=== PATIENT | male | born 1960 | race Caucasian/White ===

== ENCOUNTER → 2017-09-23 | Outpatient (CLI) | payer OTHER ==
[~2017-09-23] MED LIST: AMIT100T2 PO; BUPR-79 PO; CLC100 PO; CYCL10TA6 PO; GLC/500 PO; INSU1INJ SC; METO50TA16 PO; MGNO400 PO; NTRGSL/4 UT; RXC5 PO; SIMV40TA4 PO; ULT50X PO
--- NOTE | 2017-09-23 16:10 | DIAGNOSTIC IMAGING REPORT ---
CHEST 2 VIEWS ROUTINE CLINICAL HISTORY: COUGH COMPARISON STUDY: December 02, 2015 FINDINGS: The heart is mildly enlarged. There is no failure. There are old bilateral rib fractures. There is focal consolidation. There is a linear atelectasis/scarring at the left lung base. There are no significant pleural effusions.[ IMPRESSION: Mild cardiomegaly. No acute findings. Electronically signed by: Felix Hines M.D. 09/23/2017 4:08 PM Dictated Date/Time: 09/23/2017 4:07 PM
== END | disposition home or self-care (01) ==
LOC: C.RAD1850 15:52
PROVIDERS: ATTEND Family Medicine
DX: R05 Cough (principal)

== ENCOUNTER 2017-10-11 22:03 | Emergency (ER) | payer OTHER ==
[~2017-10-11] VITALS: Ht 170.2 cm; Wt 111.7 kg
[2017-10-11 22:06] VITALS: TEMP 36.8; Ht 170.2 cm; Wt 111.7 kg
[2017-10-11] MEDS ORDERED: SODIUM CHLORIDE 0.9% 500ML 500 ML IV STA (22:19)
[2017-10-11] MEDS ORDERED: CLINDAMYCIN 600 MG/54 ML D5W IV STA (22:19)
--- NOTE | 2017-10-11 22:22 | EMERGENCY ROOM VISIT NOTE ---
History Report prepared by Ilya: Annetta Randall Under the Supervision of: Dr. Jay Chacon M.D. First contact with patient: 22:08 Chief Complaint: INFECTION Stated Complaint: STAPH INFECTION History of Present Illness The patient is a 57 year old male who presents to the Emergency Room with complaints of a left lower leg infection beginning 3 weeks ago. The patient reports that he has been on antibiotics for about 3 weeks and was recently changed to Bactrim. Per family, the patient did have redness and swelling of his leg but reports that now it has become red and inflamed where it was not before. Per family, there are also two new ulcers on his leg. Per family, the patient has had a cough but denies fevers, chills, nausea, vomiting.. His family states that they have been going to his doctor weekly. The patient states that he is diabetic, but denies a history of blood clots. Source of History: patient, family Onset: 3 weeks ago Position: leg (right) Quality: other (infection) Timing: constant Associated Symptoms: + cough Review of Systems See HPI for pertinent positives and negatives. A total of ten systems were reviewed and were otherwise negative. Past Medical & Surgical Medical Problems: (1) Acute cholecystitis (2) Altered mental status (3) Arthritis (4) Ascending cholangitis (5) Back pain (6) Diabetes mellitus (7) Fall (8) Fall (9) Fibromyalgia (10) HTN (hypertension) (11) Hyperglycemia due to type 2 diabetes mellitus (12) Hyperlipidemia Nec/Nos (13) Intractable back pain (14) Laceration (15) Left rib fracture (16) Left rib fracture (17) Lumbar disc disease (18) Lumbar stenosis with neurogenic claudication (19) Orthostasis (20) Orthostatic hypotension (21) Right rib fracture Surgical Problems: (1) History of back surgery (2) Hx of cholecystectomy Family History Diabetes mellitus FH: cancer Heart disease Hypertension Lung disease Social History Smoking Status: Former Smoker Alcohol Use: none Marital Status: Housing Status: lives with family Occupation Status: unemployed, disabled Current/Historical Medications Scheduled Amitriptyline Hcl (Elavil), 100 MG PO HS Bupropion (Wellbutrin Sr), 150 MG PO BID Clindamycin Hcl (Clindamycin Hcl), 600 MG PO TID Gabapentin (Neurontin), 100 MG PO TID Glipizide (Glucotrol), 5 MG PO DAILY Insulin Isophan/Regular (Humulin 70/30), 15 UNITS SC BID Metformin Hcl (Glucophage), 500 MG PO BID Metoprolol Tartrate (Lopressor) (Lopressor), 50 MG PO BID Saccharomyces Boulardii (Florastor), 1 CAP PO BID Sulfa/Trimethoprim (Bactrim Ds 800MG/160MG), 1 TAB PO BID Scheduled PRN Ibuprofen Tab (Motrin), 800 MG PO Q8H PRN for Pain Nitroglycerin (Nitrostat), 0.4 MG UT UD PRN for Chest Pain Tramadol HCl (Tramadol HCl), 50 MG PO Q8H PRN for MODERATE TO SEVERE PAIN Allergies Coded Allergies: Clavulanic Acid (Verified Allergy, Unknown, HIVES: ALLERGY TO "BETALACTAMASE INHIBITORS", 12/01/15) Penicillins (Verified Allergy, Unknown, HIVES, 12/02/15) TOLERATED ERTAPENEM X MULTIPLE DOSES NOVEMBER 2015 Tazobactam (Verified Allergy, Unknown, ALLERGY TO "BETALACTAMASE INHIBITORS", 12/01/15) Acetaminophen (Unverified Adverse Reaction, Intermediate, AFFECTS HIS LIVER, 12/01/15) Lisinopril (Verified Adverse Reaction, Intermediate, COUGH/EDEMA, 12/01/15) Physical Exam Vital Signs Date Time Temp Pulse Resp B/P (MAP) Pulse Ox O2 Delivery O2 Flow Rate FiO2 10/12/17 00:01 82 18 162/89 98 Room Air 10/11/17 22:06 36.8 68 18 127/71 99 Room Air Physical Exam GENERAL: Awake, alert, well-appearing, in no distress HENT: Normocephalic, atraumatic. Dry, cracked mucous membranes, oropharynx unremarkable. EYES: Normal conjunctiva. Sclera non-icteric. NECK: Supple. No nuchal rigidity. FROM. No JVD. RESPIRATORY: Clear to auscultation. CARDIAC: Regular rate, normal rhythm. Extremities warm and well perfused. Pulses equal. ABDOMEN: Soft, non-distended. No tenderness to palpation. No rebound or guarding. No masses. RECTAL: Deferred. MUSCULOSKELETAL: Chest examination reveals no tenderness. The back is symmetrical on inspection without obvious abnormality. There is no CVA tenderness to palpation. No joint edema. LOWER EXTREMITIES: Calves are equal size bilaterally and non-tender. 3+ left lower extremity pitting edema with mild erythema and warmth. 3 scattered ulcerations on the left lower extremity without induration or underlying fluctuance. No crepitus. Distal PMS intact. NEURO: Normal sensorium. No sensory or motor deficits noted. SKIN: No jaundice noted. Medical Decision & Procedures ER Provider Diagnostic Interpretation: Radiology results as stated below per my review and radiologist interpretation: L TIBIA/FIBULA 2 VIEWS ROUTINE CLINICAL HISTORY: pain swelling COMPARISON: 09/21/2015 DISCUSSION: There is soft tissue edema. No acute fractures are visualized. No bony destructive lesions are evident. A small soft tissue ulceration within the lateral aspect of the mid calf cannot be excluded. IMPRESSION: 1. No fractures identified 2. No destructive lesions identified 3. Soft tissue edema Electronically signed by: Felix Hines M.D. 10/11/2017 10:53 PM Dictated Date/Time: 10/11/2017 10:52 PM Radiology results as stated below per my review and [employer]. US VENOUS LEFT LOWER EXTREMITY: No DVT demonstrated. Laboratory Results 10/11/17 22:30 Red Blood Count 4.75, Mean Corpuscular Volume 85.7, Mean Corpuscular Hemoglobin 28.6, Mean Corpuscular Hemoglobin Concent 33.4, Mean Platelet Volume 9.2, Neutrophils (%) (Auto) 50.8, Lymphocytes (%) (Auto) 37.2, Monocytes (%) (Auto) 6.5, Eosinophils (%) (Auto) 5.1, Basophils (%) (Auto) 0.2, Neutrophils # (Auto) 2.88, Lymphocytes # (Auto) 2.11, Monocytes # (Auto) 0.37, Eosinophils # (Auto) 0.29, Basophils # (Auto) 0.01 10/11/17 22:30 Test 10/11/17 22:30 White Blood Count 5.67 K/uL (4.8-10.8) Red Blood Count 4.75 M/uL (4.7-6.1) Hemoglobin 13.6 g/dL (14.0-18.0) Hematocrit 40.7 % (42-52) Mean Corpuscular Volume 85.7 fL (80-100) Mean Corpuscular Hemoglobin 28.6 pg (25-34) Mean Corpuscular Hemoglobin Concent 33.4 g/dl (32-36) Platelet Count 179 K/uL (130-400) Mean Platelet Volume 9.2 fL (7.4-10.4) Neutrophils (%) (Auto) 50.8 % Lymphocytes (%) (Auto) 37.2 % Monocytes (%) (Auto) 6.5 % Eosinophils (%) (Auto) 5.1 % Basophils (%) (Auto) 0.2 % Neutrophils # (Auto) 2.88 K/uL (1.4-6.5) Lymphocytes # (Auto) 2.11 K/uL (1.2-3.4) Monocytes # (Auto) 0.37 K/uL (0.11-0.59) Eosinophils # (Auto) 0.29 K/uL (0-0.5) Basophils # (Auto) 0.01 K/uL (0-0.2) RDW Standard Deviation 44.7 fL (36.4-46.3) RDW Coefficient of Variation 14.3 % (11.5-14.5) Immature Granulocyte % (Auto) 0.2 % Immature Granulocyte # (Auto) 0.01 K/uL (0.00-0.02) Anion Gap 8.0 mmol/L (3-11) Est Creatinine Clear Calc Drug Dose 96.8 ml/min Estimated GFR () 97.4 Estimated GFR (Non- 84.1 BUN/Creatinine Ratio 16.1 (10-20) Calcium Level 8.7 mg/dl (8.5-10.1) Total Bilirubin 0.5 mg/dl (0.2-1) Direct Bilirubin 0.2 mg/dl (0-0.2) Aspartate Amino Transf (AST/SGOT) 54 U/L (15-37) Alanine Aminotransferase (ALT/SGPT) 59 U/L (12-78) Alkaline Phosphatase 96 U/L (45-117) Total Protein 7.9 gm/dl (6.4-8.2) Albumin 3.2 gm/dl (3.4-5.0) Lipase 147 U/L (73-393) Laboratory results reviewed by me Medications Administered Medications (Trade) Dose Ordered Sig/Schuyler Route Start Time Stop Time Status Last Admin Dose Admin Sodium Chloride 500 ml @ 999 mls/hr Q31M STAT IV 10/11/17 22:19 10/11/17 22:49 DC 10/11/17 22:39 999 MLS/HR Clindamycin Phosphate (Cleocin 600mg/ 54ml D5W) 600 mg NOW STAT IV 10/11/17 22:19 10/11/17 22:24 DC 10/11/17 22:19 600 MG Ketorolac Tromethamine (Toradol Inj) 15 mg NOW STAT IV 10/12/17 01:11 10/12/17 01:13 DC 10/12/17 01:22 15 MG ED Course 2214: The patient was evaluated in room C11B. A complete history and physical exam was performed. Medical Decision I reviewed the patient's past medical history, medications, and the nursing notes as described above. The patient's presentation and history were concerning for cellulitis, abscess, osteomyelitis, DVT, and venous ulcerations. The patient is a 57-year-old gentleman with a past medical history of diabetes, hypertension, hyperlipidemia who presents emergency department with the report of worsening left lower extremity cellulitis that has been treated outpatient most recently with Bactrim per hpi. On arrival the patient is relatively well- appearing in no acute distress, afebrile stable vital signs. Of note, the patient denies any systemic symptoms such as fever chills, nausea vomiting. Exam the patient has 3+ left lower extremity edema with mild erythema and warmth with several scattered ulcerations without any underlying fluctuance. Patient treated with IV clindamycin empirically on arrival. Labs unremarkable including WBC within normal limits. X-ray negative for any osseous involvement. Duplex negative for DVT. Bedside soft tissue ultrasound of the 3 ulcers demonstrates no discrete fluid collection. The larger ulcer on the lateral aspect of the patient's calf does have cobblestoning/phlegmon consistent with the patient cellulitis with no discrete fluid collection concerning for abscess. Given reassuring workup in the setting of the patient being afebrile with no signs of systemic infection, continued outpatient management is reasonable with change in antibiotic coverage. Plan for oral clindamycin, compression, elevation and prompt wound clinic follow-up for ulcer debridement and continued follow-up. Patient was given strict return instructions should his symptoms become worse over the weekend. Case management assisting for wound clinic referral. Findings and plan for follow-up reviewed with patient. Patient agreeable and d/c'd per discharge instructions. Medication Reconcilliation Current Medication List: was personally reviewed by ny Blood Pressure Screening Patient's blood pressure: Normal blood pressure Impression Primary Impression: Cellulitis Additional Impression: Diabetic ulcer of lower leg Scribe Attestation The scribe's documentation has been prepared under my direction and personally reviewed by me in its entirety. I confirm that the note above accurately reflects all work, treatment, procedures, and medical decision making performed by me. Departure Information Dispostion Home / Self-Care Prescriptions Ibuprofen Tab (MOTRIN) 800 Mg Tab 800 MG PO Q8H Y for Pain for 7 Days, #21 TAB Prov: Jay Chacon M.D. 10/12/17 Saccharomyces Boulardii (Florastor) 250 Mg Cap 1 CAP PO BID for 14 Days, #28 CAP Prov: Jay Chacon M.D. 10/12/17 Clindamycin Hcl (CLINDAMYCIN HCL) 150 Mg Cap 600 MG PO TID for 14 Days, #168 CAP Prov: Jay Chacon M.D. 10/12/17 Referrals Mina MillerD.OHaresh (PCP) Patient Instructions Diabetic Foot Ulcer Dc, ED Infec Skin Cellulitis, My [facility] Additional Instructions Please follow up with your primary care physician and wound clinic on Saturday for re-evaluation and ulcer debridement and regular follow up. You have a continued skin infection. Otherwise, your exam, lab results, xray, and ultrasound did not show signs of an emergent condition at this time. Acetaminophen or ibuprofen for pain and fevers as needed. Clindamycin as directed. Florastor, probiotic, to help prevent antibiotic associated diarrhea. Drink plenty of fluids to ensure hydration. Return to the emergency department for worsening symptoms as described in the accompanying instructions. Problem Qualifiers
[2017-10-11 22:53] LABS: BASO % 0.2 %; BASO ABS # 0.01 K/uL (0-0.2); EOS % 5.1 %; EOS ABS # 0.29 K/uL (0-0.5); HEMATOCRIT 40.7 % (42-52); HEMOGLOBIN 13.6 g/dL (14.0-18.0); IG# 0.01 K/uL (0.00-0.02); LYMPH % 37.2 %; LYMPH ABS # 2.11 K/uL (1.2-3.4); MEAN CELL VOLUME 85.7 fL (80-100); MEAN CORPUSCULAR HEMOGLOBIN 28.6 pg (25-34); MEAN CORPUSCULAR HGB CONC 33.4 g/dl (32-36); MEAN PLATELET VOLUME 9.2 fL (7.4-10.4); MONO % 6.5 %; MONO ABS # 0.37 K/uL (0.11-0.59); NEUT % 50.8 %; NEUT ABS # 2.88 K/uL (1.4-6.5); PLATELET COUNT 179 K/uL (130-400); RED CELL DISTRIBUTION WIDTH CV 14.3 % (11.5-14.5); RED CELL DISTRIBUTION WIDTH SD 44.7 fL (36.4-46.3); WHITE BLOOD COUNT 5.67 K/uL (4.8-10.8)
--- NOTE | 2017-10-11 22:54 | DIAGNOSTIC IMAGING REPORT ---
L TIBIA/FIBULA 2 VIEWS ROUTINE CLINICAL HISTORY: pain swelling COMPARISON: 09/21/2015 DISCUSSION: There is soft tissue edema. No acute fractures are visualized. No bony destructive lesions are evident. A small soft tissue ulceration within the lateral aspect of the mid calf cannot be excluded. IMPRESSION: 1. No fractures identified 2. No destructive lesions identified 3. Soft tissue edema Electronically signed by: Felix Hines M.D. 10/11/2017 10:53 PM Dictated Date/Time: 10/11/2017 10:52 PM
[2017-10-11 23:08] LABS: ALBUMIN 3.2 gm/dl (3.4-5.0); CALCIUM 8.7 mg/dl (8.5-10.1); CREATININE 0.98 mg/dl (0.60-1.40); POTASSIUM 3.9 mmol/L (3.5-5.1)
[2017-10-11] MEDS ORDERED: SULF800T23 PO (23:09)
[2017-10-11] MEDS ORDERED: GABA-112 PO (23:09)
[2017-10-11] MEDS ORDERED: GLIP5TAB3 PO (23:09)
[2017-10-11 23:11] LABS: TOTAL PROTEIN 7.9 gm/dl (6.4-8.2)
[2017-10-12] MEDS ORDERED: IBUP-1451 PO (01:11)
[2017-10-12] MEDS ORDERED: KETOROLAC TROMETHAMINE 30 MG/ML VIAL IV STA (01:11)
[2017-10-12] MEDS ORDERED: SACC250C3 PO (01:11)
[2017-10-12] MEDS ORDERED: CLIN150C15 PO (01:11)
[2017-10-12 01:37] VITALS: BP 142/77; PULSE 88; O2SAT 98
--- NOTE | 2017-10-12 05:36 | DIAGNOSTIC IMAGING REPORT ---
L VENOUS DOPP LOWER EXT UNILAT CLINICAL HISTORY: 57 years-old Male presenting with pain swelling. TECHNIQUE: Real-time grayscale and color and spectral Doppler ultrasound imaging of the veins of the left lower extremity was performed. Compression and augmentation were also utilized. COMPARISON: 09/23/2015. FINDINGS: Left: Common femoral vein: Patent. Greater saphenous vein: Patent. Deep femoral vein: Patent. Femoral vein: Patent. Popliteal vein: Patent. Calf veins: Limited visualization. Other: None. IMPRESSION: No evidence of deep venous thrombosis. Electronically signed by: Russ Leiva M.D. 10/12/2017 5:34 AM Dictated Date/Time: 10/12/2017 5:34 AM
== END 2017-10-12 01:39 | disposition home or self-care (01) ==
LOC: C.EDB 22:03 → C.EDC 10-12 01:39
DX: L03.116 Cellulitis of left lower limb (principal); E11.622 Type 2 diabetes mellitus with other skin ulcer; M19.90 Unspecified osteoarthritis, unspecified site; M79.7 Fibromyalgia; I10 Essential (primary) hypertension; E78.5 Hyperlipidemia, unspecified; M48.062 Spinal stenosis, lumbar region with neurogenic claudication; I95.1 Orthostatic hypotension; Z83.3 Family history of diabetes mellitus; Z80.9 Family history of malignant neoplasm, unspecified; Z82.49 Family history of ischemic heart disease and other diseases of the circulatory system; Z83.6 Family history of other diseases of the respiratory system; Z87.891 Personal history of nicotine dependence; Z79.2 Long term (current) use of antibiotics; Z79.899 Other long term (current) drug therapy; Z88.0 Allergy status to penicillin; Z88.1 Allergy status to other antibiotic agents; Z88.6 Allergy status to analgesic agent; Z88.8 Allergy status to other drugs, medicaments and biological substances

== ENCOUNTER 2019-08-27 05:11 | Observation (INO) ==
--- NOTE | 2019-08-13 08:36 | PAT Medication Instructions ---
Medication Instructions Date of Service August 13, 2019 Home Medications Humulin 70/30 U-100 Insulin 15 units SUBCUT BID 03/18/18 [History Confirmed 08/12/19] amitriptyline 100 mg PO HS 03/18/18 [History Confirmed 08/12/19] bupropion HCl [Wellbutrin SR] 150 mg PO HS 03/18/18 [History Confirmed 08/12/19] glipizide 5 mg PO QAM 03/18/18 [History Confirmed 08/12/19] metoprolol tartrate [Lopressor] 50 mg PO QAM 03/18/18 [History Confirmed 08/12/19] gabapentin 100 mg capsule 300 mg PO TID cap 08/10/19 [History Confirmed 08/12/19] metformin 500 mg tablet 1,000 mg PO BID tab 08/10/19 [History Confirmed 08/12/19] naproxen 1 tab PO BID 08/12/19 [History Confirmed 08/12/19] tramadol 50 mg PO TID PRN 08/12/19 [History Confirmed 08/12/19] ASK your surgeon for instructions naproxen 1 tab PO BID 08/12/19 [History Confirmed 08/12/19] DO NOT take the morning of surgery glipizide 5 mg PO QAM metformin 500 mg tablet 1,000 mg PO BID Take morning of surgery With a small sip of water, OTHERWISE NOTHING TO EAT OR DRINK AFTER MIDNIGHT: metoprolol tartrate [Lopressor] 50 mg PO QAM gabapentin 100 mg capsule 300 mg PO TID tramadol 50 mg PO TID PRN (okay to take up to 4 hours prior to surgery if needed) Take evening before surgery Humulin 70/30 U-100 Insulin 15 units SUBCUT BID amitriptyline 100 mg PO HS bupropion HCl [Wellbutrin SR] 150 mg PO HS gabapentin 100 mg capsule 300 mg PO TID tramadol 50 mg PO TID PRN (if needed) metformin 500 mg tablet 1,000 mg PO BID tab 08/10/19 [History Confirmed 08/12/19] Insulin Dependent Diabetic Patients * Test your blood sugar the morning of surgery * If Blood Sugar is GREATER THAN 150, take HALF of your regular dose of: Humulin 70/30 U-100 Insulin take 7 units * If Blood Sugar is LESS THAN 150, DO NOT TAKE ANY: Humulin 70/30 U-100 Insulin Other Notes If you have any questions please call us at [phone] or [phone] or [phone] or [phone]
--- NOTE | 2019-08-14 08:32 | Anesthesiology Consultation ---
Date of Service August 14, 2019 Assessment & Plan (1) Encounter for pre-operative examination: CHECK BSG AM DOS Chart Review Chart Review: Acceptable Risk for Surgery and Patient seen in Pre Admission Testing Teaching & Discussion Instructed NPO after midnight before surgery, except medications with 15 cc of water. Medication instructions provided according to the PAT guidelines. History Surgery Operation Date: 08/27/19 07:00 Proposed Procedures p Open Right Inguinal Hernia Repair with Mesh - Floyd Younger, Height/Weight Height: 5 ft 10 in Weight: 108.3 kg Allergies Allergy/AdvReac Type Severity Reaction Status Date / Time clavulanic acid Allergy Unknown HIVES: Verified 08/12/19 09:02 ALLERGY TO "BETALACTAMASE INHIBITORS" Penicillins Allergy Unknown HIVES Verified 08/12/19 09:02 tazobactam Allergy Unknown ALLERGY TO Verified 08/12/19 09:02 "BETALACTAMASE INHIBITORS" acetaminophen AdvReac Intermediate AFFECTS Verified 08/12/19 09:02 HIS LIVER lisinopril AdvReac Intermediate COUGH/EDEMA Verified 08/12/19 09:02 Medications Home Medications Medication Instructions Recorded Confirmed Last Taken Humulin 70/30 U-100 Insulin 15 units SUBCUT BID 03/18/18 08/12/19 08/27/18 12:00 amitriptyline 100 mg PO HS 03/18/18 08/12/19 08/26/18 22:00 bupropion HCl [Wellbutrin SR] 150 mg PO HS 03/18/18 08/12/19 08/26/18 22:00 glipizide 5 mg PO QAM 03/18/18 08/12/19 08/27/18 11:00 metoprolol tartrate [Lopressor] 50 mg PO QAM 03/18/18 08/12/19 08/27/18 22:00 gabapentin 100 mg capsule 300 mg PO TID cap 08/10/19 08/12/19 Unknown metformin 500 mg tablet 1,000 mg PO BID tab 08/10/19 08/12/19 Unknown naproxen 1 tab PO BID 08/12/19 08/12/19 Unknown tramadol 50 mg PO TID PRN 08/12/19 08/12/19 Unknown Past Medical History Medical History Atypical chest pain Per 2016 cardio consult, "He has a long history of atypical chest discomfort and cardiovascular evaluations, he had a abnormal stress test in February 2007 and ultimately had a cardiac catheterization performed on 04/08/2007. This c atheterization showed no coronary artery disease." Chronic back pain Degenerative disc disease Depression Diabetes mellitus, type 2 iddm Diabetic neuropathy Fatty liver GURROLA Hypertension Osteoarthritis Rheumatic nodule B/L hands Rheumatoid arthritis Follows with rheum, does not know name of Dr Exercise / Class Metabolic Activity III < 4 Walking/Shop/Light housework (+SOB with ambulation, uses cane. +CP randomly, not assc with activity, also occurs at rest.) Past Family History Family History Mother Diabetes Father Heart disease Other Family history non-contributory No family history of adverse response to anesthesia Past Surgical History Surgical History History of bronchoscopy ~2007 (per medical record, pt denies) History of cardiac cath [facility] 2006 -- no stents. History of cholecystectomy 12/01/15 - MAC#4, ETT#8.0, Grade 1 View with easy placement. 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 History of tonsillectomy History of total hip arthroplasty left hip Past Anesthesia History No Hx of Anesthesia Complications and No Family Hx of Anesthesia Complications History of PONV No Hx of PONV and Hx of Motion Sickness Social History Smoking Status: Never smoker Do You Dip or Chew Tobacco: No Hx Alcohol Use: No Hx Substance Use: No substance use type: does not use Review of Systems Pt denies any recent shortness of breath above baseline, cough, fever or URI. +palpitations +chest pain yesterday Physical Exam Vital Signs BP: 117/73 P: 94bpm SPO2: 95% RA T: 97.6 F R: 20 Constitutional + obese ENMT Mouth: + edentulous; no chipped teeth and no loose teeth Thyromental Distance: > or= 3.5 Finger Breadths (.5) Mallampati Class: II Large uvula. Neck + thick neck, + limited neck extension (mildly) and + facial hair (short goatee) Respiratory normal respiratory effort Auscultation: lungs clear to auscultation bilaterally and + crackles (very soft L lung base) Cardiovascular Rate/Rhythm: regular rhythm and + tachycardic (borderline) Vessels: no carotid bruit Extremities: no edema Testing Laboratory Results 08/14/19 08:37 08/14/19 08:37 Hemoglobin A1c 6.6 % (4.5-5.6) H 08/14/19 08:37 Electrocardiogram Date: 08/14/19 Sinus rhythm at 90 bpm with first-degree AV block. Compared with EKG of 08/19/2018, no significant change was found. Chest X-Ray Date: 08/14/19 FINDINGS: No pneumothorax. Stable blunting the left lateral costophrenic sulcus and left basilar linear densities suggestive of scarring. Old, healed left-sided rib fractures are again noted. No new focal lung consolidations. Old, right rib fractures are also noted. The heart remains mildly enlarged. No evidence for pulmonary edema. IMPRESSION: No significant change compared to the prior study. No acute process. Chronic left basilar changes are again noted. Echocardiogram Date: 09/23/15 EF: Estimated 60-65%. 1. Normal left ventricular size and systolic function. No definite regional wall motion abnormalities. Mild to moderate concentric left ventricular hypertrophy. 2. The left atrium is mildly dilated. 3. No significant valvular abnormalities visualized. 4. Technically difficult study. Stress Test Date: 09/23/15 Type: DSE Resting EF: 60-65% No ischemic changes noted on DSE at 65% MPHR. The target heart rate was not obtained. Cannot rule out ischemic changes at faster heart rates. Nondiagnostic dobutamine EKG as target heart rate is not obtained. No chest pain reported. No arrhythmia was noted with stress. Appropriate blood pressure response. Technically difficult study, enhanced with IV Definity. Baseline echo shows normal LV size and systolic function. No definite regional wall motion abnormalities. Mild to moderate concentric LVH. The left atrium is mildly dilated. No significant valvular abnormalities visualized. Technically difficult study. Cardiac Catheterization Date: 04/08/07 FINDINGS: The left main was normal. The LAD was normal and gave rise to a large D1 as well as a small D2. There was no disease in the LAD system. The left circumflex gave rise to a small ramus and a large branching M1. There was no disease in the left circumflex system. The right coronary artery gave rise to a large acute marginal that supplied some of the PDA territory. There was also a small PDA and two posterolateral branches. There was no disease in the right coronary artery system. IMPRESSION: Atypical chest pain in a patient with diabetes. His stress test was negative but inadequate. Imaging portion was likely a false positive. The patient should continue with primary prevention. This is managed by Dr. Mina Miller.
[2019-08-14 09:30] LABS: Basophils # (auto) 0.02 K/uL (0-0.2); Basophils % (auto) 0.4 %; Eosinophils # (auto) 0.32 K/uL (0-0.5); Eosinophils % (auto) 5.6 %; Hematocrit (blood only) 42.5 % (42-52); Hemoglobin 13.7 g/dL (14.0-18.0); Lymphocytes # (auto) 2.16 K/uL (1.2-3.4); Mean Corpuscular Hemoglobin 30.3 pg (25-34); Mean Corpuscular Hgb Conc 32.2 g/dL (32-36); Mean Platelet Volume 9.9 fL (7.4-10.4); Monocytes # (auto) 0.46 K/uL (0.11-0.59); Monocytes % (auto) 8.1 %; Neutrophils # (auto) 2.73 K/uL (1.4-6.5); Neutrophils % (auto) 47.9 %; Platelet Count 166 K/uL (130-400); RDW Coefficient of Variation 14.1 % (11.5-14.5); RDW Standard Deviation 48.5 fL (36.4-46.3); Red Blood Count 4.52 M/uL (4.7-6.1); White Blood Count 5.69 K/uL (4.8-10.8)
[2019-08-14 09:38] LABS: Estimated Average Glucose 143 mg/dl; Hemoglobin A1C 6.6 % (4.5-5.6)
[2019-08-14 09:39] LABS: BUN Creatinine Ratio 18.8 (10-20); Calcium 8.7 mg/dl (8.5-10.1); Creatinine Clr Calc Pharmacy 82.4 ml/min; Est GFR (African American) 78.3; Est GFR (Non-African American) 67.6; Potassium 4.5 mmol/L (3.5-5.1)
--- NOTE | 2019-08-14 16:44 | Electrocardiogram Report ---
Test Reason : Blood Pressure : / mmHG Vent. Rate : 090 BPM Atrial Rate : 090 BPM P-R Int : 252 ms QRS Dur : 108 ms QT Int : 392 ms P-R-T Axes : 071 020 058 degrees QTc Int : 479 ms Sinus rhythm with 1st degree A-V block Otherwise normal ECG When compared with ECG of 19-AUG-2018 09:44, No significant change was found Confirmed by Arnel Ludwig ([id number]) on 08/14/2019 4:44:17 PM Referred By: Floyd Younger Confirmed By:Arnel Ludwig
[2019-08-27] MEDS ORDERED: LR 15ML/HR IV SCH (06:00)
[2019-08-27] MEDS ORDERED: CLINDAMYCIN 900 MG / 50ML D5W IV SCH (06:00)
--- NOTE | 2019-08-27 06:23 | History & Physical Bridge Note ---
Date of Service August 27, 2019 History & Physical Bridge Note I have examined the patient, reviewed the History & Physical and in the interval since the performance of the History & Physical I have noted the following changes of clinical significance: no changes noted
[2019-08-27] MEDS ORDERED: MIDAZOLAM HCL 1 MG/ML 2ML VIAL ONE (06:42)
[2019-08-27] MEDS ORDERED: fentaNYL citrate 100 MCG/2 ML VIAL ONE ×2 (06:43→07:54)
[2019-08-27] MEDS ORDERED: ACETAMINOPHEN 1000 MG/100 ML IV IV ONE (06:51)
[2019-08-27] MEDS ORDERED: DEXAMETHASONE SOD INJ 4 MG/ML VIAL ONE (07:01)
[2019-08-27] MEDS ORDERED: ONDANSETRON INJ 2 MG/ML 2 ML VIAL ONE (07:01)
[2019-08-27] MEDS ORDERED: KETOROLAC 30 MG/ML VIAL ONE (07:01)
[2019-08-27] MEDS ORDERED: PROPOFOL IV EMULSION 10 MG/ML 20 ML VIAL IV ONE (07:01)
[2019-08-27] MEDS ORDERED: LIDOCAINE HCL 2% 2 ML VIAL/AMP(20MG/ML) INFIL ONE (07:01)
[2019-08-27] MEDS ORDERED: BUPIVACAINE/EPINEPHRINE 0.5% MPF 1:200,000 10 ML VIAL ONE (07:04)
[2019-08-27] MEDS ORDERED: HYDROmorphone INJ 2 MG/ML SYR/VIAL IV PRN (07:59)
[2019-08-27] MEDS ORDERED: PROMETHAZINE HCL 6.25 MG in SODIUM CHLORIDE 0.9% 50 ML IV PRN (07:59)
[2019-08-27] MEDS ORDERED: ATROPINE SULFATE 0.1 MG/ML 10ML SYR IV PRN (07:59)
[2019-08-27] MEDS ORDERED: ONDANSETRON INJ 2 MG/ML 2 ML VIAL IV PRN ×2 (07:59→08:58)
[2019-08-27] MEDS ORDERED: ePHEDrine sulfate 50 MG/ML AMP IV PRN (07:59)
[2019-08-27] MEDS ORDERED: fentaNYL citrate 100 MCG/2 ML VIAL IV PRN (07:59)
[2019-08-27] MEDS ORDERED: MoRPHine SULFATE 4 MG/ML 1 ML CARP\\VIAL IV PRN (08:58)
[2019-08-27] MEDS ORDERED: MoRPHine SULFATE 2 MG/ML CARP IV PRN (08:58)
--- NOTE | 2019-08-27 08:59 | Operative Report ---
PG Post Operative Report Pre & Post Diagnosis Operation Date: 08/27/19 08:00 Pre-Op Diagnosis: Right Inguinal Hernia Post-Op Diagnosis: Right Inguinal Hernia I identified the patient and participated in the time-out.: Yes Procedure Operation Date: 08/27/19 08:00 Actual Procedures p Open Right Inguinal Hernia Repair with Prolite Mesh(Right) - Floyd Younger DO Surgeon Floyd Younger DO Truck Sales Representative bhargavi Zheng Estimated Blood Loss 10 Findings Consistent with Post-Op Diagnosis Specimens none Description of Procedure After informed consent was obtained the patient was taken the operating room and placed in supine position. After successful placement of the laryngeal mask airway the groin was shaved and sterilely prepped and draped in usual fashion. An inguinal incision was made with a 15 blade scalpel and carried down through the soft tissue using electrocautery. The external oblique aponeurosis was skeletonized. A fresh blade was used to make an incision and then Metzenbaum scissors were used to extend this distally through the external ring as well as for several centimeters proximally. Once in the inguinal canal I used blunt finger dissection to free up the cord and cord structures. I was able to gently tease the cord off of the pubic bone and placed a Clinton drain around it. There was a small direct hernia. Interestingly we found an old gallbladder clip in the inguinal canal which I removed. Next, We inspected the cord and cord structures using blunt dissection with small amounts of electrocautery. Eventually we were able to identify a small hernia sac. We dissected this back to its neck and then dunked it back into the abdominal cavity. It was able to stay self reduced. We then thoroughly irrigated the wound. I used a polypropylene navarro-holed mesh as an onlay. It was secured distally to Jose's ligament, laterally along the shelving portion of Poupart's ligament and med ially along the midline musculature. 0 Ethibond was used for the suturing. The "arms" of the mesh were wrapped around behind the cord and cord structures and again secured to underlying muscle. The mesh laid nice and flat and tension- free and did not impinge on the cord structures themselves. We thoroughly irrigated the wound. There was adequate hemostasis. I injected Marcaine around the edges of the mesh for postoperative analgesia. We then closed the external oblique aponeurosis with 2-0 Vicryl in a running fashion. Soft tissue was irrigated and closed in multiple layers using 3-0 Vicryl for the deep layers and 4-0 Monocryl for the skin. Some additional Marcaine was injected around the skin incision. We then used a skin glue as a dressing. The patient was awaken extubated and transferred to recovery in stable condition. My physician's assistant general manager was present throughout the entire procedure. She helped prep the patient. Helped with retraction throughout the case to aid my dissection, assisted with wound closure as well as dressing placement. I attest to the content of the Intraoperative Record and any orders documented therein. Any exceptions are noted below. I attest to the content of the Intraoperative Record and any orders documented therein. Any exceptions are noted below.
[2019-08-27] MEDS ORDERED: SODIUM CHLORIDE 0.9% 1000ML 1,000 ML IV SCH (09:00)
--- NOTE | 2019-08-27 09:35 | Anesthesiology Progress Note ---
Date of Service August 27, 2019 Anesthesia Post Procedure Vital Signs Vital Signs: Temp Pulse Pulse Resp BP BP Pulse Ox 08/27/19 09:25 100 H 18 151/87 H 96 08/27/19 09:15 99 H 18 135/95 96 08/27/19 09:05 93 H 15 105/73 96 08/27/19 08:59 36.5 C 90 12 90/65 L 95 08/27/19 05:56 36.5 C 100 H 18 167/95 H 97 Pain Intensity Back: Pain Intensity: 8 Transfer of Care Handoff Completed per policy Notes Mental Status: alert / awake / arousable Patient Amnestic to Procedure: Yes Nausea / Vomiting: adequately controlled Pain: adequately controlled Airway Patency, RR, SpO2: stable & adequate BP & HR: stable & adequate Hydration State: stable & adequate Anesthetic Complications: no major complications apparent
[2019-08-27] MEDS: TRAMADOL HCL 50 MG TABLET PO PRN ×3 (10:04→23:30)
[2019-08-27] MEDS ORDERED: DEXTROSE 50% 50 ML SYRINGE IV PRN (12:29)
[2019-08-27] MEDS ORDERED: GLUCOSE 40% GEL 15 GM TUBE PO PRN (12:29)
[2019-08-27] MEDS ORDERED: CARBOHYDRATES FOR HYPOGLYCEMIA PO PRN (12:29)
[2019-08-27] MEDS ORDERED: GLUCAGON FOR INJ 1 MG VIAL SQ PRN (12:29)
[2019-08-27] MEDS ORDERED: GLUCOSE 10 TABS/TUBE PO PRN (12:29)
[2019-08-27] MEDS: INSULIN ASPART 100 UNITS/ML 3 ML PEN SC SCH ×4 (13:26→21:30)
[2019-08-27] MEDS ORDERED: PHARMACY GLYCEMIC MGMT CONSULT PRN (13:48)
[2019-08-27] MEDS ORDERED: INSULIN HUMAN NPH SC STA (13:49)
--- NOTE | 2019-08-27 14:03 | Pharmacy Report ---
Pharmacy Glycemic Short Note 2 - Date of Service August 27, 2019 - Glycemic Short BSG Results (Last 24 hours): 08/27/19 08/27/19 08/27/19 05:35 09:04 12:37 POC Glucose 105 H 119 H 339 H* 08/27/19 08/27/19 08/27/19 12:38 13:07 13:09 POC Glucose 287 H 307 H* 296 H OUTPATIENT ANTIDIABETIC REGIMEN: * 70/30 15u BIDM, Glipizide, Metformin ASSESSMENT: * Pt is a 59yo M type II diabetic. He is POD 0. PMHx consistent with diabetic neuropathy, GURROLA, HTN, OA, among others. His outpt glycemic control is adequate as evidenced by his A1C of 6.6%. He received DXM 8mg IV in the OR. He is ordered a diet. * Unfortunately, at time of glycemic consult his BSG is 339mg/dL. PLAN FOR INPATIENT GLYCEMIC CONTROL: * Hold outpatient oral diabetes medications * Basal insulin - will use NPH for ease of transition at time of d/c * NPH 25u X1 then a dose tonight if necessary. * Bolus insulin * NovoLog per scale ACHS or Q6hrs while NPO * Goal Range: Low 110 mg/dL - High 140 mg/dL * Correction Factor: 15 mg/dL/unit * Nutritional / Prandial insulin per carb ratio of 1 unit per 5 grams CHO consumed * will add 00,04 checks to help control his hyperglycemia
[2019-08-27] MEDS: GABAPENTIN 300 MG CAP PO SCH ×2 (15:23→20:38)
[2019-08-27] MEDS: OXYCODONE HCL IR 5 MG TAB (IMMEDIATE RELEASE) PO PRN (20:38)
[2019-08-27] MEDS ORDERED: AMITRIPTYLINE HCL 100 MG TAB PO SCH (21:00)
[2019-08-28] MEDS: INSULIN ASPART 100 UNITS/ML 3 ML PEN SC SCH ×4 (00:28→13:33)
--- NOTE | 2019-08-28 07:40 | Surgery Progress Note ---
Date of Service August 28, 2019 Assessment & Plan (1) Right inguinal hernia: effect of marcaine should be resolving has some underlying neuropathy will recheck later today as above. still c/o of RLE weakness. upon further questioning, pt having frequent falls at home. has underlying neuropathy. will get PT consult. ? home needs. ? rehab. marcaine should be resolving soon. no other surgical reason for RLE weakness. Subjective still some RLE numbness, weakness, no other c/o Physical Exam Gastrointestinal (Abdomen): Inspection/Auscultation: + abdominal surgical incision (clean, dry) Percussion/Palpation: abdomen soft Musculoskeletal: Extremities: + abnormal strength (4/5 RLE) Results & Data Vital Signs (Past 12 Hours) Vital Signs Temp Pulse Resp BP Pulse Ox 08/28/19 07:27 36.7 C 94 H 18 131/66 91 08/28/19 03:26 37.4 C 101 H 16 128/76 93 08/27/19 23:16 37.3 C 97 H 16 116/67 93 PG Care Time/CCT Total # of Minutes Spent Total Time Spent with Patient: Total time spent is greater than 50% in coordination of care (as documented) at patient's floor/unit and/or counseling patient: Coding Level of Care Code None Diagnoses Right inguinal hernia K40.90
[2019-08-28] MEDS: OXYCODONE HCL IR 5 MG TAB (IMMEDIATE RELEASE) PO PRN (07:51)
[2019-08-28] MEDS: GABAPENTIN 300 MG CAP PO SCH ×2 (08:53→13:31)
[2019-08-28] MEDS ORDERED: BuPROPion SR 150 MG TABCR PO SCH (09:00)
[2019-08-28] MEDS ORDERED: METOPROLOL TARTRATE 50 MG TAB PO SCH (09:00)
--- NOTE | 2019-08-28 10:02 | Pharmacy Report ---
Pharmacy Glycemic Short Note 2 - Date of Service August 28, 2019 - Glycemic Short BSG Results (Last 24 hours): 08/27/19 08/27/19 08/27/19 12:37 12:38 13:07 POC Glucose 339 H* 287 H 307 H* 08/27/19 08/27/19 08/27/19 13:09 17:04 20:54 POC Glucose 296 H 104 H 168 H 08/28/19 08/28/19 08/28/19 00:24 03:59 08:05 POC Glucose 111 H 295 H 84 OUTPATIENT ANTIDIABETIC REGIMEN: * Confirmed with patient no insulin at home currently * metformin 1000 mg bid, glipizide 5 mg daily --> glimepiride 2 mg daily on external fill hx (need to clarify with patient) ASSESSMENT: 08/28: * Patient received total of 44 units of insulin yesterday, of which 25 were NPH to help cover steroids * Fasting BSG 84 mg/dL - will hold basal this morning and also loosen CR as likely steroids wearing off * BSGs overnight elevated ~295 mg/dL - spoke with nurse and patient may have had some crackers * Lunchtime BSG w/in range - continue same CF/CR PLAN FOR INPATIENT GLYCEMIC CONTROL: * Hold outpatient oral diabetes medications * Basal insulin - 10 units if BSG >200 at HS * Bolus insulin - loosen * NovoLog per scale ACHS or Q6hrs while NPO * Goal Range: Low 110 mg/dL - High 140 mg/dL * Correction Factor: 20 mg/dL/unit * Nutritional / Prandial insulin per carb ratio of 1 unit per 6 grams CHO consumed * will add 00,04 checks to help control his hyperglycemia
--- NOTE | 2019-08-28 15:15 | Discharge Summary ---
Date of Service August 28, 2019 Principal Diagnosis 1. Right inguinal hernia 2. Type II DM with neuropathy 3. Lumbar stenosis Discharge Exam Gastrointestinal (Abdomen) Inspection/Auscultation: + abdominal surgical incision (clean, dry) Percussion/Palpation: abdomen soft Musculoskeletal Extremities: + abnormal strength (RLE 3/5) Discharge Data Allergies Allergy/AdvReac Type Severity Reaction Status Date / Time clavulanic acid Allergy Unknown HIVES: Verified 08/27/19 05:37 ALLERGY TO "BETALACTAMASE INHIBITORS" Penicillins Allergy Unknown HIVES Verified 08/27/19 05:37 tazobactam Allergy Unknown ALLERGY TO Verified 08/27/19 05:37 "BETALACTAMASE INHIBITORS" acetaminophen AdvReac Intermediate AFFECTS Verified 08/27/19 05:37 HIS LIVER lisinopril AdvReac Intermediate COUGH/EDEMA Verified 08/27/19 05:37 Procedures Performed Operation Date: 08/27/19 08:00 Actual Procedures p Open Right Inguinal Hernia Repair with Prolite Mesh(Right) - Floyd Younger, [facility] Course (1) Right inguinal hernia: 59 y/o male was taken to the operating room for elective right inguinal hernia repair. Postoperatively he complained of numbness and weakness in his RLE, was not felt to be safe for discharge and was admitted for overnight observation. Marcaine was used as local anesthetic, possibly affecting femoral nerve. The next morning his symptoms had improved but he still had ambulatory dysfunction, which has been an ongoing problem at home where he has had frequent falls. He was evaluated by PT, additional rehab was recommended during his surgical recovery. He was accepted and stable for transfer to [facility] later in the day. Total Time Total Time Spent Total Time Spent (In Minutes): 15 Discharge Plan Discharge Items Patient Disposition: Transfer Inpatient Rehab Fac Reason For Visit: Right Inguinal Hernia Discharge Diagnosis: right inguinal hernia repair Activity: Per Instructions section Lifting: No more than 10 pounds Bathing Comment: may shower tomorrow-08/28/19; no soaking in tubs Exercise/Sports: Wait until after follow-up appointment Non-emergency contact: Surgeon Call non-emergency contact if: you have any medication questions, your symptoms worsen, your pain is not controlled, your pain is worsening, your pain is unusual for you, you have a fever, your temperature is above 101.5, your wound has increased redness, your wound has increased drainage and your wound pain has increased Follow-up/Referrals: Floyd Younger DO [Surgeon] - (Please call to schedule follow up in clinic within 2 weeks) Mina Miller DO [Primary Care Provider] - Diet: Regular Addtl Attending Provider Instructions: You have been provided a prescription for extra Tramadol. You may take 1-2 tablets orally every 6 hours, if needed for moderate to severe pain pain. As your pain improves over the next couple of days you may resume your Tramadol as has been previously prescribed to you. You also have been prescribed some Oxycodone, which is a narcotic to be taken only if needed for severe pain. Pending Studies at Discharge: No Stand-Alone Forms: Anesthesia/Sedation, Adult, [facility] Skilled Items Patient informed of condition?: Yes Discharge Level of Care: Acute rehab Communicable Disease: No Discharge Prognosis: Improving Lines: None Urinary Catheter: No Medications and DC Order Prescriptions: New tramadol 50 mg tablet 50 - 100 mg PO Q6H PRN (Reason: pain, for initial therapy, max 6 tabs per days) Qty: 12 RF: 0 oxycodone 5 mg tablet 5 mg PO .q4-6h PRN (Reason: pain, for initial therapy, max 6 tabs per day) Qty: 15 RF: 0 Continued naproxen 1 tab PO BID RF: 0 bupropion HCl [Wellbutrin SR] 150 mg Tablet Sustained-Release 12 Hr 150 mg PO QAM RF: 0 metoprolol tartrate [Lopressor] 50 mg Tablet 50 mg PO QAM RF: 0 amitriptyline 100 mg Tablet 100 mg PO HS RF: 0 glipizide 5 mg Tablet 5 mg PO QAM RF: 0 gabapentin 100 mg capsule 300 mg PO TID RF: 0 metformin 500 mg tablet 1,000 mg PO BID RF: 0 Discontinued tramadol 50 mg Tablet 50 mg PO TID PRN (Reason: Pain) RF: 0 Discharge Orders: Discharge Order (Routine); Ordered 08/28/19 Ordered By: Quinn Nance/Other Patient Handouts: Surgery Prevent DVT After Admission Data Admit Date/Time: 08/27/19 11:22 Attending Provider: Floyd Younger Admit Provider: Floyd Younger Primary Care Provider: Mina Miller Other Providers: Horacio Jimenez ; [facility] Other Interventions: Discharge Summary Assessment (RN) Last Done: 08/27/19 12:00 Coding Level of Care Code D/C Day Management <30 mins Diagnoses Right inguinal hernia K40.90
[2019-08-28] MEDS ORDERED: LANTUS PER UNIT CHARGE SQ SCH (21:00)
== END 2019-08-28 16:30 ==
LOC: ASU 05:11 → 3W 05:11

== ENCOUNTER 2020-08-08 10:00 | Observation (INO) ==
--- NOTE | 2020-07-07 12:18 | PAT Medication Instructions ---
Medication Instructions Date of Service July 07, 2020 Home Medications Medication Instructions Recorded tramadol 50 - 100 mg PO Q6H PRN #12 tab 08/27/19 amitriptyline 100 mg PO HS bupropion HCl [Wellbutrin SR] 150 mg PO QAM metformin 500 mg tablet 1,000 mg PO BID tramadol 50 - 100 mg PO Q6H PRN naproxen 500 mg tablet 500 mg PO BID gabapentin 900 mg PO BID glimepiride 2 mg PO QAM metoprolol succinate [Toprol XL] 25 mg PO QAM ASK your surgeon for instructions naproxen 500 mg tablet 500 mg PO BID DO NOT take the morning of surgery metformin 500 mg tablet 1,000 mg PO BID glimepiride 2 mg PO QAM Take morning of surgery With a small sip of water, OTHERWISE NOTHING TO EAT OR DRINK AFTER MIDNIGHT: bupropion HCl [Wellbutrin SR] 150 mg PO QAM tramadol 50 - 100 mg PO Q6H PRN (okay to take up to 4 hours prior to surgery if needed) gabapentin 900 mg PO BID metoprolol succinate [Toprol XL] 25 mg PO QAM Take evening before surgery amitriptyline 100 mg PO HS metformin 500 mg tablet 1,000 mg PO BID tramadol 50 - 100 mg PO Q6H PRN (if needed) gabapentin 900 mg PO BID Other Notes If you have any questions please call us at [phone] or [phone] or [phone] or [phone]
--- NOTE | 2020-07-12 10:23 | Anesthesiology Consultation ---
Date of Service July 12, 2020 Assessment & Plan (1) Encounter for pre-operative examination: - Per assessment on 07/12: Travel screen negative. No known COVID-19 positive contacts or current COVID-19 related symptoms. Surgeon arranging preop COVID te sting. Awaiting results. - Check BSG AM DOS - S/P right open inguinal hernia repair with mesh: 08/27/19: LMA#5, atraumatic, easy with good seal at [facility] Chart Review Chart Review: Acceptable Risk for Surgery (pending preop UA) and Patient seen in Pre Admission Testing Teaching & Discussion Pre-Anesthesia Teaching/Discussion Notes: Instructed NPO after midnight before surgery,except medications with 15 cc of water. Medication instructions provided according to the PAT guidelines. History Surgery Operation Date: 08/09/20 10:35 Proposed Procedures p Right Total Hip Arthroplasty - Reno Witt DO Height/Weight Height: 5 ft 10 in Weight: 100.2 kg Allergies Allergy/AdvReac Type Severity Reaction Status Date / Time lisinopril Allergy Intermediate cough, Verified 07/12/20 10:23 edema clavulanic acid Allergy Unknown hives Verified 07/12/20 10:23 Penicillins Allergy Unknown hives Verified 07/12/20 10:23 tazobactam Allergy Unknown hives Verified 07/12/20 10:23 acetaminophen AdvReac Intermediate liver Verified 07/12/20 10:23 injury Medications Home Medications Medication Instructions Recorded Confirmed Last Taken amitriptyline 100 mg PO HS 03/18/18 07/07/20 08/26/19 22:00 bupropion HCl [Wellbutrin SR] 150 mg PO QAM 03/18/18 07/07/20 08/26/19 08:00 metformin 500 mg tablet 1,000 mg PO BID tab 08/10/19 07/07/20 08/26/19 08:00 tramadol 50 - 100 mg PO Q6H PRN #12 tab 08/27/19 07/07/20 Unknown naproxen 500 mg tablet 500 mg PO BID 09/09/19 07/07/20 Unknown gabapentin 900 mg PO BID 01/21/20 07/07/20 Unknown glimepiride 2 mg PO QAM 01/21/20 07/07/20 Unknown metoprolol succinate [Toprol XL] 25 mg PO QAM 01/21/20 07/07/20 Unknown Past Medical History Medical History Chronic back pain Degenerative disc disease Depression Diabetes mellitus, type 2 NIDDM Diabetic neuropathy Fatty liver GURROLA Hypertension Osteoarthritis Rheumatic nodule hands Rheumatoid arthritis Follows with rheumatology, affects hands (nodules), good cervical extension Exercise / Class Metabolic Activity III < 4 Walking/Shop/Light housework (one flight of stairs (no chest pain, + sob)) Past Family History Family History Mother Diabetes Father Heart disease Other Family history non-contributory No family history of adverse response to anesthesia Past Surgical History Surgical History History of bronchoscopy ~2007 (per medical record, pt denies) History of cardiac cath 2006 ([facility])- no stents History of cholecystectomy 12/01/15 - MAC#4, ETT#8.0, Grade 1 View with easy placement History of esophagogastroduodenoscopy (EGD) History of lumbar fusion x2 History of right inguinal hernia repair right open inguinal hernia repair with mesh: 08/27/19: LMA#5, atraumatic, easy with good seal at [facility] 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 Per 2016 cardio consult, "He has a long history of atypical chest discomfort and cardiovascular evaluations, he had a abnormal stress test in February 2007 and ultimately had a cardiac catheterization performed on 04/08/2007. This catheterization showed no coronary artery disease." Patient reports at PAT visit 07/12/19 that he has not had any recurrent chest pain in a long time. + SOB with one flight of stairs (no chest pain). Patient denies chest pain, cough, wheezing, palpitations. Physical Exam Vital Signs VITALS BP 131/81 P 96 TEMP 98.0 SP02 98%RA RESP 16 PHYSICAL Full neck and c-spine range of motion. Full TMJ range of motion. TMD 3 finger breaths Mallampati Score 2 Dentition: edentulous Lungs: clear throughout to auscultation Cardiac: regular rate and rhythm, no murmurs noted Spine: normal Carotid arteries: negative bruit Extremities: no edema Testing Laboratory Results 07/12/20 10:54 07/12/20 10:54 PT 11.5 Seconds (9.0-12.0) 07/12/20 10:54 INR 1.1 (0.9-1.1) 07/12/20 10:54 APTT 27.6 Seconds (21.0-31.0) 07/12/20 10:54 Hemoglobin A1c 6.0 % (4.5-5.6) H 07/12/20 10:54 Blood Type B Positive 07/12/20 10:54 Antibody Screen NEGATIVE 07/12/20 10:54 Electrocardiogram Date: 07/12/50 SR with first degree AVB at 98bpm. Otherwise normal ECG. Chest X-Ray Date: 07/12/20 FINDINGS: PA and lateral chest radiographs are compared to study dated 08/19/2018 and correlated with chest CT dated 12/02/2015. The heart is enlarged noting atherosclerotic calcification of the thoracic aorta. The pulmonary vasculature is noncongested chronic interstitial thickening is similar to previous. Parenchymal scarring and pleural thickening is again seen at the left lung base. There is no airspace consolidation typical for pneumonia or pleural effusion. There is no pneumothorax. The skeletal structures are osteopenic. There are numerous healed bilateral rib fractures. Surgical clips are seen in the upper abdomen. IMPRESSION: Cardiomegaly and chronic changes as above with no active disease in the chest. Echocardiogram Date: 09/23/15 EF: Estimated 60-65%. 1. Normal left ventricular size and systolic function. No definite regional wall motion abnormalities. Mild to moderate concentric left ventricular hypertrophy. 2. The left atrium is mildly dilated. 3. No significant valvular abnormalities visualized. 4. Technically difficult study. Stress Test Date: 09/23/15 Type: DSE Resting EF: 60-65% No ischemic changes noted on DSE at 65% MPHR. The target heart rate was not obtained. Cannot rule out ischemic changes at faster heart rates. Nondiagnostic dobutamine EKG as target heart rate is not obtained. No chest pain reported. No arrhythmia was noted with stress. Appropriate blood pressure response. Technically difficult study, enhanced with IV Definity. Baseline echo shows normal LV size and systolic function. No definite regional wall motion abnormalities. Mild to moderate concentric LVH. The left atrium is mildly dilated. No significant valvular abnormalities visualized. Technically difficult study. Cardiac Catheterization Date: 04/08/07 FINDINGS: The left main was normal. The LAD was normal and gave rise to a l arge D1 as well as a small D2. There was no disease in the LAD system. The left circumflex gave rise to a small ramus and a large branching M1. There was no disease in the left circumflex system. The right coronary artery gave rise to a large acute marginal that supplied some of the PDA territory. There was also a small PDA and two posterolateral branches. There was no disease in the right coronary artery system. IMPRESSION: Atypical chest pain in a patient with diabetes. His stress test was negative but inadequate. Imaging portion was likely a false positive. The patient should continue with primary prevention. This is managed by Dr. Mina Miller.
--- NOTE | 2020-07-12 11:41 | XRay Report ---
TWO VIEW CHEST CLINICAL HISTORY: Preoperative examination. FINDINGS: PA and lateral chest radiographs are compared to study dated 08/19/2018 and correlated with chest CT dated 12/02/2015. The heart is enlarged noting atherosclerotic calcification of the thoracic aorta. The pulmonary vasculature is noncongested chronic interstitial thickening is similar to previo us. Parenchymal scarring and pleural thickening is again seen at the left lung base. There is no airs pace consolidation typical for pneumonia or pleural effusion. There is no pneumothorax. The skeletal structures are osteopenic. There are numerous healed bilateral rib fractures. Surgical clips are seen in the upper abdomen. IMPRESSION: Cardiomegaly and chronic changes as above with no active disease in the chest. ACT 112: Negative or not required by law. Electronically signed by: De Orozco M.D. 07/12/2020 11:40 AM
[2020-07-12 12:29] LABS: Basophils # (auto) 0.01 K/uL (0-0.2); Basophils % (auto) 0.2 %; Eosinophils # (auto) 0.19 K/uL (0-0.5); Eosinophils % (auto) 3.6 %; Hematocrit (blood only) 38.3 % (42-52); Hemoglobin 12.6 g/dL (14.0-18.0); Lymphocytes # (auto) 1.92 K/uL (1.2-3.4); Lymphocytes % (auto) 36.6 %; Mean Corpuscular Hemoglobin 29.8 pg (25-34); Mean Corpuscular Hgb Conc 32.9 g/dL (32-36); Mean Corpuscular Volume 90.5 fL (80-100); Mean Platelet Volume 10.6 fL (7.4-10.4); Monocytes # (auto) 0.43 K/uL (0.11-0.59); Monocytes % (auto) 8.2 %; Neutrophils # (auto) 2.69 K/uL (1.4-6.5); Neutrophils % (auto) 51.4 %; Platelet Count 180 K/uL (130-400); RDW Coefficient of Variation 14.3 % (11.5-14.5); RDW Standard Deviation 47.7 fL (36.4-46.3); Red Blood Count 4.23 M/uL (4.7-6.1); White Blood Count 5.24 K/uL (4.8-10.8)
[2020-07-12 12:43] LABS: Albumin Level 3.4 gm/dl (3.4-5.0); BUN Creatinine Ratio 20.2 (10-20); Calcium 8.7 mg/dl (8.5-10.1); Creatinine Clr Calc Pharmacy 82.6 ml/min; Est GFR (African American) 82.9; Est GFR (Non-African American) 71.6; Potassium 4.1 mmol/L (3.5-5.1)
[2020-07-12 12:45] LABS: INR 1.1 (0.9-1.1); Partial Thromboplastin Time 27.6 Seconds (21.0-31.0); Prothrombin Time 11.5 Seconds (9.0-12.0)
--- NOTE | 2020-07-12 12:55 | Electrocardiogram Report ---
Test Reason : Blood Pressure : / mmHG Vent. Rate : 098 BPM Atrial Rate : 098 BPM P-R Int : 222 ms QRS Dur : 108 ms QT Int : 366 ms P-R-T Axes : 071 -12 048 degrees QTc Int : 467 ms Sinus rhythm with 1st degree A-V block Otherwise normal ECG When compared with ECG of 14-AUG-2019 08:35, No significant change was found Confirmed by Arnel Ludwig ([id number]) on 07/12/2020 12:54:48 PM Referred By: Reno Witt Confirmed By:Arnel Ludwig
[2020-07-12 13:11] LABS: Estimated Average Glucose 126 mg/dl
--- NOTE | 2020-08-07 16:34 | History & Physical Report ---
Date of Service August 08, 2020 Assessment & Plan (1) Degenerative joint disease of right hip: I have indicated the patient for right total hip replacement. The risks, benefits and complications of surgery were explained to the patient which include but not limited to infection, acute blood loss, DVT/PE, injury to nerves, vessels, bone, soft tissue, arthrofibrosis, chronic pain, failure of the prosthesis, hip dislocation, leg length discrepancy, need for additional surgery, cardiac and pulmonary events and . The patient wished to proceed with surgery and informed consent was obtained at this time. We will plan for 81mg ASA BID post-operatively for DVT prophylaxis. Upon discharge the patient will be discharged home with home health services. Appropriate clearances by PCP were obtained. History of Present Illness Chief Complaint: Right hip pain/DJD/AVN Primary Care Provider: Mina Miller DO The patient is a 60 year old male who presents with complaints of severe right hip pain and DJD/AVN. The patient has failed outpatient conservative treatments to this point which included NSAIDs and home exercise/walking program. The patient's pain and limited function have progressed to the point where they severely hinder their activities of daily living and they no longer tolerate exercise programs. They are requesting to proceed with total hip replacement surgery. Allergies Allergy/AdvReac Type Severity Reaction Status Date / Time lisinopril Allergy Intermediate cough, Verified 08/08/20 10:38 edema clavulanic acid Allergy Unknown hives Verified 08/08/20 10:38 Penicillins Allergy Unknown hives Verified 08/08/20 10:38 tazobactam Allergy Unknown hives Verified 08/08/20 10:38 acetaminophen AdvReac Intermediate liver Verified 08/08/20 10:38 injury Home Medications Medication Instructions Recorded Confirmed Type amitriptyline 100 mg PO HS 03/18/18 08/08/20 History bupropion HCl [Wellbutrin SR] 150 mg PO QAM 03/18/18 08/08/20 History metformin 500 mg tablet 1,000 mg PO BID tab 08/10/19 08/08/20 History tramadol 50 - 100 mg PO Q6H PRN #12 tab 08/27/19 08/08/20 Rx naproxen 500 mg tablet 500 mg PO BID 09/09/19 08/08/20 History gabapentin 900 mg PO BID 01/21/20 08/08/20 History glimepiride 2 mg PO QAM 01/21/20 08/08/20 History metoprolol succinate [Toprol XL] 25 mg PO QAM 01/21/20 08/08/20 History Past Med/Surg History Medical History Chronic back pain Degenerative disc disease Depression Diabetes mellitus, type 2 NIDDM Diabetic neuropathy Fatty liver GURROLA Hypertension Osteoarthritis Rheumatic nodule hands Rheumatoid arthritis Follows with rheumatology, affects hands (nodules), good cervical extension Surgical History History of bronchoscopy ~2007 (per medical record, pt denies) History of cardiac cath 2006 ([facility])- no stents History of cholecystectomy 12/01/15 - MAC#4, ETT#8.0, Grade 1 View with easy placement History of esophagogastroduodenoscopy (EGD) History of lumbar fusion x2 History of right inguinal hernia repair right open inguinal hernia repair with mesh: 08/27/19: LMA#5, atraumatic, easy with good seal at [facility] 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 -- able to repair arm History of tonsillectomy History of total hip arthroplasty left hip Family History Mother Diabetes Father Heart disease Other Family history non-contributory No family history of adverse response to anesthesia Social History Smoking Status: Never smoker Second Hand Exposure: No; Do You Dip or Chew Tobacco: No; Hx Alcohol Use: No Hx Substance Use: No Preferred Language: Sami Communication Ability: Effective Washing Machine Striper Required: No Beliefs That Will Affect Care: None marital status: Current Living Situation: Family current occupational status: disabled Feels Safe at Home: Yes Safety Concerns: Feels Safe At This Time Assistive Devices: Glasses and Walker Review of Systems Review of Systems: All systems reviewed & are unremarkable except as noted in HPI & below Constitutional: as per Subjective / HPI Physical Exam Physical Exam: RLE NVSI +EHL/FHL/TA/GS SILT grossly, +2 DP pulse, compartments soft NT, limited painful ROM of the hip, antalgic gait Constitutional: WD/WN, vitals as above Eyes: PERRL, conjunctivae normal, anicteric sclerae ENMT: external ear and nose normal, oropharynx normal Neck: trachea midline, no thyromegaly Respiratory: normal respiratory effort, lungs clear to auscultation Cardiovascular: RRR, no murmur, no edema Gastrointestinal (Abdomen): normal bowel sounds, soft, nontender, no hepatosplenomegaly Musculoskeletal: no cyanosis or clubbing, extremities motor strength 5/5 Skin: no rashes, warm and dry Neurologic: patellar DTR's 2+ bilat, sensation intact Psychiatric: A+Ox3, euthymic affect Lymphatic: no cervical or axillary lymphadenopathy Results & Data Results & Data ([facility]) Diagnostic Findings Multiple views of the hip demonstrates severe DJD with underlying AVN of the femoral head. +osteophytes, +sclerosis, +subchondral cysts, cortical irregularity. Pre Admission Testing Addendum Laboratory Results 07/12/20 10:54 07/12/20 10:54 PT 11.5 Seconds (9.0-12.0) 07/12/20 10:54 INR 1.1 (0.9-1.1) 07/12/20 10:54 APTT 27.6 Seconds (21.0-31.0) 07/12/20 10:54 Hemoglobin A1c 6.0 % (4.5-5.6) H 07/12/20 10:54 Blood Type B Positive 07/12/20 10:54 Antibody Screen NEGATIVE 07/12/20 10:54
[~2020-08-08 10:00] MED LIST changes: +ACETAMINOPHEN 500 MG TAB PO SCH; -AMIT100T2 PO; +BUPIVACAINE 0.5 % 5 MG/1 ML PF 10ML VIAL ONE; -BUPR-79 PO; -CLC100 PO; -CYCL10TA6 PO; +CeleBREX 200 MG CAP PO SCH; +FAMOTIDINE 20 MG TAB PO SCH; +GABAPENTIN 600 MG DOSE PO SCH; -GLC/500 PO; -INSU1INJ SC; +LR 15ML/HR IV SCH; -METO50TA16 PO; +METOCLOPRAMIDE HCL 10 MG TABLET PO SCH; -MGNO400 PO; -NTRGSL/4 UT; +ROPIVACAINE 0.5% HCL/PF 150 MG, BUPIVACAINE 0.75% MPF 20 ML, EPINEPHrine 30MG/30ML (OR ... INFIL SCH; -RXC5 PO; -SIMV40TA4 PO; +TRANEXAMIC ACID 1,000 MG **IV Intra-op IV SCH; +TRANEXAMIC ACID 1,000 MG **IV Pre-op IV SCH; -ULT50X PO; +oxyCODONE HCL 10 MG TABCR (OxyCONTIN) PO SCH
[2020-08-08] MEDS ORDERED: HYDROmorphone INJ 1 MG/ML SYRINGE IV PRN (11:54)
[2020-08-08] MEDS ORDERED: fentaNYL citrate 100 MCG/2 ML VIAL IV PRN (11:54)
[2020-08-08] MEDS ORDERED: ATROPINE SULFATE 0.1 MG/ML 10ML SYR IV PRN (11:54)
[2020-08-08] MEDS ORDERED: ONDANSETRON INJ 2 MG/ML 2 ML VIAL IV PRN ×2 (11:54→16:29)
[2020-08-08] MEDS ORDERED: ePHEDrine sulfate 50 MG/ML AMP IV PRN (11:54)
[2020-08-08] MEDS ORDERED: DEXTROSE 50% 50 ML SYRINGE IV ONE (11:55)
[2020-08-08] MEDS ORDERED: MIDAZOLAM HCL 1 MG/ML 2ML VIAL ONE (12:04)
[2020-08-08] MEDS ORDERED: fentaNYL citrate 100 MCG/2 ML VIAL ONE (12:04)
[2020-08-08] MEDS ORDERED: DEXTROSE 50% 50 ML SYRINGE IV STA (12:12)
[2020-08-08] MEDS ORDERED: Nursing to Pharmacy Communication SCH (12:45)
--- NOTE | 2020-08-08 12:49 | History & Physical Bridge Note ---
Date of Service August 08, 2020 History & Physical Bridge Note I have examined the patient, reviewed the History & Physical and in the interval since the performance of the History & Physical I have noted the following changes of clinical significance: no changes noted
[2020-08-08] MEDS ORDERED: PROPOFOL IV EMULSION 10 MG/ML 20 ML VIAL IV ONE ×2 (13:02→15:18)
[2020-08-08] MEDS ORDERED: ORTHO JOINT ANESTHETIC ONE (13:05)
[2020-08-08] MEDS ORDERED: BACITRACIN INJ 50,000 UNIT VIAL ONE (13:05)
--- NOTE | 2020-08-08 13:38 | Electrocardiogram Report ---
Test Reason : Blood Pressure : / mmHG Vent. Rate : 086 BPM Atrial Rate : 086 BPM P-R Int : 240 ms QRS Dur : 106 ms QT Int : 388 ms P-R-T Axes : 052 -23 036 degrees QTc Int : 464 ms Sinus rhythm with 1st degree A-V block Nonspecific ST abnormality Abnormal ECG When compared with ECG of 12-JUL-2020 10:58, No significant change was found Confirmed by Arnel Ludwig ([id number]) on 08/08/2020 1:38:17 PM Referred By: Reno Witt Confirmed By:Arnel Ludwig
--- NOTE | 2020-08-08 15:04 | Post Operative Brief Note ---
Immediate Post Op Note v1 Date of Surgery August 08, 2020 Pre & Post Diagnosis Operation Date: 08/08/20 11:55 Pre-Op Diagnosis: Degenerative joint disease of right hip Post-Op Diagnosis: Degenerative joint disease of right hip I identified the patient and participated in the time-out.: Yes Procedure Operation Date: 08/08/20 11:55 Actual Procedures p Right Total Hip Arthroplasty(Right) - Reno Witt DO Surgeon Reno Witt DO Mechanical Systems Design Engineer Ramiro Funez Estimated Blood Loss 250 Findings Consistent with Post-Op Diagnosis Fluids 2L LR Specimens femoral head Anesthesia Type Spinal MAC Complications none Disposition Disposition: Recovery Room Overlapping Procedure I was present for: the critical portions of procedure. I was immediately available: during the entire case. Back up surgeon: was not required during procedure.
--- NOTE | 2020-08-08 15:07 | Operative Report ---
Post Operative Report Pre & Post Diagnosis Operation Date: 08/08/20 11:55 Pre-Op Diagnosis: Degenerative joint disease of right hip Post-Op Diagnosis: Degenerative joint disease of right hip I identified the patient and participated in the time-out.: Yes Procedure Operation Date: 08/08/20 11:55 Actual Procedures p Right Total Hip Arthroplasty(Right) - Reno Witt DO Surgeon Reno Witt DO Title I Paraprofessional Ramiro Funez Estimated Blood Loss 250 Findings Consistent with Post-Op Diagnosis Fluids 2 L LR Specimens femoral head Anesthesia Type Spinal MAC Complications none Disposition Disposition: Recovery Room Indications The patient is a 60-year-old male who presents with severe progressive right hip DJD/AVN who has failed outpatient conservative treatments. I indicated the patient for a total hip replacement and the risks and benefits were explained in detail which included but not limited to infection, bleeding, blood clot, damage to surrounding bone, nerves, vessels, soft tissue, hip dislocation, failure of the prosthesis, leg length discrepancy, need for additional surgery and . The patient agreed to proceed with replacement of the hip and informed consent was obtained. Appropriate clearances were obtained. Description of Procedure COMPONENTS USED: [employer] hip system: G7 acetabulum size 52, femur size 11 high offset, femoral head 36-3.5, liner 52x36, acetabular screw 25 mm x 1. Following induction of adequate spinal anesthesia, the patient was transferred to the OR table and placed in lateral decubitus position with left hip down. The right hip was prepped and draped in the typical sterile fashion. A timeout was performed, patient identified and site min confirmed. Appropriate antibiotics were given. A standard posterolateral/Chanel-Langenbeck incision was made. Subcutaneous tissue was sharply dissected. Electrocautery was utilized for hemostasis. The fascia was incised throughout the length of the wound and retracted with the Charnley retractor. The bursa was taken down and the short external rotators were identified. The piriformis was tagged with #1 Vicryl. The short external rotators and capsule were divided from the posterior aspect of the femur using electrocautery. The posterior capsule was tagged with #1 Vicryl. Both external rotators and posterior capsule were swept posterior and protected, along with protecting the sciatic nerve. The hip was dislocated by flexion and internally rotation in a controlled manner and exposure of the femoral neck was gained with an old-style Hohmann and a blunt cobra retractor. A femoral cutting guide was utilized for making the appropriate level femoral neck cut with reciprocating saw. The femoral head was removed, measured and reserved on the back table. Next, attention was turned to the acetabulum. A posterior and anterior offset retractor was placed to gain adequate exposure. Acetabular labrum as well as posterior capsule elements were removed using electrocautery and forceps. Fovea centralis was cleared of all soft tissue. Sequential reaming was performed starting at 44 mm and carried up to a 51 mm and decision was made to proceed with impaction of a 52 mm G7 Osteo-Ti cup. This was impacted and held using a single 25 mm acetabular screw. The trial acetabular liner was placed at this time. Next, attention was turned to the proximal femur where a Bovie and pickup was used to further clear short external rotators from their insertion on the femur. Box osteotome and canal finder was used to gain access to the femoral canal and the lateral reamer on power was used to further open the proximal lateral canal. Sequentially rasping was carried up to a 11 which gave good fit and fill of the proximal femur. A trial reduction was carried out with a high offset femoral neck component a 36- 3.5 mm femoral head. The trial reduction was stable in all degrees of rotation with no heot-go-tbgw impingement. The hip was dislocated, trial components were removed and access to the acetabulum was re-established. The trial liner was removed and the cup was irrigated to ensure all debris was removed. The final acetabular liner was inserted and properly seated in the cup. Access to the femur was once more gained and the size 11 femoral stem with high offset was impacted into position. The hip was once more assessed with the 36-3.5 mm femoral head. Stability was accessed and found to be excellent with equal leg lengths. The hip was dislocated for the last time and the final 36-3.5 ceramic femoral head was impacted in place and the hip was reduced. Range of motion was checked once again and found to be stable. A Betadine soak was performed. After 3 minutes, the hip was once more irrigated with copious sterile saline solution with bacitracin. The meron-incisional soft tissue was injected utilizing [facility] ortho mix which includes a combination of Ropivicaine 0.5% 150mg, Bupivicaine 0.5%/Epinephrine 1:200,000 30ml, Toradol 30mg, Dexamethasone 4mg, Ketamine 10mg, Clonidine 100mcg and NSS 30ml Orthomix solution. The piriformis, external rotators and capsule were repaired to the greater trochanter through bone tunnels using #5 FiberWire. The fascia was closed using #1 Vicryl, subcutaneous tissue was closed using 2-0 Vicryl, and skin was closed with 3-0 V-lock suture and Dermabond Prineo. Sterile dressings were applied which included janae, 4x4s and tegaderm adhesive dressing. The patient tolerated the procedure well and was transported to PACU in stable condition. Due to the complex nature of the procedure, the entire surgery was performed with the operational assistance of Ramiro Lackey PA-C. The assistant to the president, under direct supervision, was involved in the actual performance of all aspects of the surgical procedure including patient positioning, hemostasis, tissue retraction, instrument management and wound closure. I attest to the content of the Intraoperative Record and any orders documented therein. Any exceptions are noted below.
[2020-08-08] MEDS ORDERED: PHENYLEPHRINE 100MCG/ML 5ML SYR ONE (15:18)
[2020-08-08] MEDS ORDERED: PHENYLEPHRINE HCL 10 MG/ML VIAL ONE (15:18)
[2020-08-08] MEDS ORDERED: LIDOCAINE HCL 2% 2 ML VIAL/AMP(20MG/ML) INFIL ONE (15:18)
[2020-08-08] MEDS ORDERED: ePHEDrine sulfate 50 MG/ML SYR ONE (15:18)
--- NOTE | 2020-08-08 16:07 | XRay Report ---
XR hip 1V RT w pelvis HISTORY: 60 years-old Male IN PACU - A/P PELVIS and LATERAL HIP right hip total joint arthroplasty COMPARISON: Pelvis and right hip radiographs 05/04/2020 TECHNIQUE: AP view of the pelvis with crosstable lateral view of the right hip FINDINGS: Bilateral hip total joint arthroplasties. No acute fracture, dislocation or opaque foreign body. Expe cted postsurgical soft tissue swelling and deep tissue air lateral to the right hip. IMPRESSION: Right hip total joint arthroplasty with expected postoperative changes. ACT 112: Negative or not required by law. The above report was generated using voice recognition software. It may contain grammatical, syntax o r spelling errors. Electronically signed by: Samir Becerra M.D. 08/08/2020 4:05 PM
--- NOTE | 2020-08-08 16:10 | Anesthesiology Progress Note ---
Date of Service August 08, 2020 Anesthesia Post Procedure Vital Signs Vital Signs: Temp Pulse Pulse Resp BP BP Pulse Ox 08/08/20 16:00 77 13 119/76 96 08/08/20 15:50 80 16 107/74 100 08/08/20 15:40 80 14 117/60 100 08/08/20 15:33 36.3 C L 81 16 130/79 100 08/08/20 10:43 36.7 C 97 H 18 125/80 98 Transfer of Care Handoff Completed per policy Notes Mental Status: alert / awake / arousable and participated in evaluation Patient Amnestic to Procedure: Yes Nausea / Vomiting: adequately controlled Pain: adequately controlled Airway Patency, RR, SpO2: stable & adequate BP & HR: stable & adequate Hydration State: stable & adequate Neuraxial Anesthesia: was administered and sensory block is resolving Anesthetic Complications: no major complications apparent and Pt Satisfied with anesthetic care
[2020-08-08] MEDS ORDERED: NALOXONE HCL 0.4 MG/1 ML VIAL/CARP IV PRN (16:29)
[2020-08-08] MEDS ORDERED: HYDROmorphone INJ 0.5 MG/0.5 ML SYR IV PRN (16:29)
[2020-08-08] MEDS ORDERED: bisacodyL 10 MG SUPP PR PRN (16:29)
[2020-08-08] MEDS ORDERED: METOCLOPRAMIDE HCL INJ 5 MG/ML 2 ML VIAL IV PRN (16:29)
[2020-08-08] MEDS ORDERED: MAGNESIUM HYDROXIDE SUSP 30 ML UDC PO PRN (16:29)
[2020-08-08] MEDS ORDERED: PHARMACY GLYCEMIC MGMT CONSULT PRN (16:40)
--- NOTE | 2020-08-08 16:40 | Orthopedic Progress Note ---
Date of Service August 08, 2020 Assessment & Plan (1) Degenerative joint disease of right hip: Status post right total hip arthroplasty -Ancef x24 -DVT prophylaxis: SCDs, teds, 81 mg ASA twice daily -Weight-bear as tolerates right lower extremity -Posterior hip precautions -PT/OT -Postoperative x-ray demonstrates a well aligned well fixed prosthesis without fracture or dislocation. -A.m. labs -DC planning Admission and Anticipated Discharge Date Admission Date: August 08, 2020 Subjective Post Operative Progress Note Patient in PACU, comfortable, denies complaints, pain well controlled, no acute issues. Still feeling effects of spinal anesthesia Review of Systems Review of Systems: All systems reviewed & are unremarkable except as noted in HPI & below Constitutional: as per Subjective / HPI Physical Exam Physical Exam: Right lower extremity physical exam limited secondary to spinal anesthesia, +2 dorsalis pedis pulse, compartment soft nontender, dressings clean dry and intact. Constitutional: WD/WN, vitals as above Results & Data ([place]) Vital Signs (Past 12 Hours) Vital Signs Temp Pulse Pulse Resp BP BP Pulse Ox 08/08/20 16:10 36.3 C L 79 11 L 111/67 93 08/08/20 16:00 77 13 119/76 96 08/08/20 15:50 80 16 107/74 100 08/08/20 15:40 80 14 117/60 100 08/08/20 15:33 36.3 C L 81 16 130/79 100 08/08/20 10:43 36.7 C 97 H 18 125/80 98
[2020-08-08] MEDS ORDERED: DEXTROSE 50% 50 ML SYRINGE IV PRN (17:00)
[2020-08-08] MEDS ORDERED: GLUCAGON FOR INJ 1 MG VIAL IM PRN (17:00)
[2020-08-08] MEDS ORDERED: GLUCOSE 10 TABS/TUBE PO PRN (17:00)
[2020-08-08] MEDS ORDERED: GLUCOSE 40% GEL 15 GM TUBE PO PRN (17:00)
[2020-08-08] MEDS ORDERED: CARBOHYDRATES FOR HYPOGLYCEMIA PO PRN (17:00)
[2020-08-08] MEDS: SODIUM CHLORIDE 0.9% 1000ML 1,000 ML IV SCH (17:30)
[2020-08-08] MEDS: DOCUSATE SODIUM 100 MG CAP PO SCH (20:27)
[2020-08-08] MEDS: GABAPENTIN 300 MG CAP PO SCH (20:27)
[2020-08-08] MEDS ORDERED: SENNA 8.6 MG TAB PO SCH (21:00)
[2020-08-08] MEDS ORDERED: AMITRIPTYLINE HCL 100 MG TAB PO SCH (21:00)
[2020-08-08] MEDS: ceFAZolin 2000MG 2,000 MG/15 ML SYR IV SCH (21:03)
--- NOTE | 2020-08-08 21:11 | Hospitalist Consultation ---
Date of Consultation August 08, 2020 Assessment & Plan (1) Status post right hip replacement: Pain control, DVT prophylaxis bowel regimen per primary orthopedic team. (2) Degenerative joint disease of right hip: As above (3) Hypertension: Continue his usual metoprolol XL 25 mg p.o. every morning (4) Type 2 diabetes mellitus with diabetic neuropathy: Pharmacy consulted for glycemic management. Holding Metformin/glimepiride while on insulin sliding scale appears appropriate. HbA1c 6.0 in July. No need to repeat this. Can resume his usual meds on discharge. (5) Lumbar stenosis with neurogenic claudication: Continue gabapentin 900 mg p.o. twice daily Amitriptyline 100 mg p.o. at bedtime (6) Depression: Continue Wellbutrin 150 mg p.o. every morning Thanks for the consult. We will review a.m. labs. As long as nothing unexpected will sign off at this time. Please feel free to contact the hospitalist team if needed for ongoing care. History of Present Illness Reason for Consultation: Medical management Attending Physician: Reno Witt DO History of Present Illness Carlos Santoyo is a 60 year old male POD #0 right total hip arthroplasty performed by Dr. Witt. Patient reports pain well under control. Is sitting in chair when seen. Neurovascular intact distally. Home medications reviewed with patient. Allergies Allergy/AdvReac Type Severity Reaction Status Date / Time lisinopril Allergy Intermediate cough, Verified 08/08/20 10:38 edema clavulanic acid Allergy Unknown hives Verified 08/08/20 10:38 Penicillins Allergy Unknown hives Verified 08/08/20 10:38 tazobactam Allergy Unknown hives Verified 08/08/20 10:38 acetaminophen AdvReac Intermediate liver Verified 08/08/20 10:38 injury Home Medications Medication Instructions Recorded Confirmed Type amitriptyline 100 mg PO HS 03/18/18 08/08/20 History bupropion HCl [Wellbutrin SR] 150 mg PO QAM 03/18/18 08/08/20 History metformin 500 mg tablet 1,000 mg PO BID tab 08/10/19 08/08/20 History tramadol 50 - 100 mg PO Q6H PRN #12 tab 08/27/19 08/08/20 Rx naproxen 500 mg tablet 500 mg PO BID 09/09/19 08/08/20 History gabapentin 900 mg PO BID 01/21/20 08/08/20 History glimepiride 2 mg PO QAM 01/21/20 08/08/20 History metoprolol succinate [Toprol XL] 25 mg PO QAM 01/21/20 08/08/20 History aspirin 81 mg PO BID #56 tab 08/08/20 Rx oxycodone 5 mg PO Q6H PRN #30 tab MDD 4 08/08/20 Rx sennosides [Senokot] 17.2 mg PO HS PRN #28 tab 08/08/20 Rx Patient History Medical History Chronic back pain Degenerative disc disease Depression Diabetes mellitus, type 2 NIDDM Diabetic neuropathy Fatty liver GURROLA Hypertension Osteoarthritis Rheumatic nodule hands Rheumatoid arthritis Follows with rheumatology, affects hands (nodules), good cervical extension Surgical History History of bronchoscopy ~2007 (per medical record, pt denies) History of cardiac cath 2006 ([facility])- no stents History of cholecystectomy 12/01/15 - MAC#4, ETT#8.0, Grade 1 View with easy placement History of esophagogastroduodenoscopy (EGD) History of lumbar fusion x2 History of right inguinal hernia repair right open inguinal hernia repair with mesh: 08/27/19: LMA#5, atraumatic, easy with good seal at [facility] 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 -- able to repair arm History of tonsillectomy History of total hip arthroplasty left hip Family History Mother Diabetes Father Heart disease Other Family history non-contributory No family history of adverse response to anesthesia Social History Smoking Status: Never smoker Second Hand Exposure: No; Do You Dip or Chew Tobacco: No; Hx Alcohol Use: No Hx Substance Use: No Preferred Language: Nepali Communication Ability: Effective Loan Inspector Required: No Beliefs That Will Affect Care: None marital status: Current Living Situation: Family current occupational status: disabled Feels Safe at Home: Yes Safety Concerns: Feels Safe At This Time Assistive Devices: Walker Review of Systems Review of Systems: All systems reviewed & are unremarkable except as noted in HPI & below Physical Exam Constitutional: well developed and well nourished; no acute distress Eyes: + anicteric sclerae; normal pupil size ENMT: external ear and nose normal, oropharynx normal Respiratory: normal respiratory effort, lungs clear to auscultation Cardiovascular: RRR, no murmur, no edema Gastrointestinal (Abdomen): normal bowel sounds, soft, nontender, no hepatosplenomegaly Musculoskeletal: no cyanosis or clubbing, extremities motor strength 5/5 Skin: no rashes, warm and dry Neurologic: moves all extremities and awake; not confused Psychiatric: A+Ox3, euthymic affect Results & Data Results & Data ([facility]) Vital Signs (Past 12 Hours) Vital Signs Temp Pulse Pulse Resp BP BP Pulse Ox 08/08/20 20:37 36.3 C L 97 H 17 147/80 H 97 08/08/20 18:41 36.8 C 87 17 97/58 L 100 08/08/20 17:16 36.7 C 84 17 93/58 L 92 08/08/20 16:50 36.8 C 86 16 110/73 95 08/08/20 16:20 36.6 C 79 16 106/72 97 08/08/20 16:10 36.3 C L 79 11 L 111/67 93 08/08/20 16:00 77 13 119/76 96 08/08/20 15:50 80 16 107/74 100 08/08/20 15:40 80 14 117/60 100 08/08/20 15:33 36.3 C L 81 16 130/79 100 08/08/20 10:43 36.7 C 97 H 18 125/80 98 Diagnostic Findings XR hip 1V RT w pelvis HISTORY: 60 years-old Male IN PACU - A/P PELVIS and LATERAL HIP right hip total joint arthroplasty COMPARISON: Pelvis and right hip radiographs 05/04/2020 TECHNIQUE: AP view of the pelvis with crosstable lateral view of the right hip FINDINGS: Bilateral hip total joint arthroplasties. No acute fracture, dislocation or opaque foreign body. Expected postsurgical soft tissue swelling and deep tissue air lateral to the right hip. IMPRESSION: Right hip total joint arthroplasty with expected postoperative changes. PG Care Time/CCT Total # of Minutes Spent Total Time Spent with Patient: Total time spent is greater than 50% in coordination of care (as documented) at patient's floor/unit and/or counseling patient: Coding Level of Care Code 58146 Inpt Consult Level 3 Diagnoses Status post right hip replacement Z96.641 Degenerative joint disease of right hip M16.11 Hypertension I10 Type 2 diabetes mellitus with diabetic neuropathy E11.40 Lumbar stenosis with neurogenic claudication M48.062 Depression F32.9
[2020-08-08] MEDS: INSULIN ASPART 100 UNITS/ML 3 ML PEN SC SCH (22:22)
[2020-08-08] MEDS: oxyCODONE HCL IR 5 MG TAB (IMMEDIATE RELEASE) PO PRN (23:59)
[2020-08-09] MEDS: SODIUM CHLORIDE 0.9% 1000ML 1,000 ML IV SCH (03:36)
[2020-08-09] MEDS: ceFAZolin 2000MG 2,000 MG/15 ML SYR IV SCH (05:35)
[2020-08-09 05:57] LABS: Basophils # (auto) 0.02 K/uL (0-0.2); Basophils % (auto) 0.3 %; Eosinophils # (auto) 0.06 K/uL (0-0.5); Eosinophils % (auto) 0.9 %; Hematocrit (blood only) 30.6 % (42-52); Hemoglobin 10.4 g/dL (14.0-18.0); Lymphocytes # (auto) 0.85 K/uL (1.2-3.4); Lymphocytes % (auto) 12.9 %; Mean Corpuscular Hemoglobin 30.1 pg (25-34); Mean Corpuscular Volume 88.4 fL (80-100); Mean Platelet Volume 9.9 fL (7.4-10.4); Monocytes # (auto) 0.34 K/uL (0.11-0.59); Monocytes % (auto) 5.1 %; Neutrophils # (auto) 5.34 K/uL (1.4-6.5); Neutrophils % (auto) 80.8 %; Platelet Count 157 K/uL (130-400); RDW Coefficient of Variation 13.8 % (11.5-14.5); RDW Standard Deviation 45.1 fL (36.4-46.3); Red Blood Count 3.46 M/uL (4.7-6.1); White Blood Count 6.61 K/uL (4.8-10.8)
[2020-08-09 06:16] LABS: BUN Creatinine Ratio 14.2 (10-20); Calcium 8.1 mg/dl (8.5-10.1); Creatinine Clr Calc Pharmacy 82.9 ml/min; Est GFR (African American) 89.8; Est GFR (Non-African American) 77.5; Potassium 4.4 mmol/L (3.5-5.1)
[2020-08-09] MEDS: oxyCODONE HCL IR 5 MG TAB (IMMEDIATE RELEASE) PO PRN ×2 (08:40→13:22)
[2020-08-09] MEDS: DOCUSATE SODIUM 100 MG CAP PO SCH (08:42)
[2020-08-09] MEDS: GABAPENTIN 300 MG CAP PO SCH (08:42)
[2020-08-09] MEDS: INSULIN ASPART 100 UNITS/ML 3 ML PEN SC SCH ×2 (08:56→13:01)
[2020-08-09] MEDS ORDERED: buPROPion SR 150 MG TABCR PO SCH (09:00)
[2020-08-09] MEDS ORDERED: ASPIRIN 81 MG ECTAB PO SCH (09:00)
[2020-08-09] MEDS ORDERED: MULTIVITAMIN TAB PO SCH (09:00)
[2020-08-09] MEDS ORDERED: METOPROLOL SUCC 25MG EXT REL TAB PO SCH (09:00)
--- NOTE | 2020-08-09 11:43 | Hospitalist Progress Note ---
Date of Service August 09, 2020 Assessment & Plan (1) Status post right hip replacement: Pain control, DVT prophylaxis bowel regimen per primary orthopedic team. doing great, ready for discharge today (2) Degenerative joint disease of right hip: As above (3) Hypertension: Continue his usual metoprolol XL 25 mg p.o. every morning BP is stable today (4) Type 2 diabetes mellitus with diabetic neuropathy: Pharmacy consulted for glycemic management. Holding Metformin/glimepiride while on insulin sliding scale appears appropriate. HbA1c 6.0 in July. No n eed to repeat this. Can resume his usual meds on discharge. sugars stable (5) Lumbar stenosis with neurogenic claudication: Continue gabapentin 900 mg p.o. twice daily Amitriptyline 100 mg p.o. at bedtime (6) Depression: Continue Wellbutrin 150 mg p.o. every morning Admission and Anticipated Discharge Date Admission Date: August 08, 2020 Subjective patient feeling great, pain well controlled eating well, breathing well on room air making urine, had a BM labs stable, vitals stable going home later today Review of Systems Review of Systems: All systems reviewed & are unremarkable except as noted in Subjective Physical Exam Constitutional: WD/WN, vitals as above + obese Neck: trachea midline, no thyromegaly Respiratory: normal respiratory effort, lungs clear to auscultation Cardiovascular: RRR, no murmur, no edema Gastrointestinal (Abdomen): normal bowel sounds, soft, nontender, no hepatosplenomegaly Musculoskeletal: no cyanosis or clubbing, extremities motor strength 5/5 Skin: no rashes, warm and dry Neurologic: patellar DTR's 2+ bilat, sensation intact and PERRL, EOMI, accommodation nl, no face palsy, no dysarthria Psychiatric: A+Ox3, euthymic affect Lymphatic: no cervical or axillary lymphadenopathy Results & Data Results & Data ([facility]) Vital Signs (Past 12 Hours) Vital Signs Temp Pulse Pulse Resp BP Pulse Ox 08/09/20 08:39 108 H 111/61 08/09/20 07:57 36.8 C 109 H 18 117/72 100 08/09/20 04:30 36.7 C 104 H 20 112/60 99 Laboratory Results Laboratory Results - last 24 hr 08/08/20 08/08/20 08/08/20 11:53 12:15 13:16 WBC RBC Hgb Hct MCV MCH MCHC RDW Std Deviation RDW Coeff of Tamara Plt Count MPV Immature Gran % (Auto) Neut % (Auto) Lymph % (Auto) [place] % (Auto) Eos % (Auto) Baso % (Auto) Neut # (Auto) Lymph # (Auto) [place] # (Auto) Eos # (Auto) Baso # (Auto) Immature Gran # (Auto) Sodium Potassium Chloride Carbon Dioxide Anion Gap BUN Creatinine Est Cr Clr Drug Dosing Est GFR ( Amer) Est GFR (Non-Af Amer) BUN/Creatinine Ratio Glucose POC Glucose 57 L* 127 H 121 H Calcium 08/08/20 08/08/20 08/08/20 14:05 14:37 15:34 WBC RBC Hgb Hct MCV MCH MCHC RDW Std Deviation RDW Coeff of Tamara Plt Count MPV Immature Gran % (Auto) Neut % (Auto) Lymph % (Auto) [place] % (Auto) Eos % (Auto) Baso % (Auto) Neut # (Auto) Lymph # (Auto) [place] # (Auto) Eos # (Auto) Baso # (Auto) Immature Gran # (Auto) Sodium Potassium Chloride Carbon Dioxide Anion Gap BUN Creatinine Est Cr Clr Drug Dosing Est GFR ( Amer) Est GFR (Non-Af Amer) BUN/Creatinine Ratio Glucose POC Glucose 114 H 95 99 Calcium 08/08/20 08/08/20 08/09/20 16:26 20:31 05:37 WBC 6.61 RBC 3.46 L Hgb 10.4 L Hct 30.6 L MCV 88.4 MCH 30.1 MCHC 34.0 RDW Std Deviation 45.1 RDW Coeff of Tamara 13.8 Plt Count 157 MPV 9.9 Immature Gran % (Auto) 0.0 Neut % (Auto) 80.8 Lymph % (Auto) 12.9 [place] % (Auto) 5.1 Eos % (Auto) 0.9 Baso % (Auto) 0.3 Neut # (Auto) 5.34 Lymph # (Auto) 0.85 L [place] # (Auto) 0.34 Eos # (Auto) 0.06 Baso # (Auto) 0.02 Immature Gran # (Auto) 0.00 Sodium Potassium Chloride Carbon Dioxide Anion Gap BUN Creatinine Est Cr Clr Drug Dosing Est GFR ( Amer) Est GFR (Non-Af Amer) BUN/Creatinine Ratio Glucose POC Glucose 104 H 165 H Calcium 08/09/20 08/09/20 05:37 08:17 WBC RBC Hgb Hct MCV MCH MCHC RDW Std Deviation RDW Coeff of Tamara Plt Count MPV Immature Gran % (Auto) Neut % (Auto) Lymph % (Auto) [place] % (Auto) Eos % (Auto) Baso % (Auto) Neut # (Auto) Lymph # (Auto) [place] # (Auto) Eos # (Auto) Baso # (Auto) Immature Gran # (Auto) Sodium 141 Potassium 4.4 Chloride 108 H Carbon Dioxide 28 Anion Gap 5.0 BUN 15 Creatinine 1.03 Est Cr Clr Drug Dosing 82.9 Est GFR ( Amer) 89.8 Est GFR (Non-Af Amer) 77.5 BUN/Creatinine Ratio 14.2 Glucose 106 H POC Glucose 102 H Calcium 8.1 L Medications Administered Current Inpatient Medications Amitriptyline HCl (Amitriptyline Hcl 100 Mg Tab) 100 mg PO HS LATIA Stop: 09/07/20 20:59 Last Admin: 08/08/20 20:27 Dose: 100 mg Documented by: Aspirin (Aspirin 81 Mg Ectab) 81 mg PO BID LATIA Stop: 09/08/20 08:59 Last Admin: 08/09/20 08:41 Dose: 81 mg Documented by: Bisacodyl (Bisacodyl 10 Mg Supp) 10 mg NV DAILY PRN PRN Reason: Constipation Stop: 09/07/20 16:28 Bupropion HCl (Bupropion Sr 150 Mg Tabcr) 150 mg PO QAM LATIA Stop: 09/08/20 08:59 Last Admin: 08/09/20 08:43 Dose: 150 mg Documented by: Dextrose (Dextrose 50% 50 Ml Syringe) 25 - 50 ml IV UD PRN; Protocol PRN Reason: Hypoglycemia Protocol Stop: 09/07/20 16:59 Docusate Sodium (Docusate Sodium 100 Mg Cap) 100 mg PO BID LATIA Stop: 09/07/20 20:59 Last Admin: 08/09/20 08:42 Dose: 100 mg Documented by: Gabapentin (Gabapentin 300 Mg Cap) 900 mg PO BID LATIA Stop: 09/07/20 20:59 Last Admin: 08/09/20 08:42 Dose: 900 mg Documented by: Glucagon (Glucagon For Inj 1 Mg Vial) 1 mg IM UD PRN; Protocol PRN Reason: Hypoglycemia Protocol Stop: 09/07/20 16:59 Glucose (Glucose 40% Gel 15 Gm Tube) 15 - 30 gm PO UD PRN; Protocol PRN Reason: Hypoglycemia Protocol Stop: 09/07/20 16:59 Glucose (Glucose 10 Tabs/Tube) 4 - 8 tabs PO UD PRN; Protocol PRN Reason: Hypoglycemia Protocol Stop: 09/07/20 16:59 Hydromorphone HCl (Hydromorphone Inj 0.5 Mg/0.5 Ml Syr) 0.5 mg IV Q4H PRN PRN Reason: Pain or Pre PT Stop: 08/22/20 16:28 Insulin Aspart (Insulin Aspart 100 Units/Ml 3 Ml Pen) 0 units SC ACHS [facility] Stop: 09/07/20 20:59 Last Admin: 08/09/20 08:56 Dose: Not Given Documented by: Magnesium Hydroxide (Magnesium Hydroxide Susp 30 Ml Udc) 30 ml PO Q6H PRN PRN Reason: Constipation Stop: 09/07/20 16:28 Metoclopramide HCl (Metoclopramide Hcl Inj 5 Mg/Ml 2 Ml Vial) 10 mg IV Q6H PRN PRN Reason: Nausea And Vomiting Stop: 09/07/20 16:28 Metoprolol Succinate (Metoprolol Succ 25mg Ext Rel Tab) [facility] [place] Stop: 09/08/20 08:59 Last Admin: 08/09/20 08:43 Dose: 25 mg Documented by: Miscellaneous (Carbohydrates For Hypoglycemia ) 15 - 30 gm PO UD PRN PRN Reason: Hypoglycemia Treatment Stop: 09/07/20 16:59 Miscellaneous Information (Pharmacy Glycemic Mgmt Consult) 1 ea N/A UD PRN PRN Reason: Consult Stop: 09/07/20 16:39 Multivitamins (Multivitamin Tab) 1 [facility] [place] [place] Stop: 09/08/20 08:59 Last Admin: 08/09/20 08:42 Dose: 1 tab Documented by: Naloxone HCl (Naloxone Hcl 0.4 Mg/1 Ml Vial/Carp) 0.1 mg IV Q5M PRN PRN Reason: Oversedation/Resp Depression Stop: 09/07/20 16:28 Ondansetron HCl (Ondansetron Inj 2 Mg/Ml 2 Ml Vial) 4 mg IV Q6H PRN PRN Reason: Nausea And Vomiting Stop: 09/07/20 16:28 Oxycodone HCl (Oxycodone Hcl Ir 5 Mg Tab (Immediate Release)) 5 - 10 mg PO Q4H PRN PRN Reason: Pain or Pre PT Stop: 08/22/20 16:28 Last Admin: 08/09/20 08:40 Dose: 10 mg Documented by: Sennosides (Senna 8.6 Mg Tab) 17.2 mg PO HS LATIA Stop: 09/07/20 20:59 Last Admin: 08/08/20 20:27 Dose: Not Given Documented by: PG Care Time/CCT Total # of Minutes Spent Total Time Spent with Patient: Total time spent is greater than 50% in coordination of care (as documented) at patient's floor/unit and/or counseling patient: Coding Level of Care Code 23298 Subseq Hosp Care Lvl 2 Diagnoses Status post right hip replacement Z96.641 Degenerative joint disease of right hip M16.11 Hypertension I10 Type 2 diabetes mellitus with diabetic neuropathy E11.40 Lumbar stenosis with neurogenic claudication M48.062 Depression F32.9
--- NOTE | 2020-08-09 12:12 | Orthopedic Progress Note ---
Date of Service August 09, 2020 Assessment & Plan (1) Degenerative joint disease of right hip: Status post right total hip arthroplasty POD#1 -Ancef x24 -DVT prophylaxis: SCDs, teds, 81 mg ASA twice daily -Weight-bear as tolerates right lower extremity -Posterior hip precautions -PT/OT -Postoperative x-ray demonstrates a well aligned well fixed prosthesis without fracture or dislocation. -A.m. labs - as above, hgb 10.4 -DC planning - home with Admission and Anticipated Discharge Date Admission Date: August 08, 2020 Subjective Post Operative Progress Note Patient seen sitting up in bed, comfortable, denies complaints, pain well controlled, no acute issues. Patient eager to go home. Denies F/C/N/V/SOB/CP. Review of Systems Review of Systems: All systems reviewed & are unremarkable except as noted in HPI & below Constitutional: as per Subjective / HPI Physical Exam Physical Exam: RLE NVSI +EHL/FHL/TA/GS SILT grossly, +2 DP pulse, compartments soft NT, dressing cdi. Constitutional: WD/WN, vitals as above Results & Data ([place]) Vital Signs (Past 12 Hours) Vital Signs Temp Pulse Pulse Resp BP Pulse Ox 08/09/20 12:04 37.3 C 67 18 119/68 98 08/09/20 08:39 108 H 111/61 08/09/20 07:57 36.8 C 109 H 18 117/72 100 08/09/20 04:30 36.7 C 104 H 20 112/60 99 Laboratory Results 08/09/20 08/09/20 08/09/20 Range/Units 08:17 05:37 05:37 WBC 6.61 (4.8-10.8) K/uL RBC 3.46 L (4.7-6.1) M/uL Hgb 10.4 L (14.0-18.0) g/dL Hct 30.6 L (42-52) % MCV 88.4 (80-100) fL MCH 30.1 (25-34) pg MCHC 34.0 (32-36) g/dL RDW Std Deviation 45.1 (36.4-46.3) fL RDW Coeff of Tamara 13.8 (11.5-14.5) % Plt Count 157 (130-400) K/uL MPV 9.9 (7.4-10.4) fL Immature Gran % (Auto) 0.0 % Neut % (Auto) 80.8 % Lymph % (Auto) 12.9 % [place] % (Auto) 5.1 % Eos % (Auto) 0.9 % Baso % (Auto) 0.3 % Neut # (Auto) 5.34 (1.4-6.5) K/uL Lymph # (Auto) 0.85 L (1.2-3.4) K/uL [place] # (Auto) 0.34 (0.11-0.59) K/uL Eos # (Auto) 0.06 (0-0.5) K/uL Baso # (Auto) 0.02 (0-0.2) K/uL Immature Gran # (Auto) 0.00 (0.00-0.02) K/uL Sodium 141 (136-145) mmol/L Potassium 4.4 (3.5-5.1) mmol/L Chloride 108 H (98-107) mmol/L Carbon Dioxide 28 (21-32) mmol/L Anion Gap 5.0 (3-11) BUN 15 (7-18) mg/dl Creatinine 1.03 (0.6-1.4) mg/dl Est Cr Clr Drug Dosing 82.9 ml/min Est GFR ( Amer) 89.8 Est GFR (Non-Af Amer) 77.5 BUN/Creatinine Ratio 14.2 (10-20) Glucose 106 H (70-99) mg/dl POC Glucose 102 H (70-99) mg/dl Calcium 8.1 L (8.5-10.1) mg/dl 08/08/20 08/08/20 08/08/20 Range/Units 20:31 16:26 15:34 WBC (4.8-10.8) K/uL RBC (4.7-6.1) M/uL Hgb (14.0-18.0) g/dL Hct (42-52) % MCV (80-100) fL MCH (25-34) pg MCHC (32-36) g/dL RDW Std Deviation (36.4-46.3) fL RDW Coeff of Tamara (11.5-14.5) % Plt Count (130-400) K/uL MPV (7.4-10.4) fL Immature Gran % (Auto) % Neut % (Auto) % Lymph % (Auto) % [place] % (Auto) % Eos % (Auto) % Baso % (Auto) % Neut # (Auto) (1.4-6.5) K/uL Lymph # (Auto) (1.2-3.4) K/uL [place] # (Auto) (0.11-0.59) K/uL Eos # (Auto) (0-0.5) K/uL Baso # (Auto) (0-0.2) K/uL Immature Gran # (Auto) (0.00-0.02) K/uL Sodium (136-145) mmol/L Potassium (3.5-5.1) mmol/L Chloride (98-107) mmol/L Carbon Dioxide (21-32) mmol/L Anion Gap (3-11) BUN (7-18) mg/dl Creatinine (0.6-1.4) mg/dl Est Cr Clr Drug Dosing ml/min Est GFR ( Amer) Est GFR (Non-Af Amer) BUN/Creatinine Ratio (10-20) Glucose (70-99) mg/dl POC Glucose 165 H 104 H 99 (70-99) mg/dl Calcium (8.5-10.1) mg/dl 08/08/20 08/08/20 08/08/20 Range/Units 14:37 14:05 13:16 WBC (4.8-10.8) K/uL RBC (4.7-6.1) M/uL Hgb (14.0-18.0) g/dL Hct (42-52) % MCV (80-100) fL MCH (25-34) pg MCHC (32-36) g/dL RDW Std Deviation (36.4-46.3) fL RDW Coeff of Tamara (11.5-14.5) % Plt Count (130-400) K/uL MPV (7.4-10.4) fL Immature Gran % (Auto) % Neut % (Auto) % Lymph % (Auto) % [place] % (Auto) % Eos % (Auto) % Baso % (Auto) % Neut # (Auto) (1.4-6.5) K/uL Lymph # (Auto) (1.2-3.4) K/uL [place] # (Auto) (0.11-0.59) K/uL Eos # (Auto) (0-0.5) K/uL Baso # (Auto) (0-0.2) K/uL Immature Gran # (Auto) (0.00-0.02) K/uL Sodium (136-145) mmol/L Potassium (3.5-5.1) mmol/L Chloride (98-107) mmol/L Carbon Dioxide (21-32) mmol/L Anion Gap (3-11) BUN (7-18) mg/dl Creatinine (0.6-1.4) mg/dl Est Cr Clr Drug Dosing ml/min Est GFR ( Amer) Est GFR (Non-Af Amer) BUN/Creatinine Ratio (10-20) Glucose (70-99) mg/dl POC Glucose 95 114 H 121 H (70-99) mg/dl Calcium (8.5-10.1) mg/dl 08/08/20 Range/Units 12:15 WBC (4.8-10.8) K/uL RBC (4.7-6.1) M/uL Hgb (14.0-18.0) g/dL Hct (42-52) % MCV (80-100) fL MCH (25-34) pg MCHC (32-36) g/dL RDW Std Deviation (36.4-46.3) fL RDW Coeff of Tamara (11.5-14.5) % Plt Count (130-400) K/uL MPV (7.4-10.4) fL Immature Gran % (Auto) % Neut % (Auto) % Lymph % (Auto) % [place] % (Auto) % Eos % (Auto) % Baso % (Auto) % Neut # (Auto) (1.4-6.5) K/uL Lymph # (Auto) (1.2-3.4) K/uL [place] # (Auto) (0.11-0.59) K/uL Eos # (Auto) (0-0.5) K/uL Baso # (Auto) (0-0.2) K/uL Immature Gran # (Auto) (0.00-0.02) K/uL Sodium (136-145) mmol/L Potassium (3.5-5.1) mmol/L Chloride (98-107) mmol/L Carbon Dioxide (21-32) mmol/L Anion Gap (3-11) BUN (7-18) mg/dl Creatinine (0.6-1.4) mg/dl Est Cr Clr Drug Dosing ml/min Est GFR ( Amer) Est GFR (Non-Af Amer) BUN/Creatinine Ratio (10-20) Glucose (70-99) mg/dl POC Glucose 127 H (70-99) mg/dl Calcium (8.5-10.1) mg/dl
--- NOTE | 2020-08-09 19:59 | Discharge Summary ---
Date of Service August 09, 2020 Admission HPI Per Admitting Provider The patient is a 60 year old male who presents with complaints of severe right hip pain and DJD/AVN. The patient has failed outpatient conservative treatments to this point which included NSAIDs and home exercise/walking program. The patient's pain and limited function have progressed to the point where they severely hinder their activities of daily living and they no longer tolerate exercise programs. They are requesting to proceed with total hip replacement surgery. Principal Diagnosis Right total hip arthroplasty -Right hip AVN/DJD Discharge Exam RLE NVSI +EHL/FHL/TA/GS SILT grossly, +2 DP pulse, compartments soft NT, dressing cdi. Constitutional WD/WN, vitals as above Discharge Data Allergies Allergy/AdvReac Type Severity Reaction Status Date / Time lisinopril Allergy Intermediate cough, Verified 08/08/20 10:38 edema clavulanic acid Allergy Unknown hives Verified 08/08/20 10:38 Penicillins Allergy Unknown hives Verified 08/08/20 10:38 tazobactam Allergy Unknown hives Verified 08/08/20 10:38 acetaminophen AdvReac Intermediate liver Verified 08/08/20 10:38 injury Consultations 08/03/20 12:02 Consult Hospitalist Routine 08/09/20 08:00 Consult Case Management - Discharge Planning Routine Procedures Performed Operation Date: 08/08/20 11:55 Actual Procedures p Right Total Hip Arthroplasty(Right) - Reno Witt DO Hospital Course (1) Degenerative joint disease of right hip: The patient is a 60 -year-old male who presents with long standing history of severe right hip AVN/DJD and failed outpatient conservative treatments. The patient's symptoms have progressed to the point where it has been difficult to perform even normal activities of daily living. I indicated the patient for a Right total hip arthroplasty, the risks, benefits and complications of the procedure include but not limited to infection, bleeding, damage to bone, nerves, vessels, surrounding soft tissue, may develop blood clots, loss of function, leg length discrepancy, dislocation, failure of the components, loosening of the components, the need for additional surgery and . The patient wished to proceed with surgery at this time and informed consent was obtained. Hospital Course: On 08/08/20 the patient was taken to the operating room, adequate anesthesia administered and underwent a right total hip arthroplasty. The patient to lerated the procedure well and was taken to the PACU in stable condition. Post- operatively the patient was started on a DVT ppx medication and given appropriate IV antibiotics. Consults were placed to physical therapy, occupational therapy and case management. On POD#1, the patient did well overnight and their pain was well controlled. Labs were drawn and the Hgb was 10.4. The patient progressed well with PT. Dressings were changed at this time and the incision was clean, dry and intact. On POD#2, The patients hospital stay was relatively uneventful and they were deemed stable by the orthopedic team and consultants to be discharged home with HH on 08/09/20. Discharge Instructions: Upon discharge the patient may weight bear as tolerates through their operative extremity. They were instructed to keep the incision clean and dry at all times. The patient may shower but should not submerge the incision, avoid bathing, pools and hot tubs. The patient was given a script for pain medication and should take as instructed. The patient was given a script for DVT ppx 81mg ASA BID and should take as directed. The patient was instructed to not drive or travel for long distances until cleared to do so. If the patient develops any symptoms of fevers, chills, nausea, vomiting, increased redness, swelling, pain or drainage from the surgical site, they should notify the office and/or proceed to the nearest emergency room. The patient should follow up in 10-14 days after surgery for their routine post-operative follow-up appointment and should call the office, to confirm the date and time. Status post right total hip arthroplasty POD#1 -Ancef x24 -DVT prophylaxis: SCDs, teds, 81 mg ASA twice daily -Weight-bear as tolerates right lower extremity -Posterior hip precautions -PT/OT -Postoperative x-ray demonstrates a well aligned well fixed prosthesis without fracture or dislocation. -A.m. labs - as above, hgb 10.4 -DC planning - home with Total Time Total Time Spent Total Time Spent (In Minutes): 30 Discharge Plan Discharge Items Patient Disposition: Home - Home Health Services Reason For Visit: Osteoarthritis, Right Hip Discharge Diagnosis: Right total hip replacement Condition on Discharge: Good Activity: Per Instructions section Lifting: Wait until after follow-up appointment Bathing: Keep incision dry Bathing Comment: No bathing, pools or hot tubs. Sexual Activity: Wait until after follow-up appointment Exercise/Sports: Wait until after follow-up appointment Driving/Machine Use: No driving. Weightbearing: Full weightbearing Non-emergency contact: Primary Care Provider and Surgeon Call non-emergency contact if: you have any medication questions, your symptoms worsen, your pain is not controlled, your pain is worsening, your pain is unusual for you, your pain is concerning for you, you have a fever, your temperature is above 101, your wound has increased redness, your wound has i ncreased drainage and your wound pain has increased Follow-up/Referrals: Mina Miller DO [Primary Care Provider] - Diet: Regular Addtl Attending Provider Instructions: ACTIVITY RECOMMENDATIONS: SELF CARE INSTRUCTIONS AFTER TOTAL HIP REPLACEMENT Until the incision and soft tissues around your hip have healed, there is a possibility that the hip prosthesis could dislocate. A. Observe the following precautions to prevent dislocation: 1. Don't bend your hip greater than 90 degrees. 2. Avoid crossing your legs or ankles while standing or lying. 3. Sit with your feet placed 6 inches apart. 4. When sitting, keep your knees below your hips. Sit on a firm surface, avoid deep, soft chairs and couches. Use an elevated toilet seat in the bathroom. 5. Don't bend over at the waist. Use a long handled shoehorn and a sock aid to help you put on your shoes and socks. A senior sql server database developer can help you poultry picker objects that are too high or too low to reach. 6. Keep car riding to a minimum for at least one month after surgery. B. Your balance may be shaky for a while. Use crutches or a walker until directed by your doctor. C. Use hand rails when walking on stairs. D. Wear low heeled shoes with non-slip soles. E. Be sure that your floors are free of things that could trip you - throw rugs, electrical cords, small objects. Avoid wet and waxed floors, especially with crutches and canes. F. Try to walk several times a day with rest periods between. G. Continue with all the exercises taught to you in the hospital. Again, make walking a part of your daily routine. SPECIAL CARE INSTRUCTIONS: VERY IMPORTANT TO READ AND REVIEW A. You may still be at risk for phlebitis and blood clots. 1. Wear surgical stockings (ANGELICA hose) for 2 weeks after surgery to improve circulation and reduce swelling. 2. Take Aspirin 81mg twice daily for 4 weeks or as directed by your doctor. This is your blood thinner. 3. High risk patients may be prescribed a stronger blood thinner if necessary. 4. If you are on Coumadin normally, your family doctor/space operations officer should monitor your blood work. Expect a phone call the day of or the day after bloodwork is drawn to adjust your dosage. B. You must take antibiotics before having dental work, bladder, bowel and other surgery. Your doctor will provide you with a permanent card to carry describing precautions. C. Call [facility] if you have a fever, redness or swelling around the incision, cloudy drainage from incision, or sudden increase in pain in your hip, not relieved by your regular pain medication. D. Please call the office at if you have any concerns or questions about your operation or recovery. * YOU MAY SHOWER, NO TUB BATHS UNTIL CLEARED BY YOUR DOCTOR. * WEAR ANGELICA HOSE 20 HOURS PER DAY FOR 2 WEEKS. * YOU SHOULD USE A WALKER OR CRUTCHES FOR 2-4 WEEKS. THIS WILL HELP PREVENT STRAIN ON YOUR HIP MUSCLE AND ALLOW IT TO HEAL PROPERLY. YOU MAY WEAN TO A CANE TOLERATED. * MOST PATIENTS WILL HAVE HOME NURSING FOR THERAPY. IF YOU DECIDE TO DO OUTPATIENT PHYSICAL THERAPY, PLEASE SCHEDULE THIS 3 TIMES PER WEEK. *DERMABOND Prineo- This is a mesh tape dressing that is covered with glue. It should remain in place until the incision is properly healed, usually 10-14 days. This dressing is designed to naturally slough off. You may trim the excess mesh tape as it peels off. Incision may be briefly wet in a shower. Dry immediately by blotting with a clean, dry towel. Do not bath or swim until instructed by your doctor. Do not scratch, rub, or pick at the dressing. Do not apply any topical ointments or lotions until dressing is completely removed and/or instructed by your doctor. There may be a small piece of suture material at one end of your incision. Do not pull or trim this. If it is bothersome or catching on clothing, you may cover it with a band-aid. FOLLOW UP VISIT: If appointment is not already scheduled: Please call [facility] to make a follow-up appointment for 2 weeks after your surgery at . Pending Studies at Discharge: No Stand-Alone Forms: My [facility], Opioid Pain Management, Smoking Cessation Medications and DC Order Prescriptions: New aspirin 81 mg Tablet,Delayed Release (Dr/Ec) 81 mg PO BID Qty: 56 RF: 0 oxycodone 5 mg Tablet 5 mg PO Q6H MDD 4 PRN (Reason: pain) Qty: 30 RF: 0 sennosides [Senokot] 8.6 mg Tablet 17.2 mg PO HS PRN (Reason: constipation) Qty: 28 RF: 0 Continued bupropion HCl [Wellbutrin SR] 150 mg Tablet Sustained-Release 12 Hr 150 mg PO QAM RF: 0 amitriptyline 100 mg Tablet 100 mg PO HS RF: 0 metformin 500 mg tablet 1,000 mg PO BID RF: 0 glimepiride 2 mg tablet 2 mg PO QAM RF: 0 gabapentin 300 mg capsule 900 mg PO BID RF: 0 metoprolol succinate [Toprol XL] 25 mg tablet extended release 24 hr 25 mg PO QAM RF: 0 Discontinued naproxen 500 mg tablet 500 mg PO BID RF: 0 tramadol 50 mg tablet 50 - 100 mg PO Q6H PRN (Reason: pain, for initial therapy, max 6 tabs per days) Qty: 12 RF: 0 Discharge Orders: Discharge Order (Routine); Ordered 08/09/20 Ordered By: Reno Nance/Other Patient Handouts: DVT Post Op Prevention, Managing Type 2 Diabetes, Managing Diabetes: The A1C Test Admission Data Admit Date/Time: 08/08/20 15:46 Attending Provider: Reno Witt Admit Provider: Reno Witt Primary Care Provider: Mina Miller Other Providers: Adam De Luna ; [facility] ; [facility] Other Interventions: Discharge Summary Assessment (RN) Last Done: 08/09/20 13:15
== END 2020-08-09 17:17 | disposition home health service (06) ==
LOC: 3E 10:00 → ASU 10:00 → SUATTDRO 15:46

== ENCOUNTER 2020-12-15 10:17 | Inpatient (IN) ==
--- NOTE | 2020-11-29 10:17 | PAT Medication Instructions ---
Medication Instructions Date of Service November 29, 2020 Home Medications amitriptyline 100 mg PO HS bupropion HCl [Wellbutrin SR] 150 mg PO QAM metformin 500 mg tablet 500 mg PO BID gabapentin 900 mg PO BID glimepiride 2 mg PO QAM metoprolol succinate [Toprol XL] 25 mg PO QAM naproxen 500 mg PO BID tramadol 50 mg PO TID ASK your surgeon for instructions naproxen 500 mg PO BID DO NOT take the morning of surgery metformin 500 mg tablet 500 mg PO BID glimepiride 2 mg PO QAM Take morning of surgery With a small sip of water, OTHERWISE NOTHING TO EAT OR DRINK AFTER MIDNIGHT: bupropion HCl [Wellbutrin SR] 150 mg PO QAM gabapentin 900 mg PO BID metoprolol succinate [Toprol XL] 25 mg PO QAM tramadol 50 mg PO TID (if needed, may be taken up to four hours before surgery) Take evening before surgery amitriptyline 100 mg PO HS metformin 500 mg tablet 500 mg PO BID gabapentin 900 mg PO BID tramadol 50 mg PO TID Other Notes If you have any questions please call us at [phone] or [phone] or [phone] or [phone]
--- NOTE | 2020-12-01 14:39 | Anesthesiology Consultation ---
Date of Service December 01, 2020 Assessment & Plan (1) Encounter for pre-operative examination: COVID Status: As of 12/01 assessment, patient denies travel to endemic area, known exposure/sick contacts, or symptoms of COVID19. Patient advised to adhere to social distancing guidelines, wear a mask in public and avoid large crowds or unnecessary travel in the 2 weeks leading up to surgery. Preoperative COVID19 testing to be completed prior to surgery per surgeon's arrangements (12/13). Patient encouraged to be extra cautious/conscientious with COVID precautions between COVID testing and surgery. Patient is not vaccinated. S/P R open inguinal hernia repair 08/27/19: LMA #5 with 40cc air in cuff easy, atraumatic, with good seal. S/P R ERA 08/08/20: MAC/SAB x 1 attempt. Chart Review Chart Review: Acceptable Risk for Surgery and Patient seen in Pre Admission Testing Teaching & Discussion Instructed NPO after midnight before surgery, except medications with 15 cc of water. Medication instructions provided according to the PAT guidelines. History Surgery Operation Date: 12/15/20 10:05 Proposed Procedures p L2-L3 Decompression and Fusion, L3-L4 Hardware Removal, Spinal Cord Monitoring - Mikel Corbin, Height/Weight Height: 5 ft 7 in Weight: 100.5 kg Allergies Allergy/AdvReac Type Severity Reaction Status Date / Time lisinopril Allergy Intermediate cough, Verified 11/22/20 13:22 edema clavulanic acid Allergy Unknown hives Verified 11/22/20 13:22 Penicillins Allergy Unknown hives Verified 11/22/20 13:22 tazobactam Allergy Unknown hives Verified 11/22/20 13:22 acetaminophen AdvReac Intermediate liver Verified 11/22/20 13:22 injury Medications Home Medications Medication Instructions Recorded Confirmed Last Taken amitriptyline 100 mg PO HS 03/18/18 11/22/20 08/07/20 21:00 bupropion HCl [Wellbutrin SR] 150 mg PO QAM 03/18/18 11/22/20 08/07/20 09:00 metformin 500 mg tablet 500 mg PO BID tab 08/10/19 11/22/20 08/07/20 21:00 gabapentin 900 mg PO BID 01/21/20 11/22/20 08/08/20 08:30 glimepiride 2 mg PO QAM 01/21/20 11/22/20 08/08/20 08:30 metoprolol succinate [Toprol XL] 25 mg PO QAM 01/21/20 11/22/20 08/08/20 08:00 naproxen 500 mg PO BID 11/22/20 11/22/20 Unknown tramadol 50 mg PO TID 11/22/20 11/22/20 Unknown Past Medical History Medical History Ascending cholangitis Chronic back pain Degenerative disc disease Depression Diabetes mellitus, type 2 NIDDM Diabetic neuropathy Fatty liver GURROLA Hypertension Left rib fracture 2013 Osteoarthritis Rheumatic nodule hands Rheumatoid arthritis Follows with rheumatology, affects hands (nodules), good cervical extension Exercise / Class Metabolic Activity II 4-5 Yardwork/Stairs/Walk up hill (Denies CP or SOB with 1 FOS) Past Family History Family History Mother Diabetes Father Heart disease Other Family history non-contributory No family history of adverse response to anesthesia Past Surgical History Surgical History History of bronchoscopy ~2007 (per medical record, pt denies) History of cardiac cath 2006 ([facility])- no stents History of cholecystectomy 12/01/15 - MAC#4, ETT#8.0, Grade 1 View with easy placement History of colonoscopy History of esophagogastroduodenoscopy (EGD) History of lumbar fusion x2 History of right inguinal hernia repair right open inguinal hernia repair with mesh: 08/27/19: LMA#5, atraumatic, easy with good seal at [facility] 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 Physical Exam Vital Signs BP: 113/73 P: 88bpm SPO2: 96% RA T: 98.5 F R: 16 ENMT Mouth: + edentulous Thyromental Distance: > or= 3.5 Finger Breadths Mallampati Class: II Large uvula Neck + limited neck extension (mildly) Respiratory normal respiratory effort, lungs clear to auscultation Cardiovascular RRR, no murmur, no edema Vessels: no carotid bruit Musculoskeletal Rheumatic deformity of B/L hands. Rheumatic nodule on R elbow. Lab Results Anesthesia Preop Results Results Anesthesia Widget: WBC 5.21 K/uL (4.8-10.8) 12/01/20 Hgb 12.3 g/dL (14.0-18.0) L 12/01/20 Hct 37.8 % (42-52) L 12/01/20 Plt 192 K/uL (130-400) 12/01/20 Na 141 mmol/L (136-145) 12/01/20 K 4.4 mmol/L (3.5-5.1) 12/01/20 Cl 109 mmol/L (98-107) H 12/01/20 CO2 27 mmol/L (21-32) 12/01/20 BUN 21 mg/dl (7-18) H 12/01/20 Creat 1.06 mg/dl (0.6-1.4) 12/01/20 Glucose Level 97 mg/dl (70-99) 12/01/20 PT 10.7 Seconds (9.0-12.0) 12/01/20 PTT 26.3 Seconds (21.0-31.0) 12/01/20 INR 1.1 (0.9-1.1) 12/01/20 Urine Color Yellow 12/01/20 Urine Appearance Clear (Clear) 12/01/20 Urine pH 6.5 (4.5-7.5) 12/01/20 Urine Specific Parrish 1.023 (1.000-1.030) 12/01/20 Urine Protein Negative (Negative) 12/01/20 Urine Glucose (UA) Negative (Negative) 12/01/20 Urine Ketones Negative (Negative) 12/01/20 Urine Blood Negative (Negative) 12/01/20 Urine Nitrite Negative (Negative) 12/01/20 Urine Bilirubin Negative (Negative) 12/01/20 Urine Urobilinogen Negative (Negative) 12/01/20 Urine Leukocyte Esterase Negative (Negative) 12/01/20 Blood Type B Positive 12/01/20 Antibody Screen NEGATIVE 12/01/20 Testing Electrocardiogram Date: 08/08/20 Sinus rhythm at 86 bpm with first-degree AV block. Nonspecific ST abnormality. Compared EKG of 07/12/2020, no significant change was found. Chest X-Ray Date: 07/12/20 FINDINGS: PA and lateral chest radiographs are compared to study dated 08/19/2018 and correlated with chest CT dated 12/02/2015. The heart is enlarged noting atherosclerotic calcification of the thoracic aorta. The pulmonary vasculature is noncongested chronic interstitial thickening is similar to previous. Parenchymal scarring and pleural thickening is again seen at the left lung base. There is no airspace consolidation typical for pneumonia or pleural effusion. There is no pneumothorax. The skeletal structures are osteopenic. There are numerous healed bilateral rib fractures. Surgical clips are seen in the upper abdomen. IMPRESSION: Cardiomegaly and chronic changes as above with no active disease in the chest. Echocardiogram Date: 09/26/15 1. Normal left ventricular size and systolic function. Estimated 60-65%. No definite regional wall motion abnormalities. Mild to moderate concentric left ventricular hypertrophy. 2. The left atrium is mildly dilated. 3. No significant valvular abnormalities visualized. 4. Technically difficult study. Stress Test Date: 09/20/20 1. No ischemic changes noted on Dobutamine stress echo at 65% MPHR, but target heart rate was not attained. Cannot rule out ischemic changes at faster heart rates. 2. Nondiagnostic dobutamine ECG as target heart rate was not attained. 3. No chest pain reported. 4. No arrhythmia were noted with stress. 5. Appropriate blood pressure response. 6. Technically difficult study, enhanced with IV Definity.
[~2020-12-15 10:17] MED LIST changes: -BUPIVACAINE 0.5 % 5 MG/1 ML PF 10ML VIAL ONE; -FAMOTIDINE 20 MG TAB PO SCH; -METOCLOPRAMIDE HCL 10 MG TABLET PO SCH; -ROPIVACAINE 0.5% HCL/PF 150 MG, BUPIVACAINE 0.75% MPF 20 ML, EPINEPHrine 30MG/30ML (OR ... INFIL SCH; -TRANEXAMIC ACID 1,000 MG **IV Intra-op IV SCH; -TRANEXAMIC ACID 1,000 MG **IV Pre-op IV SCH; +ceFAZolin 2000MG 2,000 MG/15 ML SYR IV SCH; -oxyCODONE HCL 10 MG TABCR (OxyCONTIN) PO SCH
[2020-12-15] MEDS ORDERED: LARYING-O-JET KIT (LTA) ONE (11:30)
[2020-12-15] MEDS ORDERED: LIDOCAINE 2% 2 ML VIAL/AMP(20MG/ML) INFIL ONE (11:30)
[2020-12-15] MEDS ORDERED: ROCURONIUM BROMIDE 10 MG/ML 5 ML VIAL IV ONE (11:30)
[2020-12-15] MEDS ORDERED: ONDANSETRON INJ 2 MG/ML 2 ML VIAL ONE ×2 (11:30→11:31)
[2020-12-15] MEDS ORDERED: DEXAMETHASONE SOD INJ 4 MG/ML VIAL ONE (11:30)
[2020-12-15] MEDS ORDERED: PROPOFOL IV EMULSION 10 MG/ML 20 ML VIAL IV ONE (11:30)
[2020-12-15] MEDS ORDERED: GLYCOPYRROLATE 0.2 MG/ML VIAL ONE ×2 (11:30→11:31)
[2020-12-15] MEDS ORDERED: NEOSTIGMINE METHYLSULFATE 1 MG/ML 10ML VIAL ONE (11:30)
[2020-12-15] MEDS ORDERED: HYDROmorphone INJ 2 MG/ML SYR/VIAL ONE (11:30)
[2020-12-15] MEDS ORDERED: MIDAZOLAM HCL 1 MG/ML 2ML VIAL ONE (11:30)
--- NOTE | 2020-12-15 12:41 | History & Physical Bridge Note ---
Date of Service December 15, 2020 History & Physical Bridge Note I have examined the patient, reviewed the History & Physical and in the interval since the performance of the History & Physical I have noted the following changes of clinical significance: no changes noted
[2020-12-15] MEDS ORDERED: BUPIVACAINE/EPINEPHRINE 0.5% MPF 1:200,000 30 ML VIAL ONE (12:42)
--- NOTE | 2020-12-15 12:42 | History & Physical Report ---
Date of Service December 15, 2020 Assessment & Plan (1) Lumbar stenosis with neurogenic claudication: Admission and Anticipated Discharge Date Admission Date: L2-L3 decompression fusion, L3-L4 hardware removal History of Present Illness Chief Complaint: Back and bilateral leg pain Primary Care Provider: Mina Miller DO This is a 60-year-old male well-known to me the presents with worsening back and bilateral leg pain. Failing course of nonoperative care is here for surgical invention. Allergies Allergy/AdvReac Type Severity Reaction Status Date / Time lisinopril Allergy Intermediate cough, Verified 12/15/20 11:08 edema clavulanic acid Allergy Unknown hives Verified 12/15/20 11:08 Penicillins Allergy Unknown hives Verified 12/15/20 11:08 tazobactam Allergy Unknown hives Verified 12/15/20 11:08 acetaminophen AdvReac Intermediate liver Verified 12/15/20 11:08 injury Home Medications Medication Instructions Recorded Confirmed Type amitriptyline 100 mg PO HS 03/18/18 12/15/20 History bupropion HCl [Wellbutrin SR] 150 mg PO QAM 03/18/18 12/15/20 History metformin 500 mg tablet 500 mg PO BID tab 08/10/19 12/15/20 History gabapentin 900 mg PO BID 01/21/20 12/15/20 History glimepiride 2 mg PO QAM 01/21/20 12/15/20 History metoprolol succinate [Toprol XL] 25 mg PO QAM 01/21/20 12/15/20 History naproxen 500 mg PO BID 11/22/20 12/15/20 History tramadol 50 mg PO TID 11/22/20 12/15/20 History Past Med/Surg History Medical History Ascending cholangitis Chronic back pain Degenerative disc disease Depression Diabetes mellitus, type 2 NIDDM Diabetic neuropathy Fatty liver GURROLA Hypertension Left rib fracture 2013 Osteoarthritis Rheumatic nodule hands Rheumatoid arthritis Follows with rheumatology, affects hands (nodules), good cervical extension Surgical History History of bronchoscopy ~2007 (per medical record, pt denies) History of cardiac cath 2006 ([facility])- no stents History of cholecystectomy 12/01/15 - MAC#4, ETT#8.0, Grade 1 View with easy placement History of colonoscopy History of esophagogastroduodenoscopy (EGD) History of lumbar fusion x2 History of right inguinal hernia repair right open inguinal hernia repair with mesh: 08/27/19: LMA#5, atraumatic, easy with good seal at [facility] 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 -- able to repair arm History of tonsillectomy History of total hip arthroplasty left hip-2018 History of total hip arthroplasty [facility] 08/2020 Family History Mother Diabetes Father Heart disease Other Family history non-contributory No family history of adverse response to anesthesia Social History Smoking Status: Never smoker Second Hand Exposure: No; Do You Dip or Chew Tobacco: No; Hx Alcohol Use: No Hx Substance Use: No Preferred Language: Macanese Communication Ability: Effective Undraped Artist Model Required: No Beliefs That Will Affect Care: None marital status: Current Living Situation: Spouse and Family current occupational status: disabled Other Information That Helps Us Care for You: No Feels Safe at Home: Yes Safety Concerns: Feels Safe At This Time Assistive Devices: Cane and Glasses Physical Exam Physical Exam: Patient is alert and oriented Heart regular in rhythm Lungs clear to auscultation Results & Data ([place]) Vital Signs (Past 12 Hours) Vital Signs Temp Pulse Resp BP Pulse Ox 12/15/20 11:12 36.5 C 93 H 22 145/83 H 98
[2020-12-15] MEDS ORDERED: ATROPINE SULFATE 0.1 MG/ML 10ML SYR IV PRN (12:47)
[2020-12-15] MEDS ORDERED: ONDANSETRON INJ 2 MG/ML 2 ML VIAL IV PRN ×2 (12:47→17:11)
[2020-12-15] MEDS ORDERED: HYDROmorphone INJ 2 MG/ML SYR/VIAL IV PRN (12:47)
[2020-12-15] MEDS ORDERED: ePHEDrine sulfate 50 MG/ML AMP IV PRN (12:47)
[2020-12-15] MEDS ORDERED: PHENYLEPHRINE 100MCG/ML 5ML SYR ONE (13:47)
[2020-12-15] MEDS ORDERED: ALBUMIN HUMAN 5% 12.5 GM/250 ML VIAL IV ONE (14:31)
[2020-12-15] MEDS ORDERED: FLOSEAL HEMOSTATIC MATRIX 10ML TOP ONE (14:59)
[2020-12-15] MEDS ORDERED: ePHEDrine sulfate 50 MG/ML AMP ONE (15:02)
--- NOTE | 2020-12-15 15:14 | Fluoroscopy Report ---
FL lumbar spine 2-3V CLINICAL HISTORY: L3-4 REMOVE HARDWARE/L2-3 DECOMPRESSION/FUSION/INTERBODY COMPARISON STUDY: Lumbar spine 10/03/2020 FLUOROSCOPY TIME: 14 seconds. FINDINGS: 2 fluoroscopic spot images of the lumbar spine demonstrate posterior decompression and fusi on within the upper lumbar spine likely at the L2-L3 level with pedicle screws and rods. There is als o disc space at this level. The hardware appears intact. IMPRESSION: Posterior decompression and fusion within the upper lumbar spine likely at the L2-L3 leve l. The hardware appears intact. ACT 112: Negative or not required by law. Electronically signed by: Brennon Carter M.D. 12/15/2020 3:12 PM
--- NOTE | 2020-12-15 15:27 | Operative Report ---
Post Operative Report Pre & Post Diagnosis Operation Date: 12/15/20 12:05 Pre-Op Diagnosis: Spinal Stenosis, Lumbar Region without Neurogenic Post-Op Diagnosis: Spinal Stenosis, Lumbar Region without Neurogenic I identified the patient and participated in the time-out.: Yes Procedure Operation Date: 12/15/20 12:05 Actual Procedures #1 removal of posterior instrumentation L3-L4. #2 exploration of fusion L3-L4. #3 lumbar decompression with bilateral medial facetectomies and foraminotomies L to L3. #4 posterior spinal fusion L2-L3. #5 placement posterior instrumentation L2-L3. #6 interbody fusion L2-L3. #7 placement peek cage 12 x 26 mm at L2-L3. #7 placement locally harvested morselized autograft in the posterior gutters. #8 placement infuse collagen sponge, master graft in the posterior lateral gutters and I factor in the interbody space. Surgeon Mikel Corbin, DO Home Service Director None Estimated Blood Loss 450 Findings See Below The patient is 5 foot 7 inches tall weighing over 100 kg with a BMI in excess of 34. Patient's body habitus did contribute to significant technical difficulty requiring her deepest retractors longus instruments in order to perform his procedure. This at least 50% increase to the operative time. Specimens None Indications This is a 60-year-old male well-known to me the presents with above mentioned diagnosis after failing course of nonoperative care is here for surgical invention. Description of Procedure Patient was met with identified informed consent obtained. Patient was then taken to the operative suite underwent ablation placed in a prone position injectable top Evaristo frame. All bony prominences well-padded eyes inspected to ensure no external pressure placed upon the. This point the lumbar spine was prepped and draped in a sterile fashion. Sharp dissection with the assistance of Bovie cautery performed down to and exposing the lamina and transverse processes of L2 and the instrumentation L3-L4 bilaterally. Then proceeded to remove the hardware at L3-L4 bilaterally explored the fusion mass noting it to be mature and intact. And then performed a complete laminectomy of L2 including bilateral medial facetectomies and foraminotomies addressing severe spinal stenosis. Pedicle screws were then placed in L2 and L3 bilaterally with assistance of fluoroscopy and the proper sized julianna placed. By way of a transforaminal approach on the left complete discectomy of L2-3 was performed endplates curetted to subcortical bleeding bone and a 12 x 26 mm peek cage filled with I factor tapped in position. The rods were then locked in final position bilaterally. The transverse processes of L2 and L3 burred to subcortically bone. Infuse collagen sponge master graft local autograft was placed in the posterior gutters. 15 round ARNIE drain inserted. The incision was then closed with 1 Vicryl fascia 2-0 Vicryl subcutaneously and 4 Monocryl for final skin closure. Steri-Strip sterile dressings placed. Patient will continue to PACU stable condition. Please note spinal cord monitoring was utilized at the procedure no changes noted. I attest to the content of the Intraoperative Record and any orders documented therein. Any exceptions are noted below.
[2020-12-15] MEDS: fentaNYL citrate 100 MCG/2 ML VIAL IV PRN ×4 (15:48→16:03)
--- NOTE | 2020-12-15 16:36 | Anesthesiology Progress Note ---
Date of Service December 15, 2020 Anesthesia Post Procedure Vital Signs Vital Signs: Temp Pulse Pulse Resp BP Pulse Ox 12/15/20 16:26 36.4 C L 84 18 118/61 99 12/15/20 16:15 84 18 101/66 99 12/15/20 16:05 82 18 114/66 100 12/15/20 15:55 80 18 130/73 100 12/15/20 15:45 80 82 20 124/71 100 12/15/20 15:35 36.0 C L 82 20 115/65 98 12/15/20 11:12 36.5 C 93 H 22 145/83 H 98 Pain Intensity Lower Back: Pain Intensity: 7 Transfer of Care Handoff Completed per policy Notes Mental Status: alert / awake / arousable and participated in evaluation Patient Amnestic to Procedure: Yes Nausea / Vomiting: adequately controlled Pain: adequately controlled Airway Patency, RR, SpO2: stable & adequate BP & HR: stable & adequate Hydration State: stable & adequate Anesthetic Complications: no major complications apparent
[2020-12-15] MEDS ORDERED: DO NOT ADMINISTER PNEUMOCOCCAL VACCINE PRN (17:11)
[2020-12-15] MEDS ORDERED: hydrOXYzine HCl 25 MG TAB PO PRN (17:11)
[2020-12-15] MEDS ORDERED: MAGNESIUM HYDROXIDE SUSP 30 ML UDC PO PRN (17:11)
[2020-12-15] MEDS ORDERED: ONDANSETRON 4 MG OD TAB PO PRN (17:11)
[2020-12-15] MEDS ORDERED: diphenhydrAMINE Capsule 25 MG CAP PO PRN (17:11)
[2020-12-15] MEDS ORDERED: HYDROmorphone INJ 0.5 MG/0.5 ML SYR IV PRN (17:11)
[2020-12-15] MEDS ORDERED: LORazepam 0.5 MG/1 ML VIAL IV PRN (17:11)
[2020-12-15] MEDS ORDERED: HYDROmorphone INJ 1 MG/ML SYRINGE IV PRN (17:11)
[2020-12-15] MEDS ORDERED: SOD PHOSPHATE/SOD BIPHOSPHATE ENEMA 132 ML BTL PR PRN (17:11)
[2020-12-15] MEDS ORDERED: ALUMINUM/MAGNESIUM SUSP 30 ML UDC PO PRN (17:11)
[2020-12-15] MEDS ORDERED: LORazepam 0.5 MG TAB PO PRN (17:11)
[2020-12-15] MEDS ORDERED: FAMOTIDINE 20 MG TAB PO PRN (17:11)
[2020-12-15] MEDS ORDERED: METOCLOPRAMIDE HCL INJ 5 MG/ML 2 ML VIAL IV PRN (17:11)
[2020-12-15] MEDS ORDERED: NALOXONE HCL 0.4 MG/1 ML VIAL/CARP IV PRN (17:11)
[2020-12-15] MEDS ORDERED: DO NOT ADMINISTER FLU VACCINE PRN (17:11)
[2020-12-15] MEDS ORDERED: traMADol HCL 50 MG TABLET PO PRN (17:11)
[2020-12-15] MEDS ORDERED: PROMETHAZINE HCL 12.5 MG in SODIUM CHLORIDE 0.9% 50 ML IV PRN (17:11)
[2020-12-15] MEDS ORDERED: PNEUMOCOCCAL POLYSACCHARIDES 25 MCG/0.5 ML VIAL/SYR IM ONE (17:25)
[2020-12-15] MEDS: SODIUM CHLORIDE 0.9% 1000ML 1,000 ML IV SCH ×2 (17:45→23:38)
[2020-12-15] MEDS ORDERED: PHARMACY GLYCEMIC MGMT CONSULT PRN (18:09)
[2020-12-15] MEDS ORDERED: LANTUS PER UNIT CHARGE SQ ONE (18:30)
[2020-12-15] MEDS: KETOROLAC TROMETHAMINE 15 MG/ML VIAL IV SCH ×2 (18:37→23:38)
--- NOTE | 2020-12-15 19:04 | Hospitalist Consultation ---
Date of Consultation December 15, 2020 Assessment & Plan (1) Lumbar stenosis with neurogenic claudication: Pain and VTE management per orthopedics Continue gabapentin 900 mg p.o. twice daily Amitriptyline 100 mg p.o. at bedtime (2) Type 2 diabetes mellitus with diabetic neuropathy: Pharmacy consulted for glycemic management. Holding Metformin/glimepiride while on insulin sliding scale appears appropriate. HbA1c 6.0 in July. No need to repeat this. Can resume his usual meds on discharge. (3) Hypertension: Continue his usual metoprolol XL 25 mg p.o. every morning (4) Depression: Continue Wellbutrin 150 mg p.o. every morning Thank you for the consult we will continue to see as inpatient. History of Present Illness Reason for Consultation: Medical management Attending Physician: Mikel Corbin, History of Present Illness Carlos Santoyo is a 60 year old male here for elective back surgery performed 12/[address] Corbin. Patient reports back pain severity 01/14 when seen, encouraged to ask for pain medication. Home medications reviewed with patient although he notes his daughter manages most of his home medications. Allergies Allergy/AdvReac Type Severity Reaction Status Date / Time lisinopril Allergy Intermediate cough, Verified 12/15/20 11:08 edema clavulanic acid Allergy Unknown hives Verified 12/15/20 11:08 Penicillins Allergy Unknown hives Verified 12/15/20 11:08 tazobactam Allergy Unknown hives Verified 12/15/20 11:08 acetaminophen AdvReac Intermediate liver Verified 12/15/20 11:08 injury Home Medications Medication Instructions Recorded Confirmed Type amitriptyline 100 mg PO HS 03/18/18 12/15/20 History bupropion HCl [Wellbutrin SR] 150 mg PO QAM 03/18/18 12/15/20 History metformin 500 mg tablet 500 mg PO BID tab 08/10/19 12/15/20 History gabapentin 900 mg PO BID 01/21/20 12/15/20 History glimepiride 2 mg PO QAM 01/21/20 12/15/20 History metoprolol succinate [Toprol XL] 25 mg PO QAM 01/21/20 12/15/20 History naproxen 500 mg PO BID 11/22/20 12/15/20 History tramadol 50 mg PO TID 11/22/20 12/15/20 History oxycodone 5 mg PO Q6H PRN #30 tab 12/17/20 Rx tramadol 50 mg PO Q6H PRN #30 tab 12/17/20 Rx Patient History Medical History Ascending cholangitis Chronic back pain Degenerative disc disease Depression Diabetes mellitus, type 2 NIDDM Diabetic neuropathy Fatty liver GURROLA Hypertension Left rib fracture 2013 Osteoarthritis Rheumatic nodule hands Rheumatoid arthritis Follows with rheumatology, affects hands (nodules), good cervical extension Surgical History History of bronchoscopy ~2007 (per medical record, pt denies) History of cardiac cath 2006 ([facility])- no stents History of cholecystectomy 12/01/15 - MAC#4, ETT#8.0, Grade 1 View with easy placement History of colonoscopy History of esophagogastroduodenoscopy (EGD) History of lumbar fusion x2 History of right inguinal hernia repair right open inguinal hernia repair with mesh: 08/27/19: LMA#5, atraumatic, easy with good seal at [facility] 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 -- able to repair arm History of tonsillectomy History of total hip arthroplasty left hip-2018 History of total hip arthroplasty [facility] 08/2020 Family History Mother Diabetes Father Heart disease Other Family history non-contributory No family history of adverse response to anesthesia Social History Smoking Status: Never smoker Second Hand Exposure: No; Do You Dip or Chew Tobacco: No; Hx Alcohol Use: No Hx Substance Use: No Preferred Language: Tongan Communication Ability: Effective It Security Engineer Required: No Beliefs That Will Affect Care: None marital status: Current Living Situation: Spouse and Family current occupational status: disabled Other Information That Helps Us Care for You: No Feels Safe at Home: Yes Safety Concerns: Feels Safe At This Time Assistive Devices: Walker Review of Systems Review of Systems: All systems reviewed & are unremarkable except as noted in HPI & below Physical Exam Constitutional: WD/WN, vitals as above Eyes: + anicteric sclerae; normal pupil size ENMT: external ear and nose normal, oropharynx normal Respiratory: normal respiratory effort, lungs clear to auscultation Cardiovascular: RRR, no murmur, no edema Gastrointestinal (Abdomen): normal bowel sounds, soft, nontender, no hepatosplenomegaly Musculoskeletal: Multiple cyst protrusions on joints on hands, patient reports chronic Skin: no rashes, warm and dry Neurologic: moves all extremities and awake; not confused Psychiatric: A+Ox3, euthymic affect Results & Data Results & Data ([facility]) Vital Signs (Past 12 Hours) Vital Signs Temp Pulse Pulse Pulse Resp BP Pulse Ox 12/15/20 17:45 36.4 C L 94 H 18 101/63 99 12/15/20 17:15 37.1 C 89 18 99/63 L 91 12/15/20 16:45 37.1 C 90 16 110/63 93 12/15/20 16:25 36.4 C L 84 18 118/61 99 12/15/20 16:15 84 18 101/66 99 12/15/20 16:05 82 18 114/66 100 12/15/20 15:55 80 18 130/73 100 12/15/20 15:45 80 82 20 124/71 100 12/15/20 15:35 36.0 C L 82 20 115/65 98 12/15/20 11:12 36.5 C 93 H 22 145/83 H 98 PG Care Time/CCT Total # of Minutes Spent Total Time Spent with Patient: Total time spent is greater than 50% in coordination of care (as documented) at patient's floor/unit and/or counseling patient: Coding Level of Care Code 39760 Inpt Consult Level 3 Diagnoses Lumbar stenosis with neurogenic claudication M48.062 Type 2 diabetes mellitus with diabetic neuropathy E11.40 Hypertension I10 Depression F32.9
[2020-12-15] MEDS: INSULIN ASPART 100 UNITS/ML 3 ML PEN SC SCH ×2 (19:57→21:39)
[2020-12-15] MEDS: GABAPENTIN 300 MG CAP PO SCH (21:38)
[2020-12-15] MEDS: AMITRIPTYLINE HCL 100 MG TAB PO SCH (21:38)
[2020-12-15] MEDS: CLINDAMYCIN 600 MG in DEXTROSE 5% 50 ML IV SCH (21:39)
[2020-12-15] MEDS: DOCUSATE SODIUM/SENNA 50/8.6MG TAB PO SCH (21:44)
[2020-12-16] MEDS ORDERED: INSULIN ASPART 100 UNITS/ML 3 ML PEN SC ONE (02:00)
[2020-12-16] MEDS: KETOROLAC TROMETHAMINE 15 MG/ML VIAL IV SCH ×2 (05:28→12:12)
[2020-12-16] MEDS: CLINDAMYCIN 600 MG in DEXTROSE 5% 50 ML IV SCH (05:28)
[2020-12-16] MEDS: POLYETHYLENE (MIRALAX) 17 GM PACK PO SCH ×3 (05:28→18:26)
[2020-12-16 06:08] LABS: Basophils # (auto) 0.01 K/uL (0-0.2); Basophils % (auto) 0.2 %; Eosinophils # (auto) 0.02 K/uL (0-0.5); Eosinophils % (auto) 0.4 %; Hematocrit (blood only) 31.5 % (42-52); Immature Granulocytes # (auto) 0.01 K/uL (0.00-0.02); Immature Granulocytes % (auto) 0.2 %; Lymphocytes # (auto) 1.24 K/uL (1.2-3.4); Lymphocytes % (auto) 23.2 %; Mean Corpuscular Hemoglobin 28.1 pg (25-34); Mean Corpuscular Hgb Conc 31.7 g/dL (32-36); Mean Corpuscular Volume 88.5 fL (80-100); Mean Platelet Volume 10.1 fL (7.4-10.4); Monocytes # (auto) 0.43 K/uL (0.11-0.59); Neutrophils # (auto) 3.64 K/uL (1.4-6.5); Platelet Count 159 K/uL (130-400); RDW Coefficient of Variation 14.9 % (11.5-14.5); RDW Standard Deviation 48.9 fL (36.4-46.3); Red Blood Count 3.56 M/uL (4.7-6.1); White Blood Count 5.35 K/uL (4.8-10.8)
[2020-12-16 06:40] LABS: BUN Creatinine Ratio 15.4 (10-20); Calcium 7.9 mg/dl (8.5-10.1); Creatinine Clr Calc Pharmacy 88.4 ml/min; Est GFR (African American) 95.4 ml/min; Est GFR (Non-African American) 82.3 ml/min; Potassium 4.4 mmol/L (3.5-5.1)
--- NOTE | 2020-12-16 08:35 | Pharmacy Report ---
Pharmacy Glycemic Short Note 2 - Date of Service December 16, 2020 - Glycemic Short BSG Results (Last 24 hours): 12/15/20 12/15/20 12/15/20 11:03 15:38 17:43 Glucose POC Glucose 82 96 136 H 12/15/20 12/16/20 12/16/20 20:48 02:08 05:39 Glucose 77 POC Glucose 192 H 171 H 12/16/20 08:16 Glucose POC Glucose 83 OUTPATIENT ANTIDIABETIC REGIMEN: * Metformin 500 mg PO BIDM * Glimepiride 2 mg PO qAM * HbA1c: 6% (07/12/20) ASSESSMENT: * COLIN is a 60 year old male POD #1 s/p L2-L3 decompression and fusion * Received dexamethasone 4 mg IV x 1 intra-operatively * Patient with very well-controlled T2DM on oral agents only * Received 20 units of Lantus last evening to help cover steroids * Fasting BSG of 83 mg/dL this morning * Will hold basal at this time and utilize Novolog and outpatient metformin * IV dexamethasone to be initiated starting tomorrow - will reassess need for NPH in AM PLAN FOR INPATIENT GLYCEMIC CONTROL: * Metformin 500 mg PO BIDM * Hold glimepiride * Basal insulin * hold for now, reassess in AM * Bolus insulin * NovoLog per scale ACHS or Q6hrs while NPO * Goal Range: Low 110 mg/dL - High 140 mg/dL * Correction Factor: 25 mg/dL/unit * Nutritional / Prandial insulin per carb ratio of 1 unit per 8 grams CHO consumed PLAN FOR DISCHARGE: * HbA1c of 6% suggests excellent outpatient glycemic control * Provided patient is not experiencing hypoglycemia as an outpatient, continue current home regimen
[2020-12-16] MEDS ORDERED: GLIMEPIRIDE 2 MG TAB PO SCH (09:00)
[2020-12-16] MEDS: GABAPENTIN 300 MG CAP PO SCH ×2 (09:06→20:22)
[2020-12-16] MEDS: METOPROLOL SUCC 25MG EXT REL TAB PO SCH (09:06)
[2020-12-16] MEDS: buPROPion SR 150 MG TABCR PO SCH (09:07)
[2020-12-16] MEDS: metFORMIN HCL 500 MG TAB PO SCH ×2 (09:08→18:20)
[2020-12-16] MEDS: INSULIN ASPART 100 UNITS/ML 3 ML PEN SC SCH ×4 (09:09→21:43)
--- NOTE | 2020-12-16 13:13 | Orthopedic Progress Note ---
Date of Service December 16, 2020 Assessment & Plan (1) Lumbar stenosis with neurogenic claudication: Admission and Anticipated Discharge Date Admission Date: December 15, 2020 This time we will continue physical therapy monitor his ARNIE output anticipate discharge to rehab in the next few days. Subjective Back pain is controlled leg symptoms improved Physical Exam Physical Exam: On exam patient is in the chair at the bedside. Is good strength testing. Appears comfortable. Results & Data ([facility]) Vital Signs (Past 12 Hours) Vital Signs Temp Pulse Resp BP Pulse Ox 12/16/20 07:45 36.6 C 86 18 128/73 94 12/16/20 02:22 36.3 C L 84 15 118/68 96
[2020-12-16] MEDS: DOCUSATE SODIUM/SENNA 50/8.6MG TAB PO SCH (20:22)
[2020-12-16] MEDS: AMITRIPTYLINE HCL 100 MG TAB PO SCH (20:22)
[2020-12-17] MEDS: POLYETHYLENE (MIRALAX) 17 GM PACK PO SCH ×5 (01:08→23:59)
[2020-12-17] MEDS: oxyCODONE HCL IR 5 MG TAB (IMMEDIATE RELEASE) PO PRN ×2 (01:55→07:27)
[2020-12-17] MEDS: metFORMIN HCL 500 MG TAB PO SCH ×2 (09:03→18:07)
[2020-12-17] MEDS: GABAPENTIN 300 MG CAP PO SCH ×2 (09:03→20:35)
[2020-12-17] MEDS: METOPROLOL SUCC 25MG EXT REL TAB PO SCH (09:03)
[2020-12-17] MEDS: dexAMETHasone 8 MG in SYRINGE 0 ML IV SCH (09:03)
[2020-12-17] MEDS: buPROPion SR 150 MG TABCR PO SCH (09:03)
[2020-12-17] MEDS: NovoLIN-N (NPH) PER UNIT CHARGE SQ SCH (09:06)
[2020-12-17] MEDS: INSULIN ASPART 100 UNITS/ML 3 ML PEN SC SCH ×4 (09:07→22:09)
--- NOTE | 2020-12-17 10:05 | Pharmacy Report ---
Pharmacy Glycemic Short Note 2 - Date of Service December 17, 2020 - Glycemic Short BSG Results (Last 24 hours): 12/16/20 12/16/20 12/16/20 12:05 17:24 20:31 POC Glucose 117 H 73 108 H 12/17/20 08:14 POC Glucose 174 H OUTPATIENT ANTIDIABETIC REGIMEN: * Metformin 500 mg PO BIDM * Glimepiride 2 mg PO qAM * HbA1c: 6% (07/12/20) ASSESSMENT: 12/17 * Pt has received 15 units of insulin over the past 24hrs * 0 units of basal * 15 units of bolus with NovoLog * Metformin 500mg PO BIDM * BSGs 465-74-762-73-108 mg/dl * BSGs well controlled with current regimen; however patient starting DXM 8mg IV daily which will cause severe steroid induced hyperglycemia * NPH insulin is used to counteract the hyperglycemic effect of once daily steroids. NPH should be dosed at the same time that prednisone is given * The dose of NPH given is dependent on the steroid dose given * For doses of prednisone 40mg/day or above NPH dose should be 0.4 units/kg * Will start NPH per protocol and titrate based on BSG trends. NPH should be held if DXM held or DC 12/16 * COLIN is a 60 year old male POD #1 s/p L2-L3 decompression and fusion * Received dexamethasone 4 mg IV x 1 intra-operatively * Patient with very well-controlled T2DM on oral agents only * Received 20 units of Lantus last evening to help cover steroids * Fasting BSG of 83 mg/dL this morning * Will hold basal at this time and utilize Novolog and outpatient metformin * IV dexamethasone to be initiated starting tomorrow - will reassess need for NPH in AM PLAN FOR INPATIENT GLYCEMIC CONTROL: * Metformin 500 mg PO BIDM * Hold glimepiride * Basal insulin * hold for now, reassess in AM * Steroid induced hyperglycemia * NPH 40 units (0.4 units/kg) SQ daily with DXM * Bolus insulin * NovoLog per scale ACHS or Q6hrs while NPO * Goal Range: Low 110 mg/dL - High 140 mg/dL * Correction Factor: 20 mg/dL/unit * Nutritional / Prandial insulin per carb ratio of 1 unit per 7 grams CHO consumed PLAN FOR DISCHARGE: * HbA1c of 6% suggests excellent outpatient glycemic control * Provided patient is not experiencing hypoglycemia as an outpatient, continue current home regimen
--- NOTE | 2020-12-17 10:56 | Orthopedic Progress Note ---
Date of Service December 17, 2020 Assessment & Plan (1) Lumbar stenosis with neurogenic claudication: Admission and Anticipated Discharge Date Admission Date: December 15, 2020 At this time we will continue physical therapy monitor his ARNIE output. Hopefully discharge to rehab tomorrow. Subjective Back pain is controlled leg pain improved Physical Exam Physical Exam: Patient is ambulating with a walker. Is good strength testing. Appears comfortable. Results & Data ([facility]) Vital Signs (Past 12 Hours) Vital Signs Temp Pulse Resp BP BP Pulse Ox 12/17/20 07:59 36.5 C 116 H 18 114/62 96 12/16/20 23:42 37.3 C 99 H 20 119/67 97
[2020-12-17] MEDS ORDERED: bisacodyL 10 MG SUPP PR PRN (15:28)
[2020-12-17] MEDS: AMITRIPTYLINE HCL 100 MG TAB PO SCH (20:34)
[2020-12-17] MEDS: DOCUSATE SODIUM/SENNA 50/8.6MG TAB PO SCH (20:35)
[2020-12-18] MEDS: POLYETHYLENE (MIRALAX) 17 GM PACK PO SCH ×4 (05:53→21:53)
[2020-12-18] MEDS: oxyCODONE HCL IR 5 MG TAB (IMMEDIATE RELEASE) PO PRN (07:35)
[2020-12-18] MEDS: metFORMIN HCL 500 MG TAB PO SCH ×2 (07:36→17:41)
[2020-12-18] MEDS: buPROPion SR 150 MG TABCR PO SCH (08:31)
[2020-12-18] MEDS: METOPROLOL SUCC 25MG EXT REL TAB PO SCH (08:31)
[2020-12-18] MEDS: GABAPENTIN 300 MG CAP PO SCH ×2 (08:31→21:14)
--- NOTE | 2020-12-18 08:31 | Orthopedic Progress Note ---
Date of Service December 18, 2020 Assessment & Plan (1) Lumbar stenosis with neurogenic claudication: Patient is stable postop day #3. We will continue with mobilization efforts. We will continue GI DVT prophylaxis as well as pain control. Her hopes that he is ready for rehabilitation early next week. Admission and Anticipated Discharge Date Admission Date: December 15, 2020 Subjective Patient is seen bedside in room 386. He is postop day #3 status post removal of hardware and lumbar decompression fusion at L2-3. He still has a moderate amount of pain. His radicular complaints have improved however. He has been up to mobilize with physical therapy. [facility]. He denies any other numbness, tingling, paresthesias. Physical Exam Physical Exam: On exam he is alert and oriented. His calves are supple nontender his abdomen supple nontender. His dressing is clean dry and intact. Strength and sensation are both intact. Results & Data ([facility]) Vital Signs (Past 12 Hours) Vital Signs Temp Pulse Pulse Resp BP BP Pulse Ox 12/18/20 07:30 36.7 C 79 18 130/73 96 12/17/20 22:50 37.2 C 98 H 16 127/72 100
[2020-12-18] MEDS: dexAMETHasone 8 MG in SYRINGE 0 ML IV SCH (08:32)
[2020-12-18] MEDS: NovoLIN-N (NPH) PER UNIT CHARGE SQ SCH (08:34)
[2020-12-18] MEDS: INSULIN ASPART 100 UNITS/ML 3 ML PEN SC SCH ×4 (09:18→21:14)
--- NOTE | 2020-12-18 09:51 | Hospitalist Progress Note ---
Date of Service December 16, 2020 Assessment & Plan (1) Lumbar stenosis with neurogenic claudication: Pain and VTE management per orthopedics Continue gabapentin 900 mg p.o. twice daily Amitriptyline 100 mg p.o. at bedtime (2) Type 2 diabetes mellitus with diabetic neuropathy: Pharmacy consulted for glycemic management. Holding Metformin/glimepiride while on insulin sliding scale appears appropriate. HbA1c 6.0 in July. No need to repeat this. Can resume his usual meds on discharge. (3) Hypertension: Continue his usual metoprolol XL 25 mg p.o. every morning (4) Depression: Continue Wellbutrin 150 mg p.o. every morning Thank you for the consult, patient appears medically stable at the current time. Please call if you wish us to review him again. No change to his medications on discharge. Admission and Anticipated Discharge Date Admission Date: December 15, 2020 Subjective Patient doing well post operatively. No acute concerns or questions. On usual home meds except for pharmacy glycemic management. He reports no hypoglycemic episodes at home on current diabetic regimen. Review of Systems Review of Systems: All systems reviewed & are unremarkable except as noted in HPI & below Physical Exam Constitutional: WD/WN, vitals as above Eyes: + anicteric sclerae; normal pupil size ENMT: external ear and nose normal, oropharynx normal Respiratory: normal respiratory effort, lungs clear to auscultation Cardiovascular: RRR, no murmur, no edema Gastrointestinal (Abdomen): normal bowel sounds, soft, nontender, no hepatosplenomegaly Musculoskeletal: Chronic joint cyst, bone protrusions on hands and elbow. Skin: no rashes, warm and dry Neurologic: moves all extremities and awake; not confused Psychiatric: A+Ox3, euthymic affect Results & Data Results & Data ([facility]) Vital Signs (Past 12 Hours) Vital Signs Temp Pulse Pulse Resp BP BP Pulse Ox 12/18/20 07:30 36.9 C 89 18 122/68 96 12/17/20 22:50 37.2 C 98 H 16 127/72 100 PG Care Time/CCT Total # of Minutes Spent Total Time Spent with Patient: Total time spent is greater than 50% in coordination of care (as documented) at patient's floor/unit and/or counseling patient: Coding Level of Care Code 87617 Subseq Hosp Care Lvl 1 Diagnoses Lumbar stenosis with neurogenic claudication M48.062 Type 2 diabetes mellitus with diabetic neuropathy E11.40 Hypertension I10 Depression F32.9
[2020-12-18] MEDS: AMITRIPTYLINE HCL 100 MG TAB PO SCH (21:14)
[2020-12-18] MEDS: DOCUSATE SODIUM/SENNA 50/8.6MG TAB PO SCH (21:14)
[2020-12-19] MEDS: POLYETHYLENE (MIRALAX) 17 GM PACK PO SCH (05:35)
[2020-12-19] MEDS: metFORMIN HCL 500 MG TAB PO SCH (08:34)
[2020-12-19] MEDS: GABAPENTIN 300 MG CAP PO SCH (08:34)
[2020-12-19] MEDS: dexAMETHasone 8 MG in SYRINGE 0 ML IV SCH (08:34)
[2020-12-19] MEDS: METOPROLOL SUCC 25MG EXT REL TAB PO SCH (08:34)
[2020-12-19] MEDS: buPROPion SR 150 MG TABCR PO SCH (08:34)
[2020-12-19] MEDS: oxyCODONE HCL IR 5 MG TAB (IMMEDIATE RELEASE) PO PRN ×2 (08:42→14:10)
[2020-12-19] MEDS: INSULIN ASPART 100 UNITS/ML 3 ML PEN SC SCH ×2 (09:23→11:37)
[2020-12-19] MEDS: NovoLIN-N (NPH) PER UNIT CHARGE SQ SCH (09:23)
[2020-12-19] MEDS ORDERED: INSULIN ASPART 100 UNITS/ML 3 ML PEN SC SCH (11:30)
--- NOTE | 2020-12-19 11:32 | Pharmacy Report ---
Pharmacy Glycemic Short Note 2 - Date of Service December 19, 2020 - Glycemic Short BSG Results (Last 24 hours): 12/18/20 12/18/20 12/18/20 12:19 17:20 20:52 POC Glucose 147 H 234 H 171 H 12/19/20 08:39 POC Glucose 104 H OUTPATIENT ANTIDIABETIC REGIMEN: * Metformin 500 mg PO BIDM * Glimepiride 2 mg PO qAM * HbA1c: 6% (07/12/20) ASSESSMENT: 12/19/20 * Pt has received 69 units of insulin over the past 24hrs * 40 units of basal * 29 units of bolus with NovoLog * Metformin 500mg PO BIDM * BSGs 298-893-222-171 mg/dl * NPH insulin is used to counteract the hyperglycemic effect of once daily steroids. NPH should be dosed at the same time that prednisone is given * The dose of NPH given is dependent on the steroid dose given * For doses of prednisone 40mg/day or above NPH dose should be 0.4 units/kg * Have not increased NPH since patient did have lower BSGs on 12/17/20. * Patient's post prandial BSGs have been elevated after lunch. Will leave breakfast carbohydrate ratio lower and tighten subsequent CRs. 12/17 * Pt has received 15 units of insulin over the past 24hrs * 0 units of basal * 15 units of bolus with NovoLog * Metformin 500mg PO BIDM * BSGs 077-39-894-73-108 mg/dl * BSGs well controlled with current regimen; however patient starting DXM 8mg IV daily which will cause severe steroid induced hyperglycemia * NPH insulin is used to counteract the hyperglycemic effect of once daily steroids. NPH should be dosed at the same time that prednisone is given * The dose of NPH given is dependent on the steroid dose given * For doses of prednisone 40mg/day or above NPH dose should be 0.4 units/kg * Will start NPH per protocol and titrate based on BSG trends. NPH should be held if DXM held or DC 12/16 * COLIN is a 60 year old male POD #1 s/p L2-L3 decompression and fusion * Received dexamethasone 4 mg IV x 1 intra-operatively * Patient with very well-controlled T2DM on oral agents only * Received 20 units of Lantus last evening to help cover steroids * Fasting BSG of 83 mg/dL this morning * Will hold basal at this time and utilize Novolog and outpatient metformin * IV dexamethasone to be initiated starting tomorrow - will reassess need for NPH in AM PLAN FOR INPATIENT GLYCEMIC CONTROL: * Metformin 500 mg PO BIDM * Hold glimepiride * Basal insulin * hold for now, reassess in AM * Steroid induced hyperglycemia * NPH 40 units (0.4 units/kg) SQ daily with DXM * Bolus insulin * NovoLog per scale ACHS or Q6hrs while NPO * Goal Range: Low 110 mg/dL - High 140 mg/dL * Correction Factor: 25 mg/dL/unit * Nutritional / Prandial insulin per carb ratio of 1 unit per 7 grams CHO consumed (change to 6 grams of CHO consumed with lunch onwards) PLAN FOR DISCHARGE: * HbA1c of 6% suggests excellent outpatient glycemic control * Provided patient is not experiencing hypoglycemia as an outpatient, continue current home regimen
--- NOTE | 2020-12-19 12:28 | Discharge Summary ---
Date of Service December 19, 2020 Admission HPI Per Admitting Provider This is a 60-year-old male well-known to me the presents with worsening back and bilateral leg pain. Failing course of nonoperative care is here for surgical invention. Principal Diagnosis Lumbar spinal stenosis with neurogenic claudication Discharge Data Allergies Allergy/AdvReac Type Severity Reaction Status Date / Time lisinopril Allergy Intermediate cough, Verified 12/15/20 11:08 edema clavulanic acid Allergy Unknown hives Verified 12/15/20 11:08 Penicillins Allergy Unknown hives Verified 12/15/20 11:08 tazobactam Allergy Unknown hives Verified 12/15/20 11:08 acetaminophen AdvReac Intermediate liver Verified 12/15/20 11:08 injury Consultations 12/15/20 17:11 Consult Hospitalist Routine Procedures Performed Operation Date: 12/15/20 12:05 Actual Procedures p L2-L3 Decompression and Fusion, Spinal Cord Monitoring(Not Applicable) - Mikel Corbin DO s L3-L4 Hardware Removal(Not Applicable) - Mikel Corbin DO Ordered Studies 12/15/20 12:05 FL lumbar spine 2-3V Routine Hospital Course (1) Lumbar stenosis with neurogenic claudication: Patient underwent lumbar decompression fusion tolerated so was taken to orthopedic for postop bleed. Postop day 1 is up and ambulating Marcos postop day #2 on postop day #3 and 4 he progressed appropriately. ARNIE drain decreasing appropriate. Excellent strength testing. Simply discharged to rehab. Discharge orders instructions from the chart for further review. Total Time Total Time Spent Total Time Spent (In Minutes): 20 minutes Discharge Plan Discharge Items Patient Disposition: Transfer Inpatient Rehab Fac Reason For Visit: Spinal Stenosis, Lumbar Region without Neurogenic Discharge Diagnosis: Spinal stenosis with neurogenic claudication Activity: As commented below Non-emergency contact: Primary Care Provider Call non-emergency contact if: you have any medication questions Follow-up/Referrals: Mina Miller DO [Primary Care Provider] - Diet: Regular Addtl Attending Provider Instructions: ACTIVITY RECOMMENDATIONS: SELF CARE INSTRUCTIONS AFTER THORACIC/LUMBAR FUSIONS 1. You may walk to your tolerance. It is good exercise for your legs and back. Expect some back and intermittent leg aches and pains. 2. You may perform "counter-top" level activities (make a sandwich, carmen with a project, etc.). 3. No bending or lifting of more than 10 pounds or back twisting of any nature (roll like a log when turning in bed). 4. You may ride in a car for 20-30 minutes at a time. No driving until after your first visit with your doctor. 5. Frequent changes of position and restricting sitting to 30 minutes at a time will help limit the amount of back spasms and stiffness you may experience. 6. You may discontinue the use of ambulatory aids (cane, crutches, etc.) once your strength and confidence allow. 7. You may maritime engineer the shower and let water strike your incision when you arrive home at least once daily. Do not take a tub bath, sit in a hot tub or go into a swimming pool until after your first recheck in the office. SPECIAL CARE INSTRUCTIONS: VERY IMPORTANT TO READ AND REVIEW A. Your surgical incision has been closed with a cosmetic suture under the skin that will dissolve in about 6 weeks. In 14 days, you can use a pair of clean scissors and cut the suture that is left outside of the skin at the ends of your incision. 1. The small skin tapes can be removed 7 days after surgery if they have not fallen off by that point. 2. You may keep the wound open to air as much as possible to promote healing after post-op day number 5 unless told otherwise by your doctor. 3. If you think the wound looks like it is becoming infected (redness or worsening drainage) and/or you are experiencing fever, chill or worsening back pain and muscle spasms, contact the office so that we may evaluate you as soon as possible. B. Complications are uncommon, but please contact us if you have any signs or symptoms of: 1. wound infection (fever higher than 102.5 degrees F, redness, separation of wound, drainage, or increasing pain from the incision) 2. blood clots in legs (pain, swelling, redness and warmth in legs) 3. urinary tract infection (fever higher than 102.5 degrees F, burning upon urination or increased frequency of urination) 4. nerve problems (inability to walk on your toes or heels, numbness, loss of bowel or bladder control) 5. any other symptoms that concern you C. Please call the office at if you have any concerns or questions about your operation or recovery. D. No smoking! Smoking drastically decreases the chance of a solid fusion. E. Do not take any anti-inflammatory medications (Indocin, Advil, Motrin, Aspirin, Naprosyn, etc.) as these may inhibit the chance of a solid fusion. Tylenol is okay to take for pain. MANAGING PAIN AFTER SPINAL SURGERY 1. Narcotic medication is intended for short-term use and will be provided for surgical pain. Surgical pain usually lasts for a period of 4-6 weeks. Narcotic medication includes Percocet, Vicodin, Darvocet, Tylenol #3 or Lortab. 2. Longer-term pain is more appropriately treated with non-narcotic medication such as Tylenol ES. 3. Muscle spasm is not appropriately treated with narcotics. Muscle relaxers such as Soma, Flexeril or Skelaxin can be used along with Tylenol ES. 4. Remember that we all live with some "aches and pains". This is not unusual or uncommon after an injury or as we get older. a. Back pain is expected and may include muscle spasms for 4 to 6 weeks after surgery. The pain should gradually improve. If the pain worsens for no apparent reason, please contact the office. b. Intermittent leg pain may also be experienced and should not be concerned about unless it worsens for no apparent reason. If so, please contact the office. 5. We will provide appropriate medication within the normal guidelines of their prescribed use. We will also be very cautious and aware of potential abuse and extended duration of patients' medication needs. a. Pain medications are for your comfort and to assist with sleep and rest so that the tissue can heal. They are not provided in order to return to normal activity and should not be used through the day. To do so or worsening pain at night can result from ongoing tissue damage and development of tolerance to the prescribed medicine. 6. Please allow 2-3 days to process refills. Prescriptions will not be mailed but must be picked up at the office. FOLLOW UP VISIT: Keep your scheduled follow-up appointment. Any questions, please call the office at . Pending Studies at Discharge: No Stand-Alone [facility]: [facility] Patient informed of condition?: Yes DNR: No Discharge Level of Care: Acute rehab Communicable Disease: No Discharge Prognosis: Improving Lines: None Urinary Catheter: No Medications and DC Order Prescriptions: New tramadol 50 mg tablet 50 mg PO Q6H PRN (Reason: pain, moderate) Qty: 30 RF: 0 oxycodone 5 mg tablet 5 mg PO Q6H PRN (Reason: pain, severe) Qty: 30 RF: 0 Continued bupropion HCl [Wellbutrin SR] 150 mg Tablet Sustained-Release 12 Hr 150 mg PO QAM RF: 0 amitriptyline 100 mg Tablet 100 mg PO HS RF: 0 metformin 500 mg tablet 500 mg PO BID RF: 0 glimepiride 2 mg tablet 2 mg PO QAM RF: 0 gabapentin 300 mg capsule 900 mg PO BID RF: 0 metoprolol succinate [Toprol XL] 25 mg tablet extended release 24 hr 25 mg PO QAM RF: 0 tramadol 50 mg Tablet 50 mg PO TID RF: 0 naproxen 500 mg Tablet 500 mg PO BID RF: 0 Discharge Orders: Discharge Order (Routine); Ordered 12/19/20 Ordered By: Mikel Corbin Admission Data Admit Date/Time: 12/15/20 15:45 Attending Provider: Mikel Corbin Admit Provider: Mikel Corbin Primary Care Provider: Mina Miller Other Providers: Adam De Luna ; [facility]
[2020-12-20] MEDS ORDERED: INSULIN ASPART 100 UNITS/ML 3 ML PEN SC SCH (07:30)
== END 2020-12-19 16:48 | DRG 455 ==
LOC: ASU 10:17 → 3N 15:45

== ENCOUNTER 2021-03-30 17:16 | Inpatient (IN) ==
[2021-03-30 19:33] LABS: Basophils # (auto) 0.01 K/uL (0-0.2); Basophils % (auto) 0.1 %; Hematocrit (blood only) 37.7 % (42-52); Hemoglobin 11.8 g/dL (14.0-18.0); Immature Granulocytes # (auto) 0.09 K/uL (0.00-0.02); Immature Granulocytes % (auto) 0.7 %; Lymphocytes # (auto) 1.03 K/uL (1.2-3.4); Lymphocytes % (auto) 7.5 %; Mean Corpuscular Hemoglobin 27.3 pg (25-34); Mean Corpuscular Hgb Conc 31.3 g/dL (32-36); Mean Corpuscular Volume 87.3 fL (80-100); Mean Platelet Volume 10.1 fL (7.4-10.4); Monocytes # (auto) 0.61 K/uL (0.11-0.59); Monocytes % (auto) 4.4 %; Neutrophils # (auto) 12.08 K/uL (1.4-6.5); Neutrophils % (auto) 87.3 %; Platelet Count 222 K/uL (130-400); RDW Coefficient of Variation 15.8 % (11.5-14.5); Red Blood Count 4.32 M/uL (4.7-6.1); White Blood Count 13.82 K/uL (4.8-10.8)
[2021-03-30 19:51] LABS: Alanine Aminotransferase 26 U/L (12-78); Albumin Level 3.3 gm/dl (3.4-5.0); Aspartate Aminotransferase 24 U/L (15-37); BUN Creatinine Ratio 11.2 (10-20); Blood Urea Nitrogen 24 mg/dl (7-18); Calcium 8.8 mg/dl (8.5-10.1); Carbon Dioxide 26 mmol/L (21-32); Chloride 103 mmol/L (98-107); Est GFR (African American) 37.3 ml/min; Est GFR (Non-African American) 32.1 ml/min; Glucose 135 mg/dl (70-99); Potassium 4.7 mmol/L (3.5-5.1); Sodium 135 mmol/L (136-145)
[2021-03-30 19:54] LABS: Albumin Globulin Ratio 0.6 (0.9-2); Alkaline Phosphatase 87 U/L (45-117); Bilirubin,Total 0.6 mg/dl (0.2-1); Globulin 5.2 gm/dl (2.5-4.0); Total Protein 8.5 gm/dl (6.4-8.2)
[2021-03-30] MEDS ORDERED: SODIUM CHLORIDE 0.9% 1000ML 1,000 ML IV ONE (21:35)
[2021-03-30] MEDS ORDERED: cefTRIAXone SODIUM 1,000 MG/50 ML BAG IV STA (21:37)
--- NOTE | 2021-03-30 21:53 | Emergency Department Note ---
Impression & Plan Sepsis, Cellulitis, BROOKS (acute kidney injury) ED Provider Note NAME: GAGE TURNER AGE: 61 SEX: M : 1960 ARRIVES VIA: Walk-In INFORMANT: Patient ED PROVIDER(S): Aki Damico DO CHIEF COMPLAINT: Weak, chills and leg pain HPI: Patient is a 61-year-old male who presents to ER for left lower extremity pain. He notes the redness was first noticed earlier today. He admits to shaking chills this morning. He feels very weak and off balance. Denies any headache or change in vision. No chest pain or shortness of breath. No nausea, vomiting, or diarrhea. No weakness or numbness which is focal. Denies any recorded fevers. No other exacerbating or remitting factors. He did have back surgery 3 months ago and notes that is healing well and the pain is gradually improving. ROS: See above HPI for pertinent positives & negatives. A total of 10 systems reviewed and were otherwise negative. PAST MEDICAL HISTORY:See Below PAST SURGICAL HISTORY:See Below FAMILY HISTORY:See Below SOCIAL HISTORY:See Below HOME MEDICATIONS:See Below ALLERGIES:See Below VITALS:See Below PHYSICAL EXAMINATION: GENERAL: Sitting up in bed, alert, well appearing, well nourished, no distress, non-toxic EYE EXAM: normal conjunctiva. PERRL and EOM's grossly intact. OROPHARYNX: no exudate, no erythema, lips, buccal mucosa, and tongue normal and mucous membranes are moist NECK: supple, no nuchal rigidity, no adenopathy, non-tender LUNGS: Clear to auscultation. Normal chest wall mechanics HEART: no murmurs, S1 normal and S2 normal ABDOMEN: abdomen soft, non-tender, normo-active bowel sounds, no masses, no rebound or guarding. BACK: Back is symmetrical on inspection and there is no deformity, no midline tenderness, no CVA tenderness. SKIN: no rashes and no bruising UPPER EXTREMITIES: upper extremities are grossly normal. LOWER EXTREMITIES: Left lower extremity with edema and circumferential erythema of the entire right lower leg from the proximal tibia down to the ankle NEURO EXAM: Normal sensorium, cranial nerves II-XII grossly intact, normal speech, no gross weakness of arms, no gross weakness of legs. MEDICAL DECISION MAKING: Patient is a 61-year-old male who presents to the ER for shaking chills. He is found to be febrile, tachycardic with a leukocytosis of 14,000. He has a clear action in his left lower remedy. BMP with a creatinine which has doubled to 2.1 left T's bili Oracio was unremarkable. He was slightly hypotensive initially and he was given fluids and IV antibiotics. He was updated bedside. He was admitted for further work-up of his sepsis secondary to cellulitis. Triage Nursing notes reviewed. Limited review of prior medical records performed Vital Signs: reviewed and remarkable for hypotensive and tachycardic Differential diagnosis: Differential diagnosis includes etiologies such as sepsis, UTI, pneumonia, metabolic, electrolyte abnormalities, cardiac sources, intracerebral event, toxicologic, neurological, as well as others were entertained. ER treatment provided: See below Diagnostics interpreted by me: ECG: none Cardiac Monitoring: An order was placed for continuous cardiac monitoring. The monitor shows a rate of 101 with sinus rhythm. Laboratory studies: As stated above and show below. Imaging studies: See below Consultation(s): Discussed with the hospitalist for further evaluation Procedures: none Critical Care: None Past Med/Surg History Medical History (Updated 03/31/21 @ 02:08 by Aki Damico DO) Ascending cholangitis Chronic back pain Degenerative disc disease Depression Diabetes mellitus, type 2 NIDDM Diabetic neuropathy Fatty liver GURROLA Hypertension Left rib fracture 2013 Osteoarthritis Rheumatic nodule hands Rheumatoid arthritis Follows with rheumatology, affects hands (nodules), good cervical extension Surgical History History of bronchoscopy ~2007 (per medical record, pt denies) History of cardiac cath 2006 ([facility])- no stents History of cholecystectomy 12/01/15 - MAC#4, ETT#8.0, Grade 1 View with easy placement History of colonoscopy History of esophagogastroduodenoscopy (EGD) History of lumbar fusion x2 History of right inguinal hernia repair right open inguinal hernia repair with mesh: 08/27/19: LMA#5, atraumatic, easy with good seal at [facility] 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 -- able to repair arm History of tonsillectomy History of total hip arthroplasty left hip-2019 History of total hip arthroplasty [facility] 08/2020 Family History Mother Diabetes Father Heart disease Other Family history non-contributory No family history of adverse response to anesthesia Social History Smoking Status: Never smoker Second Hand Exposure: No; Hx Alcohol Use: No Hx Substance Use: Yes Preferred Language: [place] Communication Ability: Effective Marketing Mgr Required: No Beliefs That Will Affect Care: None marital status: Current Living Situation: Family current occupational status: disabled Feels Safe at Home: Yes Assistive Devices: Glasses and Walker Allergies Allergies Allergy/AdvReac Type Severity Reaction Status Date / Time lisinopril Allergy Intermediate cough, Verified 03/30/21 22:59 edema clavulanic acid Allergy Unknown hives Verified 03/30/21 22:59 Penicillins Allergy Unknown hives Verified 03/30/21 22:59 tazobactam Allergy Unknown hives Verified 03/30/21 22:59 acetaminophen AdvReac Intermediate liver Verified 03/30/21 22:59 injury Home Meds Home Medications Medication Instructions Recorded Confirmed bupropion HCl 150 mg tablet,12 hr 150 mg PO QAM 03/18/18 03/30/21 sustained-release (Wellbutrin SR) metformin 500 mg tablet 500 mg PO BID tab 08/10/19 03/30/21 gabapentin 300 mg capsule 600 mg PO TID 01/21/20 03/30/21 glimepiride 2 mg tablet 2 mg PO QAM 01/21/20 03/30/21 metoprolol succinate 25 mg 25 mg PO QAM 01/21/20 03/30/21 tablet,extended release 24 hr (Toprol XL) amitriptyline 50 mg tablet 50 mg PO BID 03/30/21 03/30/21 naproxen 500 mg tablet 500 mg PO BID PRN 03/30/21 03/30/21 tramadol 50 mg tablet 50 mg PO Q8H PRN 03/30/21 03/30/21 Results & Data (ED) Vital Signs Vital Signs - 24 hr 03/30/21 17:16 03/30/21 17:26 03/30/21 21:30 Temperature 38.0 C H 37.2 C Temperature Source Oral Skin Pulse Rate 82 Pulse Rate [Left Apical] 89 Respiratory Rate 20 17 Respiratory Effort / Characteristics Non-Labored Respiratory Depth Normal Blood Pressure 94/48 L Blood Pressure [Left Arm] 101/54 L Blood Pressure Mean 63 Blood Pressure Mean [Left Arm] 69 Blood Pressure Position Sitting Pulse Oximetry 96 93 Oxygen Delivery Method Room Air Room Air Sepsis Recent Fever Within 48 Hours No Sepsis New/Unexplained Change in Mental Status No Sepsis Action Taken by Nursing No Action Required 03/30/21 22:35 Temperature Temperature Source Pulse Rate Pulse Rate [Left Apical] Respiratory Rate Respiratory Effort / Characteristics Respiratory Depth Blood Pressure Blood Pressure [Left Arm] Blood Pressure Mean Blood Pressure Mean [Left Arm] Blood Pressure Position Pulse Oximetry 93 Oxygen Delivery Method Room Air Sepsis Recent Fever Within 48 Hours Sepsis New/Unexplained Change in Mental Status Sepsis Action Taken by Nursing Laboratory Data Result diagrams: 03/30/21 19:15 03/30/21 19:15 Lab Results 03/30/21 03/30/21 03/30/21 Range/Units 19:15 19:15 19:15 WBC 13.82 H (4.8-10.8) K/uL RBC 4.32 L (4.7-6.1) M/uL Hgb 11.8 L (14.0-18.0) g/dL Hct 37.7 L (42-52) % MCV 87.3 (80-100) fL MCH 27.3 (25-34) pg MCHC 31.3 L (32-36) g/dL RDW Std Deviation 51.0 H (36.4-46.3) fL RDW Coeff of Tamara 15.8 H (11.5-14.5) % Plt Count 222 (130-400) K/uL MPV 10.1 (7.4-10.4) fL Immature Gran % (Auto) 0.7 % Neut % (Auto) 87.3 % Lymph % (Auto) 7.5 % [place] % (Auto) 4.4 % Eos % (Auto) 0.0 % Baso % (Auto) 0.1 % Neut # (Auto) 12.08 H (1.4-6.5) K/uL Lymph # (Auto) 1.03 L (1.2-3.4) K/uL [place] # (Auto) 0.61 H (0.11-0.59) K/uL Eos # (Auto) 0.00 (0-0.5) K/uL Baso # (Auto) 0.01 (0-0.2) K/uL Immature Gran # (Auto) 0.09 H (0.00-0.02) K/uL Sodium 135 L (136-145) mmol/L Potassium 4.7 (3.5-5.1) mmol/L Chloride 103 (98-107) mmol/L Carbon Dioxide 26 (21-32) mmol/L Anion Gap 6.0 (3-11) BUN 24 H (7-18) mg/dl Creatinine 2.12 H (0.6-1.4) mg/dl Est Cr Clr Drug Dosing Not Reportable Est GFR ( Amer) 37.3 ml/min Est GFR (Non-Af Amer) 32.1 ml/min BUN/Creatinine Ratio 11.2 (10-20) Glucose 135 H (70-99) mg/dl Calcium 8.8 (8.5-10.1) mg/dl Total Bilirubin 0.6 (0.2-1) mg/dl AST 24 (15-37) U/L ALT 26 (12-78) U/L Alkaline Phosphatase 87 (45-117) U/L Total Creatine Kinase 77 (39-308) U/L Total Protein 8.5 H (6.4-8.2) gm/dl Albumin 3.3 L (3.4-5.0) gm/dl Globulin 5.2 H (2.5-4.0) gm/dl Albumin/Globulin Ratio 0.6 L (0.9-2) Lipase 139 (73-393) U/L COVID-19 Eval Order SARS-CoV-2 (PCR) (Negative) 03/30/21 03/30/21 Range/Units 22:45 22:45 WBC (4.8-10.8) K/uL RBC (4.7-6.1) M/uL Hgb (14.0-18.0) g/dL Hct (42-52) % MCV (80-100) fL MCH (25-34) pg MCHC (32-36) g/dL RDW Std Deviation (36.4-46.3) fL RDW Coeff of Tamara (11.5-14.5) % Plt Count (130-400) K/uL MPV (7.4-10.4) fL Immature Gran % (Auto) % Neut % (Auto) % Lymph % (Auto) % [place] % (Auto) % Eos % (Auto) % Baso % (Auto) % Neut # (Auto) (1.4-6.5) K/uL Lymph # (Auto) (1.2-3.4) K/uL [place] # (Auto) (0.11-0.59) K/uL Eos # (Auto) (0-0.5) K/uL Baso # (Auto) (0-0.2) K/uL Immature Gran # (Auto) (0.00-0.02) K/uL Sodium (136-145) mmol/L Potassium (3.5-5.1) mmol/L Chloride (98-107) mmol/L Carbon Dioxide (21-32) mmol/L Anion Gap (3-11) BUN (7-18) mg/dl Creatinine (0.6-1.4) mg/dl Est Cr Clr Drug Dosing Est GFR ( Amer) ml/min Est GFR (Non-Af Amer) ml/min BUN/Creatinine Ratio (10-20) Glucose (70-99) mg/dl Calcium (8.5-10.1) mg/dl Total Bilirubin (0.2-1) mg/dl AST (15-37) U/L ALT (12-78) U/L Alkaline Phosphatase (45-117) U/L Total Creatine Kinase (39-308) U/L Total Protein (6.4-8.2) gm/dl Albumin (3.4-5.0) gm/dl Globulin (2.5-4.0) gm/dl Albumin/Globulin Ratio (0.9-2) Lipase (73-393) U/L COVID-19 Eval Order Covid19 at [facility] SARS-CoV-2 (PCR) NEGATIVE (Negative) Administered Medications Discontinued Medications Acetaminophen (Acetaminophen 500 Mg Tab) Confirm Administered Dose 1,000 mg .ROUTE .STK-MED ONE Stop: 03/30/21 22:28 Last Admin: 03/30/21 22:32 Dose: Not Given Documented by: [id number] Acetaminophen (Acetaminophen 500 Mg Tab) 1,000 mg PO NOW STA Stop: 03/30/21 22:32 Last Admin: 03/30/21 22:33 Dose: 1,000 mg Documented by: [id number] Sodium Chloride (Nss 1000ml) 1,000 mls @ 999 mls/hr IV .Q1H1M ONE Stop: 03/30/21 22:35 Last Infusion: 03/30/21 23:23 Dose: 0 mls/hr Documented by: [id number] Admin: 03/30/21 21:50 Dose: 999 mls/hr Documented by: [id number] Ceftriaxone Sodium (Rocephin) 1,000 mg in 50 mls @ 100 mls/hr IV NOW STA Stop: 03/30/21 22:06 Last Infusion: 03/30/21 23:23 Dose: 0 mls/hr Documented by: [id number] Admin: 03/30/21 21:50 Dose: 100 mls/hr Documented by: [id number] Ceftriaxone Sodium 1,000 mg/ (Dextrose) 60 mls @ 100 mls/hr IV NOW STA; Protocol Stop: 03/30/21 23:22 Last Infusion: 03/31/21 00:10 Dose: 0 mls/hr Documented by: [id number] Admin: 03/30/21 23:33 Dose: 100 mls/hr Documented by: [id number] Discharge Plan Visit Data Chief Complaint: Leg Weakness, Bilateral Stated Complaint: WEAKNESS IN LEGS ED Provider: Aki Damico Discharge Problem: Sepsis, Cellulitis, BROOKS (acute kidney injury) Patient Disposition: Admitted As Inpatient Discharge Instructions Interventions: ED Discharge Assessment Last Done: 03/31/21 01:19 Discharge Problem: Sepsis Qualifiers: Sepsis type: sepsis due to unspecified organism Sepsis acute organ dysfunction status: unspecified Qualified Code(s): A41.9 - Sepsis, unspecified organism Cellulitis Qualifiers: Site of cellulitis: unspecified site Qualified Code(s): L03.90 - Cellulitis, unspecified
[2021-03-30 21:54] LABS: Lipase 139 U/L (73-393)
[2021-03-30] MEDS ORDERED: ACETAMINOPHEN 500 MG TAB ONE (22:27)
[2021-03-30] MEDS ORDERED: ACETAMINOPHEN 500 MG TAB PO STA (22:31)
[2021-03-30] MEDS ORDERED: cefTRIAXone SODIUM 1,000 MG in DEXTROSE 5% 50 ML IV STA (22:47)
--- NOTE | 2021-03-30 22:48 | History & Physical Report ---
Date of Service March 30, 2021 Assessment & Plan (1) Cellulitis of left lower extremity without foot: Plan: Placed on daptomycin IV and ceftriaxone IV. Follow clinical examination Venous Doppler negative for DVT (2) Diabetes mellitus, type 2: Plan: Hold glimepiride and Metformin Place on Accu-Cheks before meals and at bedtime with NovoLog coverage per scale Check hemoglobin A1c (3) Type 2 diabetes mellitus with diabetic neuropathy: Plan: Continue naproxen, tramadol, gabapentin and amitriptyline (4) Hypertension: Plan: Continue metoprolol succinate with hold parameters (5) Depression: Plan: Continue amitriptyline, and bupropion History of Present Illness Chief Complaint: The patient presents to the emergency department with complaint of left lower extremity pain and redness, generalized weakness and imbalance, with the onset of shaking chills that began early this morning Primary Care Provider: Mina Miller DO The patient is a 61-year-old male with a past history lumbar stenosis with claudication, orthostatic hypotension, hypertension, diabetes mellitus, diabetic polyneuropathy, depression, obesity and status post right hip replacement. He presents with symptoms as noted above. He did undergo back surgery 3 months ag o, which has been gradually healing, but has still not gotten back to his normal physical activity pattern. Work-up the emergency department included the following abnormal laboratories: WBC 13.82, sodium 135, creatinine 2.12, BUN 24. Venous Doppler of left lower extremity showed no evidence of DVT. Superficial soft tissue swelling of the left calf was noted. Mildly enlarged left groin lymph nodes noted. COVID-19 testing was negative Allergies Allergy/AdvReac Type Severity Reaction Status Date / Time lisinopril Allergy Intermediate cough, Verified 03/30/21 22:59 edema clavulanic acid Allergy Unknown hives Verified 03/30/21 22:59 Penicillins Allergy Unknown hives Verified 03/30/21 22:59 tazobactam Allergy Unknown hives Verified 03/30/21 22:59 acetaminophen AdvReac Intermediate liver Verified 03/30/21 22:59 injury Home Medications Medication Instructions Recorded Confirmed Type bupropion HCl 150 mg tablet,12 hr 150 mg PO QAM 03/18/18 03/30/21 History sustained-release (Wellbutrin SR) metformin 500 mg tablet 500 mg PO BID tab 08/10/19 03/30/21 History gabapentin 300 mg capsule 600 mg PO TID 01/21/20 03/30/21 History glimepiride 2 mg tablet 2 mg PO QAM 01/21/20 03/30/21 History metoprolol succinate 25 mg 25 mg PO QAM 01/21/20 03/30/21 History tablet,extended release 24 hr (Toprol XL) amitriptyline 50 mg tablet 50 mg PO BID 03/30/21 03/30/21 History naproxen 500 mg tablet 500 mg PO BID PRN 03/30/21 03/30/21 History tramadol 50 mg tablet 50 mg PO Q8H PRN 03/30/21 03/30/21 History Past Med/Surg History Medical History (Updated 03/31/21 @ 01:37 by Harpreet Hardin MD) Ascending cholangitis Chronic back pain Degenerative disc disease Depression Diabetes mellitus, type 2 NIDDM Diabetic neuropathy Fatty liver GURROLA Hypertension Left rib fracture 2013 Osteoarthritis Rheumatic nodule hands Rheumatoid arthritis Follows with rheumatology, affects hands (nodules), good cervical extension Surgical History History of bronchoscopy ~2007 (per medical record, pt denies) History of cardiac cath 2006 ([facility])- no stents History of cholecystectomy 12/01/15 - MAC#4, ETT#8.0, Grade 1 View with easy placement History of colonoscopy History of esophagogastroduodenoscopy (EGD) History of lumbar fusion x2 History of right inguinal hernia repair right open inguinal hernia repair with mesh: 08/27/19: LMA#5, atraumatic, easy with good seal at [facility] 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 -- able to repair arm History of tonsillectomy History of total hip arthroplasty left hip-2019 History of total hip arthroplasty [facility] 08/2020 Family History Mother Diabetes Father Heart disease Other Family history non-contributory No family history of adverse response to anesthesia Social History Smoking Status: Never smoker Second Hand Exposure: No; Hx Alcohol Use: No Hx Substance Use: No Preferred Language: [place] Communication Ability: Effective 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 Beliefs That Will Affect Care: None marital status: Current Living Situation: Spouse and Family current occupational status: disabled Feels Safe at Home: Yes Assistive Devices: None Review of Systems Review of Systems: The patient denies chest pain, palpitations, shortness of breath, dyspnea on exertion, cough, sore throat, fevers, chills, sweats, nausea, vomiting, diarrhea , constipation, abdominal pain, pelvic pain, blood in urine or stool, dysuria, urinary frequency or urgency, headache, memory loss, loss of consciousness, focal or generalized weakness, numbness or tingling in arms, generalized arthralgias or myalgias, back or neck pain, or night sweats. The review of systems is otherwise negative other than for that already noted above, and at least 10 systems have been reviewed. Physical Exam Physical Exam: The patient is awake, alert and oriented 3, well developed and well nourished, normocephalic and atraumatic, lying in bed and in no acute distress. HEENT--PERRL, EOMI, mucous membranes and oropharynx mildly dry Neck--supple. No JVD. No bruits. Thyroid normal, trachea midline, no adenopathy. Heart--normal S1 and S2. No murmurs, rubs or gallops. Lungs--clear bilaterally, no respiratory distress, no accessory muscle use. Abdomen--normal bowel sounds and soft. Nontender. Nondistended. Mildly obese Extremities--right lower extremity normal. Left lower extremity with erythema from ankle to below the knee, with warmth and increased diameter Dermatologic--see above Neurologic--cranial nerves II through XII grossly intact. Rheumatologic--normal range of motion. Psychiatric--normal affect. Results & Data Results & Data ([facility]) Vital Signs (Past 12 Hours) Vital Signs Temp Pulse Pulse Resp BP BP Pulse Ox 03/30/21 22:35 93 03/30/21 21:30 89 17 101/54 L 93 03/30/21 17:26 99.0 F 82 20 94/48 L 96 03/30/21 17:16 100.4 F H Laboratory Results Laboratory Results WBC 13.82 K/uL (4.8-10.8) H 03/30/21 19:15 RBC 4.32 M/uL (4.7-6.1) L 03/30/21 19:15 Hgb 11.8 g/dL (14.0-18.0) L 03/30/21 19:15 Hct 37.7 % (42-52) L 03/30/21 19:15 MCV 87.3 fL (80-100) 03/30/21 19:15 MCH 27.3 pg (25-34) 03/30/21 19:15 MCHC 31.3 g/dL (32-36) L 03/30/21 19:15 RDW Std Deviation 51.0 fL (36.4-46.3) H 03/30/21 19:15 RDW Coeff of Tamara 15.8 % (11.5-14.5) H 03/30/21 19:15 Plt Count 222 K/uL (130-400) 03/30/21 19:15 MPV 10.1 fL (7.4-10.4) 03/30/21 19:15 Immature Gran % (Auto) 0.7 % 03/30/21 19:15 Neut % (Auto) 87.3 % 03/30/21 19:15 Lymph % (Auto) 7.5 % 03/30/21 19:15 [place] % (Auto) 4.4 % 03/30/21 19:15 Eos % (Auto) 0.0 % 03/30/21 19:15 Baso % (Auto) 0.1 % 03/30/21 19:15 Neut # (Auto) 12.08 K/uL (1.4-6.5) H 03/30/21 19:15 Lymph # (Auto) 1.03 K/uL (1.2-3.4) L 03/30/21 19:15 [place] # (Auto) 0.61 K/uL (0.11-0.59) H 03/30/21 19:15 Eos # (Auto) 0.00 K/uL (0-0.5) 03/30/21 19:15 Baso # (Auto) 0.01 K/uL (0-0.2) 03/30/21 19:15 Immature Gran # (Auto) 0.09 K/uL (0.00-0.02) H 03/30/21 19:15 Sodium 135 mmol/L (136-145) L 03/30/21 19:15 Potassium 4.7 mmol/L (3.5-5.1) 03/30/21 19:15 Chloride 103 mmol/L (98-107) 03/30/21 19:15 Carbon Dioxide 26 mmol/L (21-32) 03/30/21 19:15 Anion Gap 6.0 (3-11) 03/30/21 19:15 BUN 24 mg/dl (7-18) H 03/30/21 19:15 Creatinine 2.12 mg/dl (0.6-1.4) H 03/30/21 19:15 Est Cr Clr Drug Dosing Not Reportable 03/30/21 19:15 Est GFR ( Amer) 37.3 ml/min 03/30/21 19:15 Est GFR (Non-Af Amer) 32.1 ml/min 03/30/21 19:15 BUN/Creatinine Ratio 11.2 (10-20) 03/30/21 19:15 Glucose 135 mg/dl (70-99) H 03/30/21 19:15 Calcium 8.8 mg/dl (8.5-10.1) 03/30/21 19:15 Total Bilirubin 0.6 mg/dl (0.2-1) 03/30/21 19:15 AST 24 U/L (15-37) 03/30/21 19:15 ALT 26 U/L (12-78) 03/30/21 19:15 Alkaline Phosphatase 87 U/L (45-117) 03/30/21 19:15 Total Creatine Kinase 77 U/L (39-308) 03/30/21 19:15 Total Protein 8.5 gm/dl (6.4-8.2) H 03/30/21 19:15 Albumin 3.3 gm/dl (3.4-5.0) L 03/30/21 19:15 Globulin 5.2 gm/dl (2.5-4.0) H 03/30/21 19:15 Albumin/Globulin Ratio 0.6 (0.9-2) L 03/30/21 19:15 Lipase 139 U/L (73-393) 03/30/21 19:15 COVID-19 Eval Order Covid19 at [facility] 03/30/21 22:45 SARS-CoV-2 (PCR) NEGATIVE (Negative) 03/30/21 22:45 Diagnostic Findings [facility] Patient: GAGE TURNER III (Male) : 56 Status: ER Date: 03/31/21 01:17 Room #: History: red swollen LLE Slices: 27 Priors: 10/11/17 Tech: Kelly Bentley @ [phone] Exams: US VENOUS LEFT LOWER EXTREMITY Contrast: Accession Numbers: [id number] Referring Physician: REFERRED SELF Preliminary Findings Only See Final Report For Complete Findings US VENOUS LEFT LOWER EXTREMITY: No evidence of deep venous thrombosis of the left lower extremity. Superficial soft tissue swelling of the left calf. Mildly enlarged left groin lymph nodes. Recommend clinical follow-up to ensure resolution. Radiologist: Alvin Schafer MD Study ready at 01:18 and initial results transmitted at 01:21 *This report constitutes a preliminary interpretation only. Non-acute findings felt to be unrelated to the clinical presentation may not be discussed in this report. The study will be interpreted and a final report will be generated by the local Radiologist the following shift. To reach the hospital radiology department call [phone]. If a discrepancy is found between the preliminary and final interpretations of this study, please notify us via our Client Portal at [email or web address] under QA Exams.You can also fax this report with a description of the discrepancy, or include the final report, to our daytime fax number [phone].If faxing, please indicate the severity of discrepancy using one of the following categories: [ ] 1 - Agree/Informational [ ] 2 - Unlikely to Affect Management [ ] 3 - Possible Eventual Change of Management [ ] 4 - Probable Immediate Change of Management For all other patient related information, please fax us at [phone]. [id number] Code Status & VTE Plan Code Status Full code VTE Prophylaxis Plan VTE Prophylaxis will be ordered: Yes PG Care Time/CCT Total # of Minutes Spent Total Time Spent with Patient: Total time spent is greater than 50% in coordination of care (as documented) at patient's floor/unit and/or counseling patient: Coding Level of Care Code 41410 Initial Inpt Care Lvl 3 Diagnoses Cellulitis of left lower extremity without foot L03.116 Type 2 diabetes mellitus with diabetic neuropathy E11.40 Hypertension I10 Depression F32.9 Diabetes mellitus, type 2 E11.9
[2021-03-30 23:12] LABS: Creatine Kinase 77 U/L (39-308)
[2021-03-31] MEDS ORDERED: CARBOHYDRATES FOR HYPOGLYCEMIA PO PRN (01:39)
[2021-03-31] MEDS ORDERED: GLUCOSE 10 TABS/TUBE PO PRN (01:39)
[2021-03-31] MEDS ORDERED: GLUCAGON FOR INJ 1 MG VIAL SQ PRN (01:39)
[2021-03-31] MEDS ORDERED: GLUCOSE 40% GEL 15 GM TUBE PO PRN (01:39)
[2021-03-31] MEDS ORDERED: DEXTROSE 50% 50 ML SYRINGE IV PRN (01:39)
[2021-03-31] MEDS ORDERED: ONDANSETRON INJ 2 MG/ML 2 ML VIAL IV PRN (01:39)
[2021-03-31] MEDS: SODIUM CHLORIDE 0.9% 1000ML 1,000 ML IV SCH ×3 (02:45→21:01)
[2021-03-31] MEDS: DAPTOmycin 325 MG in SYRINGE 0 ML IV SCH (02:46)
[2021-03-31 06:33] LABS: Basophils # (auto) 0.01 K/uL (0-0.2); Basophils % (auto) 0.1 %; Hematocrit (blood only) 33.7 % (42-52); Hemoglobin 10.6 g/dL (14.0-18.0); Immature Granulocytes # (auto) 0.05 K/uL (0.00-0.02); Immature Granulocytes % (auto) 0.4 %; Lymphocytes # (auto) 0.91 K/uL (1.2-3.4); Lymphocytes % (auto) 8.1 %; Mean Corpuscular Hemoglobin 27.5 pg (25-34); Mean Corpuscular Hgb Conc 31.5 g/dL (32-36); Mean Corpuscular Volume 87.3 fL (80-100); Mean Platelet Volume 9.7 fL (7.4-10.4); Monocytes # (auto) 0.32 K/uL (0.11-0.59); Monocytes % (auto) 2.9 %; Neutrophils # (auto) 9.88 K/uL (1.4-6.5); Neutrophils % (auto) 88.5 %; Platelet Count 193 K/uL (130-400); RDW Standard Deviation 51.7 fL (36.4-46.3); Red Blood Count 3.86 M/uL (4.7-6.1); White Blood Count 11.17 K/uL (4.8-10.8)
--- NOTE | 2021-03-31 06:45 | Ultrasound Report ---
LEFT LOWER EXTREMITY VENOUS DOPPLER CLINICAL HISTORY: red, swollen and warm LLE COMPARISON STUDY: Left lower extremity venous Doppler ultrasound October 11, 2017. TECHNIQUE: Sonography of the deep venous system of the left lower extremity was performed. Compressi on and augmentation were evaluated. FINDINGS: The left common femoral, superficial femoral and popliteal veins were compressible. Augmen tation was normal. Flow was shown within the deep calf vessels. Note is made of prominent left inguin al lymph nodes. Largest node measures 4.9 x 1.7 x 2.9 cm. However, the cortex is thin and this node c ontains a fatty hilum. These have benign imaging characteristics. Subcutaneous edema of the left calf is noted. IMPRESSION: 1. No evidence of deep venous thrombus within the left lower extremity. 2. Prominent but benign-appearing left renal lymph nodes. These may be reactive. ACT 112: Negative or not required by law. Electronically signed by: Duane Chowdhury M.D. 03/31/2021 6:43 AM
[2021-03-31 06:51] LABS: Appearance Urine Clear (Clear); Bacteria Urine Automated Negative (Negative); Bilirubin Urine Negative (Negative); Blood Urine 2+ (Negative); Color Urine Dark Yellow; Epithelial Cell Urine Auto 20-30 /lpf (0-5); Glucose Urine UA Negative (Negative); Ketones Urine Trace (Negative); Leukocyte Esterase Urine Negative (Negative); Nitrite Urine Negative (Negative); Protein Urine Trace (Negative); RBC Urine Automated >30 /hpf (0-4); Specific Gravity Urine 1.022 (1.000-1.030); Urobilinogen Urine Negative (Negative)
[2021-03-31 07:08] LABS: Albumin Globulin Ratio 0.6 (0.9-2); Albumin Level 2.7 gm/dl (3.4-5.0); BUN Creatinine Ratio 16.9 (10-20); Bilirubin,Total 0.6 mg/dl (0.2-1); Calcium 8.2 mg/dl (8.5-10.1); Creatinine Clr Calc Pharmacy 55.2 ml/min; Est GFR (African American) 52.4 ml/min; Est GFR (Non-African American) 45.2 ml/min; Globulin 4.7 gm/dl (2.5-4.0); Potassium 3.9 mmol/L (3.5-5.1); Total Protein 7.4 gm/dl (6.4-8.2)
[2021-03-31 07:37] LABS: Estimated Average Glucose 154 mg/dl
[2021-03-31] MEDS: METOPROLOL SUCC 25MG EXT REL TAB PO SCH (08:57)
[2021-03-31] MEDS: INSULIN ASPART 100 UNITS/ML 3 ML PEN SC SCH ×4 (08:57→21:21)
[2021-03-31] MEDS: GABAPENTIN 300 MG CAP PO SCH ×2 (08:58→21:01)
[2021-03-31] MEDS: buPROPion SR 150 MG TABCR PO SCH (08:58)
--- NOTE | 2021-03-31 08:59 | Electrocardiogram Report ---
Test Reason : Blood Pressure : / mmHG Vent. Rate : 097 BPM Atrial Rate : 097 BPM P-R Int : 230 ms QRS Dur : 104 ms QT Int : 374 ms P-R-T Axes : 047 004 042 degrees QTc Int : 474 ms Sinus rhythm with 1st degree A-V block Possible Old Inferior infarct Abnormal ECG When compared with ECG of 08-AUG-2020 11:27, Borderline Criteria for Inferior infarct now present Confirmed by Ino Khan ([id number]) on 03/31/2021 8:58:52 AM Referred By: REFERRED SELF Confirmed By:Ino Khan
[2021-03-31] MEDS: traMADol HCL 50 MG TABLET PO PRN ×2 (10:47→19:32)
--- NOTE | 2021-03-31 17:46 | CT Scan Report ---
CT SCAN OF THE LEFT TIBIA AND FIBULA WITHOUT IV CONTRAST CLINICAL HISTORY: Left leg pain. Cellulitis. COMPARISON STUDY: Radiographs of the left tibia and fibula dated 10/11/2017. TECHNIQUE: CT scan of the left tibia and fibula is performed from the distal femur to the foot. Image s are reviewed in the axial, sagittal, and coronal planes. IV contrast was not administered for this examination. A dose lowering technique was utilized adhering to the principles of ALARA. CT DOSE: 297.59 mGy.cm FINDINGS: The skeletal structures are osteopenic. There is no evidence of left tibial or fibular frac ture. No bony erosion or periostitis is identified. The knee and ankle joints are grossly maintained. There is no evidence of osteochondral defect in the talar dome. An os trigonum is incidentally noted . There is generalized atrophy of the regional musculature. Superficial and deep soft tissue edema is present throughout the visualized left lower extremity. A subcutaneous fluid is noted. There is no e vidence of organized fluid collection in the calf to suggest abscess. The Achilles tendon is intact a s visualized. Question a partially imaged fluid collection along the plantar aspect of the left foot. This is seen on axial image #491 and measures up to 1.4 cm. No soft tissue gas is seen throughout th e left lower extremity. There is mild atherosclerotic calcification of the regional arteries. IMPRESSION: 1. No osseous abnormality is seen involving the left tibia or fibula. 2. Diffuse soft tissue edema throughout the left lower extremity is consistent with the reported hist ory of cellulitis. No soft tissue gas is identified. 3. No organized fluid collection is seen within the calf to suggest abscess. 4. Question a partially imaged fluid collection along the plantar aspect of the hindfoot. Correlate c linically for evidence of ulceration or abscess at this level. ACT 112: Negative or not required by law. Dictated: 03/31/2021 4:40 PM Transcribed: 03/31/2021 5:42 PM Viktoriya [id number] [email or web address] Electronically signed by: De Orozco M.D. 03/31/2021 5:45 PM
[2021-03-31] MEDS: ACETAMINOPHEN 325 MG TAB PO PRN ×2 (18:29→22:37)
[2021-03-31 19:22] LABS: Base Excess VBG -1.4 mEq/L; pH VBG 7.45 (7.36-7.41)
[2021-03-31] MEDS: cefTRIAXone SODIUM 2,000 MG in DEXTROSE 5% 50 ML IV SCH (21:01)
[2021-03-31] MEDS: AMITRIPTYLINE HCL 100 MG TAB PO SCH (21:01)
--- NOTE | 2021-03-31 21:49 | Hospitalist Progress Note ---
Date of Service March 31, 2021 Assessment & Plan (1) Cellulitis of left lower extremity without foot: Plan: severe, extensive, with lymphangitic spread to left thigh. demarkation lines placed for the cellulitis over the lower leg, and also the lymph channels on left thigh. cont rocephin. cont daptomycin. low threshold to broaden rocephin to cefepime or aztreonam to get better gram neg coverage. given persistent fevers and signs of sepsis obtain blood cultures. increase IV fluids to 125cc/hr. checked vbg to ensure no acidosis - none found. check CT of left tib-fib to r/o nec fasc findings - also negative for such. meds for pain control. elevate the limb when in bed. (2) Sepsis: Plan: 2nd to #1 above. blood cx's. broad-spectrum IV antibiotics. (3) BROOKS (acute kidney injury): Plan: sepsis-associated ATN. peak Cr 2.1. now 1.6. baseline 0.9 to 1. repeat BMP am. cont IV fluids. cont Rx of #1. (4) Diabetes mellitus, type 2: Plan: Hold glimepiride and Metformin. Hemoglobin A1c 7% Cont novolog SSI. add basal insulin if needed. (5) Type 2 diabetes mellitus with diabetic neuropathy: Plan: Continue naproxen, tramadol, gabapentin and amitriptyline (6) Hypertension: Plan: Continue metoprolol succinate (7) Depression: Plan: Continue amitriptyline and bupropion (8) Rheumatoid arthritis: Plan: stable, does not appear to be on disease-modifying agent such as prednisone, methotrexate, etc per pharmacy records no flare on examination (9) DVT prophylaxis: Plan: add lovenox in am if Cr is stable Plan: left message for pt's daughter this evening on her voicemail Admission and Anticipated Discharge Date Admission Date: March 30, 2021 Subjective patient resting comfortably in bed he c/o left leg pain he reports the redness has worsened, now extending beyond the left knee he denies left knee pain or left hip pain he can walk and weight-bear has little appetite c/o fevers and chills and simply feeling poorly Review of Systems Review of Systems: gen - fevers, chills, anorexia, fatigue CV - no chest pain or orthopnea GI - no abd pain, nausea, emesis or diarrhea pulm - no dyspnea or cough musculo - denies joint pains; c/o chronic lumbar pain Physical Exam Physical Exam: gen - obese, looks tired, NAD; intellectually disabled? mouth - MM dry neck - no JVD heart - tachy, s1 s2, no murmur lungs - cta b/l abd - soft NT ND BS+ ext - edema 2+ b/l, worse on left leg; pulses both feet 2+ skin - severe cellulitis extending from just below left patella down to just above the left ankle; erythema is warm and tender; no palpable crepitus; there is lymphangitic spread along several linear channels in the left thigh; this lymphangitic spread travels proximally to the left groin where there is erythema also present musculo - full passive ROM of left hip and left knee without limitations; RA chronic changes of hands and wrists Results & Data Results & Data ([facility]) Vital Signs (Past 12 Hours) Vital Signs Temp Pulse Resp BP Pulse Ox 03/31/21 19:31 37.5 C 03/31/21 18:27 117 H 22 144/68 H 92 03/31/21 18:24 39.4 C H 03/31/21 15:19 36.7 C 113 H 16 160/70 H 95 Laboratory Results Laboratory Results - last 24 hr 03/30/21 03/30/21 03/30/21 19:15 19:15 22:45 WBC RBC Hgb Hct MCV MCH MCHC RDW Std Deviation RDW Coeff of Tamara Plt Count MPV Immature Gran % (Auto) Neut % (Auto) Lymph % (Auto) [place] % (Auto) Eos % (Auto) Baso % (Auto) Neut # (Auto) Lymph # (Auto) [place] # (Auto) Eos # (Auto) Baso # (Auto) Immature Gran # (Auto) VBG pH VBG pCO2 VBG pO2 VBG HCO3 VBG O2 Saturation VBG Base Excess Barometric Pressure Sodium Potassium Chloride Carbon Dioxide Anion Gap BUN Creatinine Est Cr Clr Drug Dosing Est GFR ( Amer) Est GFR (Non-Af Amer) BUN/Creatinine Ratio Glucose POC Glucose Estimat Average Glucose Hemoglobin A1c Calcium Total Bilirubin AST ALT Alkaline Phosphatase Total Creatine Kinase 77 Total Protein Albumin Globulin Albumin/Globulin Ratio Lipase 139 Urine Color Urine Appearance Urine pH Ur Specific [place] Urine Protein Urine Glucose (UA) Urine Ketones Urine Blood Urine Nitrite Urine Bilirubin Urine Urobilinogen Ur Leukocyte Esterase Urine WBC (Auto) Urine RBC (Auto) U Hyaline Cast (Auto) U Epithel Cells (Auto) Urine Bacteria (Auto) COVID-19 Eval Order Covid19 at [facility] SARS-CoV-2 (PCR) Hepatitis C Ab Screen Neg 03/30/21 03/31/21 03/31/21 22:45 01:37 05:48 WBC 11.17 H RBC 3.86 L Hgb 10.6 L Hct 33.7 L MCV 87.3 MCH 27.5 MCHC 31.5 L RDW Std Deviation 51.7 H RDW Coeff of Tamara 16.0 H Plt Count 193 MPV 9.7 Immature Gran % (Auto) 0.4 Neut % (Auto) 88.5 Lymph % (Auto) 8.1 [place] % (Auto) 2.9 Eos % (Auto) 0.0 Baso % (Auto) 0.1 Neut # (Auto) 9.88 H Lymph # (Auto) 0.91 L [place] # (Auto) 0.32 Eos # (Auto) 0.00 Baso # (Auto) 0.01 Immature Gran # (Auto) 0.05 H VBG pH VBG pCO2 VBG pO2 VBG HCO3 VBG O2 Saturation VBG Base Excess Barometric Pressure Sodium Potassium Chloride Carbon Dioxide Anion Gap BUN Creatinine Est Cr Clr Drug Dosing Est GFR ( Amer) Est GFR (Non-Af Amer) BUN/Creatinine Ratio Glucose POC Glucose 83 Estimat Average Glucose Hemoglobin A1c Calcium Total Bilirubin AST ALT Alkaline Phosphatase Total Creatine Kinase Total Protein Albumin Globulin Albumin/Globulin Ratio Lipase Urine Color Urine Appearance Urine pH Ur Specific [place] Urine Protein Urine Glucose (UA) Urine Ketones Urine Blood Urine Nitrite Urine Bilirubin Urine Urobilinogen Ur Leukocyte Esterase Urine WBC (Auto) Urine RBC (Auto) U Hyaline Cast (Auto) U Epithel Cells (Auto) Urine Bacteria (Auto) COVID-19 Eval Order SARS-CoV-2 (PCR) NEGATIVE Hepatitis C Ab Screen 03/31/21 03/31/21 03/31/21 05:48 05:48 06:05 WBC RBC Hgb Hct MCV MCH MCHC RDW Std Deviation RDW Coeff of Tamara Plt Count MPV Immature Gran % (Auto) Neut % (Auto) Lymph % (Auto) [place] % (Auto) Eos % (Auto) Baso % (Auto) Neut # (Auto) Lymph # (Auto) [place] # (Auto) Eos # (Auto) Baso # (Auto) Immature Gran # (Auto) VBG pH VBG pCO2 VBG pO2 VBG HCO3 VBG O2 Saturation VBG Base Excess Barometric Pressure Sodium 136 Potassium 3.9 D Chloride 105 Carbon Dioxide 25 Anion Gap 6.0 BUN 27 H Creatinine 1.60 H D Est Cr Clr Drug Dosing 55.2 Est GFR ( Amer) 52.4 Est GFR (Non-Af Amer) 45.2 BUN/Creatinine Ratio 16.9 Glucose 130 H POC Glucose Estimat Average Glucose 154 Hemoglobin A1c 7.0 H Calcium 8.2 L Total Bilirubin 0.6 AST 22 ALT 20 Alkaline Phosphatase 76 Total Creatine Kinase Total Protein 7.4 Albumin 2.7 L Globulin 4.7 H Albumin/Globulin Ratio 0.6 L Lipase Urine Color Dark Yellow Urine Appearance Clear Urine pH 6.0 Ur Specific [place] 1.022 Urine Protein Trace H Urine Glucose (UA) Negative Urine Ketones Trace H Urine Blood 2+ H Urine Nitrite Negative Urine Bilirubin Negative Urine Urobilinogen Negative Ur Leukocyte Esterase Negative Urine WBC (Auto) 1-5 Urine RBC (Auto) >30 H U Hyaline Cast (Auto) 1-5 U Epithel Cells (Auto) 20-30 H Urine Bacteria (Auto) Negative COVID-19 Eval Order SARS-CoV-2 (PCR) Hepatitis C Ab Screen 03/31/21 03/31/21 03/31/21 08:05 12:15 17:15 WBC RBC Hgb Hct MCV MCH MCHC RDW Std Deviation RDW Coeff of Tamara Plt Count MPV Immature Gran % (Auto) Neut % (Auto) Lymph % (Auto) [place] % (Auto) Eos % (Auto) Baso % (Auto) Neut # (Auto) Lymph # (Auto) [place] # (Auto) Eos # (Auto) Baso # (Auto) Immature Gran # (Auto) VBG pH VBG pCO2 VBG pO2 VBG HCO3 VBG O2 Saturation VBG Base Excess Barometric Pressure Sodium Potassium Chloride Carbon Dioxide Anion Gap BUN Creatinine Est Cr Clr Drug Dosing Est GFR ( Amer) Est GFR (Non-Af Amer) BUN/Creatinine Ratio Glucose POC Glucose 122 H 134 H 128 H Estimat Average Glucose Hemoglobin A1c Calcium Total Bilirubin AST ALT Alkaline Phosphatase Total Creatine Kinase Total Protein Albumin Globulin Albumin/Globulin Ratio Lipase Urine Color Urine Appearance Urine pH Ur Specific [place] Urine Protein Urine Glucose (UA) Urine Ketones Urine Blood Urine Nitrite Urine Bilirubin Urine Urobilinogen Ur Leukocyte Esterase Urine WBC (Auto) Urine RBC (Auto) U Hyaline Cast (Auto) U Epithel Cells (Auto) Urine Bacteria (Auto) COVID-19 Eval Order SARS-CoV-2 (PCR) Hepatitis C Ab Screen 03/31/21 03/31/21 19:14 20:28 WBC RBC Hgb Hct MCV MCH MCHC RDW Std Deviation RDW Coeff of Tamara Plt Count MPV Immature Gran % (Auto) Neut % (Auto) Lymph % (Auto) [place] % (Auto) Eos % (Auto) Baso % (Auto) Neut # (Auto) Lymph # (Auto) [place] # (Auto) Eos # (Auto) Baso # (Auto) Immature Gran # (Auto) VBG pH 7.45 H VBG pCO2 32 L VBG pO2 45 VBG HCO3 22 VBG O2 Saturation 82.0 VBG Base Excess -1.4 Barometric Pressure 733.4 Sodium Potassium Chloride Carbon Dioxide Anion Gap BUN Creatinine Est Cr Clr Drug Dosing Est GFR ( Amer) Est GFR (Non-Af Amer) BUN/Creatinine Ratio Glucose POC Glucose 131 H Estimat Average Glucose Hemoglobin A1c Calcium Total Bilirubin AST ALT Alkaline Phosphatase Total Creatine Kinase Total Protein Albumin Globulin Albumin/Globulin Ratio Lipase Urine Color Urine Appearance Urine pH Ur Specific [place] Urine Protein Urine Glucose (UA) Urine Ketones Urine Blood Urine Nitrite Urine Bilirubin Urine Urobilinogen Ur Leukocyte Esterase Urine WBC (Auto) Urine RBC (Auto) U Hyaline Cast (Auto) U Epithel Cells (Auto) Urine Bacteria (Auto) COVID-19 Eval Order SARS-CoV-2 (PCR) Hepatitis C Ab Screen PG Care Time/CCT Total # of Minutes Spent Total Time Spent with Patient: Total time spent is greater than 50% in coordination of care (as documented) at patient's floor/unit and/or counseling patient: Coding Level of Care Code 72817 Subseq Hosp Care Lvl 3 Diagnoses Cellulitis of left lower extremity without foot L03.116 Diabetes mellitus, type 2 E11.9 Type 2 diabetes mellitus with diabetic neuropathy E11.40 Hypertension I10 Depression F32.9 Sepsis A41.9 Sepsis acute organ dysfunction status: unspecified Sepsis type: sepsis due to unspecified organism BROOKS (acute kidney injury) N17.9 Rheumatoid arthritis M06.9 DVT prophylaxis Z29.9 (1) Sepsis Sepsis acute organ dysfunction status: unspecified Sepsis type: sepsis due to unspecified organism Qualified Code(s): A41.9 - Sepsis, unspecified organism
[2021-04-01] MEDS: SODIUM CHLORIDE 0.9% 1000ML 1,000 ML IV SCH ×3 (04:47→19:41)
[2021-04-01] MEDS: traMADol HCL 50 MG TABLET PO PRN ×3 (04:48→22:18)
[2021-04-01] MEDS: DAPTOmycin 325 MG in SYRINGE 0 ML IV SCH (05:58)
[2021-04-01 06:33] LABS: Basophils # (auto) 0.01 K/uL (0-0.2); Basophils % (auto) 0.1 %; Eosinophils # (auto) 0.04 K/uL (0-0.5); Eosinophils % (auto) 0.4 %; Hematocrit (blood only) 32.2 % (42-52); Hemoglobin 9.9 g/dL (14.0-18.0); Immature Granulocytes # (auto) 0.03 K/uL (0.00-0.02); Immature Granulocytes % (auto) 0.3 %; Lymphocytes # (auto) 1.24 K/uL (1.2-3.4); Lymphocytes % (auto) 11.8 %; Mean Corpuscular Hemoglobin 26.8 pg (25-34); Mean Corpuscular Hgb Conc 30.7 g/dL (32-36); Mean Platelet Volume 9.7 fL (7.4-10.4); Monocytes # (auto) 0.53 K/uL (0.11-0.59); Neutrophils % (auto) 82.4 %; Platelet Count 182 K/uL (130-400); RDW Coefficient of Variation 16.2 % (11.5-14.5); White Blood Count 10.55 K/uL (4.8-10.8)
[2021-04-01 07:01] LABS: BUN Creatinine Ratio 14.4 (10-20); Calcium 8.3 mg/dl (8.5-10.1); Creatinine Clr Calc Pharmacy 66.9 ml/min; Est GFR (African American) 66.1 ml/min; Potassium 3.6 mmol/L (3.5-5.1)
[2021-04-01] MEDS: GABAPENTIN 300 MG CAP PO SCH ×2 (08:59→20:26)
[2021-04-01] MEDS: METOPROLOL SUCC 25MG EXT REL TAB PO SCH (08:59)
[2021-04-01] MEDS: buPROPion SR 150 MG TABCR PO SCH (08:59)
[2021-04-01] MEDS: INSULIN ASPART 100 UNITS/ML 3 ML PEN SC SCH ×4 (09:03→21:00)
--- NOTE | 2021-04-01 14:31 | XRay Report ---
XR chest 2V PA/lateral HISTORY: 61 years-old Male dyspnea acute shortness of breath COMPARISON: Chest radiographs 07/12/2020 TECHNIQUE: PA and lateral views of the chest FINDINGS: Cardiac silhouette is enlarged. Calcified plaque of the thoracic aorta. No pneumothorax the large ple ural effusion or overt pulmonary edema. Mild chronic interstitial coarsening with unchanged blunting of the costophrenic angles. Linear subsegmental atelectasis/scarring of the left lung base. Cholecyst ectomy. Degenerative changes of the shoulders and spine. IMPRESSION: Chronic findings as above without acute process. ACT 112: Negative or not required by law. The above report was generated using voice recognition software. It may contain grammatical, syntax o r spelling errors. Electronically signed by: Juan Becerra M.D. 04/01/2021 2:29 PM
--- NOTE | 2021-04-01 14:41 | XRay Report ---
KUB HISTORY: Acute generalized abdominal pain with constipation abd pain; eval constipation, stones, etc COMPARISON: KUB 12/02/2015 FINDINGS: Nonobstructive bowel gas pattern. Cholecystectomy. Moderate fecal retention. Renal shadows are partially obscured by bowel gas. No renal calculi. No ureteral calculi. No pneumoperitoneum or p neumatosis. Unchanged subcentimeter sclerotic focus of the right sacrum. Bilateral hip total joint ar throplasties. Postoperative changes of the lumbar spine with interbody julianna and screw fusion hardware at L2-L3. Mild lucency surrounding the screws, notably the left L2 screw. No fracture. IMPRESSION: 1. Moderate fecal retention with nonobstructive bowel gas pattern. 2. Renal shadows are obscured by bowel gas. No urolith identified. 3. Posterior interbody julianna and screw fusion at L2-L3 with findings suggestive of loosening. ACT 112: Negative or not required by law. The above report was generated using voice recognition software. It may contain grammatical, syntax o r spelling errors. Electronically signed by: Juan Becerra M.D. 04/01/2021 2:40 PM
--- NOTE | 2021-04-01 14:43 | XRay Report ---
XR lumbar spine 2-3V HISTORY: 61 years-old Male L-spine pain, previous fusion procedure in 2020 chronic low back pain COMPARISON: Lumbar spine radiographs 01/21/2020 TECHNIQUE: 3 views of the lumbar spine FINDINGS: Moderate fecal retention. Cholecystectomy. Bilateral hip total joint arthroplasties. Demineralized appearance of the bones. Posterior interbody julianna and screw fusion hardware at L2-L3. Di scectomy changes are noted at L2-S1. Lucency surrounds the pedicle screws, notably the left L2 screw. No evidence of hardware fracture. Multilevel mild to moderate spondylitic spurring. No acute fractur e or subluxation. Straightening of the normal lumbar lordosis. No endplate erosions. IMPRESSION: 1. No acute fracture or subluxation. 2. Postoperative changes of the lumbar spine with posterior interbody julianna and screw fusion at L2-L3. Findings are suggestive of associated hardware loosening. ACT 112: Negative or not required by law. The above report was generated using voice recognition software. It may contain grammatical, syntax o r spelling errors. Electronically signed by: Juan Becerra M.D. 04/01/2021 2:42 PM
[2021-04-01] MEDS: DICLOFENAC SOD 1% GEL 100 GM TUBE EXT SCH ×3 (14:46→20:26)
[2021-04-01] MEDS: cefTRIAXone SODIUM 2,000 MG in DEXTROSE 5% 50 ML IV SCH (19:42)
[2021-04-01] MEDS: AMITRIPTYLINE HCL 100 MG TAB PO SCH (20:26)
--- NOTE | 2021-04-01 20:34 | Hospitalist Progress Note ---
Date of Service April 01, 2021 Assessment & Plan (1) Cellulitis of left lower extremity without foot: Plan: severe, extensive, with lymphangitic spread to left thigh. modestly improved today on exam. he overall looks better today. wbc count trending down. blood cx's neg although they were obtained after abx were started. he feels better and fever curve trending down. CT L tib-fib without any nec fasc/gas or deep abscess. cont rocephin. cont daptomycin. low threshold to broaden rocephin to cefepime or aztreonam to get better gram neg coverage if fevers persist. no changes for now. elevate leg. pain control. (2) Sepsis: Plan: 2nd to #1 above. blood cx's neg. broad-spectrum IV antibiotics. if fevers persist, and in light of back pain/prior surgery, consider advanced imaging of back (see below). (3) BROOKS (acute kidney injury): Plan: sepsis-associated ATN. peak Cr 2.1. now 1.3. baseline 0.9 to 1. cont IV fluids until the am. cont Rx of #1. (4) Diabetes mellitus, type 2: Plan: Hold glimepiride and Metformin. Hemoglobin A1c 7% Cont novolog SSI. add basal insulin if needed. (5) Type 2 diabetes mellitus with diabetic neuropathy: Plan: Continue tramadol, gabapentin and amitriptyline (6) Hypertension: Plan: Continue metoprolol succinate Controlled (7) Depression: Plan: Continue amitriptyline and bupropion (8) Rheumatoid arthritis: Plan: stable, does not appear to be on disease-modifying agent such as prednisone, methotrexate, etc per pharmacy records no flare on examination (9) DVT prophylaxis: Plan: add lovenox (10) Lumbar back pain: Plan: check x-rays of back given surgery in December 2020 then go from there in meantime - ordered heat ordered voltaren gel qid tramadol prn gabapentin (11) Dyspnea: Plan: lungs clear o2 sats wnl etiology? start with 2-view cxr Plan: updated daughter extensively by phone today Admission and Anticipated Discharge Date Admission Date: March 30, 2021 Subjective L leg still quite painful & bothersome hurts to weight-bear on that leg left thigh also still sore eating is modestly improved today drinking fluids more less fever he does feel better overall - but does state he is tired continues to have back pain - "that's what I came in with" also w/ occasional dyspnea - "i was short of breath at home when I came in" Review of Systems Review of Systems: gen - ongoing fevers, weakness CV - no cp GI - no N/V/D musculo - back pain, left -sided - lumbar region neuro - no focal weakness Physical Exam Physical Exam: gen - obese, looks a bit better today mouth - MM dry but slightly improved today neck - no JVD heart - tachy, s1 s2, no murmur lungs - cta b/l abd - soft NT ND BS+ ext - edema 2+ L, <1+ on right; pulses both feet 2+ skin - severe cellulitis extending from just below left patella down to just above the left ankle - erythema is starting to retreat superiorly and inferiorly from previously placed demarkation lines; the erythema of tib-fib/penaloza is less intensely red today and not as hot; no crepitus to palpation; lymphangitic spread along several linear channels in the left thigh are modestly improved today; this lymphangitic spread travels proximally to the left groin where there is erythema also present but less intensely red today musculo - full passive ROM of left hip and left knee without limitations; RA chronic changes of hands and wrists back - tender to palpation over lspine and paraspinal region L lumbar area; no step-off; linear scar present Results & Data Results & Data ([facility]) Vital Signs (Past 12 Hours) Vital Signs Temp Pulse Resp BP Pulse Ox 04/01/21 15:11 37.5 C 105 H 16 164/72 H 94 Laboratory Results Laboratory Results - last 24 hr 04/01/21 04/01/21 04/01/21 05:28 05:28 07:51 WBC 10.55 RBC 3.70 L Hgb 9.9 L Hct 32.2 L MCV 87.0 MCH 26.8 MCHC 30.7 L RDW Std Deviation 52.0 H RDW Coeff of Tamara 16.2 H Plt Count 182 MPV 9.7 Immature Gran % (Auto) 0.3 Neut % (Auto) 82.4 Lymph % (Auto) 11.8 [place] % (Auto) 5.0 Eos % (Auto) 0.4 Baso % (Auto) 0.1 Neut # (Auto) 8.70 H Lymph # (Auto) 1.24 [place] # (Auto) 0.53 Eos # (Auto) 0.04 Baso # (Auto) 0.01 Immature Gran # (Auto) 0.03 H Sodium 134 L Potassium 3.6 Chloride 107 Carbon Dioxide 23 Anion Gap 4.0 BUN 19 H Creatinine 1.32 Est Cr Clr Drug Dosing 66.9 Est GFR ( Amer) 66.1 Est GFR (Non-Af Amer) 57.0 BUN/Creatinine Ratio 14.4 Glucose 119 H POC Glucose 169 H Calcium 8.3 L 04/01/21 04/01/21 11:50 16:54 WBC RBC Hgb Hct MCV MCH MCHC RDW Std Deviation RDW Coeff of Tamara Plt Count MPV Immature Gran % (Auto) Neut % (Auto) Lymph % (Auto) [place] % (Auto) Eos % (Auto) Baso % (Auto) Neut # (Auto) Lymph # (Auto) [place] # (Auto) Eos # (Auto) Baso # (Auto) Immature Gran # (Auto) Sodium Potassium Chloride Carbon Dioxide Anion Gap BUN Creatinine Est Cr Clr Drug Dosing Est GFR ( Amer) Est GFR (Non-Af Amer) BUN/Creatinine Ratio Glucose POC Glucose 137 H 87 Calcium Diagnostic Findings blood cx's neg to date PG Care Time/CCT Total # of Minutes Spent Total Time Spent with Patient: Total time spent is greater than 50% in coordination of care (as documented) at patient's floor/unit and/or counseling patient: Coding Level of Care Code 00765 Subseq Hosp Care Lvl 3 Diagnoses Cellulitis of left lower extremity without foot L03.116 Sepsis A41.9 Sepsis acute organ dysfunction status: unspecified Sepsis type: sepsis due to unspecified organism BROOKS (acute kidney injury) N17.9 Diabetes mellitus, type 2 E11.9 Type 2 diabetes mellitus with diabetic neuropathy E11.40 Hypertension I10 Depression F32.9 Rheumatoid arthritis M06.9 DVT prophylaxis Z29.9 Lumbar back pain M54.5 Dyspnea R06.00 (1) Sepsis Sepsis acute organ dysfunction status: unspecified Sepsis type: sepsis due to unspecified organism Qualified Code(s): A41.9 - Sepsis, unspecified organism
[2021-04-01] MEDS: ACETAMINOPHEN 325 MG TAB PO PRN (22:18)
[2021-04-02] MEDS: SODIUM CHLORIDE 0.9% 1000ML 1,000 ML IV SCH (04:00)
[2021-04-02] MEDS: DAPTOmycin 325 MG in SYRINGE 0 ML IV SCH (05:37)
[2021-04-02 07:05] LABS: Basophils # (auto) 0.01 K/uL (0-0.2); Basophils % (auto) 0.1 %; Eosinophils # (auto) 0.15 K/uL (0-0.5); Eosinophils % (auto) 1.7 %; Hematocrit (blood only) 31.5 % (42-52); Hemoglobin 9.8 g/dL (14.0-18.0); Immature Granulocytes # (auto) 0.03 K/uL (0.00-0.02); Immature Granulocytes % (auto) 0.3 %; Lymphocytes # (auto) 1.36 K/uL (1.2-3.4); Mean Corpuscular Hemoglobin 26.8 pg (25-34); Mean Corpuscular Hgb Conc 31.1 g/dL (32-36); Mean Corpuscular Volume 86.3 fL (80-100); Mean Platelet Volume 9.3 fL (7.4-10.4); Monocytes # (auto) 0.71 K/uL (0.11-0.59); Monocytes % (auto) 7.8 %; Neutrophils % (auto) 75.1 %; Platelet Count 172 K/uL (130-400); RDW Coefficient of Variation 16.3 % (11.5-14.5); RDW Standard Deviation 52.3 fL (36.4-46.3); Red Blood Count 3.65 M/uL (4.7-6.1); White Blood Count 9.06 K/uL (4.8-10.8)
[2021-04-02] MEDS: METOPROLOL SUCC 25MG EXT REL TAB PO SCH (10:05)
[2021-04-02] MEDS: GABAPENTIN 300 MG CAP PO SCH ×2 (10:05→20:07)
[2021-04-02] MEDS: DICLOFENAC SOD 1% GEL 100 GM TUBE EXT SCH ×4 (10:05→20:08)
[2021-04-02] MEDS: ENOXAPARIN INJ 40 MG/0.4 ML SYR SQ SCH (10:05)
[2021-04-02] MEDS: buPROPion SR 150 MG TABCR PO SCH (10:05)
[2021-04-02] MEDS: INSULIN ASPART 100 UNITS/ML 3 ML PEN SC SCH ×4 (10:06→20:37)
[2021-04-02] MEDS: KETOROLAC 30 MG/ML VIAL IV SCH ×2 (15:01→20:08)
[2021-04-02] MEDS: AMITRIPTYLINE HCL 100 MG TAB PO SCH (20:07)
[2021-04-02] MEDS: cefTRIAXone SODIUM 2,000 MG in DEXTROSE 5% 50 ML IV SCH (20:09)
[2021-04-02] MEDS: DAPTOmycin 500 MG in SYRINGE 0 ML IV SCH (22:52)
--- NOTE | 2021-04-02 23:58 | Hospitalist Progress Note ---
Date of Service April 02, 2021 Assessment & Plan (1) Cellulitis of left lower extremity without foot: Plan: severe, extensive, with lymphangitic spread to left thigh. lymphadenopathy of inguinal region also present. recent L tib-fib CT without nec fasc, gas, or abscess/phlegmon. he continues with fevers although wbc count normalized, the penaloza erythema is less intensely red, and he is better hydrated today with a little better eating. blood cx's remain negative - however, they were obtained after antibiotics were initiated. [id number] I am concerned by his persistent fevers. statistically his infection is likely due to strep or staph but because of DM he could have gram negative cellulitis as well. thus, will broaden rocephin to cefepime. cont daptomycin - adjust dose now that renal function is better. plan to obtain L femur/thigh CT to r/o deeper infection obtain CT pelvis to ensure there is no abscess in the left groin or other pathology that would warrant a surgery consult will give toradol x 3 doses for pain control and help w/ inflammation consider diuretics to help with edema elevate leg. pain control. (2) Sepsis: Plan: 2nd to #1 above. blood cx's neg. broad-spectrum IV antibiotics. see #1 above. in addition, given his concurrent back pain, I consulted Dr Corbin's team re: abnormal x-rays of L-spine (loosening noted). further, in light of persistent fevers, could his back be a source of infection as well?? consider advanced imaging. (3) BROOKS (acute kidney injury): Plan: sepsis-associated ATN. peak Cr 2.1. now 1.3. baseline 0.9 to 1. repeat BMP am. (4) Diabetes mellitus, type 2: Plan: Holding glimepiride and Metformin. Hemoglobin A1c 7% Cont novolog SSI. add basal insulin if needed but thus far BSGs w/ acceptable control with novolog. (5) Type 2 diabetes mellitus with diabetic neuropathy: Plan: Continue tramadol, gabapentin and amitriptyline (6) Hypertension: Plan: Continue metoprolol succinate Controlled (7) Depression: Plan: Continue amitriptyline and bupropion (8) Rheumatoid arthritis: Plan: stable, does not appear to be on disease-modifying agent such as prednisone, methotrexate, etc per pharmacy records no flare on examination (9) DVT prophylaxis: Plan: lovenox 40mg daily (10) Lumbar back pain: Plan: checked x-rays of back given his significant back pain had l-spine surgery in December [address] Corbin - removal of old hardware, decompression/fusion x-rays this admission with ?loosening of a screw see #2 above cont pain control Dr Corbin consult (11) Dyspnea: Plan: lungs clear o2 sats wnl cxr wnl no complaints today of dyspnea monitor for recurrence Plan: updated daughter extensively by phone 04/01/21 Admission and Anticipated Discharge Date Admission Date: March 30, 2021 Subjective patient continues to have pain throughout the left leg - from the L knee down to the ankle, and also in the L groin. his appetite remains poor although nursing flow sheets show 50% of meals consumed today. he is drinking liquids decently. cont with low-grade fevers. his energy is poor. back pain is somewhat better today - close to his usual baseline pain. denies any dyspnea or abd pain today. is able to ambulate albeit slowly because of pain in L leg. Review of Systems Review of Systems: gen - fatigue, fever, sweats, weakness cv - no chest pain pulm - no cough or congestion GI - no diarrhea Physical Exam Physical Exam: gen - obese, looks better than yesterday but still fatigued, NAD mouth - MMM neck - no JVD heart - tachy, s1 s2, no murmur lungs - cta b/l abd - soft NT ND BS+ ext - edema 2+ L, <1+ on right; pulses both feet 2+ skin - severe cellulitis extending from just below left patella down to just above the left ankle - erythema continues to be less intensely red but remains warm; the tib-fib erythema is tender to palpation; the redness has retreated modestly superiorly and inferiorly from previously placed demarkation lines; no crepitus to palpation. lymphangitic spread along several linear channels in the left thigh are improved today with a central lymphangitic line absent today. this lymphangitic spread travels proximally to the left groin where there is erythema in the entire groin. in the midline groin there is a palpable lymph node, at least 3cm in diameter, that is quite tender to palpation. musculo - continues to have full passive ROM of left hip and left knee without limitations; RA chronic changes of hands and wrists noted; no active synovitis psych - a/o x3 Results & Data Results & Data ([facility]) Vital Signs (Past 12 Hours) Vital Signs Temp Pulse Resp BP Pulse Ox 04/02/21 22:02 37.8 C H 102 H 16 148/78 H 94 04/02/21 14:57 37.3 C 106 H 16 158/80 H 98 Laboratory Results Laboratory Results - last 24 hr 04/02/21 04/02/21 04/02/21 06:22 07:55 12:03 WBC 9.06 RBC 3.65 L Hgb 9.8 L Hct 31.5 L MCV 86.3 MCH 26.8 MCHC 31.1 L RDW Std Deviation 52.3 H RDW Coeff of Tamara 16.3 H Plt Count 172 MPV 9.3 Immature Gran % (Auto) 0.3 Neut % (Auto) 75.1 Lymph % (Auto) 15.0 Alexander % (Auto) 7.8 Eos % (Auto) 1.7 Baso % (Auto) 0.1 Neut # (Auto) 6.80 H Lymph # (Auto) 1.36 Alexander # (Auto) 0.71 H Eos # (Auto) 0.15 Baso # (Auto) 0.01 Immature Gran # (Auto) 0.03 H POC Glucose 156 H 146 H 04/02/21 04/02/21 17:30 20:30 WBC RBC Hgb Hct MCV MCH MCHC RDW Std Deviation RDW Coeff of Tamara Plt Count MPV Immature Gran % (Auto) Neut % (Auto) Lymph % (Auto) Alexander % (Auto) Eos % (Auto) Baso % (Auto) Neut # (Auto) Lymph # (Auto) Alexander # (Auto) Eos # (Auto) Baso # (Auto) Immature Gran # (Auto) POC Glucose 139 H 138 H Diagnostic Findings blood cultures negative PG Care Time/CCT Total # of Minutes Spent Total Time Spent with Patient: Total time spent is greater than 50% in coordination of care (as documented) at patient's floor/unit and/or counseling patient: Coding Level of Care Code 98766 Subseq Hosp Care Lvl 3 Diagnoses Cellulitis of left lower extremity without foot L03.116 Sepsis A41.9 Sepsis acute organ dysfunction status: unspecified Sepsis type: sepsis due to unspecified organism BROOKS (acute kidney injury) N17.9 Diabetes mellitus, type 2 E11.9 Type 2 diabetes mellitus with diabetic neuropathy E11.40 Hypertension I10 Depression F32.9 Rheumatoid arthritis M06.9 DVT prophylaxis Z29.9 Lumbar back pain M54.5 Dyspnea R06.00 (1) Sepsis Sepsis acute organ dysfunction status: unspecified Sepsis type: sepsis due to unspecified organism Qualified Code(s): A41.9 - Sepsis, unspecified organism
[2021-04-03] MEDS: CEFEPIME 2,000 MG in SYRINGE 0 ML IV SCH ×3 (03:27→20:44)
[2021-04-03] MEDS: KETOROLAC 30 MG/ML VIAL IV SCH (03:27)
[2021-04-03 07:51] LABS: Basophils # (auto) 0.01 K/uL (0-0.2); Basophils % (auto) 0.1 %; Eosinophils # (auto) 0.18 K/uL (0-0.5); Eosinophils % (auto) 1.9 %; Hematocrit (blood only) 31.8 % (42-52); Hemoglobin 9.9 g/dL (14.0-18.0); Immature Granulocytes # (auto) 0.03 K/uL (0.00-0.02); Immature Granulocytes % (auto) 0.3 %; Lymphocytes # (auto) 1.42 K/uL (1.2-3.4); Lymphocytes % (auto) 14.8 %; Mean Corpuscular Hemoglobin 26.9 pg (25-34); Mean Corpuscular Hgb Conc 31.1 g/dL (32-36); Mean Corpuscular Volume 86.4 fL (80-100); Mean Platelet Volume 9.8 fL (7.4-10.4); Monocytes # (auto) 0.98 K/uL (0.11-0.59); Monocytes % (auto) 10.2 %; Neutrophils # (auto) 6.95 K/uL (1.4-6.5); Neutrophils % (auto) 72.7 %; Platelet Count 217 K/uL (130-400); RDW Coefficient of Variation 16.2 % (11.5-14.5); RDW Standard Deviation 51.8 fL (36.4-46.3); Red Blood Count 3.68 M/uL (4.7-6.1); White Blood Count 9.57 K/uL (4.8-10.8)
--- NOTE | 2021-04-03 08:11 | CT Scan Report ---
CT femur LT wo con INDICATION: MN ^745 ^cellulitis L thigh, fevers; eval 4 abscess TECHNIQUE: Multidetector row helical CT of the left femur was performed without intravenous contrast. Coronal and sagittal reformations were obtained. Automated dose lowering techniques and/or adjustmen t according to patient size were utilized for this examination. Comparison: None available at the time of this dictation. FINDINGS: Patient is status post left hip total arthroplasty. No perihardware lucency or hardware fracture is s een. The joint spaces are maintained. The soft tissues are unremarkable. There is fat stranding in th e soft tissues of the thigh. No drainable fluid collections are seen. Prominent inguinal and right ex ternal iliac chain lymph nodes are seen measuring up to 2 cm in short axis. IMPRESSION: Findings compatible with cellulitis without drainable abscess or underlying osteomyelitis. There is a ssociated lymphadenopathy. ACT 112: Negative or not required by law. Electronically signed by: Guillaume Basilio M.D. 04/03/2021 8:10 AM
[2021-04-03 08:26] LABS: BUN Creatinine Ratio 14.4 (10-20); C Reactive Protein 14.7 mg/dl (0-0.29); Calcium 8.7 mg/dl (8.5-10.1); Creatinine Clr Calc Pharmacy 75.5 ml/min; Est GFR (African American) 76.4 ml/min; Potassium 3.9 mmol/L (3.5-5.1)
[2021-04-03] MEDS: ENOXAPARIN INJ 40 MG/0.4 ML SYR SQ SCH (09:19)
[2021-04-03] MEDS: METOPROLOL SUCC 25MG EXT REL TAB PO SCH (09:20)
[2021-04-03] MEDS: buPROPion SR 150 MG TABCR PO SCH (09:20)
[2021-04-03] MEDS: GABAPENTIN 300 MG CAP PO SCH ×2 (09:20→20:42)
[2021-04-03] MEDS: DICLOFENAC SOD 1% GEL 100 GM TUBE EXT SCH ×4 (09:20→20:45)
[2021-04-03] MEDS: INSULIN ASPART 100 UNITS/ML 3 ML PEN SC SCH ×4 (09:21→20:43)
[2021-04-03] MEDS: ADVANCED PROBIOTIC 1250 MG CAPSULE PO SCH (09:23)
--- NOTE | 2021-04-03 09:23 | CT Scan Report ---
CT pelvis wo con HISTORY: 61 years-old Male large L inguinal lymph node v abscess? Patient presents with soft tissue swelling of the left thigh. Possible abscess. COMPARISON: CT left femur of same day TECHNIQUE: Multiple axial CT images of the pelvis were obtained without the use of IV contrast. A dos e lowering technique was used consistent with the principals of JEANETTE. FINDINGS: Artifact from bilateral hip total joint arthroplasties limits the study. No acute process of the imag ed intrapelvic structures. Decompressed urinary bladder. Normal appendix. Atherosclerosis of the aort a without aneurysm. Pathologically enlarged bilateral iliac chain and pelvic sidewall lymph nodes inc lude a 1.3 cm right iliac chain lymph node and a 2.6 x 2.2 cm left iliac chain lymph node. 1.6 cm lef t inguinal chain lymph node. Mild subcutaneous stranding of the bilateral thigh distributions. Demineralized appearance of the bones. A 4-L5 and L5-S1 discectomy changes with laminectomy. There is evidence of prior hardware removal within the lumbar spine. Likely benign 1.2 cm sclerotic focus of the posterior right iliac bone. No acute fracture or dislocation. IMPRESSION: 1. No acute fracture. 2. Pathologically enlarged left greater than right iliac chain and inguinal adenopathy. 3. Mild subcutaneous edema of the left greater than right upper thighs. No fluid collection. 4. Bilateral hip total joint arthroplasties. Artifact from the hardware limits the study. ACT 112: Negative or not required by law. The above report was generated using voice recognition software. It may contain grammatical, syntax o r spelling errors. Electronically signed by: Juan Becerra M.D. 04/03/2021 9:22 AM
--- NOTE | 2021-04-03 11:23 | Orthopedic Consultation ---
Date of Consultation April 03, 2021 Assessment & Plan (1) Lumbar back pain: At this time I explained the patient that he does have an infection is always a concern about that infection seeding an orthopedic operative site specifically in his case his lumbar spine. This point he has minimal pain to the lumbar spine. In my experience any infection lumbar spine is associated with severe discomfort. I have warned him that if he begins having chronic consistent back pain we may need to obtain further imaging of the lumbar spine. Otherwise allow him to undergo activity as tolerated regarding his lumbar spine. He is scheduled to see us in the office in the next month. History of Present Illness Reason for Consultation: Status post lumbar decompression fusion Attending Physician: Horacio Jimenez MD History of Present Illness This is a 61-year-old male well-known to me that is status post lumbar decompre ssion fusion several months ago. Is currently admitted with cellulitis affecting left lower extremity. An x-ray lumbar spine was obtained demonstrating concerns regarding lucency to the pedicle screws. Patient at this time states he gets intermittent back pain but by no means chronic or debilitating. He denies any radicular complaints into the lower extremities. He has not been limited by his back in the recent past. Allergies Allergy/AdvReac Type Severity Reaction Status Date / Time lisinopril Allergy Intermediate cough, Verified 03/30/21 22:59 edema clavulanic acid Allergy Unknown hives Verified 03/30/21 22:59 Penicillins Allergy Unknown hives Verified 03/30/21 22:59 tazobactam Allergy Unknown hives Verified 03/30/21 22:59 acetaminophen AdvReac Intermediate liver Verified 03/30/21 22:59 injury Home Medications Medication Instructions Recorded Confirmed Type bupropion HCl 150 mg tablet,12 hr 150 mg PO QAM 03/18/18 03/30/21 History sustained-release (Wellbutrin SR) metformin 500 mg tablet 500 mg PO BID tab 08/10/19 03/30/21 History gabapentin 300 mg capsule 600 mg PO TID 01/21/20 03/30/21 History glimepiride 2 mg tablet 2 mg PO QAM 01/21/20 03/30/21 History metoprolol succinate 25 mg 25 mg PO QAM 01/21/20 03/30/21 History tablet,extended release 24 hr (Toprol XL) amitriptyline 50 mg tablet 50 mg PO BID 03/30/21 03/30/21 History naproxen 500 mg tablet 500 mg PO BID PRN 03/30/21 03/30/21 History tramadol 50 mg tablet 50 mg PO Q8H PRN 03/30/21 03/30/21 History Patient History Medical History (Updated 04/02/21 @ 08:46 by Adam De Luna) Ascending cholangitis Chronic back pain Degenerative disc disease Depression Diabetes mellitus, type 2 NIDDM Diabetic neuropathy Fatty liver GURROLA Hypertension Left rib fracture 2013 Osteoarthritis Rheumatic nodule hands Rheumatoid arthritis Follows with rheumatology, affects hands (nodules), good cervical extension Surgical History History of bronchoscopy ~2007 (per medical record, pt denies) History of cardiac cath 2006 ([facility])- no stents History of cholecystectomy 12/01/15 - MAC#4, ETT#8.0, Grade 1 View with easy placement History of colonoscopy History of esophagogastroduodenoscopy (EGD) History of lumbar fusion x2 History of right inguinal hernia repair right open inguinal hernia repair with mesh: 08/27/19: LMA#5, atraumatic, easy with good seal at [facility] 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 -- able to repair arm History of tonsillectomy History of total hip arthroplasty left hip-2018 History of total hip arthroplasty [facility] 08/2020 Family History Mother Diabetes Father Heart disease Other Family history non-contributory No family history of adverse response to anesthesia Social History Smoking Status: Never smoker Second Hand Exposure: No; Hx Alcohol Use: No Hx Substance Use: Yes Preferred Language: Estonian Communication Ability: Effective 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 No pain to palpation percussion of the lumbar musculature. He has reasonable strength testing lower extremities. He is severe erythematous cellulitis affecting left lower extremity. Results & Data ([facility]) Vital Signs (Past 12 Hours) Vital Signs Temp Pulse Resp BP Pulse Ox 04/03/21 07:29 37.1 C 105 H 18 158/81 H 96
[2021-04-03] MEDS: SILVER SULFADIAZINE 1% CR 400 GM JAR EXT SCH ×2 (13:33→22:21)
[2021-04-03] MEDS: traMADol HCL 50 MG TABLET PO PRN ×2 (13:45→20:41)
--- NOTE | 2021-04-03 14:00 | Hospitalist Progress Note ---
Date of Service April 03, 2021 Assessment & Plan (1) Cellulitis of left lower extremity without foot: Plan: severe, extensive, with lymphangitic spread to left thigh. lymphadenopathy of inguinal region also present. recent L tib-fib CT without nec fasc, gas, or abscess/phlegmon. repeat Ct of the left femur/pelvis showing no evidence of abscess/osteomyelitis venous doppler showing no evidence of DVT initially on dapto/rocephin. WBC normalized but patient with persistent fevers leading to transition of abx to cefepime/dapto (for antipseudomonal coverage) which is more than appropriate given his underlying h/o DM no open wound seen although he still did spike a fever or 37.8 overnight, he has been on cefepime now for <12hours. no change in abx therapy if patient continues to spike fevers with change in abx therapy, would be included to repeat imaging (MRI of the lower extremity WITH contrast) patient encouraged to elevated leg add silvadene (2) Sepsis: Plan: 2nd to #1 above. blood cx's neg. broad-spectrum IV antibiotics. see #1 above. in addition, given his concurrent back pain, Dr Corbin's team consulted re: abnormal x-rays of L-spine (loosening noted). further, in light of persistent fevers, could his back be a source of infection as well?? seen by ortho who does not feel that advanced imaging is necessary at this time. (3) BROOKS (acute kidney injury): Plan: sepsis-associated ATN. peak Cr 2.1. now 1.3. baseline 0.9 to 1. repeat BMP am. (4) Diabetes mellitus, type 2: Plan: Holding glimepiride and Metformin. Hemoglobin A1c 7% Cont novolog SSI. add basal insulin if needed but thus far BSGs w/ acceptable control with novolog . (5) Type 2 diabetes mellitus with diabetic neuropathy: Plan: Continue tramadol, gabapentin and amitriptyline (6) Hypertension: Plan: Continue metoprolol succinate Controlled (7) Depression: Plan: Continue amitriptyline and bupropion (8) Rheumatoid arthritis: Plan: stable, does not appear to be on disease-modifying agent such as prednisone, methotrexate, etc per pharmacy records no flare on examination (9) DVT prophylaxis: Plan: lovenox 40mg daily (10) Lumbar back pain: Plan: checked x-rays of back given his significant back pain had l-spine surgery in December [address] Corbin - removal of old hardware, decompression/fusion x-rays this admission with ?loosening of a screw see #2 above cont pain control Dr Corbin consult (11) Dyspnea: Plan: lungs clear o2 sats wnl cxr wnl no complaints today of dyspnea monitor for recurrence Plan: - plan of care D/W Dr. Jimenez Admission and Anticipated Discharge Date Admission Date: March 30, 2021 Subjective Patient see on daily rounds today. He is a 61 y/o WM with a PMHx of NIDDM with neuropathy, Depression, HTN, GURROLA and obsiety. Hospitalized 03/30 with cellulitis of the left leg. Had WBC's 13.82 with fever of 102.9. Was on Rocephin/Dapto empirically upfront. His WBC normalized but he continued to spike fevers of 102. Imaging of the leg (Ct without contrast) showing no evidence of abscess of osteomeylitis. With continued fevers, abx changed to Cefepime/dapto (with first dose of cefepime at 0400 this am) Review of Systems Review of Systems: All systems reviewed and are unremarkable except as noted in HPI and below Denies fevers, chills, headache, nasal congestion, sore throat, cough, chest pain, shortness of breath, palpitations, orthopnea, PND, abdominal pain, nausea, vomiting, diarrhea, constipation, dysuria, hematuria, frequency, back pain, hiram int pain or swelling, easy bruising or blooding, skin lesions or rashes. Physical Exam Physical Exam: General: Resting comfortably in his hospital bed. NAD. HEENT: Head is AT/NC buccal mucosa is moist and pink Neck: No JVD. Negative hepatojugular reflex Cardiac: RRR without M/G/R Lungs: CTA without W/R/R Abdomen: Normoactive X4. Soft and nontender in all quadrants. Extremities: Left lower extremity with impressive cellulitic changes involving the distal aspect of the leg (starting just above the ankle and spreading proximally to below the knee anteriorly but does involve the popliteal space). In addition, there is lymphangitic streaking in the medial thigh up into the groin with associated lymphadenopathy. Area is warm and tender to touch. Circumferentially, the left calf measures 18-1/2 inches in comparison to the right that measure 16-1/4. Neuro: A&O X4 cranial nerves II through XII are grossly intact no focal neuro deficits Skin: see above Psych: Appropriate affect pleasant and cooperative Results & Data Results & Data ([facility]) Vital Signs (Past 12 Hours) Vital Signs Temp Pulse Resp BP Pulse Ox 04/03/21 07:29 37.1 C 105 H 18 158/81 H 96 Laboratory Results 04/03/21 06:10 04/03/21 06:10 PG Care Time/CCT Total # of Minutes Spent Total Time Spent with Patient: Total time spent is greater than 50% in coordination of care (as documented) at patient's floor/unit and/or counseling patient: Coding [place] [address] Subseq Hosp Care Lvl 3 Patient Type Established History Detailed Exam Detailed Medical Decision Making High Complexity Diagnoses Cellulitis of left lower extremity without foot L03.116 Sepsis A41.9 Sepsis acute organ dysfunction status: unspecified Sepsis type: sepsis due to unspecified organism BROOKS (acute kidney injury) N17.9 Diabetes mellitus, type 2 E11.9 Type 2 diabetes mellitus with diabetic neuropathy E11.40 Hypertension I10 Depression F32.9 Rheumatoid arthritis M06.9 DVT prophylaxis Z29.9 Lumbar back pain M54.5 Dyspnea R06.00 (1) Sepsis Sepsis acute organ dysfunction status: unspecified Sepsis type: sepsis due to unspecified organism Qualified Code(s): A41.9 - Sepsis, unspecified organism
[2021-04-03] MEDS: IBUPROFEN 600 MG TAB PO PRN (16:24)
--- NOTE | 2021-04-03 20:17 | Ultrasound Report ---
US arterial duplex LE LT CLINICAL HISTORY: assess flow, cellulitis COMPARISON STUDY: None. FINDINGS: The ankle brachial indices were unable to performed on the patient. Elevated peak systolic velocity within the distal left posterior tibial artery of 230 cm/s consistent with an area of stenos is. Normal velocities and triphasic to biphasic waveforms seen within the left common femoral, superf icial femoral, popliteal arteries. Monophasic waveforms seen throughout the calf vessels. IMPRESSION: 1. Focal area of stenosis within the distal left posterior tibial artery. 2. No evidence for arterial occlusion within the left lower extremity. 3. Monophasic waveforms seen within the left calf vessels consistent with diffuse atherosclerotic dis ease. ACT 112: Negative or not required by law. Electronically signed by: Brennon Carter M.D. 04/03/2021 8:15 PM
[2021-04-03] MEDS: AMITRIPTYLINE HCL 100 MG TAB PO SCH (20:42)
[2021-04-03] MEDS: DAPTOmycin 500 MG in SYRINGE 0 ML IV SCH (22:21)
[2021-04-04] MEDS: CEFEPIME 2,000 MG in SYRINGE 0 ML IV SCH ×3 (05:22→19:25)
[2021-04-04 06:33] LABS: Basophils # (auto) 0.02 K/uL (0-0.2); Basophils % (auto) 0.3 %; Eosinophils # (auto) 0.16 K/uL (0-0.5); Hematocrit (blood only) 31.2 % (42-52); Hemoglobin 9.9 g/dL (14.0-18.0); Immature Granulocytes # (auto) 0.07 K/uL (0.00-0.02); Immature Granulocytes % (auto) 0.9 %; Lymphocytes # (auto) 1.27 K/uL (1.2-3.4); Lymphocytes % (auto) 16.1 %; Mean Corpuscular Hemoglobin 26.6 pg (25-34); Mean Corpuscular Hgb Conc 31.7 g/dL (32-36); Mean Corpuscular Volume 83.9 fL (80-100); Mean Platelet Volume 9.2 fL (7.4-10.4); Monocytes # (auto) 1.12 K/uL (0.11-0.59); Monocytes % (auto) 14.2 %; Neutrophils # (auto) 5.27 K/uL (1.4-6.5); Neutrophils % (auto) 66.5 %; Platelet Count 236 K/uL (130-400); RDW Coefficient of Variation 16.2 % (11.5-14.5); RDW Standard Deviation 49.2 fL (36.4-46.3); Red Blood Count 3.72 M/uL (4.7-6.1); White Blood Count 7.91 K/uL (4.8-10.8)
[2021-04-04 06:59] LABS: BUN Creatinine Ratio 15.3 (10-20); Calcium 8.9 mg/dl (8.5-10.1); Creatinine Clr Calc Pharmacy 73.6 ml/min; Est GFR (African American) 74.1 ml/min; Magnesium 1.8 mg/dl (1.8-2.4); Potassium 4.1 mmol/L (3.5-5.1)
[2021-04-04] MEDS: GABAPENTIN 300 MG CAP PO SCH ×2 (09:03→19:25)
[2021-04-04] MEDS: ADVANCED PROBIOTIC 1250 MG CAPSULE PO SCH (09:03)
[2021-04-04] MEDS: METOPROLOL SUCC 25MG EXT REL TAB PO SCH (09:03)
[2021-04-04] MEDS: ENOXAPARIN INJ 40 MG/0.4 ML SYR SQ SCH (09:04)
[2021-04-04] MEDS: INSULIN ASPART 100 UNITS/ML 3 ML PEN SC SCH ×4 (09:04→20:45)
[2021-04-04] MEDS: buPROPion SR 150 MG TABCR PO SCH (09:04)
[2021-04-04] MEDS: DICLOFENAC SOD 1% GEL 100 GM TUBE EXT SCH ×4 (09:04→19:26)
[2021-04-04] MEDS: SILVER SULFADIAZINE 1% CR 400 GM JAR EXT SCH ×2 (14:09→22:01)
--- NOTE | 2021-04-04 14:30 | Hospitalist Progress Note ---
Date of Service April 04, 2021 Assessment & Plan (1) Cellulitis of left lower extremity without foot: Plan: severe, extensive, with lymphangitic spread to left thigh however seems to be responding favorably since antibiotic regimen has been altered lymphadenopathy of inguinal region has resolved recent L tib-fib CT without nec fasc, gas, or abscess/phlegmon. repeat Ct of the left femur/pelvis showing no evidence of abscess/osteomyelitis venous doppler showing no evidence of DVT initially on dapto/rocephin. WBC normalized but patient with persistent fevers leading to transition of abx to cefepime/dapto (for antipseudomonal coverage) which is more than appropriate given his underlying h/o DM no open wound seen last fever spike was yesterday at 1500 Plan at this point is for continued antibiotic therapy (cefepime and daptomycin) for total of 48 hours. If he shows continued and persistent improvement, would be inclined to transition to perhaps Cipro/Zyvox and monitor for an additional 24 hours to ensure he does not have any fever spikes, uptrending leukocytosis or worsening of erythema and then discharged home with that combination. Arterial duplex was performedsee below. Will add aspirin IMPRESSION: 1. Focal area of stenosis within the distal left posterior tibial artery. 2. No evidence for arterial occlusion within the left lower extremity. 3. Monophasic waveforms seen within the left calf vessels consistent with diffuse atherosclerotic disease. (2) Sepsis: Plan: 2nd to #1 above. blood cx's neg. broad-spectrum IV antibiotics. see #1 above. in addition, given his concurrent back pain, Dr Corbin's team consulted re: abnormal x-rays of L-spine (loosening noted). further, in light of persistent fevers, could his back be a source of infection as well?? seen by ortho who does not feel that advanced imaging is necessary at this time. (3) BROOKS (acute kidney injury): Plan: sepsis-associated ATN. peak Cr 2.1. now 1.3. baseline 0.9 to 1. repeat BMP am. (4) Diabetes mellitus, type 2: Plan: Holding glimepiride and Metformin. Hemoglobin A1c 7% Cont novolog SSI. add basal insulin if needed but thus far BSGs w/ acceptable control with novolog. (5) Type 2 diabetes mellitus with diabetic neuropathy: Plan: Continue tramadol, gabapentin and amitriptyline (6) Hypertension: Plan: Continue metoprolol succinate Controlled (7) Depression: Plan: Continue amitriptyline and bupropion (8) Rheumatoid arthritis: Plan: stable, does not appear to be on disease-modifying agent such as prednisone, methotrexate, etc per pharmacy records no flare on examination (9) DVT prophylaxis: Plan: lovenox 40mg daily (10) Lumbar back pain: Plan: checked x-rays of back given his significant back pain had l-spine surgery in December [address] Corbin - removal of old hardware, decompression/fusion x-rays this admission with ?loosening of a screw see #2 above cont pain control Dr oCrbin consult (11) Dyspnea: Plan: lungs clear o2 sats wnl cxr wnl no complaints today of dyspnea monitor for recurrence Plan: - plan of care D/W Dr. Jimenez Admission and Anticipated Discharge Date Admission Date: March 30, 2021 Subjective Patient seen on daily rounds today. Overall, voices no complaints or concerns. Pain in the left leg seems to be slightly improved today His last fever spike was 101.12 at 1550 (yesterday) . Otherwise has remained HD stable. Review of Systems Review of Systems: All systems reviewed and are unremarkable except as noted in HPI and below Denies fevers, chills, headache, nasal congestion, sore throat, cough, chest pain, shortness of breath, palpitations, orthopnea, PND, abdominal pain, nausea, vomiting, diarrhea, constipation, dysuria, hematuria, frequency, back pain, joint pain or swelling, easy bruising or blooding, skin lesions or rashes. Physical Exam Physical Exam: General: Resting comfortably in his hospital bed. NAD. HEENT: Head is AT/NC buccal mucosa is moist and pink Neck: No JVD. Negative hepatojugular reflex Cardiac: RRR without M/G/R Lungs: CTA without W/R/R Abdomen: Normoactive X4. Soft and nontender in all quadrants. Extremities: See skin Neuro: A&O X4 cranial nerves II through XII are grossly intact no focal neuro deficits Skin: Left lower extremity with persistent erythema but overall improving. There is normal flesh colored skin picking through thigh. No further lymphangitic streaking (this has nearly resolved). Lymphadenopathy improving in the inguinal region. Psych: Appropriate affect pleasant and cooperative Results & Data Results & Data ([place]) Vital Signs (Past 12 Hours) Vital Signs Temp Pulse Resp BP Pulse Ox 04/04/21 07:38 36.8 C 104 H 16 137/70 93 Laboratory Results 04/04/21 05:50 04/04/21 05:50 PG Care Time/CCT Total # of Minutes Spent Total Time Spent with Patient: Total time spent is greater than 50% in coordination of care (as documented) at patient's floor/unit and/or counseling patient: C[place] [address] Subseq Hosp Care Lvl 2 Patient Type Established History Expanded Problem Focused Exam Expanded Problem Focused Medical Decision Making Moderate Complexity Diagnoses Cellulitis of left lower extremity without foot L03.116 Sepsis A41.9 Sepsis acute organ dysfunction status: unspecified Sepsis type: sepsis due to unspecified organism BROOKS (acute kidney injury) N17.9 Diabetes mellitus, type 2 E11.9 Type 2 diabetes mellitus with diabetic neuropathy E11.40 Hypertension I10 Depression F32.9 Rheumatoid arthritis M06.9 DVT prophylaxis Z29.9 Lumbar back pain M54.5 Dyspnea R06.00 (1) Sepsis Sepsis acute organ dysfunction status: unspecified Sepsis type: sepsis due to unspecified organism Qualified Code(s): A41.9 - Sepsis, unspecified organism
[2021-04-04] MEDS: traMADol HCL 50 MG TABLET PO PRN (17:47)
--- NOTE | 2021-04-04 18:29 | XCELERA ---
[id number] \\[id number]
[2021-04-04] MEDS: AMITRIPTYLINE HCL 100 MG TAB PO SCH (19:26)
[2021-04-04] MEDS: IBUPROFEN 600 MG TAB PO PRN (19:30)
[2021-04-04] MEDS: DAPTOmycin 500 MG in SYRINGE 0 ML IV SCH (22:01)
[2021-04-05] MEDS: CEFEPIME 2,000 MG in SYRINGE 0 ML IV SCH ×3 (05:06→17:18)
[2021-04-05 06:58] LABS: Basophils # (auto) 0.01 K/uL (0-0.2); Basophils % (auto) 0.1 %; Eosinophils # (auto) 0.25 K/uL (0-0.5); Eosinophils % (auto) 3.7 %; Hematocrit (blood only) 31.2 % (42-52); Hemoglobin 9.7 g/dL (14.0-18.0); Immature Granulocytes # (auto) 0.08 K/uL (0.00-0.02); Immature Granulocytes % (auto) 1.2 %; Lymphocytes # (auto) 1.43 K/uL (1.2-3.4); Lymphocytes % (auto) 20.9 %; Mean Corpuscular Hgb Conc 31.1 g/dL (32-36); Mean Corpuscular Volume 86.9 fL (80-100); Mean Platelet Volume 9.6 fL (7.4-10.4); Monocytes # (auto) 0.75 K/uL (0.11-0.59); Neutrophils # (auto) 4.31 K/uL (1.4-6.5); Neutrophils % (auto) 63.1 %; Platelet Count 258 K/uL (130-400); RDW Coefficient of Variation 16.3 % (11.5-14.5); RDW Standard Deviation 51.9 fL (36.4-46.3); Red Blood Count 3.59 M/uL (4.7-6.1); White Blood Count 6.83 K/uL (4.8-10.8)
[2021-04-05 07:35] LABS: Calcium 8.7 mg/dl (8.5-10.1); Creatinine Clr Calc Pharmacy 65.9 ml/min; Est GFR (African American) 64.9 ml/min; Potassium 3.9 mmol/L (3.5-5.1)
[2021-04-05] MEDS: METOPROLOL SUCC 25MG EXT REL TAB PO SCH (08:40)
[2021-04-05] MEDS: ASPIRIN 81 MG ECTAB PO SCH (08:41)
[2021-04-05] MEDS: buPROPion SR 150 MG TABCR PO SCH (08:41)
[2021-04-05] MEDS: GABAPENTIN 300 MG CAP PO SCH ×2 (08:41→20:44)
[2021-04-05] MEDS: DICLOFENAC SOD 1% GEL 100 GM TUBE EXT SCH ×4 (08:41→20:44)
[2021-04-05] MEDS: ADVANCED PROBIOTIC 1250 MG CAPSULE PO SCH (08:41)
[2021-04-05] MEDS: ENOXAPARIN INJ 40 MG/0.4 ML SYR SQ SCH (08:42)
[2021-04-05] MEDS: traMADol HCL 50 MG TABLET PO PRN (08:45)
[2021-04-05] MEDS: INSULIN ASPART 100 UNITS/ML 3 ML PEN SC SCH ×4 (08:59→20:46)
[2021-04-05] MEDS ORDERED: CIPROFLOXACIN / D5W 400 MG/200 ML BAG IV SCH (12:00)
[2021-04-05] MEDS: SILVER SULFADIAZINE 1% CR 400 GM JAR EXT SCH ×2 (12:31→23:10)
[2021-04-05] MEDS: IBUPROFEN 600 MG TAB PO PRN (15:04)
--- NOTE | 2021-04-05 15:48 | Hospitalist Progress Note ---
Date of Service April 05, 2021 Assessment & Plan (1) Fever: Plan: -Patient with persistent fevers despite multiple days of antibiotics (most recently cefepime/Dapto X >48hrs) -Clinically, the leg seems to be improving greatly. His redness and swelling have improved and the lymphangitic streaking has resolved. In addition, his leukocytosis has resolved. I find it hard to believe that the fever is from persistent cellulitis and less he may have an underlying abscess or tenosynovitis. -We will obtain an MRI of the left lower extremity -In addition, will obtain a CXR, urinalysis with culture to help identify any other source of infection which could be driving a fever. Patient has had multiple sets of blood cultures all which have been negative. He did have an echocardiogram showing no evidence of vegetation. -He denies abdominal pain, nausea or vomiting, respiratory symptoms, GI/ symptoms. -I have reached out to patient's established greenhouse worker (Dr. Cloud) to ask if a rheumatological flare can cause persistent fevers. He indeed agreed that had a flareup of RA or perhaps underlying lupus that has been misdiagnosed with a flare could in fact cause a fever. Especially in the setting of an infection that seems to be adequately covered and improving -Patient's increased right hand/knuckle pain with waxing and waning redness, would correspond with a flare of RA -that being said, rheumatology is recommendations are for 1 dose of steroids and continue to follow (2) Cellulitis of left lower extremity without foot: Plan: On admissionsevere, extensive, with lymphangitic spread to left thigh however seems to be responding favorably since antibiotic regimen has been altered lymphadenopathy of inguinal region has resolved recent L tib-fib CT without nec fasc, gas, or abscess/phlegmon. repeat Ct of the left femur/pelvis showing no evidence of abscess/osteomyelitis venous doppler showing no evidence of DVT initially on dapto/rocephin. WBC normalized but patient with persistent fevers leading to transition of abx to cefepime/dapto (for antipseudomonal coverage) which is more than appropriate given his underlying h/o DM no open wound seen His white blood cell count and cellulitis has improved but he continues to have feverssee above Hold off on de-escalation of antibiotic coverage for now. Continue with current regimen (cefepime and daptomycin) until other obvious source can be ruled out. (3) PAD (peripheral artery disease): Plan: -Arterial duplex performed to ensure adequate blood flow. Mild PAD noted. Aspirin started Arterial duplex was performedsee below. Will add aspirin IMPRESSION: 1. Focal area of stenosis within the distal left posterior tibial artery. 2. No evidence for arterial occlusion within the left lower extremity. 3. Monophasic waveforms seen within the left calf vessels consistent with diffuse atherosclerotic disease. (4) Sepsis: Plan: 2nd to #2 above. blood cx's neg. broad-spectrum IV antibiotics. see #2 above. Patient did have the back pain upfront. X-ray was done showing loosening of hardware Dr Corbin's team consulted re: abnormal x-rays of L-spine (loosening noted). further, in light of persistent fevers, could his back be a source of infection as well?? seen by ortho who does not feel that advanced imaging is necessary at this time as his back pain is minimal/very mild (5) BROOKS (acute kidney injury): Plan: sepsis-associated ATN. peak Cr 2.1. Has improved and close to baseline (6) Diabetes mellitus, type 2: Plan: Holding glimepiride and Metformin. Hemoglobin A1c 7% Cont novolog SSI. add basal insulin if needed but thus far BSGs w/ acceptable control with novolog. (7) Type 2 diabetes mellitus with diabetic neuropathy: Plan: Continue tramadol, gabapentin and amitriptyline (8) Hypertension: Plan: Continue metoprolol succinate Controlled (9) Depression: Plan: Continue amitriptyline and bupropion (10) Rheumatoid arthritis: Plan: stable, does not appear to be on disease-modifying agent such as prednisone, methotrexate, etc per pharmacy records I am concerned for an underlying rheumatological flare as outlined above. This could be contributing to fevers Again, case discussed with Dr. Cloud (established greenhouse worker) who is recommending a dose of steroids today to see if this can help improve his increased hand/wrist pain and if his fevers improve (11) DVT prophylaxis: Plan: lovenox 40mg daily (12) Lumbar back pain: Plan: checked x-rays of back given his significant back pain had l-spine surgery in [place] [address] Corbin - removal of old hardware, decompression/fusion x-rays this admission with ?loosening of a screw cont pain control Dr Corbin consult Plan: - plan of care D/W Dr. Jimenez and Dustyman Daughter (Mary) updated Admission and Anticipated Discharge Date Admission Date: March 30, 2021 Subjective Patient seen on daily rounds today. Vocalizes no complaints or concerns. Initially, when seen this am- patient had no fever spike since the day prior to yesterday Initial plan was to de-escalate antibiotic therapy to Cipro with continued daptomycin (seventh dose to be given tonight) and if he did well, transition to home with Cipro/Duricef (for continued strep coverage). It was noticed around 2 PM that patient had another fever spike of 101.8. Reevaluated and patient is having subjective fevers/chills. Otherwise he denies cough, shortness of breath, abdominal pain, nausea or vomiting. Denies joint pain in any other location other than the right hand (which she does have rheumatoid arthritis). Review of Systems Review of Systems: All systems reviewed and are unremarkable except as noted in HPI and below Denies fevers, chills, headache, nasal congestion, sore throat, cough, chest pain, shortness of breath, palpitations, orthopnea, PND, abdominal pain, nausea, vomiting, diarrhea, constipation, dysuria, hematuria, frequency, back pain, joint pain or swelling, easy bruising or blooding, skin lesions or rashes. Physical Exam Physical Exam: General: Resting comfortably in his hospital bed. He does not appear ill or toxic HEENT: Head is AT/NC buccal mucosa is moist and pink Neck: No JVD. Negative hepatojugular reflex Cardiac: RRR without M/G/R Lungs: CTA without W/R/R Abdomen: Normoactive X4. Soft and nontender in all quadrants. Extremities: See skin. Does have significant Noel's nodes noted in the hands, elbows bilaterally. Right MCP joints are slightly erythematous and warm (when seen earlier this morning) but this has since resolved when seen later this afternoon. Neuro: A&O X4 cranial nerves II through XII are grossly intact no focal neuro deficits Skin: Continued significant improvement in the erythema and edema of the left lower extremity. Circumferentially, now measures 17.5" (was 18-3/4 initially). There is no longer any lymphangitic streaking in the left thigh. The left inguinal adenopathy is improved greatly. The area of redness of the lower extremity is resolving from the area of demarcation Psych: Appropriate affect pleasant and cooperative Results & Data Results & Data ([facility]) Vital Signs (Past 12 Hours) Vital Signs Temp Pulse Resp BP Pulse Ox 04/05/21 14:54 38.4 C H 99 H 16 127/72 90 04/05/21 07:19 36.7 C 96 H 16 146/76 H 93 PG Care Time/CCT Total # of Minutes Spent Total Time Spent with Patient: Total time spent is greater than 50% in coordination of care (as documented) at patient's floor/unit and/or counseling patient: Coding [place] [address] Subseq Hosp Care Lvl 3 Patient Type Established Medical Decision Making High Complexity Diagnoses Cellulitis of left lower extremity without foot L03.116 Sepsis A41.9 Sepsis acute organ dysfunction status: unspecified Sepsis type: sepsis due to unspecified organism BROOKS (acute kidney injury) N17.9 Diabetes mellitus, type 2 E11.9 Type 2 diabetes mellitus with diabetic neuropathy E11.40 Hypertension I10 Depression F32.9 Rheumatoid arthritis M06.9 DVT prophylaxis Z29.9 Lumbar back pain M54.5 Fever R50.9 PAD (peripheral artery disease) I73.9 (1) Sepsis Sepsis acute organ dysfunction status: unspecified Sepsis type: sepsis due to unspecified organism Qualified Code(s): A41.9 - Sepsis, unspecified organism
[2021-04-05] MEDS ORDERED: DAPTOmycin 500 MG in SYRINGE 0 ML IV ONE (15:50)
[2021-04-05] MEDS ORDERED: NAPROXEN 250 MG TAB PO PRN (16:57)
--- NOTE | 2021-04-05 17:17 | XRay Report ---
TWO VIEW CHEST CLINICAL HISTORY: Fever. FINDINGS: PA and lateral chest radiographs are compared to study dated 04/01/2021. Correlation is made with chest CT dated 12/02/2015. The heart is enlarged noting atherosclerotic calcification of the tho racic aorta. The pulmonary vasculature is noncongested. Chronic interstitial thickening is similar to previous. There is bibasilar scarring/atelectasis. No airspace consolidation or pleural effusion is identified. There is no pneumothorax. The skeletal structures are osteopenic. There are healed bilate ral rib fractures. Degenerative change is noted throughout the thoracic spine. Surgical clips are not ed in the upper abdomen. IMPRESSION: Cardiomegaly with no acute cardiopulmonary abnormality. ACT 112: Negative or not required by law. Electronically signed by: De Orozco M.D. 04/05/2021 5:15 PM
--- NOTE | 2021-04-05 17:20 | XRay Report ---
XR hand RT min 3V routine HISTORY: 61 years-old Male hand pain, erythema acute right hand pain COMPARISON: Right hand radiographs 04/30/2008 TECHNIQUE: 4 views of the right hand FINDINGS: Demineralized appearance of the bones. Limited study secondary to flexion of the interphalangeal join ts. Multifocal subcortical cystic changes. Articular erosions of the third and fourth interphalangeal joints with periarticular erosions, severe joint space narrowing with subluxation of the second meta carpal phalangeal joint. There is moderate multifocal joint space narrowing which has progressed from comparison. Moderate soft tissue swelling. IMPRESSION: 1. Demineralized appearance the bones with multifocal scattered subcortical cystic change. 2. Severe joint space narrowing with erosions of the first metacarpophalangeal, second and third inte rphalangeal joints is suggestive of erosive arthropathy. These findings are new from the 2008 compari son. Rheumatologic workup is needed. 3. No acute fracture identified. 4. Moderate soft tissue swelling. ACT 112: Negative or not required by law. The above report was generated using voice recognition software. It may contain grammatical, syntax o r spelling errors. Electronically signed by: Juan Becerra M.D. 04/05/2021 5:18 PM
[2021-04-05] MEDS ORDERED: dexAMETHasone 4 MG in SYRINGE 0 ML IV ONE (17:30)
[2021-04-05] MEDS: AMITRIPTYLINE HCL 100 MG TAB PO SCH (20:44)
--- NOTE | 2021-04-05 21:13 | Magnetic Resonance Report ---
MRI OF THE LEFT TIBIA AND FIBULA WITHOUT IV CONTRAST CLINICAL HISTORY: Cellulitis. Fever. COMPARISON STUDY: CT of the left tibia and fibula dated 03/31/2021. TECHNIQUE: MRI of the left tibia and fibula was initiated. A sagittal STIR sequences obtained. The pa kylah declined further imaging. FINDINGS: Marrow signal intensity within the tibia and fibula is grossly normal on this single sagitt al sequence. Diffuse soft tissue edema and subcutaneous fluid is seen throughout the left lower extre mity. There is no evidence of organized fluid collection on this single sagittal sequence. No signifi cant intramuscular edema is identified. IMPRESSION: 1. The patient declined the examination. Only a single sagittal sequence was obtained. 2. There is soft tissue edema and subcutaneous fluid suggestive of cellulitis. Clinical correlation w ill be required. 3. No organized fluid collection is identified on this single sagittal series. 4. No marrow abnormality is identified on this single sagittal series. Electronically signed by: De Orozco M.D. 04/05/2021 9:12 PM
[2021-04-05] MEDS: DAPTOmycin 500 MG in SYRINGE 0 ML IV SCH (23:10)
[2021-04-06] MEDS: CEFEPIME 2,000 MG in SYRINGE 0 ML IV SCH (04:47)
[2021-04-06 07:18] LABS: Basophils # (auto) 0.02 K/uL (0-0.2); Basophils % (auto) 0.3 %; Eosinophils # (auto) 0.02 K/uL (0-0.5); Eosinophils % (auto) 0.3 %; Hemoglobin 10.2 g/dL (14.0-18.0); Immature Granulocytes # (auto) 0.08 K/uL (0.00-0.02); Immature Granulocytes % (auto) 1.1 %; Lymphocytes % (auto) 15.6 %; Mean Corpuscular Hemoglobin 26.8 pg (25-34); Mean Corpuscular Hgb Conc 31.9 g/dL (32-36); Mean Corpuscular Volume 84.2 fL (80-100); Mean Platelet Volume 9.4 fL (7.4-10.4); Monocytes # (auto) 0.73 K/uL (0.11-0.59); Monocytes % (auto) 10.3 %; Neutrophils # (auto) 5.11 K/uL (1.4-6.5); Neutrophils % (auto) 72.4 %; Platelet Count 283 K/uL (130-400); RDW Coefficient of Variation 16.1 % (11.5-14.5); RDW Standard Deviation 49.2 fL (36.4-46.3); White Blood Count 7.06 K/uL (4.8-10.8)
[2021-04-06] MEDS ORDERED: predniSONE 20 MG TAB PO SCH (08:00)
[2021-04-06 08:01] LABS: BUN Creatinine Ratio 23.3 (10-20); Calcium 9.1 mg/dl (8.5-10.1); Creatinine Clr Calc Pharmacy 74.3 ml/min; Est GFR (African American) 74.9 ml/min; Est GFR (Non-African American) 64.6 ml/min; Magnesium 2.1 mg/dl (1.8-2.4); Potassium 4.7 mmol/L (3.5-5.1)
[2021-04-06] MEDS: buPROPion SR 150 MG TABCR PO SCH (08:54)
[2021-04-06] MEDS: GABAPENTIN 300 MG CAP PO SCH ×2 (08:54→21:07)
[2021-04-06] MEDS: METOPROLOL SUCC 25MG EXT REL TAB PO SCH (08:54)
[2021-04-06] MEDS: ADVANCED PROBIOTIC 1250 MG CAPSULE PO SCH (08:54)
[2021-04-06] MEDS: ASPIRIN 81 MG ECTAB PO SCH (08:54)
[2021-04-06] MEDS: ENOXAPARIN INJ 40 MG/0.4 ML SYR SQ SCH (08:55)
[2021-04-06] MEDS: DICLOFENAC SOD 1% GEL 100 GM TUBE EXT SCH ×4 (08:56→21:07)
[2021-04-06] MEDS: INSULIN ASPART 100 UNITS/ML 3 ML PEN SC SCH ×4 (09:02→21:08)
[2021-04-06 10:11] LABS: Appearance Urine Clear (Clear); Bacteria Urine Automated Negative (Negative); Bilirubin Urine Negative (Negative); Blood Urine 3+ (Negative); Color Urine Yellow; Glucose Urine UA 2+ (Negative); Ketones Urine Negative (Negative); Leukocyte Esterase Urine Negative (Negative); Nitrite Urine Negative (Negative); Protein Urine 2+ (Negative); RBC Urine Automated >30 /hpf (0-4); Specific Gravity Urine 1.023 (1.000-1.030); Urobilinogen Urine Negative (Negative); pH Urine 6.5 (4.5-7.5)
[2021-04-06] MEDS ORDERED: ceFAZolin 1000MG 1,000 MG/7.5 ML SYR IV SCH (11:00)
[2021-04-06] MEDS: ceFAZolin 2000MG 2,000 MG/15 ML SYR IV SCH ×2 (11:29→18:27)
[2021-04-06] MEDS: CIPROFLOXACIN / D5W 400 MG/200 ML BAG IV SCH ×2 (12:10→22:03)
[2021-04-06] MEDS: SILVER SULFADIAZINE 1% CR 400 GM JAR EXT SCH ×2 (12:15→22:04)
--- NOTE | 2021-04-06 13:12 | Hospitalist Progress Note ---
Date of Service April 06, 2021 Assessment & Plan (1) Fever: Plan: -Patient with persistent fevers despite multiple days of antibiotics (most recently cefepime/Dapto X >48hrs) -Clinically, the leg seems to be improving greatly. His redness and swelling have improved and the lymphangitic streaking has resolved. In addition, his leukocytosis has resolved. -MRI of the LE limited but no obvious fluid collection/abscess/osteo -no other obvious source of infection. Echocardiogram showing no vegetation, x- ray of right hand showing significant erosive changes consistent with RA, urinalysis does not appear to be grossly infected. Chest x-ray showing no evidence of pneumonia. Mild atelectasis. -Given adequate coverage (for gram-positive, gram-negative including antipseudomonal, and MRSA) and significant improvement in his cellulitis, I did reach out to rheumatology to see if a possible RA flare could be causing persistent fevers. It does not appear as if patient has a separate cause of infection -Spoke with Dr. Cloud (patient's established web project manager) who did indeed report that an RA flare can cause fevers. He recommended steroids. Patient given IV Decadron yesterday followed by oral prednisone today with plan for 40 mg daily X 5 days. With this, his right hand pain has improved greatly -No fever since yesterday afternoon -Will de-escalate antibiotic coverage to Cipro/Ancef (with plan for discharge with Cipro/Duricef for continued antipseudomonal and strep coverage). Patient does not need any additional MRSA coverage as he has completed a full 8 days of daptomycin -If patient continues to do well and leg remained stable/improved, plan to discharge tomorrow (2) Cellulitis of left lower extremity without foot: Plan: On admissionsevere, extensive, with lymphangitic spread to left thigh however seems to be responding favorably since antibiotic regimen has been altered lymphadenopathy of inguinal region has resolved recent L tib-fib CT without nec fasc, gas, or abscess/phlegmon. repeat Ct of the left femur/pelvis showing no evidence of abscess/osteomyelitis venous doppler showing no evidence of DVT MRI of the left lower extremity limited but no obvious abscess or osteomyelitis Arterial duplex obtained showing mild PAD without hemodynamic significant stenosis initially on dapto/rocephin. WBC normalized but patient with persistent fevers leading to transition of abx to cefepime/dapto (for antipseudomonal coverage) which is more than appropriate given his underlying h/o DM no open wound seen His white blood cell count and cellulitis has improved but he continues to have feverssee above -As outlined above, will de-escalate antibiotic therapy and continue to monitor an additional 24 hours. (3) PAD (peripheral artery disease): Plan: -Arterial duplex performed to ensure adequate blood flow. Mild PAD noted. Aspirin started Arterial duplex was performedsee below. Will add aspirin IMPRESSION: 1. Focal area of stenosis within the distal left posterior tibial artery. 2. No evidence for arterial occlusion within the left lower extremity. 3. Monophasic waveforms seen within the left calf vessels consistent with diffuse atherosclerotic disease. (4) Sepsis: Plan: Initially with sepsis syndrome which has since resolved 2nd to #2 above. blood cx's neg. broad-spectrum IV antibiotics. see #2 above. Patient did have the back pain upfront. X-ray was done showing loosening of de la cruz rdware Dr Corbin's team consulted re: abnormal x-rays of L-spine (loosening noted). further, in light of persistent fevers, could his back be a source of infection as well?? seen by ortho who does not feel that advanced imaging is necessary at this time as his back pain is minimal/very mild (5) BROOKS (acute kidney injury): Plan: sepsis-associated ATN. peak Cr 2.1. Has improved and close to baseline (6) Diabetes mellitus, type 2: Plan: Holding glimepiride and Metformin. Hemoglobin A1c 7% Cont novolog SSI. add basal insulin if needed but thus far BSGs w/ acceptable control with novolog. (7) Type 2 diabetes mellitus with diabetic neuropathy: Plan: Continue tramadol, gabapentin and amitriptyline (8) Hypertension: Plan: Continue metoprolol succinate Controlled (9) Depression: Plan: Continue amitriptyline and bupropion (10) Rheumatoid arthritis: Plan: Suspect that he has an RA flare does not appear to be on disease-modifying agent such as prednisone, methotrexate, etc per pharmacy records Again, case discussed with Dr. Cloud (established web project manager) who is recommending steroids. This has seemed to improve his pain and so far, no fevers Rheumatology will follow up with patient as an outpatient to discuss disease modifying medications (11) DVT prophylaxis: Plan: lovenox 40mg daily (12) Lumbar back pain: Plan: checked x-rays of back given his significant back pain had l-spine surgery in December [address] Corbin - removal of old hardware, decompression/fusion x-rays this admission with ?loosening of a screw cont pain control Dr Corbin consult Plan: - plan of care D/W Dr. Jimenez and Dr. Pettitnathalybasia Daughter (Mary) updated Admission and Anticipated Discharge Date Admission Date: March 30, 2021 Subjective Patient seen on daily rounds today. Started on prednisone yesterday for presumed RA flare (which was thought to possibly be the cause of his persistent fevers). Since then, he has not had any fever spikes. In addition, he reports the pain in his right hand/knuckles has improved greatly. Denies fevers, chills, chest pain, shortness of breath, abdominal pain, nausea, vomiting, GI/ symptomatology. Nursing voices no complaints or concerns. Reports that he is ambulating to and from the bathroom without difficulty. Feels that he is at his baseline from a physical standpoint. His 6 clicks score is 18 Review of Systems Review of Systems: All systems reviewed and are unremarkable except as noted in HPI and below Denies fevers, chills, headache, nasal congestion, sore throat, cough, chest pain, shortness of breath, palpitations, orthopnea, PND, abdominal pain, nausea, vomiting, diarrhea, constipation, dysuria, hematuria, frequency, back pain, joint pain or swelling, easy bruising or blooding, skin lesions or rashes. Physical Exam Physical Exam: General: Resting comfortably in his hospital bed. He does not appear ill or toxic HEENT: Head is AT/NC buccal mucosa is moist and pink Neck: No JVD. Negative hepatojugular reflex Cardiac: RRR without M/G/R Lungs: CTA without W/R/R Abdomen: Normoactive X4. Soft and nontender in all quadrants. Extremities: See skin. Does have significant Noel's nodes noted in the hands, elbows bilaterally. Right MCP joints no longer erythematous or warm to touch Neuro: A&O X4 cranial nerves II through XII are grossly intact no focal neuro deficits Skin: Continued significant improvement in the erythema and edema of the left lower extremity. Circumferentially, now measures 17.0" (was 18-3/4 initially). There is no longer any lymphangitic streaking in the left thigh. The left inguinal adenopathy is improved greatly. The area of redness of the lower extremity is resolving from the area of demarcation with continued improvement Psych: Appropriate affect pleasant and cooperative Results & Data Results & Data ([facility]) Vital Signs (Past 12 Hours) Vital Signs Temp Pulse Resp BP Pulse Ox 04/06/21 08:11 36.6 C 83 16 152/80 H 95 Laboratory Results 04/06/21 06:49 04/06/21 06:49 Blood cultures negative X3 sets. Urine culture showing no growth to date Diagnostic Findings MRI of the left LE IMPRESSION: 1. The patient declined the examination. Only a single sagittal sequence was obtained. 2. There is soft tissue edema and subcutaneous fluid suggestive of cellulitis. Clinical correlation will be required. 3. No organized fluid collection is identified on this single sagittal series. 4. No marrow abnormality is identified on this single sagittal series. Xray of the right hand: IMPRESSION: 1. Demineralized appearance the bones with multifocal scattered subcortical cystic change. 2. Severe joint space narrowing with erosions of the first metacarpophalangeal, second and third interphalangeal joints is suggestive of erosive arthropathy. These findings are new from the 2007 comparison. Rheumatologic workup is needed. 3. No acute fracture identified. 4. Moderate soft tissue swelling. CXR: FINDINGS: PA and lateral chest radiographs are compared to study dated 04/01/2021. Correlation is made with chest CT dated 12/02/2015. The heart is enlarged noting atherosclerotic calcification of the thoracic aorta. The pulmonary vasculature is noncongested. Chronic interstitial thickening is similar to previous. There is bibasilar scarring/atelectasis. No airspace consolidation or pleural effusion is identified. There is no pneumothorax. The skeletal structures are osteopenic. There are healed bilateral rib fractures. Degenerative change is noted throughout the thoracic spine. Surgical clips are noted in the upper abdomen. IMPRESSION: Cardiomegaly with no acute cardiopulmonary abnormality. PG Care Time/CCT Total # of Minutes Spent Total Time Spent with Patient: Total time spent is greater than 50% in co ordination of care (as documented) at patient's floor/unit and/or counseling patient: [place] [address] Subseq Hosp Care Lvl 3 Patient Type Established History Detailed Exam Detailed Medical Decision Making Moderate Complexity Diagnoses Fever R50.9 Cellulitis of left lower extremity without foot L03.116 PAD (peripheral artery disease) I73.9 Sepsis A41.9 Sepsis acute organ dysfunction status: unspecified Sepsis type: sepsis due to unspecified organism BROOKS (acute kidney injury) N17.9 Diabetes mellitus, type 2 E11.9 Type 2 diabetes mellitus with diabetic neuropathy E11.40 Hypertension I10 Depression F32.9 Rheumatoid arthritis M06.9 DVT prophylaxis Z29.9 Lumbar back pain M54.5 (1) Sepsis Sepsis acute organ dysfunction status: unspecified Sepsis type: sepsis due to unspecified organism Qualified Code(s): A41.9 - Sepsis, unspecified organism
[2021-04-06] MEDS: AMITRIPTYLINE HCL 100 MG TAB PO SCH (21:07)
[2021-04-07] MEDS: ceFAZolin 2000MG 2,000 MG/15 ML SYR IV SCH ×2 (04:37→11:35)
[2021-04-07 08:23] LABS: Basophils # (auto) 0.02 K/uL (0-0.2); Basophils % (auto) 0.2 %; Hematocrit (blood only) 30.5 % (42-52); Hemoglobin 9.7 g/dL (14.0-18.0); Immature Granulocytes # (auto) 0.08 K/uL (0.00-0.02); Immature Granulocytes % (auto) 0.8 %; Lymphocytes # (auto) 2.71 K/uL (1.2-3.4); Lymphocytes % (auto) 28.1 %; Mean Corpuscular Hemoglobin 26.8 pg (25-34); Mean Corpuscular Hgb Conc 31.8 g/dL (32-36); Mean Corpuscular Volume 84.3 fL (80-100); Mean Platelet Volume 9.5 fL (7.4-10.4); Monocytes # (auto) 0.73 K/uL (0.11-0.59); Monocytes % (auto) 7.6 %; Neutrophils # (auto) 6.02 K/uL (1.4-6.5); Neutrophils % (auto) 62.3 %; Platelet Count 330 K/uL (130-400); RDW Coefficient of Variation 16.2 % (11.5-14.5); RDW Standard Deviation 49.9 fL (36.4-46.3); Red Blood Count 3.62 M/uL (4.7-6.1); White Blood Count 9.66 K/uL (4.8-10.8)
[2021-04-07] MEDS: ASPIRIN 81 MG ECTAB PO SCH (08:39)
[2021-04-07] MEDS: buPROPion SR 150 MG TABCR PO SCH (08:39)
[2021-04-07] MEDS: GABAPENTIN 300 MG CAP PO SCH (08:39)
[2021-04-07] MEDS: ADVANCED PROBIOTIC 1250 MG CAPSULE PO SCH (08:39)
[2021-04-07] MEDS: METOPROLOL SUCC 25MG EXT REL TAB PO SCH (08:40)
[2021-04-07] MEDS: DICLOFENAC SOD 1% GEL 100 GM TUBE EXT SCH ×2 (08:44→12:56)
[2021-04-07] MEDS: ENOXAPARIN INJ 40 MG/0.4 ML SYR SQ SCH (08:44)
[2021-04-07] MEDS: INSULIN ASPART 100 UNITS/ML 3 ML PEN SC SCH ×2 (08:47→12:56)
[2021-04-07 08:54] LABS: BUN Creatinine Ratio 27.3 (10-20); Calcium 8.7 mg/dl (8.5-10.1); Creatinine Clr Calc Pharmacy 65.5 ml/min; Est GFR (African American) 64.3 ml/min; Est GFR (Non-African American) 55.5 ml/min; Potassium 3.9 mmol/L (3.5-5.1)
[2021-04-07] MEDS ORDERED: predniSONE 20 MG TAB PO SCH (09:00)
[2021-04-07] MEDS: CIPROFLOXACIN / D5W 400 MG/200 ML BAG IV SCH (11:41)
[2021-04-07] MEDS: SILVER SULFADIAZINE 1% CR 400 GM JAR EXT SCH (11:42)
--- NOTE | 2021-04-07 14:40 | Discharge Summary ---
Date of Service April 07, 2021 Admission HPI Per Admitting Provider Chief Complaint: The patient presents to the emergency department with complaint of left lower extremity pain and redness, generalized weakness and imbalance, with the onset of shaking chills that began early this morning Primary Care Provider: Mina Miller DO The patient is a 61-year-old male with a past history lumbar stenosis with claudication, orthostatic hypotension, hypertension, diabetes mellitus, diabetic polyneuropathy, depression, obesity and status post right hip replacement. He presents with symptoms as noted above. He did undergo back surgery 3 months ago, which has been gradually healing, but has still not gotten back to his normal physical activity pattern. Work-up the emergency department included the following abnormal laboratories: WBC 13.82, sodium 135, creatinine 2.12, BUN 24. Venous Doppler of left lower extremity showed no evidence of DVT. Superficial soft tissue swelling of the left calf was noted. Mildly enlarged left groin lymph nodes noted. COVID-19 testing was negative Principal Diagnosis 1. Cellulitis of left lower extremity 2. Persistent feverthought to be multifactorial. (Cellulitis and rheumatoid arthritis flare) 3. Rheumatoid arthritis flare 4. Mild peripheral arterial diseasenow on aspirin 5. Acute Kidney Injury- resolved Discharge Exam General: Resting comfortably in his hospital bed. He does not appear ill or toxic HEENT: Head is AT/NC buccal mucosa is moist and pink Neck: No JVD. Negative hepatojugular reflex Cardiac: RRR without M/G/R Lungs: CTA without W/R/R Abdomen: Normoactive X4. Soft and nontender in all quadrants. Extremities: See skin. Does have significant Noel's nodes noted in the hands, elbows bilaterally. Right MCP joints are slightly erythematous and warm (when seen earlier this morning) but this has since resolved when seen later this afternoon. Neuro: A&O X4 cranial nerves II through XII are grossly intact no focal neuro deficits Skin: Continued significant improvement in the erythema and edema of the left lower extremity. Circumferentially, now measures 17.5" (was 18-3/4 initially). There is no longer any lymphangitic streaking in the left thigh. The left inguinal adenopathy is improved greatly. The area of redness of the lower extremity is resolving from the area of demarcation Psych: Appropriate affect pleasant and cooperative Discharge Data Allergies Allergy/AdvReac Type Severity Reaction Status Date / Time lisinopril Allergy Intermediate cough, Verified 03/30/21 22:59 edema clavulanic acid Allergy Unknown hives Verified 03/30/21 22:59 Penicillins Allergy Unknown hives Verified 03/30/21 22:59 tazobactam Allergy Unknown hives Verified 03/30/21 22:59 acetaminophen AdvReac Intermediate liver Verified 03/30/21 22:59 injury Consultations 04/02/21 08:46 Consult Orthopedic Surgery Routine Assessment & Plan (1) Lumbar back pain: At this time I explained the patient that he does have an infection is always a concern about that infection seeding an orthopedic operative site specifically in his case his lumbar spine. This point he has minimal pain to the lumbar spine. In my experience any infection lumbar spine is associated with severe discomfort. I have warned him that if he begins having chronic consistent back pain we may need to obtain further imaging of the lumbar spine. Otherwise allow him to undergo activity as tolerated regarding his lumbar spine. He is scheduled to see us in the office in the next month. Ordered Studies 03/30/21 22:38 US venous doppler LE LT Urgent IMPRESSION: 1. No evidence of deep venous thrombus within the left lower extremity. 2. Prominent but benign-appearing left renal lymph nodes. These may be reactive. 03/31/21 15:46 CT tib/fib LT wo con Urgent IMPRESSION: 1. No osseous abnormality is seen involving the left tibia or fibula. 2. Diffuse soft tissue edema throughout the left lower extremity is consistent with the reported history of cellulitis. No soft tissue gas is identified. 3. No organized fluid collection is seen within the calf to suggest abscess. 4. Question a partially imaged fluid collection along the plantar aspect of the hindfoot. Correlate clinically for evidence of ulceration or abscess at this level. 04/03/21 06:30 CT femur LT wo con Routine IMPRESSION: Findings compatible with cellulitis without drainable abscess or underlying osteomyelitis. There is associated lymphadenopathy. CT pelvis wo con Routine IMPRESSION: 1. No acute fracture. 2. Pathologically enlarged left greater than right iliac chain and inguinal adenopathy. 3. Mild subcutaneous edema of the left greater than right upper thighs. No fluid collection. 4. Bilateral hip total joint arthroplasties. Artifact from the hardware limits the study. 04/03/21 17:43 US arterial duplex LE LT Routine IMPRESSION: 1. Focal area of stenosis within the distal left posterior tibial artery. 2. No evidence for arterial occlusion within the left lower extremity. 3. Monophasic waveforms seen within the left calf vessels consistent with diffuse atherosclerotic disease. 04/05/21 15:50 MR lower leg LT wo con Routine IMPRESSION: 1. The patient declined the examination. Only a single sagittal sequence was obtained. 2. There is soft tissue edema and subcutaneous fluid suggestive of cellulitis. Clinical correlation will be required. 3. No organized fluid collection is identified on this single sagittal series. 4. No marrow abnormality is identified on this single sagittal series. 04/05/2021: xray of the left hand: IMPRESSION: 1. Demineralized appearance the bones with multifocal scattered subcortical cystic change. 2. Severe joint space narrowing with erosions of the first metacarpophalangeal, second and third interphalangeal joints is suggestive of erosive arthropathy. These findings are new from the 2007 comparison. Rheumatologic workup is needed. 3. No acute fracture identified. 4. Moderate soft tissue swelling. 04/05/2021: CXR: IMPRESSION: Cardiomegaly with no acute cardiopulmonary abnormality Echocardiogram: 1. Normal left ventricular size and systolic function. EF 60 to 65%. No regional wall motion abnormality. No ventricular hypertrophy. 2. No significant valvular abnormalities 3. No obvious vegetation involving the aortic or mitral valves 4. Technical difficult study so enhance with IV Definity 5. No change from prior study done 2015. Blood cultures: Multiple sets drawn both 03/31, 04/04, and 04/06 all showing no growth Urine culture done 04/06: No growth Hospital Course (1) Cellulitis of left lower extremity without foot: On admissionsevere, extensive, with lymphangitic spread to left thigh however seems to be responding favorably since antibiotic regimen has been altered Patient initially on Rocephin/daptomycin X 48 hours. With persistent fever, was transitioned to cefepime/daptomycin. With 48 hours plus of this combination, continued to develop fevers. Subsequently worked up L tib-fib CT without nec fasc, gas, or abscess/phlegmon. repeat Ct of the left femur/pelvis showing no evidence of abscess/osteomyelitis venous doppler showing no evidence of DVT MRI of the left lower extremity limited but no obvious abscess or osteomyelitis Arterial duplex obtained showing mild PAD without hemodynamic significant stenosis Blood cultures X multiple setsall negative Urine cultureno growth CXR. Mild atelectatic changes. No acute pathology. Incentive spirometry started. Persistent fever thought to be secondary to rheumatoid arthritis flare. With addition of prednisone, patient defervesced. De-escalate it to Cipro/Ancef and monitored for an additional 24 hours. Continued to do well without any fever spikes, leukocytosis, and his leg continue to improve. DC to home with Cipro/Duricef. lymphadenopathy of inguinal region has resolved (2) Fever: -Multiple days of fevers despite improving cellulitis (with multiple days of antibiotic therapyRocephin/daptomycin upfront and then transitioned to daptomycin/cefepime but still with fever despite 48 hours of treatment) and no other obvious source -MRI of the LE limited but no obvious fluid collection/abscess/osteo -no other obvious source of infection. Echocardiogram showing no vegetation, x- ray of right hand showing significant erosive changes consistent with RA, urinalysis does not appear to be grossly infected. Chest x-ray showing no evidence of pneumonia. Mild atelectasis. -Given adequate coverage (for gram-positive, gram-negative including antipseudomonal, and MRSA) and significant improvement in his cellulitis, I did reach out to rheumatology to see if a possible RA flare could be causing persistent fevers. It does not appear as if patient has a separate cause of infection -Spoke with Dr. Cloud (patient's established cook house supervisor) who did indeed report that an RA flare can cause fevers. He recommended steroids. Patient given IV Decadron yesterday followed by oral prednisone today with plan for 40 mg daily X 5 days. With this, his right hand pain has improved greatly -No fever since initiation of prednisone/steroid -Antibiotic coverage was deescalated to Cipro/Ancef (with plan for discharge with Cipro/Duricef for continued antipseudomonal and strep coverage). Patient does not need any additional MRSA coverage as he has completed a full 8 days of daptomycin. Still with no reported fevers/afebrile and leg continues to improve -Discharged home with continued oral antibiotic therapy (Cipro/Duricef) (3) PAD (peripheral artery disease): -Arterial duplex performed to ensure adequate blood flow. Mild PAD noted. Aspirin started Arterial duplex was performedsee below. Will add aspirin IMPRESSION: 1. Focal area of stenosis within the distal left posterior tibial artery. 2. No evidence for arterial occlusion within the left lower extremity. 3. Monophasic waveforms seen within the left calf vessels consistent with diffuse atherosclerotic disease. (4) Sepsis: Initially with sepsis syndrome which has since resolved 2nd to #1 above. blood cx's neg. broad-spectrum IV antibiotics. Patient did have the back pain upfront. X-ray was done showing loosening of hardware Dr Coribn's team consulted re: abnormal x-rays of L-spine (loosening noted). further, in light of persistent fevers, could his back be a source of infection as well?? seen by ortho who does not feel that advanced imaging is necessary at this time as his back pain is minimal/very mild (5) BROOKS (acute kidney injury): sepsis-associated ATN. peak Cr 2.1. Has improved and close to baseline (6) Diabetes mellitus, type 2: His glimepiride and Metformin were held and SS utilized Hemoglobin A1c 7% (7) Type 2 diabetes mellitus with diabetic neuropathy: Continue tramadol, gabapentin and amitriptyline (8) Hypertension: Continue metoprolol succinate (was increased for added HR and BP control) Controlled (9) Depression: Continue amitriptyline and bupropion (10) Rheumatoid arthritis: Suspect that he has an RA flare does not appear to be on disease-modifying agent such as prednisone, methotrexate, etc per pharmacy records Again, case discussed with Dr. Cloud (established cook house supervisor) who is recommending steroids. This has seemed to improve his pain and so far, no fevers Rheumatology will follow up with patient as an outpatient to discuss disease modifying medications (11) DVT prophylaxis: lovenox 40mg daily (12) Lumbar back pain: checked x-rays of back given his significant back pain had l-spine surgery in December [address] Corbin - removal of old hardware, decompression/fusion x-rays this admission with ?loosening of a screw cont pain control Dr Corbin consult --see above Patient seen and agreed upon by Dr. Jimenez Daughter (Mary) updated Total Time Total Time Spent Total Time Spent (In Minutes): 60 minutes including time spent with patient, coordination of care, discussion with attending, calling daughter, and preparation of discharge. Discharge Plan Discharge Items Patient Disposition: Home - Home Health Services Reason For Visit: LLE CELLULITIS Discharge Diagnosis: 1. Cellulitis of the left leg 2. Rheumatoid Arthritis flare Activity: As commented below Activity Comment: keep left leg elevated as much as possible. Non-emergency contact: Primary Care Provider and Specialist Call non-emergency contact if: you have any medication questions Follow-up/Referrals: Mina Miller DO [Primary Care Provider] - 04/17/21 3:10 pm (Appointment will be with ) Bharat Jung MD [Physician] - (Office will call patient with appointment date and time) Diet: Carb Consistent or DM2 Addtl Attending Provider Instructions: - You were hospitalized given an infection of your left leg (cellulitis) - Cellulitis seems to be improving with antibiotics. Complete full course as outlined --Cipro 500mg twice a day x5 more days (next dose due tonight) --Duricef 500mg twice a day x 5 more days (next dose due tonight) - It is okay to resume your normal activity. You may shower without restrictions. When seated, would advise you elevate your leg as gravity will cause increased swelling which will make it harder for this infection to heal - In addition to antibiotics, you are being sent home with several days of prednisone (which is for a rheumatoid arthritis flare). You had persistent fevers which was thought to be related to a flare-up in your RA --Prednisone 40mg (2 tabs) daily x 3 days (next dose due tomorrow) - Things were discussed with your cook house supervisor (Dr. Cloud) who agreed that this was likely contributing to the persistent fevers given the improvement in your cellulitis without any other obvious source of infection - Dr. Cloud would like to see you in the office to discuss management of your rheumatoid arthritis. His office should be calling you with an appointment date and time. - In working up the persistent fever, we did an arterial ultrasound of your left leg to assess blood flow to make sure that you did not have an occlusion in your arteries that would prohibit wound healing. You were subsequently found to have mild peripheral Arterial disease. Blood flow is adequate for wound healing but there is mild disease for which I have started you on aspirin. Avoid all tobacco products. --ASA 81mg daily - Your Metoprolol has been increased to 37.5mg daily (for added BP and HR contr ol) - You should follow-up with your family doctor within 7 to 10 days - Return to the ED for any new or worsening symptoms Pending Studies at Discharge: No Stand-Alone Forms: My [facility] Medications and DC Order Prescriptions: New prednisone 20 mg Tablet 40 mg PO DAILY Qty: 6 RF: 0 aspirin 81 mg Tablet,Delayed Release (Dr/Ec) 81 mg PO QAM Qty: 30 RF: 0 metoprolol succinate 25 mg Tablet Extended Release 24 Hr 37.5 mg PO QAM Qty: 45 RF: 0 ciprofloxacin HCl [Cipro] 500 mg tablet 500 mg PO BID Qty: 11 RF: 0 cefadroxil 500 mg capsule 500 mg PO BID Qty: 11 RF: 0 Continued bupropion HCl [Wellbutrin SR] 150 mg Tablet Sustained-Release 12 Hr 150 mg PO QAM RF: 0 metformin 500 mg tablet 500 mg PO BID RF: 0 glimepiride 2 mg tablet 2 mg PO QAM RF: 0 gabapentin 300 mg capsule 600 mg PO TID RF: 0 amitriptyline 50 mg tablet 50 mg PO BID RF: 0 naproxen 500 mg tablet 500 mg PO BID PRN (Reason: Pain) RF: 0 tramadol 50 mg tablet 50 mg PO Q8H PRN (Reason: pain, moderate) RF: 0 Discontinued metoprolol succinate [Toprol XL] 25 mg tablet extended release 24 hr 25 mg PO QAM RF: 0 Discharge Orders: Discharge Order (Routine); Ordered 04/07/21 Ordered By: Kelly Nance/Other Patient Handouts: High Blood Sugar (Hyperglycemia), Hypoglycemia (Low Blood Sugar), Managing Type 2 Diabetes, Special Foot Care for Diabetes Admission Data Admit Date/Time: 03/30/21 22:47 Attending Provider: Horacio Jimenez. Admit Provider: Harpreet Hardin Primary Care Provider: Mina Miller Other Providers: Mikel Corbin ; Horacio Jimenez. Other Interventions: Discharge Summary Assessment (RN) Last Done: 04/07/21 14:16 Supervising Physician Co-Signing Physician Notes I supervised Kelly Feliciano PA-C on the care of this patient. I interviewed and examined the patient independently of her. The plan is as written in her note except for any following changes/exceptions: None Doing well. Leg is healing. Fingers/joints less swollen and red and painful. Finish abx and steroids. To see Dr. Cloud next week for his RA. Coding Level of Care Code Established Pt D/C DAY MANAGEMENT >30 MINS Patient Type Established Diagnoses Fever R50.9 Cellulitis of left lower extremity without foot L03.116 PAD (peripheral artery disease) I73.9 Sepsis A41.9 Sepsis acute organ dysfunction status: unspecified Sepsis type: sepsis due to unspecified organism BROOKS (acute kidney injury) N17.9 Diabetes mellitus, type 2 E11.9 Type 2 diabetes mellitus with diabetic neuropathy E11.40 Hypertension I10 Depression F32.9 Rheumatoid arthritis M06.9 DVT prophylaxis Z29.9 Lumbar back pain M54.5 Time Spent (min) 60
--- NOTE | 2021-04-14 13:13 | Coding Query ---
CODING QUERY To promote full compliance with coding requirements relating to patient care, provider participation is requested in all cases of excel specialist uncertainty. Please assist us with the question(s) below: Coding Question(s): Documentation states BROOKS and Sepsis-associated ATN. Please clarify below: (x ) Patient with BROOKS (x ) Patient with ATN ( ) Other Please Explain: A patient can have both. The patient had sepsis-associated ATN which is the etiology of his acute kidney injury. Thank you Quinn Rodriguez Principal Diagnosis: "that condition established after study, to be chiefly responsible for occasioning the admission of the patient to the hospital for care." Co-Existing Principal Diagnosis: "when two or more diagnoses equally meet the criteria for principal diagnosis as determined by the circumstances of admission, diagnostic work up, and/or therapy provided, and the Alphabetic Index, Tabular List, or another coding guideline does not provide sequencing direction, any one of the diagnoses may be sequenced first." "When the physician has documented what appears to be a current diagnosis in the body of the record, but has not included the diagnosis in the final diagnostic statement, the physician should be asked whether the diagnosis should be added." (Source Coding Clinic 2 QTR90. p3-4) SARATH
--- NOTE | 2021-04-14 13:18 | Coding Query ---
SEPSIS To promote full compliance with coding requirements relating to patient care, physician participation is requested in all cases of copy technician uncertainty. Please assist us with the question(s) below: In responding to this query, please exercise your independent professional judgement. The fact that a question is asked does not imply that any particular answer is desired or expected. We appreciate your clarification on this issue. Throughout the medical record, you have clearly documented a localized infection and your patient has clinical evidence of a generalized sepsis or severe sepsis. The medical record reflects the following clinical findings: pulse >90/minute on 03/31, respirations >20/minute on 03/31, WBC count >12,000 on 03/30, hypotension and tachycardia. Documentation states Sepsis Syndrome but also states Sepsis-associated ATN. Please clarify below: ____ () Sepsis Specify Organism Specify Associated Condition/Diagnosis () Present on Admission () Not present on admission () Unable to clinically determine (x) Severe Sepsis (Sepsis associated with acute organ dysfunction) Specify Organism Specify Associated Condition/Diagnosis (x) Present on Admission () Not present on admission () Unable to clinically determine () Other, patient has: Thank You, Quinn Rodriguez, [facility]ITAL[facility]ariano
== END 2021-04-07 14:38 | disposition home or self-care (01) | DRG 871 ==
LOC: ED 17:16 → 3E 22:47 → SUATTDRO 22:47 → 3E 03-31 01:19

== ENCOUNTER 2022-03-30 14:44 | Inpatient (IN) ==
[2022-03-30] MEDS ORDERED: cefTRIAXone SODIUM 2,000 MG/70 ML BAG IV STA (15:12)
[2022-03-30] MEDS ORDERED: VANCOMYCIN HCL 2,250 MG in SODIUM CHLORIDE 0.9% 500 ML IV STA (15:12)
[2022-03-30] MEDS ORDERED: VANCOMYCIN CONSULT ACTIVE PRN (15:12)
--- NOTE | 2022-03-30 15:41 | Emergency Department Note ---
History of Present Illness General Chief complaint: Infection Stated complaint: INFECTION IN LEFT HAND Time Seen by Provider: 03/30/22 15:04 History of Present Illness Maximum Pain Intensity: 9 62-year-old male presents to the ED with a chief complaint of edema and possible infection of the left hand. The patient had surgery 2 weeks ago at the [facility] office by Dr. Park, orthopedics. The patient had a surgery to remove RA nodules. He had the surgery on his left hand. The patient was seen 2 days ago by his surgeon and was released as everything was healing fine and his hand looked good. Yesterday the patient and noticed some redness in the area of the left fifth metacarpal. The patient's noticed increasing redness and swelling in the hand today and contacted the office. They brought him in and a physician entry level administrative assistant there evaluated the patient and took x-rays. The patient was sent here for IV antibiotics. Home Medications Medication Instructions Recorded Confirmed Type bupropion HCl 150 mg tablet,12 hr 150 mg PO QAM 03/18/18 08/02/21 History sustained-release (Wellbutrin SR) metformin 500 mg tablet 500 mg PO BID 08/10/19 08/02/21 History gabapentin 300 mg capsule 600 mg PO TID 01/21/20 08/02/21 History glimepiride 2 mg tablet 2 mg PO QAM 01/21/20 08/02/21 History amitriptyline 50 mg tablet 50 mg PO BID 03/30/21 08/02/21 History aspirin 81 mg tablet,delayed 81 mg PO QAM #30 tabs 04/07/21 08/02/21 Rx release metoprolol succinate 25 mg 37.5 mg PO QAM #45 tabs 04/07/21 08/02/21 Rx tablet,extended release 24 hr prednisone 1 mg tablet 1 mg PO QAM 07/13/21 08/02/21 History oxycodone 5 mg tablet 5 - 10 mg PO .Q4h-6h PRN pain #30 08/02/21 Rx tabs Allergies Allergy/AdvReac Type Severity Reaction Status Date / Time lisinopril Allergy Intermediate cough, Verified 08/02/21 05:38 edema clavulanic acid Allergy Unknown hives Verified 08/02/21 05:38 Penicillins Allergy Unknown hives Verified 08/02/21 05:38 tazobactam Allergy Unknown hives Verified 08/02/21 05:38 acetaminophen AdvReac Intermediate liver Verified 08/02/21 05:38 injury-GURROLA Past Med/Surg History Medical History Cellulitis HX 03/2021-[facility] Located to left LE- resolved Chronic back pain Contact with and (suspected) exposure to covid-19 12/2020-PT IN CONTACT WITH FAMILY ILL WITH COVID-POSITIVE ANTIBODY TEST TAMIR FLYNN BY MEMBER SERVICE SPECIALIST-SYMPTOMS OF CHEST AND NASAL CONGESTION, FEVER, SOB, CHILLS-RECOVEDED AT HOME-SYMPTOMS RESOLVED Degenerative disc disease Depression Diabetes mellitus, type 2 NIDDM Glucose stable Diabetic neuropathy Hands and feet Fatty liver GURROLA Hypertension Osteoarthritis Rheumatic nodule hands Rheumatoid arthritis Follows with rheumatology, affects hands (nodules), good cervical extension Dr. 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 -- able to repair arm History of tonsillectomy History of total hip arthroplasty left hip-2019 History of total hip arthroplasty RIGTH 08/2020 Family History Mother Diabetes Father Heart disease Other Family history non-contributory No family history of adverse response to anesthesia Social History Smoking Status: Former smoker Second Hand Exposure: No; Hx Alcohol Use: No Hx Substance Use: Yes Preferred Language: Citizen Of [place] Communication Ability: Effective Leader Assembler Required: No Beliefs That Will Affect Care: None marital status: Current Living Situation: Family current occupational status: disabled Feels Safe at Home: Yes Assistive Devices: Glasses and Walker Review of Systems A total of 10 systems reviewed and were otherwise negative Physical Exam Vital Signs Vital Signs - 24 hr 03/30/22 14:48 Temperature 36.8 C Temperature Source Oral Pulse Rate 68 Pulse Rhythm Regular Pulse Strength Normal Respiratory Rate 18 Respiratory Effort / Characteristics Non-Labored Spontaneous Respiratory Depth Normal Respiratory Pattern Regular Blood Pressure 117/75 Blood Pressure Mean 89 Blood Pressure Position Sitting Pulse Oximetry 97 Oxygen Delivery Method Room Air Sepsis Recent Fever Within 48 Hours No Sepsis New/Unexplained Change in Mental Status No Sepsis Action Taken by Nursing No Action Required CONSTITUTIONAL/VITAL SIGNS: Reviewed / noted above. GENERAL: Non-toxic in appearance. INTEGUMENTARY: Warm, dry, and [place]. HEAD: Normocephalic. EYES: without scleral icterus or trauma. ENT/OROPHARYNX: clear and moist. RESPIRATORY: No increased work of breathing. CARDIOVASCULAR: Regular rate and rhythm. EXTREMITIES: Warm and well perfused. Some swelling and wounds in the area of the left MCP joint. There is erythema to the dorsal ulnar side of the hand. There is some red streaking going up past the wrist into the forearm dorsally as well. No discharge from the wound. NEUROLOGICAL: Intact without focal deficits. PSYCHIATRIC: normal affect. MUSCULOSKELETAL: Normally developed with good muscle tone. TRIAGE NURSING DOCUMENTATION REVIEWED. Course Administered Medications Vancomycin HCl 2,250 mg/ (Sodium Chloride) 545 mls @ 200 mls/hr IV NOW STA; Protocol Stop: 03/30/22 17:55 Last Admin: 03/30/22 16:15 Dose: 200 mls/hr Documented By: LILLY Discontinued Medications Ceftriaxone Sodium (Rocephin) 2,000 mg in 70 mls @ 140 mls/hr IV NOW STA Stop: 03/30/22 15:41 Last Infusion: 03/30/22 16:15 Dose: 0 mls/hr Documented By: Admin: 03/30/22 16:00 Dose: 140 mls/hr Documented By: LILLY Medical Decision Making Differential Diagnosis Cellulitis, abscess, MRSA infection, DVT, necrotizing fasciitis, dermatitis, drug eruption, allergic reaction, as well as other pathologies. Medical Records Attestation: I reviewed the patient's medical records. Home Medications Current Medication List: was personally reviewed by me Laboratory Data Attestation: I reviewed the patient's lab results. Result diagrams: 03/30/22 15:42 03/30/22 15:42 Lab Results 03/30/22 03/30/22 Range/Units 15:42 15:42 WBC 7.12 (4.8-10.8) K/ul RBC 4.61 L (4.63-6.08) M/uL Hgb 14.0 (14.0-18.0) g/dl Hct 42.8 (40.1-51.0) % MCV 92.8 (80.0-100.0) fL MCH 30.4 (25.0-34.0) pg MCHC 32.7 (32.0-36.0) g/dL RDW Std Deviation 49.2 H (36.4-46.3) fL RDW Coeff of Tamara 14.5 (11.5-14.5) % Plt Count 177 (130-400) K/uL MPV 9.6 (9.4-12.4) fL Immature Gran % (Auto) 0.3 % Neut % (Auto) 61.4 % Lymph % (Auto) 26.0 % Moffat % (Auto) 9.7 % Eos % (Auto) 2.0 % Baso % (Auto) 0.6 % Neut # (Auto) 4.38 (1.4-6.5) K/uL Lymph # (Auto) 1.85 (1.2-3.4) K/uL Moffat # (Auto) 0.69 (0.24-0.82) K/uL Eos # (Auto) 0.14 (0-0.50) K/uL Baso # (Auto) 0.04 (0-0.2) K/uL Immature Gran # (Auto) 0.02 (0.00-0.02) K/uL Sodium 137 (136-145) mmol/L Potassium 4.2 (3.5-5.1) mmol/L Chloride 102 (98-107) mmol/L Carbon Dioxide 31 (21-32) mmol/L Anion Gap 4 (3-11) BUN 15 (6-23) mg/dl Creatinine 1.10 (0.6-1.4) mg/dl Est Cr Clr Drug Dosing 80.3 ml/min Est GFR ( Amer) 81.8 ml/min Est GFR (Non-Af Amer) 70.6 ml/min BUN/Creatinine Ratio 13.6 (10-20) Glucose 71 (70-99(Fasting)) mg/dl Calcium 9.4 (8.5-10.1) mg/dl MDM Narrative 62-year-old male presents to the ED with a chief complaint of left hand infection. The patient had surgery 2 weeks ago for removal RA nodules on the left fifth finger area. He now presents to the ED with a chief complaint of increasing redness and swelling. The patient CBC was unremarkable. He was treated with IV vancomycin and IV Rocephin. He will be seen by the hospitalist for further evaluation and care. I did speak with Dr. Saldaña earlier about the patient. I was unable to get in contact with the patient's orthopedist and the family prefers not to be transferred to [facility] at this time and would like to be managed here. Impression & Plan Cellulitis of hand, left Discharge Plan Visit Data Chief Complaint: Infection Stated Complaint: INFECTION IN LEFT HAND ED Provider: Elmer Bush Discharge Problem: Cellulitis of hand, left Patient Disposition: Being Evaluated by Hospitalist Forms Stand Alone Forms: [facility] Prescriptions Prescriptions: No Action bupropion HCl [Wellbutrin SR] 150 mg Tablet Sustained-Release 12 Hr 150 mg PO QAM metformin 500 mg tablet 500 mg PO BID glimepiride 2 mg tablet 2 mg PO QAM gabapentin 300 mg capsule 600 mg PO TID amitriptyline 50 mg tablet 50 mg PO BID aspirin 81 mg Tablet,Delayed Release (Dr/Ec) 81 mg PO QAM Qty: 30 0RF metoprolol succinate 25 mg Tablet Extended Release 24 Hr 37.5 mg PO QAM Qty: 45 0RF prednisone 1 mg Tablet 1 mg PO QAM oxycodone 5 mg Tablet 5 - 10 mg PO .Q4h-6h MDD 6 PRN (Reason: pain) Qty: 30 0RF Rx Instructions: Ongoing therapy, Dr. Snyder supervising Referrals Referrals: Mina Miller DO [Primary Care Provider] -
[2022-03-30 16:12] LABS: Basophils # (auto) 0.04 K/uL (0-0.2); Basophils % (auto) 0.6 %; Eosinophils # (auto) 0.14 K/uL (0-0.50); Hematocrit (blood only) 42.8 % (40.1-51.0); Immature Granulocytes # (auto) 0.02 K/uL (0.00-0.02); Immature Granulocytes % (auto) 0.3 %; Lymphocytes # (auto) 1.85 K/uL (1.2-3.4); Mean Corpuscular Hemoglobin 30.4 pg (25.0-34.0); Mean Corpuscular Hgb Conc 32.7 g/dL (32.0-36.0); Mean Corpuscular Volume 92.8 fL (80.0-100.0); Mean Platelet Volume 9.6 fL (9.4-12.4); Monocytes # (auto) 0.69 K/uL (0.24-0.82); Monocytes % (auto) 9.7 %; Neutrophils # (auto) 4.38 K/uL (1.4-6.5); Neutrophils % (auto) 61.4 %; Platelet Count 177 K/uL (130-400); RDW Coefficient of Variation 14.5 % (11.5-14.5); RDW Standard Deviation 49.2 fL (36.4-46.3); Red Blood Count 4.61 M/uL (4.63-6.08); White Blood Count 7.12 K/ul (4.8-10.8)
[2022-03-30 16:36] LABS: BUN Creatinine Ratio 13.6 (10-20); Calcium 9.4 mg/dl (8.5-10.1); Creatinine Clr Calc Pharmacy 80.3 ml/min; Est GFR (African American) 81.8 ml/min; Est GFR (Non-African American) 70.6 ml/min; Potassium 4.2 mmol/L (3.5-5.1)
[2022-03-30] MEDS ORDERED: OPTIRAY 350 100ml IV ONE (19:59)
--- NOTE | 2022-03-30 21:11 | CT Scan Report ---
CT SCAN OF THE LEFT HAND WITH IV CONTRAST CLINICAL HISTORY: Left hand infection. COMPARISON STUDY: No priors. TECHNIQUE: CT scan of the left hand is performed from the wrist to the fingertips following the IV ad ministration of 80 mL of Optiray 350. Images are reviewed in the axial, sagittal, and coronal planes. IV contrast was administered without complication. A dose lowering technique was utilized adhering t o the principles of ALARA. Note that interpretation is suboptimal without plain film correlate. CT DOSE: 198.42 mGy.cm FINDINGS: The skeletal structures are osteopenic. No acute fracture is clearly identified. There is s evere degenerative narrowing at the radiocarpal articulation, with degenerative change also noted at the distal radioulnar joint. Severe arthritic change seen throughout the wrist and hand with extensiv e subchondral cyst formation. Focal erosive change is suggested at the fifth metacarpophalangeal join t with overlying soft tissue edema. There is a joint effusion with synovial enhancement. A fluid kendall ection overlies the dorsolateral aspect of the fifth metacarpophalangeal joint as seen on coronal harinder ge #72. This measures 1.8 x 0.9 x 2.4 cm. A small fluid collection is also seen dorsal to the ulnar s tyloid on coronal image #1. This measures 1.7 x 1.0 x 1.6 cm. Edema and subcutaneous fluid are seen a long the dorsal aspect of the hand. Joint effusions are seen at the first, second, third, and fourth metacarpophalangeal joints. A pocket of fluid posterior to the second metacarpophalangeal joint on co cam image #73 measures 1.5 x 1.3 x 1.8 cm. No soft tissue gas is identified. There is no evidence o f radiodense foreign body. IMPRESSION: 1. No acute fracture is identified. 2. There is significant soft tissue edema throughout the wrist and hand. This is greatest towards parveen ana where there is subcutaneous fluid. 3. Advanced degenerative changes with extensive subchondral cyst formation is seen throughout the wri st and hand. 4. Erosive change is seen at the fifth metacarpophalangeal joint with cortical destruction. There is associated joint effusion and synovial enhancement with overlying fluid collection. Although this cou ld be related to an erosive arthropathy, septic arthritis/osteomyelitis is not excluded. Clinical cor relation will be required. 5. Joint effusions are also seen involving the first through fourth metacarpophalangeal joints with a ssociated synovial thickening. The sterility of these effusions cannot be assessed by imaging. 6. Additional small fluid collections are seen along the dorsal aspect of the ulnar styloid and dorsa l to the second metacarpophalangeal joint. Again, the sterility of this fluid cannot be assessed by i aditi. ACT 112: Negative or not required by law. Dictated: 03/30/2022 8:22 PM Transcribed: 03/30/2022 9:01 PM Danielle [id number] MINERVA_Aubree Electronically signed by: De Orozco M.D. 03/30/2022 9:09 PM
--- NOTE | 2022-03-30 22:19 | Emergency Department Note ---
ED Visit Note The patient is a 62-year-old male who is status post left hand surgery. He developed postoperative infection and was sent to the emergency department for further evaluation. The patient initially was evaluated by Dr. Avery. Please see his note. The patient was then evaluated by the [facility]. The patient was felt to be a better candidate for further work-up including imaging to define the nature of the infection. CT of the hand was obtained and appears to be consistent with multiple fluid collections. The patient was treated with IV Rocephin and IV vancomycin prior to my assuming care. I discussed this case with the on-call orthopedic doctor, Dr. Saldaña as well as the on-call [facility] hospitalist Dr. Jimenez. They have agreed to evaluate the patient further for management. At this time the patient will continue to stay at our facility for further work-up and treatment. .
--- NOTE | 2022-03-30 22:55 | History & Physical Report ---
Date of Service March 30, 2022 Assessment & Plan (1) Cellulitis of hand, left: Plan: Post-surgical left hand infection in an immunocompromised patient. CT hand shows fluid collections and erosive changes on bone. ER provider spoke with on-call orthopedic physician who agreed to consultation and (per ER provider) reported that wash out could be performed at [facility]. Of note, patient was offered transfer, and he also strongly prefers to stay at [facility]. - Continue vancomycin - Follow blood cultures. No drainage for local culture at this point. - Orthopedic consultation entered - NPO @ midnight as I strongly suspect he will need washout tomorrow (2) Hypertension: Plan: BP is 165/90 in the ER. - Continue home beta-chris (3) Type 2 diabetes mellitus with diabetic neuropathy: Plan: Last A1c was 7.9% in 07/2021. - Hold home oral meds - Sliding scale insulin - Continue home gabapentin for neuropathy (4) Depression: Plan: No overt depression on my interview. - Continue home amitriptyline, bupropion, and sertraline (5) Rheumatoid arthritis: Plan: Follows with [facility] rheumatology from notes. Not very up-to-date on his own care, as he was unaware he was on steroids when I asked him. Per patient, daughter "takes care of all that." - Continue prednisone 6 mg PO daily for now; no indication for stress-dose steroids (6) DVT prophylaxis: Plan: SCDs - Hold heparin until after surgery FULL CODE - Per patient on admission History of Present Illness Primary Care Provider: Mina Miller, 62yo M w/ rheumatoid arthritis and DM who presents with post-surgical left hand infection. About 2 weeks ago, he had some rheumatoid arthritis nodules removed from his left hand with [facility] orthopedics at the [facility]. The surgery went fine. On Saturday, he saw a PA, and he was told everything was healing well. However, he reports that on , he woke up, and his hand was hot, erythematous, and more painful than before. Today, it was worse, and he was seen in the office by the PA again at [facility] and was sent to the ER for IV antibiotics. He endorses some subjective fevers yesterday, but no temperature taken at the time. He's had some mild nausea and loss of appetite; however, he denies any emesis. Denies shortness of breath, cough, chest pain, diarrhea/constipation, any urinary symptoms. Allergies Allergy/AdvReac Type Severity Reaction Status Date / Time lisinopril Allergy Intermediate cough, Verified 03/30/22 21:03 edema clavulanic acid Allergy Unknown hives Verified 03/30/22 21:03 Penicillins Allergy Unknown hives Verified 03/30/22 21:03 tazobactam Allergy Unknown hives Verified 03/30/22 21:03 acetaminophen AdvReac Intermediate liver Verified 03/30/22 21:03 injury-GURROLA Home Medications Medication Instructions Recorded Confirmed Type bupropion HCl 150 mg tablet,12 hr 150 mg PO QAM 03/18/18 03/30/22 History sustained-release (Wellbutrin SR) metformin 500 mg tablet 500 mg PO BID 08/10/19 03/30/22 History gabapentin 300 mg capsule 900 mg PO BID 01/21/20 03/30/22 History glimepiride 2 mg tablet 2 mg PO QAM 01/21/20 03/30/22 History amitriptyline 50 mg tablet 100 mg PO HS 03/30/21 03/30/22 History aspirin 81 mg tablet,delayed 81 mg PO QAM #30 tabs 04/07/21 03/30/22 Rx release prednisone 1 mg tablet 1 mg PO QAM 07/13/21 03/30/22 History metoprolol succinate 25 mg 25 mg PO QAM 03/30/22 03/30/22 History tablet,extended release 24 hr prednisone 5 mg tablet 5 mg PO DAILY 03/30/22 03/30/22 History sertraline 25 mg tablet 25 mg PO DAILY 03/30/22 03/30/22 History tramadol 50 mg tablet 50 mg PO Q8 03/30/22 03/30/22 History Past Med/Surg History Medical History Cellulitis HX 03/2021-[facility] Located to left LE- resolved Chronic back pain Contact with and (suspected) exposure to covid-19 12/2020-PT IN CONTACT WITH FAMILY ILL WITH COVID-POSITIVE ANTIBODY TEST 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 -- able to repair arm History of tonsillectomy History of total hip arthroplasty left hip-2018 History of total hip arthroplasty RIG 08/2020 Family History Mother Diabetes Father Heart disease Other Family history non-contributory No family history of adverse response to anesthesia Social History Smoking Status: Former smoker Second Hand Exposure: No; Hx Alcohol Use: No Hx Substance Use: Yes Preferred Language: Indonesian Communication Ability: Effective Advice Line Rn Required: No Beliefs That Will Affect Care: None marital status: Current Living Situation: Family current occupational status: disabled Feels Safe at Home: Yes Assistive Devices: Glasses and Walker Review of Systems Review of Systems: All systems reviewed & are unremarkable except as noted in HPI & below Physical Exam Constitutional: WD/WN, vitals as above Eyes: EOM intact bilaterally; no conjunctival abnormality ENMT: external ear and nose normal, oropharynx normal Neck: trachea midline, no thyromegaly normal visual inspection Respiratory: normal respiratory effort, lungs clear to auscultation no respiratory distress Cardiovascular: RRR, no murmur, no edema Gastrointestinal (Abdomen): Inspection/Auscultation: abdomen normal to inspection; abdomen not distended Musculoskeletal: no cyanosis or clubbing, extremities motor strength 5/5 Nodules and RA deformity of both hands. Left hand with edema around 5th metacarpal. Erythema extending up wrist, now outlined. Skin: no rashes, warm and dry Neurologic: moves all extremities and awake Psychiatric: Orientation: alert, oriented to person and cooperative Results & Data Results & Data ([facility]) Vital Signs (Past 12 Hours) Vital Signs Temp Pulse Pulse Resp BP BP Pulse Ox 03/30/22 21:54 89 20 164/92 H 98 03/30/22 20:23 84 20 139/80 98 03/30/22 19:19 87 20 131/81 95 03/30/22 17:36 90 20 158/85 H 90 03/30/22 14:48 36.8 C 68 18 117/75 97 O2 Del Method 03/30/22 21:54 Room Air 03/30/22 20:23 Room Air 03/30/22 19:19 Room Air 03/30/22 17:36 Room Air 03/30/22 14:48 Room Air Code Status & VTE Plan VTE Prophylaxis Plan VTE Prophylaxis will be ordered: Yes PG Care Time/CCT Total # of Minutes Spent Total Time Spent with Patient: Total time spent is greater than 50% in coordination of care (as documented) at patient's floor/unit and/or counseling patient: Coding Level of Care Code 09408 Initial Inpt Care Lvl 3 Diagnoses Cellulitis of hand, left L03.114 Hypertension I10 Type 2 diabetes mellitus with diabetic neuropathy E11.40 Depression F32.9 Rheumatoid arthritis M06.9 DVT prophylaxis Z29.9
[2022-03-31] MEDS ORDERED: GLUCAGON FOR INJ 1 MG VIAL SQ PRN (02:02)
[2022-03-31] MEDS ORDERED: GLUCOSE 40% GEL 15 GM TUBE PO PRN (02:02)
[2022-03-31] MEDS ORDERED: MoRPHine SULFATE 2 MG/ML CARP IV PRN (02:02)
[2022-03-31] MEDS ORDERED: DEXTROSE 50% 50 ML SYRINGE IV PRN (02:02)
[2022-03-31] MEDS ORDERED: GLUCOSE 10 TAB/TUBE PO PRN (02:02)
[2022-03-31] MEDS ORDERED: ONDANSETRON INJ 2 MG/ML 2 ML VIAL IV PRN ×2 (02:02→12:55)
[2022-03-31] MEDS ORDERED: CARBOHYDRATES FOR HYPOGLYCEMIA PO PRN (02:02)
[2022-03-31] MEDS ORDERED: Nursing to Pharmacy Communication SCH ×2 (03:45→15:15)
[2022-03-31] MEDS: INSULIN ASPART PER UNIT SC SCH ×4 (06:22→20:49)
--- NOTE | 2022-03-31 06:29 | Communication Note ---
Date of Service: March 31, 2022 Notified of bsg of 73. Patient has not received any insulin thus far this admission. He is NPO for possible wound debridement. Neither IV dextrose nor dextrose drip indicated at this time. check bsg in 20 min, followed by q1h.
[2022-03-31] MEDS ORDERED: VANCOMYCIN HCL 1,000 MG in SODIUM CHLORIDE 0.9% 250 ML IV ONE (06:45)
[2022-03-31 07:24] LABS: Hematocrit (blood only) 39.1 % (40.1-51.0); Hemoglobin 13.1 g/dl (14.0-18.0); Mean Corpuscular Hgb Conc 33.5 g/dL (32.0-36.0); Mean Corpuscular Volume 89.7 fL (80.0-100.0); Mean Platelet Volume 9.9 fL (9.4-12.4); Platelet Count 182 K/uL (130-400); RDW Coefficient of Variation 14.2 % (11.5-14.5); RDW Standard Deviation 46.1 fL (36.4-46.3); Red Blood Count 4.36 M/uL (4.63-6.08)
[2022-03-31] MEDS ORDERED: INSULIN ASPART PER UNIT SC SCH (07:30)
[2022-03-31 07:38] LABS: BUN Creatinine Ratio 13.2 (10-20); Calcium 9.1 mg/dl (8.5-10.1); Creatinine Clr Calc Pharmacy 82.1 ml/min; Est GFR (African American) 85.5 ml/min; Est GFR (Non-African American) 73.8 ml/min; Magnesium 1.6 mg/dl (1.7-2.4); Potassium 3.8 mmol/L (3.5-5.1)
[2022-03-31 09:29] LABS: Estimated Average Glucose 151 mg/dl; Hemoglobin A1C 6.9 % (4.5-5.6)
[2022-03-31] MEDS: SERTRALINE HCL 50 MG TABLET PO SCH (09:33)
[2022-03-31] MEDS: predniSONE 1 MG TAB PO SCH (09:33)
[2022-03-31] MEDS: buPROPion SR 150 MG TABCR PO SCH (09:33)
[2022-03-31] MEDS: METOPROLOL SUCC 25MG EXT REL TAB PO SCH (09:33)
[2022-03-31] MEDS: GABAPENTIN 300 MG CAP PO SCH ×2 (09:33→19:52)
[2022-03-31] MEDS: predniSONE 5 MG TAB PO SCH (09:33)
[2022-03-31] MEDS: MAGNESIUM SULFATE / D5W 1 GM/100 ML BAG IV SCH ×2 (09:34→11:17)
--- NOTE | 2022-03-31 09:40 | Anesthesiology Consultation ---
Date of Service March 31, 2022 Assessment & Plan (1) Encounter for pre-operative examination: Chart Review Chart Review: Acceptable Risk for Surgery and Patient NOT seen in Pre Admission Testing Consults Requested none History Surgery Operation Date: 03/31/22 13:00 Proposed Procedures p Incision and Drainage Extremity(Left) - Pascual Figueroa MD Height/Weight Height: 5 ft 7 in Weight: 107 kg Allergies Allergy/AdvReac Type Severity Reaction Status Date / Time lisinopril Allergy Intermediate cough, Verified 03/30/22 21:03 edema clavulanic acid Allergy Unknown hives Verified 03/30/22 21:03 Penicillins Allergy Unknown hives Verified 03/30/22 21:03 tazobactam Allergy Unknown hives Verified 03/30/22 21:03 acetaminophen AdvReac Intermediate liver Verified 03/30/22 21:03 injury-GURROLA Medications Home Medications Medication Instructions Recorded Confirmed Last Taken bupropion HCl 150 mg tablet,12 hr 150 mg PO QAM 03/18/18 03/30/22 08/02/21 04:30 sustained-release (Wellbutrin SR) metformin 500 mg tablet 500 mg PO BID 08/10/19 03/30/22 08/02/21 04:30 gabapentin 300 mg capsule 900 mg PO BID 01/21/20 03/30/22 08/02/21 04:30 glimepiride 2 mg tablet 2 mg PO QAM 01/21/20 03/30/22 08/02/21 04:30 amitriptyline 50 mg tablet 100 mg PO HS 03/30/21 03/30/22 08/02/21 04:30 aspirin 81 mg tablet,delayed 81 mg PO QAM #30 tabs 04/07/21 03/30/22 08/02/21 04:30 release prednisone 1 mg tablet 1 mg PO QAM 07/13/21 03/30/22 08/02/21 04:30 metoprolol succinate 25 mg 25 mg PO QAM 03/30/22 03/30/22 Unknown tablet,extended release 24 hr prednisone 5 mg tablet 5 mg PO DAILY 03/30/22 03/30/22 Unknown sertraline 25 mg tablet 25 mg PO DAILY 03/30/22 03/30/22 Unknown tramadol 50 mg tablet 50 mg PO Q8 03/30/22 03/30/22 Unknown Active Medications Generic Name Dose Route Start Last Admin Trade Name Zia PRN Reason Stop Dose Admin Bupropion HCl 150 mg 03/31/22 09:00 03/31/22 09:33 Bupropion Sr 150 Mg Tabcr PO 04/30/22 08:59 150 mg QAM LATIA Administration Gabapentin 900 mg 03/31/22 09:00 03/31/22 09:33 Gabapentin 300 Mg Cap PO 04/30/22 08:59 900 mg BID LATIA Administration Magnesium Sulfate/Dextrose 1 gm in 100 mls @ 50 mls/hr 03/31/22 08:00 03/31/22 09:34 Magnesium Sulfate / D5w IV 03/31/22 11:59 50 mls/hr Q2H LATIA Administration Insulin Aspart 0 units 03/31/22 06:00 03/31/22 06:22 Insulin Aspart Per Unit SC 04/30/22 05:59 Not Given Q6 LATIA Metoprolol Succinate 25 mg 03/31/22 09:00 03/31/22 09:33 Metoprolol Succ 25mg Ext Rel Tab PO 04/30/22 08:59 25 mg QAM LATIA Administration Prednisone 1 mg 03/31/22 09:00 03/31/22 09:33 Prednisone 1 Mg Tab PO 04/30/22 08:59 1 mg QAM LATIA Administration Prednisone 5 mg 03/31/22 09:00 03/31/22 09:33 Prednisone 5 Mg Tab PO 04/30/22 08:59 5 mg DAILY LATIA Administration Sertraline HCl 25 mg 03/31/22 09:00 03/31/22 09:33 Sertraline Hcl 50 Mg Tablet PO 04/30/22 08:59 25 mg DAILY LATIA Administration Past Medical History Medical History Cellulitis HX 03/2021-[facility] Located to left LE- resolved Chronic back pain Contact with and (suspected) exposure to covid-19 12/2020-PT IN CONTACT WITH FAMILY ILL WITH COVID-POSITIVE ANTIBODY TEST TAMIR FLYNN BY DIRECTOR OF DEVELOPMENT AND MARKETING-SYMPTOMS OF CHEST AND NASAL CONGESTION, FEVER, SOB, CHILLS-RECOVEDED AT HOME-SYMPTOMS RESOLVED Degenerative disc disease Depression Diabetes mellitus, type 2 NIDDM Glucose stable Diabetic neuropathy Hands and feet Fatty liver GURROLA Hypertension Osteoarthritis Rheumatic nodule hands Rheumatoid arthritis Follows with rheumatology, affects hands (nodules), good cervical extension Dr. Cloud Past Family History Family History Mother Diabetes Father Heart disease Other Family history non-contributory No family history of adverse response to anesthesia Past Surgical History Surgical History History of bronchoscopy ~2007 (per medical record, pt denies) History of cardiac cath 2006 ([facility])- no stents History of cholecystectomy 12/01/15 - MAC#4, ETT#8.0, Grade 1 View with easy placement History of colonoscopy History of esophagogastroduodenoscopy (EGD) History of lumbar fusion x2 History of right inguinal hernia repair right open inguinal hernia repair with mesh: 08/27/19: LMA#5, atraumatic, easy with good seal at [facility] 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 -- able to repair arm History of tonsillectomy History of total hip arthroplasty left hip-2018 History of total hip arthroplasty [facility] 08/2020 Social History Smoking Status: Former smoker Hx Alcohol Use: No Hx Substance Use: No substance use type: does not use Physical Exam Vital Signs Last Vital Signs Temp 98.2 F 03/31/22 06:32 Pulse 83 03/31/22 06:32 Resp 18 03/31/22 06:32 BP 144/77 H 03/31/22 06:32 Pulse Ox 94 03/31/22 06:32 O2 Del Method 03/31/22 08:50 Testing Laboratory Results 03/31/22 06:39 03/31/22 06:39 Hemoglobin A1c 6.9 % (4.5-5.6) H 03/31/22 06:39 03/31/22 03/31/22 03/31/22 09:08 08:06 07:02 POC Glucose 84 84 78 03/31/22 03/31/22 06:04 00:25 POC Glucose 73 81 Electrocardiogram Date: 07/29/21 Findings: + NSR @ (1st degree AV block)
--- NOTE | 2022-03-31 10:44 | Communication Note ---
Date of Service: March 31, 2022 Full consult is dictated We will plan for incision and drainage of abscess in the left hand with arthrotomy and drainage of left septic metacarpal phalangeal joint of the small finger shortly.
--- NOTE | 2022-03-31 11:02 | Consultation Report ---
ORTHOPEDIC HAND SURGERY CONSULTATION DATE OF SERVICE: 03/31/2022 Special attention to left hand infection. HISTORY OF PRESENT ILLNESS: Carlos is seen at the bedside today. He is status post excision of rheuma toid nodule in the left hand. This was done at [facility] as an outpatient by Dr. Armen Park. He subsequently had increasing redness and swelling in the hand and was instructed to go to [facility]. PAST MEDICAL HISTORY: Hypertension, type 2 diabetes with diabetic neuropathy, hemoglobin A1c 7.9, de pression, rheumatoid arthritis. PHYSICAL EXAMINATION: Left hand exam shows swelling and fluctuance over the dorsal aspect of the fif th MP joint, it is significantly tender. He has significant pain with range of motion of the digit. He has erythema extending up to the wrist and some streaking erythema into the forearm. ALLERGIES: LISINOPRIL, CLAVULANIC ACID, PENICILLIN, TAZOBACTAM AND ACETAMINOPHEN. PAST SURGICAL HISTORY: Includes extensive trauma to the left arm with subsequent surgery in the adriana te past, status post cardiac cath, history of lumbar fusion x2, left total hip replacement, right tot al hip replacement. ASSESSMENT: 1. Left hand postoperative abscess. 2. Possible left fifth metacarpophalangeal septic joint. PLAN: I discussed findings and treatment. I feel he likely has abscess and possibly septic joint as well. We discussed surgical treatment options. RECOMMENDATIONS: 1. Left hand incision and drainage of abscess. 2. Left hand arthrotomy and drainage of septic MP joint. We will send cultures, likely place packing. I discussed risks, benefits, reasonable outcomes and ex pectations with him. The risks and benefits have been discussed including, but not limited to, risk of infection, nerve in jury, stiffness, loss of motion, failure to improve, etc. Reasonable outcomes and options of treatmen t were discussed. An explanation of appropriate alternatives to the procedure that may be advantageou s were discussed and their risks and benefits, as well as the risks and benefits of not proceeding wi th treatment. I offered to answer any additional inquiries concerning the treatment involved. All the patients questions were answered. The patient is agreeable, understanding of the treatment plan and alternatives, and wishes to proceed with the treatment plan. Plan for surgical intervention shortly. Job ID: [id number]
[2022-03-31] MEDS ORDERED: fentaNYL citrate 100 MCG/2 ML VIAL ONE ×2 (12:17→13:42)
[2022-03-31] MEDS ORDERED: MIDAZOLAM HCL 1 MG/ML 2ML VIAL ONE (12:17)
[2022-03-31] MEDS ORDERED: ONDANSETRON INJ 2 MG/ML 2 ML VIAL ONE (12:17)
[2022-03-31] MEDS ORDERED: PROPOFOL IV EMULSION 10 MG/ML 20 ML VIAL IV ONE (12:17)
[2022-03-31] MEDS ORDERED: LIDOCAINE 2% 20 MG/ML 5 ML SYR IV ONE (12:17)
--- NOTE | 2022-03-31 12:52 | Pharmacy Report ---
Pharmacy PK ABX Note - Date of Service March 31, 2022 - Assessment and Plan Assessment 62 year old M receiving Vancomycin for treatment of post-operative hand infection. * PMHx significant for chronic steroids and T2DM. * Rheumatoid nodules removed from left hand 2 weeks ago and now hand is hot, erythematous, and painful. * Afebrile. No leukocytosis. Cultures pending. * I&D planned for today by Ortho. ID is consulted. Plan Vancomycin * Loading dose: 2250 mg IV x 1 * Maintenance dose: 1000 mg IV every 12 hours * Regimen is predicted to achieve target AUC/NA of 400-600 mg/L.hr * Random level ordered for: 04/01/22 Pharmacy will continue to follow and will adjust dose/frequency as necessary. Thank you. Pharmacy has transitioned to AUC monitoring for vancomycin. AUC/NA is the preferred PK/PD target and is associated with decreased risk of nephrotoxicity compared to traditional trough targets.
[2022-03-31] MEDS ORDERED: BUPIVACAINE 0.5 % 5 MG/1 ML MPF 30ML VIAL ONE (12:54)
[2022-03-31] MEDS ORDERED: ePHEDrine sulfate 50 MG/ML AMP IV PRN (12:55)
[2022-03-31] MEDS ORDERED: fentaNYL citrate 100 MCG/2 ML VIAL IV PRN (12:55)
[2022-03-31] MEDS ORDERED: ATROPINE SULFATE 0.1 MG/ML 10ML SYR IV PRN (12:55)
--- NOTE | 2022-03-31 13:49 | Post Operative Brief Note ---
Immediate Post Op Note v1 Date of Surgery March 31, 2022 Pre & Post Diagnosis Operation Date: 03/31/22 13:00 Pre-Op Diagnosis: Post-surgical left hand infection Post-Op Diagnosis: Post-surgical left hand infection I identified the patient and participated in the time-out.: Yes Procedure Operation Date: 03/31/22 13:00 Actual Procedures p Left Hand Washout, Arthrotomy and Drainage, Extensor Tenovectomy(Left) - Pascual Figueroa MD Surgeon Pascual Figueroa MD Computer Hardware Engineer none Estimated Blood Loss 5 Findings Consistent with Post-Op Diagnosis
--- NOTE | 2022-03-31 14:38 | Operative Report (OR) ---
PREOPERATIVE DIAGNOSES: 1. Left hand infection. 2. Left hand septic fifth metacarpophalangeal joint. POSTOPERATIVE DIAGNOSES: 1. Left hand infection. 2. Left hand septic fifth metacarpophalangeal joint. 3. Left hand extensor tenosynovitis. PROCEDURE: 1. Left hand incision and drainage abscess dorsal hand. 2. Left fifth digit extensor tenosynovectomy in the hand. 3. Left fifth metacarpophalangeal joint arthrotomy and drainage. SURGEON: Pascual Figueroa MD. COMPLICATIONS: None. ANESTHESIA: General. INDICATIONS: This gentleman who is status post surgery done elsewhere for rheumatoid nodule over the dorsal hand. He presents with increasing erythema streaking up the forearm with evidence of infecti on and abscess formation. The risks and benefits have been discussed including, but not limited to, risk of infection, nerve in jury, stiffness, loss of motion, failure to improve, etc. Reasonable outcomes and options of treatmen t were discussed. An explanation of appropriate alternatives to the procedure that may be advantageou s were discussed and their risks and benefits, as well as the risks and benefits of not proceeding wi th treatment. I offered to answer any additional inquiries concerning the treatment involved. All the patients questions were answered. The patient is agreeable, understanding of the treatment plan and alternatives, and wishes to proceed with the treatment plan. DESCRIPTION OF PROCEDURE: I made a longitudinal incision over the fifth MP joint in the area of [facility]. Dissection was carried down through the skin and subcutaneous tissue. Moderate amount of se tatiana fluid was encountered consistent with infection. There was no gross purulence, but there was si gnificant friable tissue, inflammatory fluid and some serous fluid. I sent two sets of cultures and I sent the pathology of the friable tissue as well as tissue for crystal analysis. I incised the flu id collection, which was consistent with an abscess and drained this. The area was copiously irrigat ed with 3 liters of normal saline. Debridement of skin, subcutaneous tissue and fascia was performed with a scalpel, curettes and scissors. Debridement area was 2 x 2 cm. Attention was focused to the extensor tendon. There was significant amount of infectious tissue and the extensor tendon, I performed extensor tenosynovectomy with scissors, curettes, and rongeur. I elected to open the MP joint as he had swelling directly in that region. I made a longitudinal inc ision over the MP joint capsule of the fifth digit, a moderate amount of serous fluid was encountered , which was also sent for culture. I performed arthrotomy and drainage of the MP joint and I irrigat ed with 1 liter of normal saline. The incision looked very clean at the conclusion of debridement. The tourniquet was let down. Hemostasis was obtained with bipolar electrocautery. Skin was closed w ith 4-0 nylon in a mattress fashion. Packing was applied in the middle aspect of the wound, the la ent was placed in soft dressing and sent to the PACU in stable condition. Postoperative plan will be to monitor cultures. Continue antibiotics as per hospitalist and we will continue to follow wound. We removed the packing on Saturday. Job ID: [id number]
--- NOTE | 2022-03-31 14:40 | Anesthesiology Progress Note ---
Date of Service March 31, 2022 Anesthesia Post Procedure Vital Signs Vital Signs: Temp Pulse Pulse Resp BP BP Pulse Ox 03/31/22 14:30 88 19 115/72 95 03/31/22 14:20 87 19 125/75 96 03/31/22 14:14 97.2 F L 86 16 129/76 98 03/31/22 08:50 03/31/22 06:32 98.2 F 83 18 144/77 H 94 03/31/22 02:04 98.4 F 93 H 16 151/95 H 97 03/31/22 01:48 92 H 18 151/88 H 94 03/31/22 01:32 03/31/22 00:19 85 18 133/93 95 03/30/22 23:05 89 20 151/96 H 97 03/30/22 21:54 89 20 164/92 H 98 03/30/22 20:23 84 20 139/80 98 03/30/22 19:19 87 20 131/81 95 03/30/22 17:36 90 20 158/85 H 90 03/30/22 14:48 98.2 F 68 18 117/75 97 O2 Del Method O2 Flow Rate 03/31/22 14:30 Oxymask 2 03/31/22 14:20 Oxymask 3 03/31/22 14:14 Oxymask 5 03/31/22 08:50 Room Air 03/31/22 06:32 Room Air 03/31/22 02:04 Room Air 03/31/22 01:48 Room Air 03/31/22 01:32 Room Air 03/31/22 00:19 Room Air 03/30/22 23:05 Room Air 03/30/22 21:54 Room Air 03/30/22 20:23 Room Air 03/30/22 19:19 Room Air 03/30/22 17:36 Room Air 03/30/22 14:48 Room Air Pain Intensity Left Hand: Pain Intensity: 0 Transfer of Care Handoff Completed per policy Notes Mental Status: alert / awake / arousable and participated in evaluation Patient Amnestic to Procedure: Yes Nausea / Vomiting: adequately controlled Pain: adequately controlled Airway Patency, RR, SpO2: stable & adequate BP & HR: stable & adequate Hydration State: stable & adequate Anesthetic Complications: no major complications apparent and Pt Satisfied with anesthetic care
--- NOTE | 2022-03-31 14:52 | Hospitalist Progress Note ---
Date of Service March 31, 2022 Assessment & Plan (1) Cellulitis of hand, left: Plan: Post-surgical left hand infection in an immunocompromised patient. CT hand shows fluid collections and erosive changes on bone. For Incision and drainage in the OR by Ortho - Continue vancomycin, add flagyl for anerobic coverage. Patient has a lot of allergies - Follow cultures (2) Hypertension: Plan: BP is 125/73 - Continue home beta-chris (3) Type 2 diabetes mellitus with diabetic neuropathy: Plan: Last A1c was 7.9% in 07/2021. - Hold home oral meds - Sliding scale insulin - Continue home gabapentin for neuropathy (4) Depression: Plan: No overt depression on my interview. - Continue home amitriptyline, bupropion, and sertraline (5) Rheumatoid arthritis: Plan: Follows with [facility] rheumatology from notes. Not very up-to-date on his own care, as he was unaware he was on steroids when I asked him. Per patient, daughter "takes care of all that." - Continue prednisone 6 mg PO daily for now; no indication for stress-dose steroids (6) DVT prophylaxis: Plan: SCDs - Hold heparin until after surgery FULL CODE - Per patient on admission Admission and Anticipated Discharge Date Admission Date: March 30, 2022 Subjective patient seen and examined, awaiting OR Review of Systems Review of Systems: All systems reviewed are negative, apart from the ones contained in the history. Physical Exam Physical Exam: The patient is awake, alert and oriented 3, well developed and well nourished, normocephalic and atraumatic, lying in bed and in no acute distress. HEENT--PERRL, EOMI, mucous membranes and oropharynx mildly dry Neck--supple. No JVD. No bruits. Thyroid normal, trachea midline, no adenopathy. Heart--normal S1 and S2. No murmurs, rubs or gallops. Lungs--clear bilaterally, no respiratory distress, no accessory muscle use. Abdomen--normal bowel sounds and soft. Mild epigastric and left sided abdominal pain Extremities--left hand swelling Dermatologic--normal skin turgor, normal color, no abnormal lymph nodes, no rash. Neurologic--cranial nerves II through XII grossly intact. Rheumatologic--normal range of motion. Psychiatric--normal affect. Results & Data Results & Data ([facility]) Vital Signs (Past 12 Hours) Vital Signs Temp Pulse Resp BP Pulse Ox O2 Del Method O2 Flow Rate 03/31/22 14:40 97.7 F 87 19 125/73 96 Oxymask 2 03/31/22 14:30 88 19 115/72 95 Oxymask 2 03/31/22 14:20 87 19 125/75 96 Oxymask 3 03/31/22 14:14 97.2 F L 86 16 129/76 98 Oxymask 5 03/31/22 08:50 Room Air 03/31/22 06:32 98.2 F 83 18 144/77 H 94 Room Air PG Care Time/CCT Total # of Minutes Spent Total Time Spent with Patient: Total time spent is greater than 50% in coordination of care (as documented) at patient's floor/unit and/or counseling patient: Coding Level of Care Code 26250 Subseq Hosp Care Lvl 2 Diagnoses Cellulitis of hand, left L03.114 Hypertension I10 Type 2 diabetes mellitus with diabetic neuropathy E11.40 Depression F32.9 Rheumatoid arthritis M06.9 DVT prophylaxis Z29.9 Time Spent (min) 35
[2022-03-31] MEDS: ACETAMINOPHEN 325 MG TAB PO PRN (15:15)
[2022-03-31] MEDS: metroNIDAZOLE 500 MG/100 ML BAG IV SCH ×2 (15:17→23:21)
[2022-03-31] MEDS ORDERED: HYDROCODONE/ACETAMOPHEN 5/325MG TAB PO PRN ×2 (15:34)
[2022-03-31] MEDS ORDERED: MoRPHine SULFATE 4 MG/ML 1 ML CARP\\VIAL IV PRN (15:34)
[2022-03-31] MEDS: VANCOMYCIN HCL 1,000 MG in SODIUM CHLORIDE 0.9% 250 ML IV SCH (18:01)
[2022-03-31] MEDS: AMITRIPTYLINE HCL 100 MG TAB PO SCH (19:53)
[2022-04-01] MEDS ORDERED: VANCOMYCIN LEVEL ONE (05:30)
[2022-04-01] MEDS: VANCOMYCIN HCL 1,000 MG in SODIUM CHLORIDE 0.9% 250 ML IV SCH ×2 (06:15→17:56)
[2022-04-01] MEDS: metroNIDAZOLE 500 MG/100 ML BAG IV SCH ×3 (06:23→22:57)
[2022-04-01 07:42] LABS: Creatinine Clr Calc Pharmacy 73.1 ml/min; Est GFR (African American) 74.4 ml/min; Est GFR (Non-African American) 64.2 ml/min
[2022-04-01] MEDS: predniSONE 5 MG TAB PO SCH (08:46)
[2022-04-01] MEDS: GABAPENTIN 300 MG CAP PO SCH ×2 (08:46→20:11)
[2022-04-01] MEDS: buPROPion SR 150 MG TABCR PO SCH (08:46)
[2022-04-01] MEDS: SERTRALINE HCL 50 MG TABLET PO SCH (08:46)
[2022-04-01] MEDS: METOPROLOL SUCC 25MG EXT REL TAB PO SCH (08:46)
[2022-04-01] MEDS: predniSONE 1 MG TAB PO SCH (08:46)
[2022-04-01] MEDS: INSULIN ASPART PER UNIT SC SCH ×4 (08:50→20:13)
--- NOTE | 2022-04-01 09:37 | Orthopedic Progress Note ---
Date of Service April 01, 2022 Assessment & Plan (1) Cellulitis of hand, left: (2) Abscess, hand: Plan: Intraoperatively he had an abscess and deeper infection into the joint and extensor tendon. Culture showed staph aureus. Recommendations continue antibiotics as appropriate for coverage of staph. He exhibits significant clinical improvement today. I feels unlikely he will require further surgical treatment We will change the dressing and remove the packing tomorrow Admission and Anticipated Discharge Date Admission Date: March 30, 2022 Subjective Is doing well today. States he has less pain compared to prior to the surgery. Physical Exam Musculoskeletal: Left upper extremity shows decrease in streaking erythema and decrease in erythema overall. His incision is healing appropriately. His area of fluctuance is decreased Results & Data ([facility]) Vital Signs (Past 12 Hours) Vital Signs Temp Pulse Resp BP Pulse Ox O2 Del Method 04/01/22 08:07 36.5 C 86 18 121/76 92 Room Air 04/01/22 07:38 Room Air 04/01/22 04:00 36.8 C 84 20 118/71 93 Room Air 03/31/22 23:34 36.7 C 83 20 109/59 L 97 Room Air
--- NOTE | 2022-04-01 09:44 | Pharmacy Report ---
Pharmacy PK ABX Note - Date of Service April 01, 2022 - Assessment and Plan Assessment 62 year old M receiving Vancomycin for treatment of post-operative hand infection. * PMHx significant for chronic steroids and T2DM. * Rheumatoid nodules removed from left hand 2 weeks ago and now hand is hot, erythematous, and painful. * Afebrile. No leukocytosis. Hand culture from OR growing staph species. * POD #1 I&D. Awaiting ID input on abx choice and duration. Plan Vancomycin * Current regimen: 1000 mg IV every 12 hours * Trough level obtained 04/01/22 resulted as 12.6 mcg/mL. This is predicted to achieve target AUC/NA of 400-600 mg/L.hr * Predicted AUC at steady state: 498 mg/L.hr * Continue to 1000 mg IV every 12 hours * Repeat trough level ordered for: 04/03/22 Pharmacy will continue to follow and will adjust dose/frequency as necessary. Thank you. Pharmacy has transitioned to AUC monitoring for vancomycin. AUC/NA is the preferred PK/PD target and is associated with decreased risk of nephrotoxicity compared to traditional trough targets.
--- NOTE | 2022-04-01 14:21 | Hospitalist Progress Note ---
Date of Service April 01, 2022 Assessment & Plan (1) Cellulitis of hand, left: Plan: Post-surgical left hand infection in an immunocompromised patient. CT hand shows fluid collections and erosive changes on bone. -He is now s/p Incision and drainage in the OR by Ortho -Doing well post surgery, pain is under good control -Continue wound dressing -For removal of wound packing tomorrow per Ortho, appreciate recs -Wound gram stain positive for Staph - Continue vancomycin, and continue flagyl for anerobic coverage. Patient has a lot of allergies to other antibiotics - Follow cultures (2) Hypertension: Plan: BP is 121/76 - Continue home beta-chris (3) Type 2 diabetes mellitus with diabetic neuropathy: Plan: Last A1c was 7.9% in 07/2021. - Hold home oral meds - Sliding scale insulin - Continue home gabapentin for neuropathy (4) Depression: Plan: No overt depression on my interview. - Continue home amitriptyline, bupropion, and sertraline (5) Rheumatoid arthritis: Plan: Follows with [facility] rheumatology from notes. Not very up-to-date on his own care, as he was unaware he was on steroids when I asked him. Per patient, daughter "takes care of all that." - Continue prednisone 6 mg PO daily for now; no indication for stress-dose steroids (6) DVT prophylaxis: Plan: SCDs - Hold heparin until after surgery FULL CODE - Per patient on admission Admission and Anticipated Discharge Date Admission Date: March 30, 2022 Subjective patient seen and examined, doing well post surgery Review of Systems Review of Systems: All systems reviewed are negative, apart from the ones contained in the history. Physical Exam Physical Exam: The patient is awake, alert and oriented 3, well developed and well nourished, normocephalic and atraumatic, lying in bed and in no acute distress. HEENT--PERRL, EOMI, mucous membranes and oropharynx mildly dry Neck--supple. No JVD. No bruits. Thyroid normal, trachea midline, no adenopathy. Heart--normal S1 and S2. No murmurs, rubs or gallops. Lungs--clear bilaterally, no respiratory distress, no accessory muscle use. Abdomen--normal bowel sounds and soft. Mild epigastric and left sided abdominal pain Extremities--left hand swelling Dermatologic--normal skin turgor, normal color, no abnormal lymph nodes, no rash. Neurologic--cranial nerves II through XII grossly intact. Rheumatologic--normal range of motion. Psychiatric--normal affect. Results & Data Results & Data ([facility]) Vital Signs (Past 12 Hours) Vital Signs Temp Pulse Resp BP Pulse Ox O2 Del Method 04/01/22 08:07 97.7 F 86 18 121/76 92 Room Air 04/01/22 07:38 Room Air 04/01/22 04:00 98.2 F 84 20 118/71 93 Room Air PG Care Time/CCT Total # of Minutes Spent Total Time Spent with Patient: Total time spent is greater than 50% in coordination of care (as documented) at patient's floor/unit and/or counseling patient: Coding Level of Care Code 30555 Subseq Hosp Care Lvl 2 Diagnoses Cellulitis of hand, left L03.114 Hypertension I10 Type 2 diabetes mellitus with diabetic neuropathy E11.40 Depression F32.9 Rheumatoid arthritis M06.9 DVT prophylaxis Z29.9 Time Spent (min) 35
[2022-04-01] MEDS: AMITRIPTYLINE HCL 100 MG TAB PO SCH (20:11)
[2022-04-02] MEDS: VANCOMYCIN HCL 1,000 MG in SODIUM CHLORIDE 0.9% 250 ML IV SCH (05:08)
[2022-04-02] MEDS: metroNIDAZOLE 500 MG/100 ML BAG IV SCH ×2 (06:01→14:42)
[2022-04-02 07:22] LABS: Hematocrit (blood only) 37.7 % (40.1-51.0); Hemoglobin 12.3 g/dl (14.0-18.0); Mean Corpuscular Hemoglobin 29.9 pg (25.0-34.0); Mean Corpuscular Hgb Conc 32.6 g/dL (32.0-36.0); Mean Corpuscular Volume 91.5 fL (80.0-100.0); Mean Platelet Volume 9.4 fL (9.4-12.4); Platelet Count 174 K/uL (130-400); RDW Coefficient of Variation 14.3 % (11.5-14.5); Red Blood Count 4.12 M/uL (4.63-6.08); White Blood Count 6.76 K/ul (4.8-10.8)
[2022-04-02 08:03] LABS: Est GFR (African American) 76.7 ml/min; Est GFR (Non-African American) 66.2 ml/min
[2022-04-02] MEDS: INSULIN ASPART PER UNIT SC SCH ×3 (09:10→17:28)
[2022-04-02] MEDS: buPROPion SR 150 MG TABCR PO SCH (09:13)
[2022-04-02] MEDS: GABAPENTIN 300 MG CAP PO SCH (09:14)
[2022-04-02] MEDS: METOPROLOL SUCC 25MG EXT REL TAB PO SCH (09:15)
[2022-04-02] MEDS: predniSONE 5 MG TAB PO SCH (09:15)
[2022-04-02] MEDS: SERTRALINE HCL 50 MG TABLET PO SCH (09:16)
[2022-04-02] MEDS: predniSONE 1 MG TAB PO SCH (09:16)
--- NOTE | 2022-04-02 16:41 | Hospitalist Progress Note ---
Date of Service April 02, 2022 Assessment & Plan (1) Cellulitis of hand, left: Plan: Post-surgical left hand infection in an immunocompromised patient. CT hand shows fluid collections and erosive changes on bone. -He is now s/p Incision and drainage in the OR by Ortho -Doing well post surgery, pain is under good control -Continue wound dressing -wound packing was removed today, wound dressing changed -Wound gram stain positive for Staph - Will discharge on PO antibiotics - Follow cultures (2) Hypertension: Plan: BP is 147/81 - Continue home beta-chris (3) Type 2 diabetes mellitus with diabetic neuropathy: Plan: Last A1c was 7.9% in 07/2021. - Hold home oral meds - Sliding scale insulin - Continue home gabapentin for neuropathy (4) Depression: Plan: No overt depression on my interview. - Continue home amitriptyline, bupropion, and sertraline (5) Rheumatoid arthritis: Plan: Follows with [facility] rheumatology from notes. Not very up-to-date on his own care, as he was unaware he was on steroids when I asked him. Per patient, daughter "takes care of all that." - Continue prednisone 6 mg PO daily for now; no indication for stress-dose steroids (6) DVT prophylaxis: Plan: SCDs - Hold heparin until after surgery FULL CODE - Per patient on admission Admission and Anticipated Discharge Date Admission Date: March 30, 2022 Subjective patient seen and examined, doing well post surgery Review of Systems Review of Systems: All systems reviewed are negative, apart from the ones contained in the history. Physical Exam Physical Exam: The patient is awake, alert and oriented 3, well developed and well nourished, normocephalic and atraumatic, lying in bed and in no acute distress. HEENT--PERRL, EOMI, mucous membranes and oropharynx mildly dry Neck--supple. No JVD. No bruits. Thyroid normal, trachea midline, no adenopathy. Heart--normal S1 and S2. No murmurs, rubs or gallops. Lungs--clear bilaterally, no respiratory distress, no accessory muscle use. Abdomen--normal bowel sounds and soft. Mild epigastric and left sided abdominal pain Extremities--left hand swelling Dermatologic--normal skin turgor, normal color, no abnormal lymph nodes, no rash. Neurologic--cranial nerves II through XII grossly intact. Rheumatologic--normal range of motion. Psychiatric--normal affect. Results & Data Results & Data ([facility]) Vital Signs (Past 12 Hours) Vital Signs Temp Pulse Resp BP Pulse Ox O2 Del Method 04/02/22 14:38 98.6 F 89 18 147/81 H 94 Room Air 04/02/22 07:20 98.2 F 91 H 18 143/82 H 91 Room Air PG Care Time/CCT Total # of Minutes Spent Total Time Spent with Patient: Total time spent is greater than 50% in coordination of care (as documented) at patient's floor/unit and/or counseling patient: Coding Level of Care Code 30795 Subseq Hosp Care Lvl 2 Diagnoses Cellulitis of hand, left L03.114 Hypertension I10 Type 2 diabetes mellitus with diabetic neuropathy E11.40 Depression F32.9 Rheumatoid arthritis M06.9 DVT prophylaxis Z29.9 Time Spent (min) 35
--- NOTE | 2022-04-02 16:52 | Orthopedic Progress Note ---
Date of Service April 02, 2022 Assessment & Plan (1) Cellulitis of hand, left: Plan: POD #2 s/p 1. Left hand incision and drainage abscess dorsal hand. 2. Left fifth digit extensor tenosynovectomy in the hand. 3. Left fifth metacarpophalangeal joint arthrotomy and drainage Dressing changed today. Packing removed. Nursing may continue daily dressing changes. Intra-operative cultures growing MSSA. May need to consider 2 weeks of IV antibiotics before transition to oral antibiotics. Awaiting ID input. Orthopedics to sign off at this time. F/U with Dr. Figueroa in ~2 weeks. (2) Abscess, hand: Admission and Anticipated Discharge Date Admission Date: March 30, 2022 Subjective States the left hand is improving. Generally, the pain has lessened. No new complaints today. Physical Exam Constitutional: WD/WN, vitals as above no acute distress Musculoskeletal: Left hand: improved erythema at the dorsum of the hand. Incision is well approximated. Packing in place but removed during dressing c hange. No purulence noted. Scant serosanguinous drainage. Sensation intact. Psychiatric: A+Ox3, euthymic affect Speech: normal rate/rhythm/volume of speech Results & Data ([facility]) Vital Signs (Past 12 Hours) Vital Signs Temp Pulse Resp BP Pulse Ox O2 Del Method 04/02/22 14:38 37 C 89 18 147/81 H 94 Room Air 04/02/22 07:20 36.8 C 91 H 18 143/82 H 91 Room Air
[2022-04-02] MEDS: ACETAMINOPHEN 325 MG TAB PO PRN (17:24)
[2022-04-03] MEDS ORDERED: VANCOMYCIN LEVEL ONE (05:30)
--- NOTE | 2022-04-03 11:25 | Discharge Summary ---
Date of Service April 02, 2022 Admission HPI Per Admitting Provider 62yo M w/ rheumatoid arthritis and DM who presents with post-surgical left hand infection. About 2 weeks ago, he had some rheumatoid arthritis nodules removed from his left hand with [facility] orthopedics at the [facility]. The surgery went fine. On Saturday, he saw a PA, and he was told everything was healing well. However, he reports that on , he woke up, and his hand was hot, erythematous, and more painful than before. Today, it was worse, and he was seen in the office by the PA again at [facility] and was sent to the ER for IV antibiotics. He endorses some subjective fevers yesterday, but no temperature taken at the time. He's had some mild nausea and loss of appetite; however, he denies any emesis. Denies shortness of breath, cough, chest pain, diarrhea/constipation, any urinary symptoms. Principal Diagnosis wound infection Discharge Exam The patient is awake, alert and oriented 3, well developed and well nourished, normocephalic and atraumatic, lying in bed and in no acute distress. HEENT--PERRL, EOMI, mucous membranes and oropharynx mildly dry Neck--supple. No JVD. No bruits. Thyroid normal, trachea midline, no adenopathy. Heart--normal S1 and S2. No murmurs, rubs or gallops. Lungs--clear bilaterally, no respiratory distress, no accessory muscle use. Abdomen--normal bowel sounds and soft. Mild epigastric and left sided abdominal pain Extremities--left hand swelling Dermatologic--normal skin turgor, normal color, no abnormal lymph nodes, no rash. Neurologic--cranial nerves II through XII grossly intact. Rheumatologic--normal range of motion. Psychiatric--normal affect. Discharge Data Allergies Allergy/AdvReac Type Severity Reaction Status Date / Time lisinopril Allergy Intermediate cough, Verified 03/30/22 21:03 edema clavulanic acid Allergy Unknown hives Verified 03/30/22 21:03 Penicillins Allergy Unknown hives Verified 03/30/22 21:03 tazobactam Allergy Unknown hives Verified 03/30/22 21:03 acetaminophen AdvReac Intermediate liver Verified 03/30/22 21:03 injury-GURROLA Consultations 03/30/22 16:31 ED Decision to Admit Stat 03/30/22 22:45 Consult Infectious Diseases Routine 03/31/22 02:02 Consult Orthopedic Surgery Routine Procedures Performed Operation Date: 03/31/22 13:00 Actual Procedures p Left Hand Washout, Arthrotomy and Drainage, Extensor Tenovectomy(Left) - Pascual Figueroa MD Ordered Studies 03/30/22 19:15 CT hand LT w con Stat Hospital Course (1) Cellulitis of hand, left: Post-surgical left hand infection in an immunocompromised patient. CT hand shows fluid collections and erosive changes on bone. -He is now s/p Incision and drainage in the OR by Ortho -Doing well post surgery, pain is under good control -Continue wound dressing -wound packing was removed today, wound dressing changed -Wound gram stain positive for Staph - Will discharge on PO antibiotics - Follow cultures (2) Hypertension: BP is 147/81 - Continue home beta-chris (3) Type 2 diabetes mellitus with diabetic neuropathy: Last A1c was 7.9% in 07/2021. - Hold home oral meds - Sliding scale insulin - Continue home gabapentin for neuropathy (4) Depression: No overt depression on my interview. - Continue home amitriptyline, bupropion, and sertraline (5) Rheumatoid arthritis: [facility]. Not very up-to-date on his own care, as he was unaware he was on steroids when I asked him. Per patient, daughter "takes care of all that." - Continue prednisone 6 mg PO daily for now; no indication for stress-dose steroids (6) DVT prophylaxis: SCDs - Hold heparin until after surgery FULL CODE - Per patient on admission Total Time Total Time Spent Total Time Spent (In Minutes): 35 Discharge Plan Discharge Items Patient Disposition: Home - Self-Care Reason For Visit: POST-SURGICAL LEFT HAND INFECTION Discharge Diagnosis: wound infection Activity: Resume your previous activity Non-emergency contact: Primary Care Provider Call non-emergency contact if: you have any medication questions Follow-up/Referrals: Mina Miller DO [Primary Care Provider] - 04/09/22 9:10 am Pascual Figueroa MD [Physician] - (Call to make an appointment for 2 weeks after surgery.) Diet: Regular Addtl Attending Provider Instructions: please make appointment with orthopedics for wound check ACTIVITY RECOMMENDATIONS: * Avoid lifting anything heavier than a medium water glass until your first post operative visit. SPECIAL CARE INSTRUCTIONS: * Your bandage should be left in place until follow up in the office. * Daily dressing changes with gauze and gauze wrap. * Some drainage onto the dressing may occur. This is normal. * If the bandage feels excessively tight, you may loosen the elastic bandage. Then call the physician's office for further instructions. * If possible, keep your hand elevated above the level of your heart for the first 2 post operative days. You may use a sling if necessary. * You should move your fingers regularly (50-100 motions per hour) unless otherwise instructed. SPECIAL PRECAUTIONS: * If you notice increased drainage, fever over 101 degrees F. or severe, unremitting pain, call your physician/office at . * You may have been prescribed pain medication. If you experience nausea and/or skin rash, discontinue this medication and contact our office for an alternative medication. FOLLOW UP VISIT: If appointment is not already scheduled: Please call [facility] to make a follow-up appointment for 2 weeks after your surgery at . Pending Studies at Discharge: No Stand-Alone Forms: My [facility] [email or web address], Smoking Cessation Medications and DC Order Prescriptions: New clindamycin HCl [Cleocin HCl] 300 mg capsule 300 mg PO BID 7 Days Qty: 14 0RF Continued bupropion HCl [Wellbutrin SR] 150 mg Tablet Sustained-Release 12 Hr 150 mg PO QAM metformin 500 mg tablet 500 mg PO BID glimepiride 2 mg tablet 2 mg PO QAM gabapentin 300 mg capsule 900 mg PO BID amitriptyline 50 mg tablet 100 mg PO HS aspirin 81 mg Tablet,Delayed Release (Dr/Ec) 81 mg PO QAM Qty: 30 0RF prednisone 5 mg tablet 5 mg PO DAILY tramadol 50 mg tablet 50 mg PO Q8 Rx Instructions: per daughter sertraline 25 mg tablet 25 mg PO DAILY metoprolol succinate 25 mg tablet extended release 24 hr 25 mg PO QAM prednisone 1 mg Tablet 1 mg PO QAM Discharge Orders: Discharge Order (Routine); Ordered 04/02/22 Ordered By: Constantin Nance/Other Patient Handouts: ED Abscess, Incision And Drainage Admission Data Admit Date/Time: 03/30/22 22:44 Attending Provider: Constantin Mckenna Admit Provider: Pascual Figueroa Primary Care Provider: Mina Miller Other Providers: Maciej Fraga ; Silver Rudolph ; Tia Champagne ; Phillip Moses I. ; Obed Coyne II ; Amanda Seo ; Reilly Darden ; Bucky Howard ; Audrey Moura ; Narciso Saldaña Other Interventions: Discharge Summary Assessment (RN) Last Done: 04/02/22 17:31 Coding Level of Care Code D/C DAY MANAGEMENT >30 MINS Diagnoses Cellulitis of hand, left L03.114 Hypertension I10 Type 2 diabetes mellitus with diabetic neuropathy E11.40 Depression F32.9 Rheumatoid arthritis M06.9 DVT prophylaxis Z29.9 Time Spent (min) 35
== END 2022-04-02 18:41 | disposition home or self-care (01) | DRG 857 ==
LOC: ED 14:44 → SUATTDRO 22:44 → 3N 22:44

== ENCOUNTER 2023-01-04 12:13 | Inpatient (IN) ==
[2023-01-04] MEDS ORDERED: SODIUM CHLORIDE 0.9% 500 ML IV SCH (13:00)
--- NOTE | 2023-01-04 13:03 | Emergency Department Note ---
Impression & Plan Acute alteration in mental status, Fall, Hypomagnesemia, Contusion of knee, left, Contusion of hand, left ED Provider Note NAME: GAGE TURNER AGE: 62 SEX: M : 1960 ARRIVES VIA: Walk-In INFORMANT: Patient, EMS ED PROVIDER(S): Arnel Tillman DO CHIEF COMPLAINT: Altered mental status HPI: The patient is a 62-year-old male who presented to the emergency department for altered mental status. The patient has a history of Verma. The patient also has a history of diabetes. He presented to the emergency department after a fall. The patient was trying to get into a vehicle. He fell onto his left side. There was no reported loss of consciousness. The family feels as though he has been much more weak than usual. The patient denies having any black or bloody bowel months but the patient is somewhat confused and history is limited secondary to altered mental status. ROS: See above HPI for pertinent positives & negatives. A total of 10 systems reviewed and were otherwise negative. PAST MEDICAL HISTORY: See Below PAST SURGICAL HISTORY: See Below FAMILY HISTORY: See Below SOCIAL HISTORY: See Below HOME MEDICATIONS: See Below ALLERGIES: See Below VITALS: See Below PHYSICAL EXAMINATION: GENERAL: The patient is awake and alert. He is somewhat anxious and uncomfortable appearing. EYES: The conjunctivae are clear. The pupils are round and reactive. EARS, NOSE, MOUTH AND THROAT: The nose is without any evidence of any deformity. NECK: The neck is nontender and supple. RESPIRATORY: Normal respiratory effort is noted there is no evidence of wheezing rhonchi or rales CARDIOVASCULAR: Tachycardic and irregular heart sounds were noted to auscultation. There is no definite murmur. GASTROINTESTINAL: The abdomen is soft. Abdomen is nontender. MUSCULOSKELETAL/EXTREMITIES: There is no evidence of gross deformity full range of motion is noted in the hips and shoulders. There is pain with range of motion testing of the left knee. There was an abrasion to the left knee as well as the left hand. There is also swelling over the left elbow. SKIN: There is no obvious evidence of any rash. There are no petechiae, pallor or cyanosis noted. NEUROLOGIC: Patient is awake and oriented to person but not place time or situation. Strength was symmetric but diminished. MEDICAL DECISION MAKING: The patient is a 62-year-old male who presented to the emergency department for an evaluation of altered mental status. The patient had a fall. The patient does have a history of Verma. I discussed the patient's laboratory and radiographic studies with him and his daughter. She did report that his mental status is not significantly improved compared to when she evaluated him earlier. At this time I will discuss his condition with the on-call [facility] hospitalist. Although no acute finding was noted given the patient's ongoing alteration mental status he may require further work-up. No bony injury was noted on x-rays. Triage Nursing notes reviewed. Prior medical records reviewed Vital Signs: reviewed and remarkable for no significant abnormalities Differential diagnosis: Infection, dehydration, metabolic abnormality, hypo/hyperglycemia, electrolyte disturbance, anemia, hypoxia, cardiac sources, intracerebral event, toxicologic, neurologic, as well as other pathologies. ER treatment provided: See below Diagnostics interpreted by me: ECG: EKG was obtained in the emergency department. My interpretation is sinus r hythm at 114 bpm. There was a first-degree AV block noted. There is no ectopy. This was compared to a tracing from December 11, 2022. No changes were noted. Cardiac Monitoring: An order was placed for continuous cardiac monitoring. The monitor shows a rate of 95 bpm with sinus rhythm. Laboratory studies: As stated above and show below. Imaging studies: See below. Radiographic imaging was reviewed by myself Consultation(s): I discussed this case with Elmer who is on for the [facility] hospitalist group. They will evaluate the patient in the emergency department. Past Med/Surg History Medical History Cellulitis HX 03/2021-[facility] Located to left LE- resolved Chronic back pain Contact with and (suspected) exposure to covid-19 12/2020 > resolved Degenerative disc disease Degenerative joint disease of right hip Depression Diabetes mellitus, type 2 NIDDM Glucose stable Diabetic neuropathy Hands and feet Fatty liver VERMA Hypertension Osteoarthritis Rheumatic nodule hands Rheumatoid arthritis Follows with rheumatology, affects hands (nodules), good cervical extension Dr. Cloud Surgical History H/O hand surgery PROCEDURE: 1. Left hand incision and drainage abscess dorsal hand. 2. Left fifth digit extensor tenosynovectomy in the hand. 3. Left fifth metacarpophalangeal joint arthrotomy and drainage. 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 -- able to repair arm History of tonsillectomy History of total hip arthroplasty left 2019 History of total hip arthroplasty right 2020 Family History Mother Diabetes Father Heart disease Other Family history non-contributory No family history of adverse response to anesthesia Social History Smoking Status: Never smoker Second Hand Exposure: No; Do You Dip or Chew Tobacco: No; Hx Alcohol Use: No Hx Substance Use: No Preferred Language: Macedonian Communication Ability: Effective Program Control Analyst Required: No Beliefs That Will Affect Care: None marital status: Current Living Situation: Family current occupational status: disabled Feels Safe at Home: Yes Assistive Devices: Cane and Glasses Allergies Allergies Allergy/AdvReac Type Severity Reaction Status Date / Time clavulanic acid Allergy Intermediate hives Verified 01/02/23 11:30 lisinopril Allergy Intermediate cough, Verified 01/02/23 11:30 edema Penicillins Allergy Intermediate hives Verified 01/02/23 11:30 tazobactam Allergy Intermediate hives Verified 01/02/23 11:30 acetaminophen AdvReac Intermediate liver Verified 01/02/23 11:30 injury-VERMA Home Meds Home Medications Medication Instructions Recorded Confirmed bupropion HCl 150 mg tablet,12 hr 150 mg PO QAM 03/18/18 01/04/23 sustained-release (Wellbutrin SR) metformin 500 mg tablet 500 mg PO BID 08/10/19 01/04/23 gabapentin 300 mg capsule 600 mg PO TID 01/21/20 01/04/23 glimepiride 2 mg tablet 2 mg PO QAM 01/21/20 01/04/23 amitriptyline 50 mg tablet 100 mg PO HS 03/30/21 01/04/23 metoprolol succinate 25 mg 25 mg PO QAM 03/30/22 01/04/23 tablet,extended release 24 hr prednisone 5 mg tablet 5 mg PO QAM 03/30/22 01/04/23 sertraline 25 mg tablet 25 mg PO QAM 03/30/22 01/04/23 tramadol 50 mg tablet 50 mg PO Q8 PRN Pain 03/30/22 01/04/23 prednisolone 1 %-moxifloxacin 0.5 1 drp ophthalmic (eye) Q4H 01/04/23 01/04/23 %-bromfenac 0.075 % eye drops susp Previous Rx's Medication Instructions Recorded aspirin 81 mg tablet,delayed 81 mg PO QAM #30 tabs 04/07/21 release Results & Data (ED) Vital Signs Vital Signs - 24 hr 01/04/23 12:18 01/04/23 13:06 01/04/23 12:40 Temperature 36.6 C Temperature Source Temporal Artery Scan Pulse Rate 123 H 113 H 112 H Pulse Rate from SpO2 Sensor 114 H Pulse Rhythm Respiratory Rate 18 23 Respiratory Effort / Characteristics Non-Labored Respiratory Depth Normal Blood Pressure 142/78 H Blood Pressure Mean 99 Pulse Oximetry 93 93 Oxygen Delivery Method Room Air Oxygen Flow Rate Sepsis Recent Fever Within 48 Hours No Sepsis New/Unexplained Change in Mental Status No Sepsis Action Taken by Nursing No Action Required 01/04/23 13:00 01/04/23 13:30 01/04/23 14:12 Temperature Temperature Source Pulse Rate 111 H 107 H 102 H Pulse Rate from SpO2 Sensor 110 H 108 H Pulse Rhythm Regular Respiratory Rate 26 H 20 22 Respiratory Effort / Characteristics Respiratory Depth Blood Pressure 104/74 118/84 Blood Pressure Mean 84 95 Pulse Oximetry 90 96 97 Oxygen Delivery Method Room Air Nasal Cannula Oxygen Flow Rate 2 2 Sepsis Recent Fever Within 48 Hours Sepsis New/Unexplained Change in Mental Status Sepsis Action Taken by Nursing 01/04/23 14:00 01/04/23 14:30 01/04/23 15:00 Temperature Temperature Source Pulse Rate 104 H 99 H 97 H Pulse Rate from SpO2 Sensor 103 H 98 H 98 H Pulse Rhythm Respiratory Rate 20 17 18 Respiratory Effort / Characteristics Respiratory Depth Blood Pressure 125/73 122/82 132/75 Blood Pressure Mean 90 95 94 Pulse Oximetry 97 97 98 Oxygen Delivery Method Oxygen Flow Rate Sepsis Recent Fever Within 48 Hours Sepsis New/Unexplained Change in Mental Status Sepsis Action Taken by Nursing 01/04/23 15:40 Temperature Temperature Source Pulse Rate 95 H Pulse Rate from SpO2 Sensor 95 H Pulse Rhythm Respiratory Rate 24 Respiratory Effort / Characteristics Respiratory Depth Blood Pressure 117/68 Blood Pressure Mean 84 Pulse Oximetry 95 Oxygen Delivery Method Oxygen Flow Rate Sepsis Recent Fever Within 48 Hours Sepsis New/Unexplained Change in Mental Status Sepsis Action Taken by Correction Medications Current Medication List: was personally reviewed by me Laboratory Data Attestation: I reviewed the patient's lab results. 01/04/23 12:45 01/04/23 12:45 Lab Results 01/04/23 01/04/23 01/04/23 Range/Units 12:45 12:45 12:45 WBC 6.91 (4.8-10.8) K/ul RBC 4.31 L (4.70-6.10) M/uL Hgb 13.5 L (14.0-18.0) g/dl Hct 39.7 L (42.0-52.0) % MCV 92.1 (80.0-100.0) fL MCH 31.3 (25.0-34.0) pg MCHC 34.0 (32.0-36.0) g/dL RDW Std Deviation 45.7 (36.4-46.3) fL RDW Coeff of Tamara 13.5 (11.5-14.5) % Plt Count 152 (130-400) K/uL MPV 10.0 (9.4-12.4) fL Immature Gran % (Auto) 0.1 % Neut % (Auto) 79.0 % Lymph % (Auto) 10.0 % Gem % (Auto) 9.3 % Eos % (Auto) 1.0 % Baso % (Auto) 0.6 % Neut # (Auto) 5.46 (1.40-6.50) K/uL Lymph # (Auto) 0.69 L (1.2-3.4) K/uL Gem # (Auto) 0.64 H (0.11-0.59) K/uL Eos # (Auto) 0.07 (0-0.50) K/uL Baso # (Auto) 0.04 (0-0.2) K/uL Immature Gran # (Auto) 0.01 (0.01-0.20) K/uL PT 11.6 (9.0-12.0) Seconds INR 1.1 (0.9-1.1) APTT 25.9 (21.0-31.0) Seconds PTT Ratio 0.9 VBG pH VBG pCO2 VBG pO2 VBG HCO3 VBG O2 Saturation VBG Base Excess Barometric Pressure Sodium 135 L (136-145) mmol/L Potassium 4.7 (3.5-5.1) mmol/L Chloride 102 (98-107) mmol/L Carbon Dioxide 25 (21-32) mmol/L Anion Gap 8 (3-11) BUN 16 (6-23) mg/dl Creatinine 1.33 (0.6-1.4) mg/dl Est Cr Clr Drug Dosing Not Reportable Est GFR ( Amer) 65.0 ml/min Est GFR (Non-Af Amer) 56.1 ml/min BUN/Creatinine Ratio 12.0 (10-20) Glucose 131 H (70-99(Fasting)) mg/dl Calcium 9.1 (8.6-10.3) mg/dl Magnesium 1.5 L (1.7-2.4) mg/dl Total Bilirubin 0.8 (0.2-1.0) mg/dl AST 25 (13-39) U/L ALT 31 (7-52) U/L Alkaline Phosphatase 72 (34-104) U/L Ammonia (18-72) umol/L Total Creatine Kinase 28 L (30-223) U/L Troponin I High Sens 4.6 (0-20) pg/ml C-Reactive Protein 4.61 H (0-0.5) mg/dl Total Protein 7.4 (6.0-8.3) gm/dl Albumin 3.9 (3.4-5.0) gm/dl Globulin 3.5 (2.5-4.0) gm/dl Albumin/Globulin Ratio 1.1 (0.9-2) Procalcitonin (0-0.5) ng/ml TSH (0.300-4.500) uIu/ml Urine Color Urine Appearance (Clear) Urine pH (4.5-7.5) Ur Specific [place] (1.000-1.030) Urine Protein (Negative) Urine Glucose (UA) (Negative) Urine Ketones (Negative) Urine Blood (Negative) Urine Nitrite (Negative) Urine Bilirubin (Negative) Urine Urobilinogen (Negative) Ur Leukocyte Esterase (Negative) Urine WBC (Auto) (0-5) /hpf Urine RBC (Auto) (0-4) /hpf U Hyaline Cast (Auto) (0-5) /lpf U Epithel Cells (Auto) (0-5) /lpf Urine Bacteria (Auto) (Negative) Ur Renal Epithelial Cell Urine Sperm (None Prsent) Urine Opiates Screen (Neg) Ur Methadone, Qual (Neg) Urine Barbiturates (Neg) Ur Phencyclidine (PCP) (Neg) U Amphetamin/Meth Scrn (Neg) MDMA (Ecstasy) Screen (Neg) U Benzodiazepines Scrn (Neg) Ur Cocaine Metabolite (Neg) U Marijuana (THC) Screen (Neg) Ethyl Alcohol mg/dL (<10.0) mg/dl SARS-CoV-2, RNA, NAAT (NEGATIVE) 01/04/23 01/04/23 01/04/23 Range/Units 12:45 12:45 13:08 WBC (4.8-10.8) K/ul RBC (4.70-6.10) M/uL Hgb (14.0-18.0) g/dl Hct (42.0-52.0) % MCV (80.0-100.0) fL MCH (25.0-34.0) pg MCHC (32.0-36.0) g/dL RDW Std Deviation (36.4-46.3) fL RDW Coeff of Tamara (11.5-14.5) % Plt Count (130-400) K/uL MPV (9.4-12.4) fL Immature Gran % (Auto) % Neut % (Auto) % Lymph % (Auto) % Gem % (Auto) % Eos % (Auto) % Baso % (Auto) % Neut # (Auto) (1.40-6.50) K/uL Lymph # (Auto) (1.2-3.4) K/uL Gem # (Auto) (0.11-0.59) K/uL Eos # (Auto) (0-0.50) K/uL Baso # (Auto) (0-0.2) K/uL Immature Gran # (Auto) (0.01-0.20) K/uL PT (9.0-12.0) Seconds INR (0.9-1.1) APTT (21.0-31.0) Seconds PTT Ratio VBG pH VBG pCO2 VBG pO2 VBG HCO3 VBG O2 Saturation VBG Base Excess Barometric Pressure Sodium (136-145) mmol/L Potassium (3.5-5.1) mmol/L Chloride (98-107) mmol/L Carbon Dioxide (21-32) mmol/L Anion Gap (3-11) BUN (6-23) mg/dl Creatinine (0.6-1.4) mg/dl Est Cr Clr Drug Dosing Est GFR ( Amer) ml/min Est GFR (Non-Af Amer) ml/min BUN/Creatinine Ratio (10-20) Glucose (70-99(Fasting)) mg/dl Calcium (8.6-10.3) mg/dl Magnesium (1.7-2.4) mg/dl Total Bilirubin (0.2-1.0) mg/dl AST (13-39) U/L ALT (7-52) U/L Alkaline Phosphatase (34-104) U/L Ammonia 25.0 (18-72) umol/L Total Creatine Kinase (30-223) U/L Troponin I High Sens (0-20) pg/ml C-Reactive Protein (0-0.5) mg/dl Total Protein (6.0-8.3) gm/dl Albumin (3.4-5.0) gm/dl Globulin (2.5-4.0) gm/dl Albumin/Globulin Ratio (0.9-2) Procalcitonin 0.08 (0-0.5) ng/ml TSH 1.389 (0.300-4.500) uIu/ml Urine Color Urine Appearance (Clear) Urine pH (4.5-7.5) Ur Specific [place] (1.000-1.030) Urine Protein (Negative) Urine Glucose (UA) (Negative) Urine Ketones (Negative) Urine Blood (Negative) Urine Nitrite (Negative) Urine Bilirubin (Negative) Urine Urobilinogen (Negative) Ur Leukocyte Esterase (Negative) Urine WBC (Auto) (0-5) /hpf Urine RBC (Auto) (0-4) /hpf U Hyaline Cast (Auto) (0-5) /lpf U Epithel Cells (Auto) (0-5) /lpf Urine Bacteria (Auto) (Negative) Ur Renal Epithelial Cell Urine Sperm (None Prsent) Urine Opiates Screen (Neg) Ur Methadone, Qual (Neg) Urine Barbiturates (Neg) Ur Phencyclidine (PCP) (Neg) U Amphetamin/Meth Scrn (Neg) MDMA (Ecstasy) Screen (Neg) U Benzodiazepines Scrn (Neg) Ur Cocaine Metabolite (Neg) U Marijuana (THC) Screen (Neg) Ethyl Alcohol mg/dL (<10.0) mg/dl SARS-CoV-2, RNA, NAAT (NEGATIVE) 01/04/23 01/04/23 01/04/23 Range/Units 13:08 13:08 13:30 WBC (4.8-10.8) K/ul RBC (4.70-6.10) M/uL Hgb (14.0-18.0) g/dl Hct (42.0-52.0) % MCV (80.0-100.0) fL MCH (25.0-34.0) pg MCHC (32.0-36.0) g/dL RDW Std Deviation (36.4-46.3) fL RDW Coeff of Tamara (11.5-14.5) % Plt Count (130-400) K/uL MPV (9.4-12.4) fL Immature Gran % (Auto) % Neut % (Auto) % Lymph % (Auto) % Gem % (Auto) % Eos % (Auto) % Baso % (Auto) % Neut # (Auto) (1.40-6.50) K/uL Lymph # (Auto) (1.2-3.4) K/uL Gem # (Auto) (0.11-0.59) K/uL Eos # (Auto) (0-0.50) K/uL Baso # (Auto) (0-0.2) K/uL Immature Gran # (Auto) (0.01-0.20) K/uL PT (9.0-12.0) Seconds INR (0.9-1.1) APTT (21.0-31.0) Seconds PTT Ratio VBG pH Cancelled VBG pCO2 Cancelled VBG pO2 Cancelled VBG HCO3 Cancelled VBG O2 Saturation Cancelled VBG Base Excess Cancelled Barometric Pressure Cancelled Sodium (136-145) mmol/L Potassium (3.5-5.1) mmol/L Chloride (98-107) mmol/L Carbon Dioxide (21-32) mmol/L Anion Gap (3-11) BUN (6-23) mg/dl Creatinine (0.6-1.4) mg/dl Est Cr Clr Drug Dosing Est GFR ( Amer) ml/min Est GFR (Non-Af Amer) ml/min BUN/Creatinine Ratio (10-20) Glucose (70-99(Fasting)) mg/dl Calcium (8.6-10.3) mg/dl Magnesium (1.7-2.4) mg/dl Total Bilirubin (0.2-1.0) mg/dl AST (13-39) U/L ALT (7-52) U/L Alkaline Phosphatase (34-104) U/L Ammonia (18-72) umol/L Total Creatine Kinase (30-223) U/L Troponin I High Sens (0-20) pg/ml C-Reactive Protein (0-0.5) mg/dl Total Protein (6.0-8.3) gm/dl Albumin (3.4-5.0) gm/dl Globulin (2.5-4.0) gm/dl Albumin/Globulin Ratio (0.9-2) Procalcitonin (0-0.5) ng/ml TSH (0.300-4.500) uIu/ml Urine Color Urine Appearance (Clear) Urine pH (4.5-7.5) Ur Specific [place] (1.000-1.030) Urine Protein (Negative) Urine Glucose (UA) (Negative) Urine Ketones (Negative) Urine Blood (Negative) Urine Nitrite (Negative) Urine Bilirubin (Negative) Urine Urobilinogen (Negative) Ur Leukocyte Esterase (Negative) Urine WBC (Auto) (0-5) /hpf Urine RBC (Auto) (0-4) /hpf U Hyaline Cast (Auto) (0-5) /lpf U Epithel Cells (Auto) (0-5) /lpf Urine Bacteria (Auto) (Negative) Ur Renal Epithelial Cell Urine Sperm (None Prsent) Urine Opiates Screen (Neg) Ur Methadone, Qual (Neg) Urine Barbiturates (Neg) Ur Phencyclidine (PCP) (Neg) U Amphetamin/Meth Scrn (Neg) MDMA (Ecstasy) Screen (Neg) U Benzodiazepines Scrn (Neg) Ur Cocaine Metabolite (Neg) U Marijuana (THC) Screen (Neg) Ethyl Alcohol mg/dL < 10.0 (<10.0) mg/dl SARS-CoV-2, RNA, NAAT NEGATIVE (NEGATIVE) 01/04/23 01/04/23 01/04/23 Range/Units 14:09 14:09 14:52 WBC (4.8-10.8) K/ul RBC (4.70-6.10) M/uL Hgb (14.0-18.0) g/dl Hct (42.0-52.0) % MCV (80.0-100.0) fL MCH (25.0-34.0) pg MCHC (32.0-36.0) g/dL RDW Std Deviation (36.4-46.3) fL RDW Coeff of Tamara (11.5-14.5) % Plt Count (130-400) K/uL MPV (9.4-12.4) fL Immature Gran % (Auto) % Neut % (Auto) % Lymph % (Auto) % Gem % (Auto) % Eos % (Auto) % Baso % (Auto) % Neut # (Auto) (1.40-6.50) K/uL Lymph # (Auto) (1.2-3.4) K/uL Gem # (Auto) (0.11-0.59) K/uL Eos # (Auto) (0-0.50) K/uL Baso # (Auto) (0-0.2) K/uL Immature Gran # (Auto) (0.01-0.20) K/uL PT (9.0-12.0) Seconds INR (0.9-1.1) APTT (21.0-31.0) Seconds PTT Ratio VBG pH 7.38 VBG pCO2 47 VBG pO2 85 VBG HCO3 28 VBG O2 Saturation 98.2 VBG Base Excess 2.0 Barometric Pressure Sodium (136-145) mmol/L Potassium (3.5-5.1) mmol/L Chloride (98-107) mmol/L Carbon Dioxide (21-32) mmol/L Anion Gap (3-11) BUN (6-23) mg/dl Creatinine (0.6-1.4) mg/dl Est Cr Clr Drug Dosing Est GFR ( Amer) ml/min Est GFR (Non-Af Amer) ml/min BUN/Creatinine Ratio (10-20) Glucose (70-99(Fasting)) mg/dl Calcium (8.6-10.3) mg/dl Magnesium (1.7-2.4) mg/dl Total Bilirubin (0.2-1.0) mg/dl AST (13-39) U/L ALT (7-52) U/L Alkaline Phosphatase (34-104) U/L Ammonia (18-72) umol/L Total Creatine Kinase (30-223) U/L Troponin I High Sens (0-20) pg/ml C-Reactive Protein (0-0.5) mg/dl Total Protein (6.0-8.3) gm/dl Albumin (3.4-5.0) gm/dl Globulin (2.5-4.0) gm/dl Albumin/Globulin Ratio (0.9-2) Procalcitonin (0-0.5) ng/ml TSH (0.300-4.500) uIu/ml Urine Color Yellow Urine Appearance Clear (Clear) Urine pH 8.5 H (4.5-7.5) Ur Specific [place] 1.018 (1.000-1.030) Urine Protein 1+ H (Negative) Urine Glucose (UA) Negative (Negative) Urine Ketones Negative (Negative) Urine Blood Negative (Negative) Urine Nitrite Negative (Negative) Urine Bilirubin Negative (Negative) Urine Urobilinogen Negative (Negative) Ur Leukocyte Esterase Negative (Negative) Urine WBC (Auto) 1-5 (0-5) /hpf Urine RBC (Auto) 0-4 (0-4) /hpf U Hyaline Cast (Auto) 0 (0-5) /lpf U Epithel Cells (Auto) >30 H (0-5) /lpf Urine Bacteria (Auto) Negative (Negative) Ur Renal Epithelial Cell Not Reportable Urine Sperm Present A (None Prsent) Urine Opiates Screen Neg (Neg) Ur Methadone, Qual Neg (Neg) Urine Barbiturates Neg (Neg) Ur Phencyclidine (PCP) Neg (Neg) U Amphetamin/Meth Scrn Neg (Neg) MDMA (Ecstasy) Screen Pos H (Neg) U Benzodiazepines Scrn Neg (Neg) Ur Cocaine Metabolite Neg (Neg) U Marijuana (THC) Screen Neg (Neg) Ethyl Alcohol mg/dL (<10.0) mg/dl SARS-CoV-2, RNA, NAAT (NEGATIVE) Administered Medications Discontinued Medications Sodium Chloride (Nss) 500 mls @ 999 mls/hr IV .Q31M LATIA Stop: 01/04/23 13:30 Last Infusion: 01/04/23 15:31 Dose: 0 mls/hr Documented By: Admin: 01/04/23 14:15 Dose: 999 mls/hr Documented By: TONIA Magnesium Sulfate/Dextrose (Magnesium Sulfate / D5w) 1 gm in 100 mls @ 100 mls/hr IV NOW STA Stop: 01/04/23 16:37 Last Infusion: 01/04/23 17:35 Dose: 0 mls/hr Documented By: Admin: 01/04/23 15:58 Dose: 100 mls/hr Documented By: RAFAELA Ceftriaxone Sodium (Rocephin) 2,000 mg in 70 mls @ 140 mls/hr IV NOW STA Stop: 01/04/23 16:12 Last Infusion: 01/04/23 17:34 Dose: 0 mls/hr Documented By: Admin: 01/04/23 17:02 Dose: 140 mls/hr Documented By: TONIA Imaging Data Attestation: I personally reviewed and interpreted this imaging study as follows: My Impression: CT of the brain was obtained in the emergency department. My interpretation is no intracranial hemorrhage or mass, final report below. 1 view chest x-ray was obtained in the emergency department. My interpretation is no infiltrate or free air, final report below. Radiologist's Impression: Cervical Spine CT 01/04/23 12:46 CT OF THE CERVICAL SPINE WITHOUT CONTRAST CLINICAL HISTORY: Fall. COMPARISON STUDY: Cervical spine MRI August 24, 2014. Cervical spine radiographs July 18, 2021. TECHNIQUE: Helical axial images of the cervical spine were obtained without IV contrast. Sagittal and coronal reconstructions were viewed. Automated exposure control was utilized for the study. A dose lowering technique was utilized adhering to the principles of ALARA. FINDINGS: There is straightening of the cervical lordosis. No acute cervical spine fracture is present. Moderate multilevel degenerative changes are present. No prevertebral edema. Craniocervical junction is intact. IMPRESSION: No acute cervical spine fracture or subluxation. ACT 112: Negative or not required by law. Electronically signed by: Duane Chowdhury M.D. 01/04/2023 2:00 PM Chest X-Ray 01/04/23 12:46 SINGLE VIEW CHEST CLINICAL HISTORY: Generalized weakness. Fall. FINDINGS: An AP, portable, upright chest radiograph is compared to study dated 04/05/2021 and correlated with chest CT dated 07/07/2022. The examination is degraded by portable technique, apical lordotic positioning, and patient rotation. The heart is enlarged noting atherosclerotic calcification of the thoracic aorta. There is prominence of the pulmonary vasculature. Scarring/atelectasis is noted at both lung bases. No large pleural effusion or pneumothorax is seen. The skeletal structures are osteopenic. There are numerous chronic/healed bilateral rib fractures. IMPRESSION: 1. Cardiomegaly with prominence of the pulmonary vasculature. Correlate clinically for evidence of fluid overload/congestive change. 2. No airspace consolidation or large pleural effusion is identified. ACT 112: Negative or not required by law. Electronically signed by: De Orozco M.D. 01/04/2023 3:50 PM Hand X-Ray 01/04/23 12:46 XR hand LT 2V CLINICAL HISTORY: Fall. COMPARISON: Left hand CT March 10, 2022. FINDINGS: This exam is mildly compromised by motion artifact. No definite acute fracture is noted. Severe joint space narrowing is noted within numerous articulations of the left hand with ulnar deviation of the fingers. Extensive subchondral cystic change within the left wrist is noted. There is marked radiocarpal and ulnocarpal joint space narrowing. There is medial wrist soft tissue swelling. Erosions at the left fifth metacarpophalangeal joint with possible subluxation appear similar to prior CT. IMPRESSION: 1. Exam mildly compromised by difficulty positioning. However, no definite acute fracture identified. 2. Severe joint space narrowing within numerous articulations of the left hand and wrist with extensive subchondral cystic change/erosions. 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 3. Medial wrist soft tissue swelling. Soft tissue swelling adjacent to the metacarpophalangeal joints. ACT 112: Negative or not required by law. Electronically signed by: Duane Chowdhury M.D. 01/04/2023 3:[address] 01/04/23 12:46 CT head/brain wo con CLINICAL HISTORY: fall Technique: Contiguous axial CT images of the head were acquired from the base of the skull to the vertex without intravenous contrast administration. Images were viewed in brain, subdural and bone windows. Automated dose lowering techniques and/or adjustment according to patient size were utilized for this exam. Comparison: Comparison is made to CT head 11/29/2015 Findings: Areas of decreased attenuation are present in the periventricular and haynes bcortical white matter bilaterally consistent with small vessel ischemic disease. Generalized cerebral atrophy with commensurate enlargement of the ventricles, sulci, and cisterns is also present. There is no acute intracranial hemorrhage or evidence of acute territorial infarction. No shift of the midline structures, mass effect, or extra-axial abnormalities are shown. Atherosclerotic calcifications are present in the intracranial segments of the internal carotid arteries. Imaged portions of the paranasal sinuses and mastoid air cells are clear. The orbits appear normal. There are no acute fractures of the calvaria or scalp swelling. Impression: No acute intracranial hemorrhage, no evidence of acute territorial infarction or other acute intracranial disease process. ACT 112: Negative or not required by law. Electronically signed by: Guillaume Basilio M.D. 01/04/2023 2:03 PM Knee X-Ray 01/04/23 12:46 XR knee LT 1 or 2V routine CLINICAL HISTORY: Left knee pain following fall. COMPARISON: MRI of the left tibia and fibula April 05, 2021. CT of the left femur April 03, 2021. Left tibia and fibula radiographs October 11, 2017. FINDINGS: Alignment of the left knee is anatomic. There is no acute fracture. No joint effusion is present. Joint spaces are preserved. There is minimal patellofemoral osteophytosis. IMPRESSION: No acute fracture. ACT 112: Negative or not required by law. Electronically signed by: Duane Chowdhury M.D. 01/04/2023 3:52 PM Pelvis X-Ray 01/04/23 12:46 SINGLE VIEW PELVIS CLINICAL HISTORY: Fall. FINDINGS: An AP, portable, supine pelvic radiograph is compared to study dated 08/08/2020 and correlated with pelvic CT dated 07/07/2022. The skeletal structures are osteopenic. There is no radiographic evidence of acute fracture involving the hips or bony pelvis. Bilateral hip arthroplasties are in near-anatomic alignment. Degenerative sclerosis is seen in the sacroiliac joints. Spondylotic and extensive postsurgical change is partially visualized in the lumbosacral spine. The overlying soft tissues are within normal limits. Phleboliths are seen in the pelvis. IMPRESSION: 1. No acute bony abnormality is identified. 2. Bilateral hip arthroplasties are in near anatomic alignment. Electronically signed by: De Orozco M.D. 01/04/2023 3:45 PM Elbow X-Ray 01/04/23 13:03 XR elbow LT min 3V routine CLINICAL HISTORY: fall TECHNIQUE: 3 views of the left elbow were obtained. Comparison: None available at the time of this dictation. FINDINGS: There is no evidence of an acute fracture. Degenerative changes are seen in the elbow joint. There is no prominence of the anterior or posterior fat pads to suggest an effusion. Normal-appearing anterior fat pad is visualized. No soft tissue abnormality is seen. IMPRESSION: No evidence of acute osseous injury. ACT 112: Negative or not required by law. Electronically signed by: Guillaume Basilio M.D. 01/04/2023 3:57 PM Chest X-Ray 01/04/23 16:25 XR chest 2V PA/lateral CLINICAL HISTORY: need comparison to 1 view obtained in ED TECHNIQUE: 2 views of the chest were obtained. Comparison: Comparison is made to chest radiograph 01/04/2023 FINDINGS: No lines and tubes are seen. Cardiomegaly is noted. The aortic arch is calcified. Prominence and cephalization of the vasculature is seen. No evidence of pleural effusion or pneumothorax. IMPRESSION: Cardiomegaly and mild pulmonary edema. ACT 112: Negative or not required by law. Electronically signed by: Guillaume Basilio M.D. 01/04/2023 5:19 PM Discharge Plan Visit Data Chief Complaint: Illness Stated Complaint: CANT WALK,CANT TALK,NUMB,CONFUSED ED Provider: Arnel Tillman Discharge Problem: Acute alteration in mental status, Fall, Hypomagnesemia, Contusion of knee, left, Contusion of hand, left Patient Disposition: Being Evaluated by Hospitalist Forms Stand Alone Forms: [facility] Prescriptions Prescriptions: No Action bupropion HCl [Wellbutrin SR] 150 mg Tablet Sustained-Release 12 Hr 150 mg PO QAM metformin 500 mg tablet 500 mg PO BID glimepiride 2 mg tablet 2 mg PO QAM gabapentin 300 mg capsule 600 mg PO TID amitriptyline 50 mg tablet 100 mg PO HS aspirin 81 mg Tablet,Delayed Release (Dr/Ec) 81 mg PO QAM Qty: 30 0RF prednisone 5 mg tablet 5 mg PO QAM tramadol 50 mg tablet 50 mg PO Q8 PRN (Reason: Pain) Rx Instructions: per daughter sertraline 25 mg tablet 25 mg PO QAM metoprolol succinate 25 mg tablet extended release 24 hr 25 mg PO QAM [id number] 1-0.5-0.075 % Drops,Suspension 1 drp OPHTHALMIC (EYE) Q4H Rx Instructions: Left Eye Referrals Referrals: Mina Miller, [Primary Care Provider] -
[2023-01-04 13:16] LABS: Basophils # (auto) 0.04 K/uL (0-0.2); Basophils % (auto) 0.6 %; Eosinophils # (auto) 0.07 K/uL (0-0.50); Hematocrit (blood only) 39.7 % (42.0-52.0); Hemoglobin 13.5 g/dl (14.0-18.0); Immature Granulocytes # (auto) 0.01 K/uL (0.01-0.20); Immature Granulocytes % (auto) 0.1 %; Lymphocytes # (auto) 0.69 K/uL (1.2-3.4); Mean Corpuscular Hemoglobin 31.3 pg (25.0-34.0); Mean Corpuscular Volume 92.1 fL (80.0-100.0); Monocytes # (auto) 0.64 K/uL (0.11-0.59); Monocytes % (auto) 9.3 %; Neutrophils # (auto) 5.46 K/uL (1.40-6.50); Platelet Count 152 K/uL (130-400); RDW Coefficient of Variation 13.5 % (11.5-14.5); RDW Standard Deviation 45.7 fL (36.4-46.3); Red Blood Count 4.31 M/uL (4.70-6.10); White Blood Count 6.91 K/ul (4.8-10.8)
[2023-01-04 13:31] LABS: Alanine Aminotransferase 31 U/L (7-52); Albumin Globulin Ratio 1.1 (0.9-2); Albumin Level 3.9 gm/dl (3.4-5.0); Alkaline Phosphatase 72 U/L (34-104); Anion Gap 8 (3-11); Aspartate Aminotransferase 25 U/L (13-39); Bilirubin,Total 0.8 mg/dl (0.2-1.0); Blood Urea Nitrogen 16 mg/dl (6-23); Calcium 9.1 mg/dl (8.6-10.3); Carbon Dioxide 25 mmol/L (21-32); Chloride 102 mmol/L (98-107); Creatine Kinase 28 U/L (30-223); Est GFR (Non-African American) 56.1 ml/min; Globulin 3.5 gm/dl (2.5-4.0); Glucose 131 mg/dl (70-99(Fasting)); Magnesium 1.5 mg/dl (1.7-2.4); Potassium 4.7 mmol/L (3.5-5.1); Sodium 135 mmol/L (136-145); Total Protein 7.4 gm/dl (6.0-8.3)
[2023-01-04 13:37] LABS: Troponin I High Sensitivity 4.6 pg/ml (0-20)
[2023-01-04 13:44] LABS: INR 1.1 (0.9-1.1); Partial Thromboplastin Ratio 0.9; Partial Thromboplastin Time 25.9 Seconds (21.0-31.0); Prothrombin Time 11.6 Seconds (9.0-12.0)
--- NOTE | 2023-01-04 14:02 | CT Scan Report ---
CT OF THE CERVICAL SPINE WITHOUT CONTRAST CLINICAL HISTORY: Fall. COMPARISON STUDY: Cervical spine MRI August 24, 2014. Cervical spine radiographs July 18, 2021. TECHNIQUE: Helical axial images of the cervical spine were obtained without IV contrast. Sagittal a nd coronal reconstructions were viewed. Automated exposure control was utilized for the study. A do se lowering technique was utilized adhering to the principles of ALARA. FINDINGS: There is straightening of the cervical lordosis. No acute cervical spine fracture is presen t. Moderate multilevel degenerative changes are present. No prevertebral edema. Craniocervical juncti on is intact. IMPRESSION: No acute cervical spine fracture or subluxation. ACT 112: Negative or not required by law. Electronically signed by: Duane Chowdhury M.D. 01/04/2023 2:00 PM
--- NOTE | 2023-01-04 14:05 | CT Scan Report ---
CT head/brain wo con CLINICAL HISTORY: fall Technique: Contiguous axial CT images of the head were acquired from the base of the skull to the stalin magen without intravenous contrast administration. Images were viewed in brain, subdural and [facility] Automated dose lowering techniques and/or adjustment according to patient size were utilized for this exam. Comparison: Comparison is made to CT head 11/29/2015 Findings: Areas of decreased attenuation are present in the periventricular and subcortical white matter bilate rally consistent with small vessel ischemic disease. Generalized cerebral atrophy with commensurate e nlargement of the ventricles, sulci, and cisterns is also present. There is no acute intracranial hem orrhage or evidence of acute territorial infarction. No shift of the midline structures, mass effect, or extra-axial abnormalities are shown. Atherosclerotic calcifications are present in the intracran ial segments of the internal carotid arteries. Imaged portions of the paranasal sinuses and mastoid air cells are clear. The orbits appear normal. There are no acute fractures of the calvaria or scalp swelling. Impression: No acute intracranial hemorrhage, no evidence of acute territorial infarction or other acute intracra nial disease process. ACT 112: Negative or not required by law. Electronically signed by: Guillaume Basilio M.D. 01/04/2023 2:03 PM
[2023-01-04 15:07] LABS: HCO3 VBG 28 mmol/L; Oxygen Saturation VBG 98.2 %; PCO2 VBG 47 mmHg (38-50); PO2 VBG 85 mmHg; pH VBG 7.38 (7.36-7.41)
[2023-01-04 15:36] LABS: Amphetamines+Metham, Urine Neg (Neg); Barbiturates, Urine Neg (Neg); Benzodiazepine, Urine Neg (Neg); Cocaine, Urine Neg (Neg); MDMA (Ecstacy), Urine Pos (Neg); Methadone, Urine Neg (Neg); Opiate, Urine Neg (Neg); Phencyclidine, Urine Neg (Neg)
[2023-01-04 15:38] LABS: Appearance Urine Clear (Clear); Bacteria Urine Automated Negative (Negative); Bilirubin Urine Negative (Negative); Blood Urine Negative (Negative); Cast Urine Automated 0 /lpf (0-5); Color Urine Yellow; Epithelial Cell Urine Auto >30 /lpf (0-5); Glucose Urine UA Negative (Negative); Ketones Urine Negative (Negative); Leukocyte Esterase Urine Negative (Negative); Nitrite Urine Negative (Negative); RBC Urine Automated 0-4 /hpf (0-4); Specific Gravity Urine 1.018 (1.000-1.030); Urobilinogen Urine Negative (Negative); pH Urine 8.5 (4.5-7.5)
[2023-01-04] MEDS ORDERED: MAGNESIUM SULFATE / D5W 1 GM/100 ML BAG IV STA (15:38)
[2023-01-04 15:39] LABS: Protein Urine 1+ (Negative)
[2023-01-04] MEDS ORDERED: cefTRIAXone SODIUM 2,000 MG/70 ML BAG IV STA (15:43)
--- NOTE | 2023-01-04 15:47 | XRay Report ---
SINGLE VIEW PELVIS CLINICAL HISTORY: Fall. FINDINGS: An AP, portable, supine pelvic radiograph is compared to study dated 08/08/2020 and correlate d with pelvic CT dated 07/07/2022. The skeletal structures are osteopenic. There is no radiographic e vidence of acute fracture involving the hips or bony pelvis. Bilateral hip arthroplasties are in near -anatomic alignment. Degenerative sclerosis is seen in the sacroiliac joints. Spondylotic and extensi ve postsurgical change is partially visualized in the lumbosacral spine. The overlying soft tissues a re within normal limits. Phleboliths are seen in the pelvis. IMPRESSION: 1. No acute bony abnormality is identified. 2. Bilateral hip arthroplasties are in near anatomic alignment. Electronically signed by: De Orozco M.D. 01/04/2023 3:45 PM
--- NOTE | 2023-01-04 15:52 | XRay Report ---
SINGLE VIEW CHEST CLINICAL HISTORY: Generalized weakness. Fall. FINDINGS: An AP, portable, upright chest radiograph is compared to study dated 04/05/2021 and correlat ed with chest CT dated 07/07/2022. The examination is degraded by portable technique, apical lordotic positioning, and patient rotation. The heart is enlarged noting atherosclerotic calcification of th e thoracic aorta. There is prominence of the pulmonary vasculature. Scarring/atelectasis is noted at both lung bases. No large pleural effusion or pneumothorax is seen. The skeletal structures are osteo penic. There are numerous chronic/healed bilateral rib fractures. IMPRESSION: 1. Cardiomegaly with prominence of the pulmonary vasculature. Correlate clinically for evidence of fl uid overload/congestive change. 2. No airspace consolidation or large pleural effusion is identified. ACT 112: Negative or not required by law. Electronically signed by: De Orozco M.D. 01/04/2023 3:50 PM
--- NOTE | 2023-01-04 15:53 | XRay Report ---
XR knee LT 1 or 2V routine CLINICAL HISTORY: Left knee pain following fall. COMPARISON: MRI of the left tibia and fibula April 05, 2021. CT of the left femur April 03. Left tibia and fibula radiographs October 11, 2017. FINDINGS: Alignment of the left knee is anatomic. There is no acute fracture. No joint effusion is p resent. Joint spaces are preserved. There is minimal patellofemoral osteophytosis. IMPRESSION: No acute fracture. ACT 112: Negative or not required by law. Electronically signed by: Duane Chowdhury M.D. 01/04/2023 3:52 PM
--- NOTE | 2023-01-04 15:58 | XRay Report ---
XR elbow LT min 3V routine CLINICAL HISTORY: fall TECHNIQUE: 3 views of the left elbow were obtained. Comparison: None available at the time of this dictation. FINDINGS: There is no evidence of an acute fracture. Degenerative changes are seen in the elbow joint. There is no prominence of the anterior or posterior fat pads to suggest an effusion. Normal-appearing anterio r fat pad is visualized. No soft tissue abnormality is seen. IMPRESSION: No evidence of acute osseous injury. ACT 112: Negative or not required by law. Electronically signed by: Guillaume Basilio M.D. 01/04/2023 3:57 PM
[2023-01-04 15:59] LABS: Sperm Urine Present (None Prsent)
--- NOTE | 2023-01-04 15:59 | XRay Report ---
XR hand LT 2V CLINICAL HISTORY: Fall. COMPARISON: Left hand CT March 10, 2022. FINDINGS: This exam is mildly compromised by motion artifact. No definite acute fracture is noted. S evere joint space narrowing is noted within numerous articulations of the left hand with ulnar deviat ion of the fingers. Extensive subchondral cystic change within the left wrist is noted. There is min ed radiocarpal and ulnocarpal joint space narrowing. There is medial wrist soft tissue swelling. Anselmo ions at the left fifth metacarpophalangeal joint with possible subluxation appear similar to prior CT . IMPRESSION: 1. Exam mildly compromised by difficulty positioning. However, no definite acute fracture identified. 2. Severe joint space narrowing within numerous articulations of the left hand and wrist with extensi ve subchondral cystic change/erosions. 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 3. Medial wrist soft tissue swelling. Soft tissue swelling adjacent to the metacarpophalangeal joints . ACT 112: Negative or not required by law. Electronically signed by: Duane Chowdhury M.D. 01/04/2023 3:57 PM
--- NOTE | 2023-01-04 16:05 | History & Physical Report ---
Date of Service January 04, 2023 Assessment & Plan (1) Confusion: Plan: -Admit to the PCU on tele and cont pulse oximetry -Currently stable on 2L NC, not on O2 at baseline -At this time the etiology of the patient's acute alteration in cognition is unknown but the differential is broad at this time including but limited to bacterial infection, viral infection, embolic/ischemic stroke, polypharmacy, neurologic infection -No leukocytosis but ESR and CRP are both elevated, procal at 0.08, no sign of UTI on UA, no significant metabolic derangement on initial workup in the ED, CT head negative for hemorrhage or large ischemic/embolic stroke, no meningitic signs/symptoms besides confusion, alcohol level negative, Urine tox screen only positive for MDMA but this could be a false positive as he is on Wellbutrin, tramadol, sertraline, and amitriptyline. -Ammonia level is negative -One-view chest xray was read as signs of congestive failure and not PNA, however, the LLL appears to have a consolidation, will obtain 2 view AP/Lateral Chest xray for further evaluation -S/P 500 mL NSS, ceftriaxone, and 1gm IV mag in the ED, will continue ceftriaxone for now -Will obtain STAT lactate, full respiratory biofire, salicylate, and acetaminophen levels -Blood cultures obtained in the ED, continue to follow -If no etiology is found on continued workup will consider MRI of the brain for further evaluation of possible stroke -Q6h neuro checks, fall precautions, PT/OT consults -Hold chemical DVT PPX tonight due to recent trauma, will hold BL SCD's for now as they increase fall risk in confused patients -Dysphagia screen prior to starting diet -AM CBC, CMP, Mag, PT/INR (2) Acute respiratory failure with hypoxia: Plan: -Noted to be hypoxic in the low 90's on RA, currently stable on 2L NC -Could be related to possible PNA, vs pulm edema, vs low lung volumes with fatigue -Continue Prn O2 to keep SpO2 at or above 94% -Incentive spirometry, flutter therapy -Follow repeat chest xray and resp biofire, will get CT chest if repeat CXR is inconclusive -Continue ceftriaxone for now to cover possible pneumonia (3) Fall: Plan: -Fell while getting out of his daughter's car today -No acute trauma on extensive imaging in the ED -Fall precautions ordered -PT/OT (4) Hypomagnesemia: Plan: -Noted to be 1.5 in the ED -Likely due to poor appetite with confusion -S/P 1gm IV mag in the ED -Monitor am mag level (5) Lumbar stenosis with neurogenic claudication: Plan: -Has been a chronic issue and patient has hx of previous spinal surgery -Hold gabapentin and tramadol for now with increased confusion -Will continue amitriptyline for now (6) Hypertension: Plan: -Stable -Continue metoprolol (7) Type 2 diabetes mellitus with diabetic neuropathy: Plan: -Hold metformin and Glimepiride -Monitor BSg q6h while NPO -Start 5 units lantus BID, CF 50 q6h for now -DM II and HH diet when he can safely eat -Adjust regimen as needed (8) Depression: Plan: -Continue sertraline and wellbutrin (9) PAD (peripheral artery disease): Plan: -Continue aspirin (10) Rheumatoid arthritis: Plan: -Continue daily, low dose prednisone Plan The patient was discussed with Dr. Alan at the time of the admission History of Present Illness Chief Complaint: Confusion, weakness, fall Primary Care Provider: Mina Miller DO Carlos is a 62 year old male with a PMH significant for DM II, RA, PAD, HTN, depression, and fatty liver disease who presented to the [facility] ED with his Daughter on 01/04 due to confusion, generalized weakness, and fall at home. In the ED the patient was initially found to be tachycardic at 123 and tachypneic at 26 but otherwise stable. Labs were significant for a lymphocyte count of 0.69 and mag of 1.5. CT of the head was read as "No acute intracranial hemorrhage, no evidence of acute territorial infarction or other acute intracranial disease process.". CT of the cervical spine was read as "No acute cervical spine fracture or subluxation.".Chest xray was read as "1. Cardiomegaly with prom inence of the pulmonary vasculature. Correlate clinically for evidence of fluid overload/congestive change. 2. No airspace consolidation or large pleural effusion is identified.". Xrays of the left knee and BL Pelvis were read as negative for acute trauma. Xray of the left elbow was negative for acute findings and xray of the left hand was read as ". Exam mildly compromised by difficulty positioning. However, no definite acute fracture identified. 2. Severe joint space narrowing within numerous articulations of the left hand and wrist with extensive subchondral cystic change/erosions. 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 3. Medial wrist soft tissue swelling. Soft tissue swelling adjacent to the metacarpophalangeal joints.". Prior to admission the patient was given a dose of ceftriaxone, 1gm IV mag, and a 500 mL NSS bolus. We were asked to admit for ongoing confusion compared to the patient's baseline. At the time of the exam the patient was lying in bed in no cute distress, his family had left the hospital prior to my arrival. History was difficult to obtain from the patient due to his current confusion. He was able to tell me that he had a fall today, but that was about it. When asked about pain he states that he always has back pain and has chronic pain in his left arm. He is unable to provide any other information. I was able to call and speak with his Daughter/primary contact (Mary Rodriguez [phone]) who was able to provide me with a detailed history. The patient and his live with his daughter and her family. Her daughter is his primary caregiver and helps to organize and give his medications. He has baseline short-term memory issues but is normally alert and able to hold a conversation and respond appropriately without issue. Over the past 3 weeks or so the patient has been leaning to the left while walking with his cane, he has had multiple falls due to baseline ambulatory dysfunction. He was at [facility] on 01/02 and underwent same day Left Cataract Phacoemulsification With Intraocular Lens Implant with Dr. Domingo without complication. His daughter confirms that he was fine after bringing him back home and was at his cognitive baseline when he went to bed last night. Over the past few weeks she has noticed that his baseline tremor has been progressing. They had an appointment with [facility] this am to evaluate his spine hardware as a possible cause of his increased ambulatory issues, they told her they did not believe the hardware was causing issues. The patient had a fall while getting out of her car after the appointment, it seems as though his legs too weak to support him. He fell on his left side. Due to his ongoing weakness and increased confusion she brought him to the ED. The patient no longer uses alcohol and does not use recreation drugs. He does not have access to his medications so there is no risk of him accidentally overdosing per his daughter. She states that he seemed more confused and weak this am upon waking. He did not have any of his am medications or breakfast this am prior to ED arrival. He is a full code and his daughter is to make medical decisions for him if he cannot make them himself. He is able to get MRI's if needed but does get claustrophobic. Please refer to Dr. Alan's attestation for any changes to the treatment plan Allergies Allergy/AdvReac Type Severity Reaction Status Date / Time clavulanic acid Allergy Intermediate hives Verified 01/02/23 11:30 lisinopril Allergy Intermediate cough, Verified 01/02/23 11:30 edema Penicillins Allergy Intermediate hives Verified 01/02/23 11:30 tazobactam Allergy Intermediate hives Verified 01/02/23 11:30 acetaminophen AdvReac Intermediate liver Verified 01/02/23 11:30 injury-GURROLA Home Medications Medication Instructions Recorded Confirmed Type bupropion HCl 150 mg tablet,12 hr 150 mg PO QAM 03/18/18 01/04/23 History sustained-release (Wellbutrin SR) metformin 500 mg tablet 500 mg PO BID 08/10/19 01/04/23 History gabapentin 300 mg capsule 600 mg PO TID 01/21/20 01/04/23 History glimepiride 2 mg tablet 2 mg PO QAM 01/21/20 01/04/23 History amitriptyline 50 mg tablet 100 mg PO HS 03/30/21 01/04/23 History aspirin 81 mg tablet,delayed 81 mg PO QAM #30 tabs 04/07/21 01/04/23 Rx release metoprolol succinate 25 mg 25 mg PO QAM 03/30/22 01/04/23 History tablet,extended release 24 hr prednisone 5 mg tablet 5 mg PO QAM 03/30/22 01/04/23 History sertraline 25 mg tablet 25 mg PO QAM 03/30/22 01/04/23 History tramadol 50 mg tablet 50 mg PO Q8 PRN Pain 03/30/22 01/04/23 History prednisolone 1 %-moxifloxacin 0.5 1 drp ophthalmic (eye) Q4H 01/04/23 01/04/23 History %-bromfenac 0.075 % eye drops susp Past Med/Surg History Medical History Cellulitis HX 03/2021-[facility] Located to left LE- resolved Chronic back pain Contact with and (suspected) exposure to covid-19 12/2020 > resolved Degenerative disc disease Degenerative joint disease of right hip Depression Diabetes mellitus, type 2 NIDDM Glucose stable Diabetic neuropathy Hands and feet Fatty liver GURROLA Hypertension Osteoarthritis Rheumatic nodule hands Rheumatoid arthritis Follows with rheumatology, affects hands (nodules), good cervical extension Dr. Cloud Surgical History H/O hand surgery PROCEDURE: 1. Left hand incision and drainage abscess dorsal hand. 2. Left fifth digit extensor tenosynovectomy in the hand. 3. Left fifth metacarpophalangeal joint arthrotomy and drainage. 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 -- able to repair arm History of tonsillectomy History of total hip arthroplasty left 2019 History of total hip arthroplasty right 2020 Family History Mother Diabetes Father Heart disease Other Family history non-contributory No family history of adverse response to anesthesia Social History Smoking Status: Never smoker Second Hand Exposure: No; Do You Dip or Chew Tobacco: No; Tobacco Cessation Education Requested by Patient: No Hx Alcohol Use: No Hx Substance Use: No Preferred Language: Greenlandic Communication Ability: Effective Data Entry Specialist Required: No Beliefs That Will Affect Care: None marital status: Current Living Situation: Family Current Living Situation Comment: Lives with , Daughter and Son current occupational status: disabled Feels Safe at Home: Yes Assistive Devices: Cane and Glasses Physical Exam Physical Exam: Physical Exam: General: In no acute distress, older than stated age, chronically ill- appearing but non-toxic HEENT: Normocephalic, atraumatic, no scleral icterus, pupils around round, symmetrical, and reactive to light, dry mucus membranes, trachea midline, no thyromegaly Chest/Pulm: No respiratory distress, symmetrical chest expansion, decreased breath sounds in the LLL, otherwise CTA Cardiac: RRR, no murmurs noted Abdomen: Negative for ascites and bruising, normoactive bowel sounds, soft, non-tender to palpation throughout Musculoskeletal: No trauma on inspection and palpation of the head, face, cervical spine, patient able to move BL upper and lower extremities without significant issue, able to place chin to chest without neck pain/stiffness Extremities: Radial, dorsalis pedis, and posterior tibial pulses are intact and symmetrical, no edema noted in the BL LE's Skin: Abrasions noted on the left knuckles, left knee, and right forearm not currently bleeding or draining Neuro: Alert and oriented to person only, patient does follow commands and answers simple questions appropriately, CN II-XII tested and intact, negative pronator drift BL, current tremor noted in the BL upper extremities, exacerbation with intentional movements Psych: No acute distress, calm and cooperative during the exam Results & Data Results & Data Vital Signs (Past 12 Hours) Vital Signs Temp Pulse Resp BP Pulse Ox O2 Del Method O2 Flow Rate 01/04/23 14:30 99 H 17 122/82 97 01/04/23 14:00 104 H 20 125/73 97 01/04/23 14:12 102 H 22 97 Nasal Cannula 2 01/04/23 13:30 107 H 20 118/84 96 Room Air 2 01/04/23 13:00 111 H 26 H 104/74 90 01/04/23 12:40 112 H 23 93 01/04/23 13:06 113 H 01/04/23 12:18 36.6 C 123 H 18 142/78 H 93 Room Air Laboratory Results Abnormal lab results 01/04/23 01/04/23 01/04/23 Range/Units 12:45 12:45 14:09 RBC 4.31 L (4.70-6.10) M/uL Hgb 13.5 L (14.0-18.0) g/dl Hct 39.7 L (42.0-52.0) % Lymph # (Auto) 0.69 L (1.2-3.4) K/uL Robertson # (Auto) 0.64 H (0.11-0.59) K/uL Sodium 135 L (136-145) mmol/L Glucose 131 H (70-99(Fasting)) mg/dl Magnesium 1.5 L (1.7-2.4) mg/dl Total Creatine Kinase 28 L (30-223) U/L C-Reactive Protein 4.61 H (0-0.5) mg/dl Urine pH 8.5 H (4.5-7.5) Urine Protein 1+ H (Negative) U Epithel Cells (Auto) >30 H (0-5) /lpf Urine Sperm Present A (None Prsent) MDMA (Ecstasy) Screen (Neg) 01/04/23 Range/Units 14:09 RBC (4.70-6.10) M/uL Hgb (14.0-18.0) g/dl Hct (42.0-52.0) % Lymph # (Auto) (1.2-3.4) K/uL Robertson # (Auto) (0.11-0.59) K/uL Sodium (136-145) mmol/L Glucose (70-99(Fasting)) mg/dl Magnesium (1.7-2.4) mg/dl Total Creatine Kinase (30-223) U/L C-Reactive Protein (0-0.5) mg/dl Urine pH (4.5-7.5) Urine Protein (Negative) U Epithel Cells (Auto) (0-5) /lpf Urine Sperm (None Prsent) MDMA (Ecstasy) Screen Pos H (Neg) Diagnostic Findings Cervical Spine CT 01/04/23 12:46 CT OF THE CERVICAL SPINE WITHOUT CONTRAST CLINICAL HISTORY: Fall. COMPARISON STUDY: Cervical spine MRI August 24, 2014. Cervical spine radiographs July 18, 2021. TECHNIQUE: Helical axial images of the cervical spine were obtained without IV contrast. Sagittal and coronal reconstructions were viewed. Automated exposure control was utilized for the study. A dose lowering technique was utilized adhering to the principles of ALARA. FINDINGS: There is straightening of the cervical lordosis. No acute cervical spine fracture is present. Moderate multilevel degenerative changes are present. No prevertebral edema. Craniocervical junction is intact. IMPRESSION: No acute cervical spine fracture or subluxation. ACT 112: Negative or not required by law. Electronically signed by: Duane Chowdhury M.D. 01/04/2023 2:00 PM Chest X-Ray 01/04/23 12:46 SINGLE VIEW CHEST CLINICAL HISTORY: Generalized weakness. Fall. FINDINGS: An AP, portable, upright chest radiograph is compared to study dated 04/05/2021 and correlated with chest CT dated 07/07/2022. The examination is degraded by portable technique, apical lordotic positioning, and patient rotation. The heart is enlarged noting atherosclerotic calcification of the thoracic aorta. There is prominence of the pulmonary vasculature. Scarring/atelectasis is noted at both lung bases. No large pleural effusion or pneumothorax is seen. The skeletal structures are osteopenic. There are numerous chronic/healed bilateral rib fractures. IMPRESSION: 1. Cardiomegaly with prominence of the pulmonary vasculature. Correlate clinically for evidence of fluid overload/congestive change. 2. No airspace consolidation or large pleural effusion is identified. ACT 112: Negative or not required by law. Electronically signed by: De Orozco M.D. 01/04/2023 3:50 PM Hand X-Ray 01/04/23 12:46 XR hand LT 2V CLINICAL HISTORY: Fall. COMPARISON: Left hand CT March 10, 2022. FINDINGS: This exam is mildly compromised by motion artifact. No definite acute fracture is noted. Severe joint space narrowing is noted within numerous articulations of the left hand with ulnar deviation of the fingers. Extensive subchondral cystic change within the left wrist is noted. There is marked radiocarpal and ulnocarpal joint space narrowing. There is medial wrist soft tissue swelling. Erosions at the left fifth metacarpophalangeal joint with possible subluxation appear similar to prior CT. IMPRESSION: 1. Exam mildly compromised by difficulty positioning. However, no definite acute fracture identified. 2. Severe joint space narrowing within numerous articulations of the left hand and wrist with extensive subchondral cystic change/erosions. 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 3. Medial wrist soft tissue swelling. Soft tissue swelling adjacent to the metacarpophalangeal joints. ACT 112: Negative or not required by law. Electronically signed by: Duane Chowdhury M.D. 01/04/2023 3:[address] 01/04/23 12:46 CT head/brain wo con CLINICAL HISTORY: fall Technique: Contiguous axial CT images of the head were acquired from the base of the skull to the vertex without intravenous contrast administration. Images were viewed in brain, subdural and bone windows. Automated dose lowering techniques and/or adjustment according to patient size were utilized for this exam. Comparison: Comparison is made to CT head 11/29/2015 Findings: Areas of decreased attenuation are present in the periventricular and subcortical white matter bilaterally consistent with small vessel ischemic disease. Generalized cerebral atrophy with commensurate enlargement of the ventricles, sulci, and cisterns is also present. There is no acute intracranial hemorrhage or evidence of acute territorial infarction. No shift of the midline structures, mass effect, or extra-axial abnormalities are shown. Atherosclerotic calcifications are present in the intracranial segments of the internal carotid arteries. Imaged portions of the paranasal sinuses and mastoid air cells are clear. The orbits appear normal. There are no acute fractures of the calvaria or scalp swelling. Impression: No acute intracranial hemorrhage, no evidence of acute territorial infarction or other acute intracranial disease process. ACT 112: Negative or not required by law. Electronically signed by: Guillaume Basilio M.D. 01/04/2023 2:03 PM Knee X-Ray 01/04/23 12:46 XR knee LT 1 or 2V routine CLINICAL HISTORY: Left knee pain following fall. COMPARISON: MRI of the left tibia and fibula April 05, 2021. CT of the left femur April 03, 2021. Left tibia and fibula radiographs October 11, 2017. FINDINGS: Alignment of the left knee is anatomic. There is no acute fracture. No joint effusion is present. Joint spaces are preserved. There is minimal patellofemoral osteophytosis. IMPRESSION: No acute fracture. ACT 112: Negative or not required by law. Electronically signed by: Duane Chowdhury M.D. 01/04/2023 3:52 PM Pelvis X-Ray 01/04/23 12:46 SINGLE VIEW PELVIS CLINICAL HISTORY: Fall. FINDINGS: An AP, portable, supine pelvic radiograph is compared to study dated 08/08/2020 and correlated with pelvic CT dated 07/07/2022. The skeletal structures are osteopenic. There is no radiographic evidence of acute fracture involving the hips or bony pelvis. Bilateral hip arthroplasties are in near-anatomic alignment. Degenerative sclerosis is seen in the sacroiliac joints. Spondylotic and extensive postsurgical change is partially visualized in the lumbosacral spine. The overlying soft tissues are within normal limits. Phleboliths are seen in the pelvis. IMPRESSION: 1. No acute bony abnormality is identified. 2. Bilateral hip arthroplasties are in near anatomic alignment. Electronically signed by: De Orozco M.D. 01/04/2023 3:45 PM Elbow X-Ray 01/04/23 13:03 XR elbow LT min 3V routine CLINICAL HISTORY: fall TECHNIQUE: 3 views of the left elbow were obtained. Comparison: None available at the time of this dictation. FINDINGS: There is no evidence of an acute fracture. Degenerative changes are seen in the elbow joint. There is no prominence of the anterior or posterior fat pads to suggest an effusion. Normal-appearing anterior fat pad is visualized. No soft tissue abnormality is seen. IMPRESSION: No evidence of acute osseous injury. ACT 112: Negative or not required by law. Electronically signed by: Guillaume Basilio M.D. 01/04/2023 3:57 PM ECG Additional Comments: Sinus tachycardia Otherwise normal ECG When compared with ECG of 11-DEC-2022 10:45, AK interval has decreased Code Status & VTE Plan Code Status Full code VTE Prophylaxis Plan VTE Prophylaxis will be ordered: Yes Supervising Physician Co-Signing Physician Notes I personally saw and examined the patient. I verified all navarro points and agree with Elmer Gillis PA-C with the following exceptions and/or additions: 62 year old male presents to the ER with recurrent falls, generalized weakness and altered mental state. O/E Alert and orientated to self only, PERRL, no pronator drift, HS RRR, no murmurs, Abdo SNT but distended, B/l LE 3/5 equal weakness, 5/5 b/l UE, no facial droop, EOMI intact without diplopia absent knee reflexes in b/l LE, absent sensation in b/l lower extremities (pt reports chronic) A/P Altered mental status - unclear cause but also unclear baseline. Will get CT C/A/P to assess for infective etiology. ?iatrogenic - will hold gabapentin and tramadol B/L LE numbness - pt reports long standing, consider NCS/EMG as outpatient +/- B12 level but suspect from longstanding diabetes, if felt not to be longstanding could consider MRI lumbar spine, if progressive consider lumbar puncture to assess for GBS PG Care Time/CCT Total # of Minutes Spent Total Time Spent with Patient: Total time spent is greater than 50% in coordination of care (as documented) at patient's floor/unit and/or counseling patient: C[place] [address] INT INP/OBS CARE 3/75MIN Patient Type Established Medical Decision Making High Complexity Diagnoses Confusion R41.0 Acute respiratory failure with hypoxia J96.01 Fall W19.XXXA Hypomagnesemia E83.42 Lumbar stenosis with neurogenic claudication M48.062 Hypertension I10 Type 2 diabetes mellitus with diabetic neuropathy E11.40 Depression F32.9 PAD (peripheral artery disease) I73.9 Rheumatoid arthritis M06.9
[2023-01-04 16:20] LABS: C Reactive Protein 4.61 mg/dl (0-0.5)
[2023-01-04] MEDS ORDERED: DEXTROSE 50% 50 ML SYRINGE IV PRN (16:40)
[2023-01-04] MEDS ORDERED: GLUCAGON FOR INJ 1 MG VIAL SQ PRN (16:40)
[2023-01-04] MEDS ORDERED: CARBOHYDRATES FOR HYPOGLYCEMIA PO PRN (16:40)
[2023-01-04] MEDS ORDERED: GLUCOSE 40% GEL 15 GM TUBE PO PRN (16:40)
[2023-01-04] MEDS ORDERED: GLUCOSE 10 TAB/TUBE PO PRN (16:40)
[2023-01-04] MEDS ORDERED: INSULIN ASPART PER UNIT CHARGE SC SCH (16:45)
--- NOTE | 2023-01-04 17:20 | XRay Report ---
XR chest 2V PA/lateral CLINICAL HISTORY: need comparison to 1 view obtained in ED TECHNIQUE: 2 views of the chest were obtained. Comparison: Comparison is made to chest radiograph 01/04/2023 FINDINGS: No lines and tubes are seen. Cardiomegaly is noted. The aortic arch is calcified. Prominence and ceph alization of the vasculature is seen. No evidence of pleural effusion or pneumothorax. IMPRESSION: Cardiomegaly and mild pulmonary edema. ACT 112: Negative or not required by law. Electronically signed by: Guillaume Basilio M.D. 01/04/2023 5:19 PM
[2023-01-04 18:18] LABS: Adenovirus PCR Not Detected (NotDetected); Bordetella parapertussis PCR Not Detected (NotDetected); Bordetella pertussis PCR Not Detected (NotDetected); Chlamydia pneumoniae PCR Not Detected (NotDetected); Coronavirus 229E PCR Not Detected (NotDetected); Coronavirus CoV-2 (COVID19)PCR Not Detected (NotDetected); Coronavirus HKU1 PCR Not Detected (NotDetected); Coronavirus NL63 PCR Not Detected (NotDetected); Coronavirus OC43PCR Not Detected (NotDetected); Human Metapneumovirus PCR Not Detected (NotDetected); Influenza A PCR Not Detected (NotDetected); Influenza B PCR Not Detected (NotDetected); Mycoplasma pneumoniae PCR Not Detected (NotDetected); Parainfluenza Virus 1 PCR Not Detected (NotDetected); Parainfluenza Virus 2 PCR Not Detected (NotDetected); Parainfluenza Virus 3 PCR Not Detected (NotDetected); Parainfluenza Virus 4 PCR Not Detected (NotDetected); Respiratory Syncytial VirusPCR Not Detected (NotDetected); Rhinovirus/Enterovirus PCR Not Detected (NotDetected)
[2023-01-04 18:23] LABS: Acetaminophen < 3 ug/ml (10-30); Salicylate < 3.0 mg/dl (3.0-30)
[2023-01-04] MEDS ORDERED: Nursing to Pharmacy Communication SCH (19:00)
[2023-01-04] MEDS: AMITRIPTYLINE HCL 100 MG TAB PO SCH (20:36)
[2023-01-04] MEDS ORDERED: LANTUS PER UNIT CHARGE SQ SCH (21:00)
[2023-01-04] MEDS: ACETAMINOPHEN 325 MG TAB PO PRN (21:10)
[2023-01-04] MEDS: INSULIN ASPART PER UNIT CHARGE SC SCH (21:12)
[2023-01-04] MEDS ORDERED: OPTIRAY 320 100ml IV ONE (21:31)
--- NOTE | 2023-01-04 22:19 | CT Scan Report ---
Exam(s): CT CHEST With Contrast IV Amt: 92ml OPTIRAY 320 EXAM: CT Chest With Intravenous Contrast CLINICAL HISTORY: Reason for exam: fatigue, confusion, hypoxia. TECHNIQUE: Axial computed tomography images of the chest with intravenous contrast. CTDI is 28.14 mGy and DLP is 880.67 mGy-cm. Automated exposure control was utilized for the study. A dose lowering technique was utilized adhering to the principles of ALARA. CONTRAST: Patient received 92ml OPTIRAY 320 of IV contrast COMPARISON: July 07, 2022 FINDINGS: Lungs: Lungs are well-inflated with scattered linear densities in the mid to lower lungs bilaterally consistent with atelectasis or scarring, pneumonia is considered less likely. No pneumothorax or pleural effusion is seen. Pleural space: See above. Heart: Unremarkable. No cardiomegaly. No significant pericardial effusion. No significant coronary artery calcifications. Bones/joints: Moderate multilevel degenerative changes throughout the thoracic spine no acute fracture is identified. No dislocation. Soft tissues: Unremarkable. Vasculature: The pulmonary arterial tree is adequately opacified with contrast. There is motion artifact blurring the lower lobe branches bilaterally. No pulmonary embolism is identified. The thoracic aorta is mildly calcified but nondilated. There is no aneurysm or dissection. Lymph nodes: Unremarkable. No enlarged lymph nodes. Gallbladder and bile ducts: Limited images of the upper abdomen demonstrate previous cholecystectomy. IMPRESSION: 1. Lungs are well-inflated with scattered linear densities in the mid to lower lungs bilaterally consistent with atelectasis or scarring, pneumonia is considered less likely. No pneumothorax or pleural effusion is seen. 2. The pulmonary arterial tree is adequately opacified with contrast. There is motion artifact blurring the lower lobe branches bilaterally. No pulmonary embolism is identified. 3. The thoracic aorta is mildly calcified but nondilated. There is no aneurysm or dissection. Electronically signed by: Armen Moses MD 01/04/23 22:18 PM
--- NOTE | 2023-01-04 22:41 | CT Scan Report ---
Exam(s): CT ABDOMEN + PELVIS With Contrast IV Amt: 92ML OPTIRAY 320 EXAM: CT Abdomen and Pelvis With Intravenous Contrast CLINICAL HISTORY: Reason for exam: fatigue, confusion, abdominal distension. TECHNIQUE: Axial computed tomography images of the abdomen and pelvis with intravenous contrast. CTDI is 27.32 mGy and DLP is 1496.88 mGy-cm. Automated exposure control was utilized for the study. A dose lowering technique was utilized adhering to the principles of ALARA. CONTRAST: Patient received 92ML OPTIRAY 320 of IV contrast COMPARISON: July 07, 2022 FINDINGS: Lung bases: Mild bibasilar atelectasis. ABDOMEN: Liver: Unremarkable. No mass. Gallbladder and bile ducts: Previous cholecystectomy. No biliary duct dilation is seen. Pancreas: Unremarkable. No mass. No ductal dilation. Spleen: Unremarkable. No splenomegaly. Adrenals: Unremarkable. No mass. Kidneys and ureters: Unremarkable. No solid mass. No hydronephrosis. Stomach and bowel: Unremarkable. No obstruction. No mucosal thickening. PELVIS: Appendix: The appendix is normal. Bowel loops are nondilated. No acute inflammatory changes are seen involving the bowel. Bladder: Unremarkable. No mass. Reproductive: Unremarkable as visualized. ABDOMEN and PELVIS: Intraperitoneal space: Unremarkable. No free air. No significant fluid collection. Bones/joints: Metallic artifact from bilateral hip arthroplasties. Moderate multilevel degenerative changes throughout the spine with previous fusion from L2-S1 is instrumentation at L2-3. No acute fracture or subluxation is seen. Soft tissues: Unremarkable. Vasculature: Unremarkable. No abdominal aortic aneurysm. Lymph nodes: Unremarkable. No enlarged lymph nodes. IMPRESSION: The appendix is normal. Bowel loops are nondilated. No acute inflammatory changes are seen involving the bowel. No acute process is seen within the abdomen or pelvis. Electronically signed by: Armen Moses MD 01/04/23 22:40 PM
[2023-01-05] MEDS: [UNRECOGNIZED DRUG - OTHER] OPL SCH ×6 (06:13→19:54)
[2023-01-05] MEDS: BROM OPL SCH ×6 (06:13→19:54)
[2023-01-05] MEDS: PRED OPL SCH ×6 (06:13→19:54)
--- NOTE | 2023-01-05 06:53 | Hospitalist Progress Note ---
Date of Service January 05, 2023 Assessment & Plan (1) Acute respiratory failure with hypoxia: (2) Confusion: (3) Fall: (4) Back pain: (5) Lumbar stenosis with neurogenic claudication: (6) Orthostatic hypotension: Plan Carlos is a 62 year old male with a PMH significant for DM II, RA, PAD, HTN, depression, and fatty liver disease who presented to the [facility] ED with his Daughter on 01/04 due to confusion, generalized weakness, and fall at home. Altered Mental Status -With mentation cleared and negative w/u so far - suspect residual effect from general anesthesia in setting of polypharmacy (possible serotonin syndrome - amitrityline/sertraline/wellbutrin/tramadol in conjunction with GA) in the setting of underlying dementia. (had reaction to GA previously - prolonged numbness) -Infection work up -ESR, CRP both elevated but Normal WBC. procal at 0.08. UA neg, imaging w/o signs of pneumonia -Patient had Cr improvement from 1.33 to 1.07 overnight after receiving IVF. Could consider poor intake/dehydration as contributing factor to symptoms. -Blood cultures pending, NGTD -Ammonia, salicylate, acetaminophen levels negative, alcohol level negative. -Symptoms could represent progressing dementia. Although patient has not been previously diagnosed, presentation and ongoing symptoms likely diagnostic of dementia. Imaging: -CT head= negative for hemorrhage or large ischemic/embolic stroke -MRI brain= no acute abnormalities -CT chest= no signs of pneumonia -Continue IV rocephin until blood culture resulted. -held gabapentin and tramadol on admission and continued amitriptyline. -should also consider sleep study as outpatient. does report snoring with sleep Acute respiratory failure with hypoxia -Noted to be hypoxic in the low 90's on RA, required 2L NC on admission. Now O2 sat 94% on room air. -Negative work up. -Possibly from atelectasis in setting of mental status change. Fall/Progressive Weakness -Fell while getting out of his daughter's car on day of admission, also has had increasing tilt sideways with walking and instability over a period of time. -Patient has history of lumbar stenosis, s/p several surgeries -Uses cane at home, lives in two story home -Fall precautions ordered -PT/OT consulted Lumbar stenosis with neurogenic claudication -Has been a chronic issue and patient has hx of previous spinal surgery -Continue amitriptyline. -Holding gabapentin and tramadol - resume as tolerated. Type 2 diabetes mellitus with diabetic neuropathy -Hold metformin and Glimepiride -Monitor BSg q6h while NPO -Start 5 units lantus BID, CF 50 q6h for now -DM II and HH diet -Adjust regimen as needed Hypertension -Stable -Continue metoprolol Depression -Continue sertraline and Wellbutrin PAD (peripheral artery disease) -Continue aspirin Rheumatoid arthritis -Continue daily, low dose prednisone Full code Carb consistent diet Heparin SQ Admission and Anticipated Discharge Date Admission Date: January 04, 2023 Supervising Physician Co-Signing Physician Notes Resident Physician Supervision Note: I independently interviewed and examined the patient and verified the navarro history and physical, reviewed labs and image studies and agree with resident findings and care plan. Subjective Patient seen and examined at bedside. Patient admitted last night, no acute overnight events. Today patient is alert and oriented to self but struggles with location/time. He states that he feels "better than yesterday", but does not recall all events that happened yesterday prior to his admission. He denies any chest pain or shortness of breath. Called and spoke with his daughter, Mary. She lives with Mr. Santoyo in addition to his (who is disabled). He typically uses a cane at home but yesterday after waking up he was significantly more weak and struggled to ambulate. He has had progressive difficulties with walking (leaning more to the left, can't lift legs as easily) and due to his history of multiple prior back surgeries- had an appointment with orthopedics yesterday. Per his daughter, they felt that his ambulatory issues were not related to his hardware from prior surgeries although he was scheduled to have a new MRI of the spine at the end of the month. His daughter notes that yesterday they used his 's cane due to his instability and still had a fall. She also states that he seemed confused- he would start conversations but would be unable to finish them. She notes that he typically has some "short term memory issues" but has never been formally diagnosed. Review of Systems Review of Systems: As per above Physical Exam Constitutional: + obese, cooperative and comfortable Eyes: no conjunctival abnormality ENMT: External ears and nose normal. Moist mucous membranes. Respiratory: normal respiratory effort, lungs clear to auscultation Cardiovascular: Rate/Rhythm: regular rate and regular rhythm Gastrointestinal (Abdomen): Abdomen soft, nondistended. Skin: Bandages at bilateral elbows. Rheumatoid nodules at bilateral hands. Psychiatric: Orientation: alert and oriented to person; + not oriented to place and + not oriented to time Apperance: + disheveled Results & Data Results & Data Vital Signs (Past 12 Hours) Vital Signs Temp Pulse Pulse Resp BP Pulse Ox O2 Del Method 01/05/23 03:19 36.5 C 83 20 132/79 97 Room Air 01/04/23 22:48 36.9 C 89 16 109/72 92 Room Air 01/04/23 22:55 92 H 01/04/23 20:30 Room Air 01/04/23 19:20 37.1 C 89 20 113/92 93 Room Air Resident Activity Tracking Resident Involvement: Resident Care Provided Care Provided: Adult Hospital Medicine
[2023-01-05 07:22] LABS: Basophils # (auto) 0.03 K/uL (0-0.2); Basophils % (auto) 0.6 %; Eosinophils # (auto) 0.17 K/uL (0-0.50); Eosinophils % (auto) 3.5 %; Hematocrit (blood only) 38.1 % (42.0-52.0); Hemoglobin 12.7 g/dl (14.0-18.0); Immature Granulocytes # (auto) 0.01 K/uL (0.01-0.20); Immature Granulocytes % (auto) 0.2 %; Lymphocytes # (auto) 1.31 K/uL (1.2-3.4); Lymphocytes % (auto) 26.9 %; Mean Corpuscular Hemoglobin 31.8 pg (25.0-34.0); Mean Corpuscular Hgb Conc 33.3 g/dL (32.0-36.0); Mean Corpuscular Volume 95.5 fL (80.0-100.0); Mean Platelet Volume 10.1 fL (9.4-12.4); Monocytes # (auto) 0.55 K/uL (0.11-0.59); Monocytes % (auto) 11.3 %; Neutrophils % (auto) 57.5 %; Platelet Count 147 K/uL (130-400); RDW Coefficient of Variation 13.8 % (11.5-14.5); RDW Standard Deviation 48.6 fL (36.4-46.3); Red Blood Count 3.99 M/uL (4.70-6.10); White Blood Count 4.87 K/ul (4.8-10.8)
[2023-01-05 07:45] LABS: INR 1.1 (0.9-1.1); Prothrombin Time 11.9 Seconds (9.0-12.0)
[2023-01-05 07:47] LABS: Albumin Level 3.4 gm/dl (3.4-5.0); Bilirubin,Total 0.7 mg/dl (0.2-1.0); Calcium 8.7 mg/dl (8.6-10.3); Creatinine Clr Calc Pharmacy 84.1 ml/min; Est GFR (African American) 84.6 ml/min; Globulin 3.3 gm/dl (2.5-4.0); Magnesium 1.8 mg/dl (1.7-2.4); Total Protein 6.7 gm/dl (6.0-8.3)
[2023-01-05] MEDS: INSULIN ASPART PER UNIT CHARGE SC SCH ×4 (07:52→20:11)
[2023-01-05] MEDS: ASPIRIN 81 MG ECTAB PO SCH (08:23)
[2023-01-05] MEDS: buPROPion SR 150 MG TABCR PO SCH (08:23)
[2023-01-05] MEDS: predniSONE 5 MG TAB PO SCH (08:23)
[2023-01-05] MEDS: SERTRALINE HCL 50 MG TABLET PO SCH (08:23)
[2023-01-05] MEDS: METOPROLOL SUCC 25MG EXT REL TAB PO SCH (08:24)
--- NOTE | 2023-01-05 15:00 | Magnetic Resonance Report ---
Brain MRI WITHOUT CONTRAST HISTORY: confusion, weakness. rule out stroke TECHNIQUE: Multiplanar multisequence MRI of the brain was performed without the use of contrast. COMPARISON STUDY: Head CT 01/04/2023. Brain MRI 07/26/2014. FINDINGS: There is no mass, hematoma, midline shift, or acute infarct. Partial opacification of the r ight anterior ethmoid air cells. Prior left lens removal. The mastoid air cells are clear. The ventri cles and sulci demonstrate mild age-related involutional changes. Scattered foci of T2 hyperintensity seen within the periventricular and subcortical white matter are nonspecific but suggestive of mild microvascular ischemic changes. The major vascular flow voids at the skull base are well-maintained. IMPRESSION: No acute intracranial abnormality. ACT 112: Negative or not required by law. Electronically signed by: Brennon Carter M.D. 01/05/2023 2:58 PM
[2023-01-05] MEDS ORDERED: cefTRIAXone SODIUM 2,000 MG in DEXTROSE 5% 50 ML IV SCH (17:00)
[2023-01-05] MEDS: HEPARIN SOD 5,000 UNIT/0.5 ML VIAL SQ SCH (19:54)
[2023-01-05] MEDS: AMITRIPTYLINE HCL 100 MG TAB PO SCH (19:54)
--- NOTE | 2023-01-05 20:53 | Electrocardiogram Report ---
Test Reason : Blood Pressure : / mmHG Vent. Rate : 114 BPM Atrial Rate : 114 BPM P-R Int : 216 ms QRS Dur : 104 ms QT Int : 306 ms P-R-T Axes : 030 -18 030 degrees QTc Int : 421 ms Sinus tachycardia with 1st degree A-V block Otherwise normal ECG When compared with ECG of 11-DEC-2022 10:45, No significant change Confirmed by Trenton Ely ([id number]) on 01/05/2023 8:53:04 PM Referred By: Confirmed By:Trenton Ely
[2023-01-06] MEDS: MELATONIN 3 MG TAB PO PRN (00:30)
[2023-01-06] MEDS: BROM OPL SCH ×6 (00:31→20:03)
[2023-01-06] MEDS: [UNRECOGNIZED DRUG - OTHER] OPL SCH ×6 (00:31→20:03)
[2023-01-06] MEDS: PRED OPL SCH ×6 (00:31→20:03)
[2023-01-06 07:04] LABS: Basophils # (auto) 0.02 K/uL (0-0.2); Basophils % (auto) 0.4 %; Eosinophils # (auto) 0.21 K/uL (0-0.50); Eosinophils % (auto) 3.8 %; Hematocrit (blood only) 39.3 % (42.0-52.0); Hemoglobin 13.2 g/dl (14.0-18.0); Immature Granulocytes # (auto) 0.01 K/uL (0.01-0.20); Immature Granulocytes % (auto) 0.2 %; Lymphocytes % (auto) 25.6 %; Mean Corpuscular Hemoglobin 31.6 pg (25.0-34.0); Mean Corpuscular Hgb Conc 33.6 g/dL (32.0-36.0); Mean Platelet Volume 9.3 fL (9.4-12.4); Monocytes # (auto) 0.49 K/uL (0.11-0.59); Neutrophils # (auto) 3.33 K/uL (1.40-6.50); Platelet Count 145 K/uL (130-400); RDW Coefficient of Variation 13.7 % (11.5-14.5); RDW Standard Deviation 47.4 fL (36.4-46.3); Red Blood Count 4.18 M/uL (4.70-6.10); White Blood Count 5.46 K/ul (4.8-10.8)
--- NOTE | 2023-01-06 07:18 | Hospitalist Progress Note ---
Date of Service January 06, 2023 Assessment & Plan (1) Acute respiratory failure with hypoxia: (2) Confusion: (3) Fall: (4) Back pain: (5) Lumbar stenosis with neurogenic claudication: (6) Orthostatic hypotension: Plan Carlos is a 62 year old male with a PMH significant for DM II, RA, PAD, HTN, depression, and fatty liver disease who presented to the [facility] ED with his Daughter on 01/04 due to confusion, generalized weakness, and fall at home. Altered Mental Status -With mentation cleared and negative w/u so far - suspect residual effect from general anesthesia in setting of polypharmacy (possible serotonin syndrome - amitriptyline/sertraline/Wellbutrin/tramadol in conjunction with GA) in the setting of underlying dementia. (had reaction to GA previously - prolonged numbness) -Patient's daughter notes that she was instructed to hold his Amitriptyline for three days prior to general anesthesia -Upcoming additional cataract surgery scheduled for January 16 -Will communicate with anesthesia and patient's PCP (Dr. Miller) to create plan to help avoid this possible side effect in the future -Infection work up -ESR, CRP both elevated but Normal WBC. procal at 0.08. UA neg, imaging w/o signs of pneumonia -Blood cultures, NGTD -Metabolic work up -Patient had Cr improvement from 1.33 to 1.07 overnight after receiving IVF. Could consider poor intake/dehydration as contributing factor to symptoms. -Ammonia, salicylate, acetaminophen levels negative, alcohol level negative. -Symptoms could represent progressing dementia/sundowning. Although patient has not been previously diagnosed, presentation and ongoing symptoms likely diagnostic of dementia. Imaging: -CT head= negative for hemorrhage or large ischemic/embolic stroke -MRI brain= no acute abnormalities -CT chest= no signs of pneumonia -Will d/c antibiotics -Resume gabapentin. To consider resuming tramadol in am. continue amitriptyline. -should also consider sleep study as outpatient. does report snoring with sleep Hypoxia -Noted to be hypoxic in the low 90's on RA, required 2L NC on admission. Now O2 sat 94% on room air. -Negative work up. -Possibly from atelectasis in setting of mental status change. Fall/Progressive Weakness -Fell while getting out of his daughter's car on day of admission, also has had increasing tilt sideways with walking and instability over a period of time. -Patient has history of lumbar stenosis, s/p several surgeries -Uses cane at home, lives in two story home -Fall precautions ordered -PT/OT consulted -PT initial evaluation: continue with PT at discharge Lumbar stenosis with neurogenic claudication -Has been a chronic issue and patient has hx of previous spinal surgery -Continue amitriptyline. -Holding home tramadol - resuming gabapentin today. Type 2 diabetes mellitus with diabetic neuropathy -Hold metformin and Glimepiride -Monitor BSg q6h while NPO -Start 5 units lantus BID, CF 50 q6h for now -DM II and HH diet -Adjust regimen as needed Hypertension -Stable -Continue metoprolol Depression -Continue sertraline and Wellbutrin PAD (peripheral artery disease) -Continue aspirin Rheumatoid arthritis -Continue daily, low dose prednisone Full code Carb consistent diet Heparin SQ Admission and Anticipated Discharge Date Admission Date: January 04, 2023 Supervising Physician Co-Signing Physician Notes Resident Physician Supervision Note: I independently interviewed and examined the patient and verified the navarro history and physical, reviewed labs and image studies and agree with resident findings and care plan. Subjective Patient seen and examined at bedside. Carlos states that he had some trouble with sleeping last night. Today he states he feels "ok," he has been eating and drinking without issue. Denies chest pain or shortness of breath. He was ambulating around the halls with physical therapy this morning. Review of Systems Review of Systems: As per above Physical Exam Constitutional: + obese, cooperative and comfortable Eyes: no conjunctival abnormality ENMT: External ears and nose normal. Moist mucous membranes. Respiratory: normal respiratory effort, lungs clear to auscultation Cardiovascular: Rate/Rhythm: regular rate and regular rhythm Gastrointestinal (Abdomen): Abdomen soft, nontender. No masses palpated. Skin: no rashes, warm and dry Rheumatoid nodules at both hands. Bandages covering right elbow. Psychiatric: Orientation: alert, oriented to person and oriented to place; + not oriented to time Apperance: + disheveled Results & Data Results & Data Vital Signs (Past 12 Hours) Vital Signs Temp Pulse Pulse Resp BP Pulse Ox O2 Del Method 01/06/23 03:12 36.6 C 86 18 110/54 L 93 Room Air 01/05/23 23:28 36.9 C 90 16 136/78 98 Room Air 01/05/23 23:01 93 H 01/05/23 20:00 Room Air 01/05/23 19:36 36.5 C 96 H 18 97/74 L 93 Room Air Resident Activity Tracking Resident Involvement: Resident Care Provided Care Provided: Adult Hospital Medicine
[2023-01-06 07:19] LABS: Albumin Globulin Ratio 0.9 (0.9-2); Albumin Level 3.4 gm/dl (3.4-5.0); BUN Creatinine Ratio 19.8 (10-20); Bilirubin,Total 0.5 mg/dl (0.2-1.0); Calcium 8.8 mg/dl (8.6-10.3); Creatinine Clr Calc Pharmacy 83.9 ml/min; Est GFR (African American) 85.5 ml/min; Est GFR (Non-African American) 73.8 ml/min; Globulin 3.6 gm/dl (2.5-4.0); Magnesium 1.6 mg/dl (1.7-2.4)
[2023-01-06 07:52] LABS: Prothrombin Time 11.4 Seconds (9.0-12.0)
[2023-01-06] MEDS: METOPROLOL SUCC 25MG EXT REL TAB PO SCH (08:39)
[2023-01-06] MEDS: SERTRALINE HCL 50 MG TABLET PO SCH (08:39)
[2023-01-06] MEDS: ASPIRIN 81 MG ECTAB PO SCH (08:39)
[2023-01-06] MEDS: buPROPion SR 150 MG TABCR PO SCH (08:39)
[2023-01-06] MEDS: predniSONE 5 MG TAB PO SCH (08:39)
[2023-01-06] MEDS: HEPARIN SOD 5,000 UNIT/0.5 ML VIAL SQ SCH ×2 (08:40→20:03)
[2023-01-06] MEDS: INSULIN ASPART PER UNIT CHARGE SC SCH ×4 (08:40→20:03)
[2023-01-06] MEDS: GABAPENTIN 600 MG TAB PO SCH ×2 (14:04→20:03)
[2023-01-06] MEDS: AMITRIPTYLINE HCL 100 MG TAB PO SCH (20:03)
[2023-01-07] MEDS: [UNRECOGNIZED DRUG - OTHER] OPL SCH ×7 (00:20→23:41)
[2023-01-07] MEDS: PRED OPL SCH ×7 (00:20→23:41)
[2023-01-07] MEDS: BROM OPL SCH ×7 (00:20→23:41)
[2023-01-07 06:35] LABS: Basophils # (auto) 0.02 K/uL (0-0.2); Basophils % (auto) 0.4 %; Eosinophils # (auto) 0.13 K/uL (0-0.50); Eosinophils % (auto) 2.4 %; Hemoglobin 13.5 g/dl (14.0-18.0); Immature Granulocytes # (auto) 0.01 K/uL (0.01-0.20); Immature Granulocytes % (auto) 0.2 %; Lymphocytes # (auto) 1.03 K/uL (1.2-3.4); Lymphocytes % (auto) 19.4 %; Mean Corpuscular Hemoglobin 31.2 pg (25.0-34.0); Mean Corpuscular Hgb Conc 33.8 g/dL (32.0-36.0); Mean Corpuscular Volume 92.4 fL (80.0-100.0); Mean Platelet Volume 9.1 fL (9.4-12.4); Monocytes # (auto) 0.49 K/uL (0.11-0.59); Monocytes % (auto) 9.2 %; Neutrophils # (auto) 3.64 K/uL (1.40-6.50); Neutrophils % (auto) 68.4 %; Platelet Count 159 K/uL (130-400); RDW Coefficient of Variation 13.7 % (11.5-14.5); RDW Standard Deviation 46.6 fL (36.4-46.3); Red Blood Count 4.33 M/uL (4.70-6.10); White Blood Count 5.32 K/ul (4.8-10.8)
[2023-01-07 06:55] LABS: Albumin Globulin Ratio 0.9 (0.9-2); Albumin Level 3.5 gm/dl (3.4-5.0); BUN Creatinine Ratio 18.5 (10-20); Bilirubin,Total 0.5 mg/dl (0.2-1.0); Calcium 8.8 mg/dl (8.6-10.3); Creatinine Clr Calc Pharmacy 82.4 ml/min; Est GFR (African American) 83.6 ml/min; Est GFR (Non-African American) 72.2 ml/min; Globulin 3.7 gm/dl (2.5-4.0); Magnesium 1.7 mg/dl (1.7-2.4); Potassium 4.2 mmol/L (3.5-5.1); Total Protein 7.2 gm/dl (6.0-8.3)
[2023-01-07 07:19] LABS: Prothrombin Time 11.4 Seconds (9.0-12.0)
[2023-01-07] MEDS: METOPROLOL SUCC 25MG EXT REL TAB PO SCH (07:52)
[2023-01-07] MEDS: predniSONE 5 MG TAB PO SCH (07:53)
[2023-01-07] MEDS: SERTRALINE HCL 50 MG TABLET PO SCH (07:53)
[2023-01-07] MEDS: GABAPENTIN 600 MG TAB PO SCH ×3 (07:53→20:40)
[2023-01-07] MEDS: buPROPion SR 150 MG TABCR PO SCH (07:54)
[2023-01-07] MEDS: ASPIRIN 81 MG ECTAB PO SCH (07:54)
[2023-01-07] MEDS: HEPARIN SOD 5,000 UNIT/0.5 ML VIAL SQ SCH ×2 (07:55→20:40)
[2023-01-07] MEDS: INSULIN ASPART PER UNIT CHARGE SC SCH ×4 (08:17→20:42)
--- NOTE | 2023-01-07 09:55 | Hospitalist Progress Note ---
Date of Service January 07, 2023 Assessment & Plan (1) Acute respiratory failure with hypoxia: (2) Confusion: (3) Fall: (4) Back pain: (5) Lumbar stenosis with neurogenic claudication: (6) Orthostatic hypotension: Plan Pt is a 62 year old male with a PMH significant for DM II, RA, PAD, HTN, depression, and fatty liver disease who presented to the [facility] ED with his daughter on 01/04 due to confusion, generalized weakness, and fall at home. Altered mental status -Infection work up: -ESR, CRP both elevated but normal WBC. procal at 0.08. UA neg, imaging w/o signs of pneumonia -Blood cultures neg after 48 hours - Toxic work up: ammonia, salicylate, acetaminophen levels negative, alcohol level negative - Imaging: -CT head; negative for hemorrhage or large ischemic/embolic stroke -MRI brain; no acute abnormalities -CT chest; no signs of pneumonia - With mentation back to baseline and negative work up- suspect delirium in the setting of general anesthesia, polypharmacy, and presumed underlying dementia (although no prior official dx) - Pt has second cataract surgery scheduled for January 16; recommend communication with anesthesia and patient's PCP (Dr. Miller) to re-enforce del irium precautions with patient and family Fall/progressive weakness - Fell while getting out of his daughter's car on day of admission, also has had increasing tilt sideways with walking and instability over a longer period of time - Patient has history of lumbar stenosis, s/p several surgeries - PT recommended continuation with outpatient PT upon discharge Acute respiratory failure with hypoxia - Noted to be hypoxic in the low 90's on RA, required 2L NC on admission; pt has been satting >90 on RA - Negative work up - ?atelectasis in setting of mental status change Lumbar stenosis with neurogenic claudication - chronic issue and patient has hx of previous spinal surgery - continue home amitriptyline and gabapentin - holding home tramadol Type 2 diabetes mellitus with diabetic neuropathy - Hold metformin and glimepiride - monitor BSg q6h while NPO - SSI Hypertension - continue metoprolol Depression - continue sertraline and wellbutrin PAD (peripheral artery disease) - continue aspirin Rheumatoid arthritis - continue daily, low dose prednisone Code: Full Diet: carb consistent, HH DVT ppx: Heparin SQ Dispo: med/surg, continue to work with PT (especially with stairs), plan for outpatient PT upon discharge Admission and Anticipated Discharge Date Admission Date: January 04, 2023 Supervising Physician Co-Signing Physician Notes I personally examined the patient and verified all navarro points of history and exam, discussed case, and agree with decision making with Dr Cervantes feeling better just wants to work wt PT more to ensure he's good to do stairs to be able to go home vitals noted nad heent nc at mmm breathing unlabored no accessory muscles good effort skin no rashes nop allor or icterus possible toxic encephalopathy - multifactorial - but improving. awaiting PT input. 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 He states he is much better than when he came in, but not quite back to 100%. He is concerned because he has 13-14 steps at home to get to his bedroom. He would like to work with PT to address this issues prior to going home. Review of Systems Review of Systems: As per HPI Physical Exam Physical Exam: Constitutional: well appearing, no acute distress HEENT: normocephalic, no conjunctival injection CV: RRR, no murmur, no LE edema Respiratory: CTA bilaterally. No rhonchi, wheezes, or crackles. No increased work of breathing MSK: no gross deformities noted Skin: warm, dry, no rashes Neuro: alert, oriented, no FND noted Psych: mood and affect congruent Results & Data Results & Data Vital Signs (Past 12 Hours) Vital Signs Temp Pulse Pulse Resp BP Pulse Ox O2 Del Method 01/07/23 08:00 101 H 01/07/23 07:29 37.0 C 102 H 18 132/77 95 Room Air 01/07/23 03:42 36.6 C 94 H 20 112/79 95 Room Air 01/06/23 23:19 94 H 01/06/23 23:15 36.8 C 96 H 18 118/75 95 Room Air Resident Activity Tracking Resident Involvement: Resident Care Provided Care Provided: Adult Hospital Medicine
--- NOTE | 2023-01-07 17:35 | Billing Data ---
Date of Service January 07, 2023 Coding Level of Care Code 46068 SUB INP/OBS CARE
[2023-01-07] MEDS: AMITRIPTYLINE HCL 100 MG TAB PO SCH (20:40)
[2023-01-07] MEDS: MELATONIN 3 MG TAB PO PRN (23:42)
[2023-01-07] MEDS: ACETAMINOPHEN 325 MG TAB PO PRN (23:42)
[2023-01-08] MEDS: BROM OPL SCH ×3 (04:01→12:42)
[2023-01-08] MEDS: PRED OPL SCH ×3 (04:01→12:42)
[2023-01-08] MEDS: [UNRECOGNIZED DRUG - OTHER] OPL SCH ×3 (04:01→12:42)
[2023-01-08 06:35] LABS: Hematocrit (blood only) 39.9 % (42.0-52.0); Hemoglobin 13.3 g/dl (14.0-18.0); Mean Corpuscular Hemoglobin 31.2 pg (25.0-34.0); Mean Corpuscular Hgb Conc 33.3 g/dL (32.0-36.0); Mean Corpuscular Volume 93.7 fL (80.0-100.0); Mean Platelet Volume 9.4 fL (9.4-12.4); Platelet Count 170 K/uL (130-400); RDW Coefficient of Variation 13.7 % (11.5-14.5); RDW Standard Deviation 46.7 fL (36.4-46.3); Red Blood Count 4.26 M/uL (4.70-6.10); White Blood Count 4.91 K/ul (4.8-10.8)
[2023-01-08 06:37] LABS: BUN Creatinine Ratio 20.5 (10-20); Calcium 8.7 mg/dl (8.6-10.3); Creatinine Clr Calc Pharmacy 79.4 ml/min; Potassium 3.7 mmol/L (3.5-5.1)
[2023-01-08] MEDS: ACETAMINOPHEN 325 MG TAB PO PRN (08:20)
[2023-01-08] MEDS: ASPIRIN 81 MG ECTAB PO SCH (08:21)
[2023-01-08] MEDS: HEPARIN SOD 5,000 UNIT/0.5 ML VIAL SQ SCH (08:21)
[2023-01-08] MEDS: buPROPion SR 150 MG TABCR PO SCH (08:21)
[2023-01-08] MEDS: SERTRALINE HCL 50 MG TABLET PO SCH (08:22)
[2023-01-08] MEDS: predniSONE 5 MG TAB PO SCH (08:22)
[2023-01-08] MEDS: METOPROLOL SUCC 25MG EXT REL TAB PO SCH (08:22)
[2023-01-08] MEDS: GABAPENTIN 600 MG TAB PO SCH ×2 (08:25→14:18)
[2023-01-08] MEDS: INSULIN ASPART PER UNIT CHARGE SC SCH ×2 (08:43→12:43)
[2023-01-08] MEDS ORDERED: POLYETHYLENE (MIRALAX) 17 GM PACK PO SCH (09:45)
--- NOTE | 2023-01-08 10:29 | Discharge Summary ---
Date of Service January 08, 2023 Admission HPI Per Admitting Provider Carlos is a 62 year old male with a PMH significant for DM II, RA, PAD, HTN, depression, and fatty liver disease who presented to the [facility] ED with his Daughter on 01/04 due to confusion, generalized weakness, and fall at home. In the ED the patient was initially found to be tachycardic at 123 and tachypneic at 26 but otherwise stable. Labs were significant for a lymphocyte count of 0.69 and mag of 1.5. CT of the head was read as "No acute intracranial hemorrhage, no evidence of acute territorial infarction or other acute intracranial disease process.". CT of the cervical spine was read as "No acute cervical spine fr acture or subluxation.".Chest xray was read as "1. Cardiomegaly with prominence of the pulmonary vasculature. Correlate clinically for evidence of fluid overload/congestive change. 2. No airspace consolidation or large pleural effusion is identified.". Xrays of the left knee and BL Pelvis were read as negative for acute trauma. Xray of the left elbow was negative for acute findings and xray of the left hand was read as ". Exam mildly compromised by difficulty positioning. However, no definite acute fracture identified. 2. Severe joint space narrowing within numerous articulations of the left hand and wrist with extensive subchondral cystic change/erosions. 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 3. Medial wrist soft tissue swelling. Soft tissue swelling adjacent to the metacarpophalangeal joints.". Prior to admission the patient was given a dose of ceftriaxone, 1gm IV mag, and a 500 mL NSS bolus. We were asked to admit for ongoing confusion compared to the patient's baseline. At the time of the exam the patient was lying in bed in no cute distress, his family had left the hospital prior to my arrival. History was difficult to obtain from the patient due to his current confusion. He was able to tell me that he had a fall today, but that was about it. When asked about pain he states that he always has back pain and has chronic pain in his left arm. He is unable to provide any other information. I was able to call and speak with his Daughter/primary contact (Mary Rodriguez [phone]) who was able to provide me with a detailed history. The patient and his live with his daughter and her family. Her daughter is his primary caregiver and helps to organize and give his medications. He has baseline short-term memory issues but is normally alert and able to hold a conversation and respond appropriately without issue. Over the past 3 weeks or so the patient has been leaning to the l eft while walking with his cane, he has had multiple falls due to baseline ambulatory dysfunction. He was at [facility] on 01/02 and underwent same day Left Cataract Phacoemulsification With Intraocular Lens Implant with Dr. Domingo without complication. His daughter confirms that he was fine after bringing him back home and was at his cognitive baseline when he went to bed last night. Over the past few weeks she has noticed that his baseline tremor has been progressing. They had an appointment with [facility] this am to evaluate his spine hardware as a possible cause of his increased ambulatory issues, they told her they did not believe the hardware was causing issues. The patient had a fall while getting out of her car after the appointment, it seems as though his legs too weak to support him. He fell on his left side. Due to his ongoing weakness and increased confusion she brought him to the ED. The patient no longer uses alcohol and does not use recreation drugs. He does not have access to his medications so there is no risk of him accidentally overdosing per his daughter. She states that he seemed more confused and weak this am upon waking. He did not have any of his am medications or breakfast this am prior to ED arrival. He is a full code and his daughter is to make medical decisions for him if he cannot make them himself. He is able to get MRI's if needed but does get claustrophobic. Please refer to Dr. Alan's attestation for any changes to the treatment plan Admission Exam Per Admitting Provider Physical Exam: General:In no acute distress, older than stated age, chronically ill- appearing but non-toxic HEENT:Normocephalic, atraumatic, no scleral icterus, pupils around round, symmetrical, and reactive to light, dry mucus membranes, trachea midline, no thyromegaly Chest/Pulm:No respiratory distress, symmetrical chest expansion, decreased breath sounds in the LLL, otherwise CTA Cardiac:RRR, no murmurs noted Abdomen:Negative for ascites and bruising, normoactive bowel sounds, soft, non-tender to palpation throughout Musculoskeletal:No trauma on inspection and palpation of the head, face, cervical spine, patient able to move BL upper and lower extremities without significant issue, able to place chin to chest without neck pain/stiffness Extremities:Radial, dorsalis pedis, and posterior tibial pulses are intact and symmetrical, no edema noted in the BL LE's Skin:Abrasions noted on the left knuckles, left knee, and right forearm not currently bleeding or draining Neuro:Alert and oriented to person only, patient does follow commands and answers simple questions appropriately, CN II-XII tested and intact, negative pronator drift BL, current tremor noted in the BL upper extremities, exacerbation with intentional movements Psych:No acute distress, calm and cooperative during the exam Principal Diagnosis delirium in the setting of anesthesia, polypharmacy, and presumed underlying, but undiagnosed, dementia Discharge Exam Constitutional: well appearing, no acute distress HEENT: normocephalic, no conjunctival injection CV: regular rhythm, regular rate, no murmur, minimal LE edema Respiratory: Clear to auscultation bilaterally. No rhonchi, wheezes, or crackles. No increased work of breathing MSK: no gross deformities noted Skin: warm, dry, no rashes Neuro: alert, no FND noted Discharge Data Allergies Allergy/AdvReac Type Severity Reaction Status Date / Time clavulanic acid Allergy Intermediate hives Verified 01/02/23 11:30 lisinopril Allergy Intermediate cough, Verified 01/02/23 11:30 edema Penicillins Allergy Intermediate hives Verified 01/02/23 11:30 tazobactam Allergy Intermediate hives Verified 01/02/23 11:30 acetaminophen AdvReac Intermediate liver Verified 01/02/23 11:30 injury-GURROLA Consultations 01/04/23 15:55 ED Decision to Admit Stat Ordered Studies 01/04/23 12:46 CT cervical spine wo con Stat CT head/brain wo con Stat IMPRESSION: No acute cervical spine fracture or subluxation. 01/04/23 20:48 CT abd pelvis IV con only Urgent IMPRESSION: The appendix is normal. Bowel loops are nondilated. No acute inflammatory changes are seen involving the bowel. No acute process is seen within the abdomen or pelvis. 01/04/23 21:01 CT chest diagnostic w con Urgent IMPRESSION: 1. Lungs are well-inflated with scattered linear densities in the mid to lower lungs bilaterally consistent with atelectasis or scarring, pneumonia is considered less likely. No pneumothorax or pleural effusion is seen. 2. The pulmonary arterial tree is adequately opacified with contrast. There is motion artifact blurring the lower lobe branches bilaterally. No pulmonary embolism is identified. 3. The thoracic aorta is mildly calcified but nondilated. There is no aneurysm or dissection. 01/05/23 10:56 MRI Brain [MR brain wo con] Routine IMPRESSION: No acute intracranial abnormality. Hospital Course (1) Acute respiratory failure with hypoxia: (2) Confusion: (3) Fall: (4) Back pain: (5) Lumbar stenosis with neurogenic claudication: (6) Orthostatic hypotension: Plan Pt is a 62 year old male with a PMH significant for DM II, RA, PAD, HTN, depression, and fatty liver disease who presented to the [facility] ED with his daughter on 01/04 due to confusion, generalized weakness, and fall at home. Altered mental status -Infection work up: -ESR, CRP both elevated but normal WBC. procal at 0.08. UA neg, imaging w/o signs of pneumonia -Blood cultures neg after 48 hours - Toxic work up: ammonia, salicylate, acetaminophen levels negative, alcohol level negative - Imaging: -CT head; negative for hemorrhage or large ischemic/embolic stroke -MRI brain; no acute abnormalities -CT chest; no signs of pneumonia - With mentation back to baseline and negative work up- suspect delirium in the setting of general anesthesia, polypharmacy, and presumed underlying dementia (although no prior official dx) - Pt has second cataract surgery scheduled for January 16; recommend communication with anesthesia and patient's PCP (Dr. Miller) to re-enforce delirium precautions with patient and family Fall/progressive weakness - Fell while getting out of his daughter's car on day of admission, also has had increasing tilt sideways with walking and instability over a longer period of time - Patient has history of lumbar stenosis, s/p several surgeries - Patient is to continue with outpatient physical therapy to improve strength and coordination Acute respiratory failure with hypoxia - Noted to be hypoxic in the low 90's on RA, required 2L NC on admission; pt has been satting >90 on RA - Negative work up - ?atelectasis in setting of mental status change/recent surgery Lumbar stenosis with neurogenic claudication - chronic issue and patient has hx of previous spinal surgery - continue home amitriptyline and gabapentin - may resume home tramadol PRN Type 2 diabetes mellitus with diabetic neuropathy - resume home regimen upon discharge Hypertension - continue metoprolol Depression - continue sertraline and wellbutrin PAD (peripheral artery disease) - continue aspirin Rheumatoid arthritis - continue daily, low dose prednisone Code: Full Diet: carb consistent, HH DVT ppx: Heparin SQ Dispo: home with outpatient PT Total Time Total Time Spent Total Time Spent (In Minutes): <30 Discharge Plan Discharge Items Patient Disposition: Home - Self-Care Reason For Visit: CONFUSION, SOB, Discharge Diagnosis: delirium superimposed on suspected dementia Activity: Per Instructions section Non-emergency contact: Primary Care Provider Call non-emergency contact if: you have any medication questions and your symptoms worsen Follow-up/Referrals: Mina Miller, [Primary Care Provider] - Diet: Carb Consistent or DM2 Addtl Attending Provider Instructions: You were admitted to the hospital for increased confusion and a fall at home. Th is occurred after a recent cataract surgery that required anesthesia. There was no underlying infection or intoxication identified to cause this confusion. Imaging of your head did not yield any causes either. It is suspected that the change in your mental status was due to a combination of multiple medications, anesthesia, and possible underlying dementia. This should be further evaluated/discussed with your PCP. In light of the next cataract surgery, it is recommended that family stay with you to help keep an eye on you as you recover. It is quite possible that a similar reaction will occur with this surgery. To help with your generalized weakness and falls, the physical therapy team at the hospital recommended that you continue with outpatient physical therapy. A discharge summary will be sent to your primary care physician to ensure continuity of care. Please bring this discharge summary with you to your next office appointment so that your provider can review it at that time. Medications: Your medication list has been reviewed and reconciled upon discharge to ensure accuracy and continuity of care. An updated list of all your medications is included with your hospital discharge paperwork. Please review this list closely and make note of any changes to your medications. - No medication changes were made in your regimen Follow up appointments: - Make a follow up appointment with your PCP within the next week. It is very important that you follow up with them shortly after discharge from the hospital. - Keep all of your follow up appointments as already scheduled. If you cannot make an appointment, notify your provider. CONTACT YOUR PRIMARY CARE PROVIDER if you experience any of the following: - Difficulty following your treatment plan - Difficulty taking any of your medications CALL 911 OR GO TO THE EMERGENCY DEPARTMENT if you experience any of the followi ng: - Sudden, severe abdominal pain or nausea/vomiting - Severe chest pain or chest pain that radiates to your jaw or arm - Sudden, severe shortness of breath or difficulty breathing Pending Studies at Discharge: No Stand-Alone Forms: My [facility], Smoking Cessation Medications and DC Order Prescriptions: Continued bupropion HCl [Wellbutrin SR] 150 mg Tablet Sustained-Release 12 Hr 150 mg PO QAM metformin 500 mg tablet 500 mg PO BID glimepiride 2 mg tablet 2 mg PO QAM gabapentin 300 mg capsule 600 mg PO TID amitriptyline 50 mg tablet 100 mg PO HS aspirin 81 mg Tablet,Delayed Release (Dr/Ec) 81 mg PO QAM Qty: 30 0RF prednisone 5 mg tablet 5 mg PO QAM tramadol 50 mg tablet 50 mg PO Q8 PRN (Reason: Pain) Rx Instructions: per daughter sertraline 25 mg tablet 25 mg PO QAM metoprolol succinate 25 mg tablet extended release 24 hr 25 mg PO QAM [id number] 1-0.5-0.075 % Drops,Suspension 1 drp OPHTHALMIC (EYE) Q4H Rx Instructions: Left Eye Discharge Orders: Discharge Order (Routine); Ordered 01/08/23 Ordered By: Magda Cervantes Admission Data Admit Date/Time: 01/04/23 16:25 Attending Provider: Aki Wagner Admit Provider: Adam Alan Primary Care Provider: Mina Miller Other Providers: Adam Alan Supervising Physician Co-Signing Physician Notes I personally examined the patient and verified all navarro points of history and exam, discussed case, and agree with decision making with Dr Cervantes no new complaints, seems to be easily confused, as we discussed a little bit circular about him wanting his daughter contacted, and me informing him Dr. Cervantes was aware and was going to call his daughtermight be even as we are speaking, and that he would wonder who was going to call his daughter or how he would know what his daughter was informed of. Otherwise no new medical concer ns. vitals noted nad heent nc at mmm breathing unlabored no accessory muscles good effort skin no rashes nop allor or icterus. Seems a little bit easily confused, does know he is in the hospital, knows loosely the circumstances of his hospitalization, believes the year to be 2020 possible toxic encephalopathy - multifactorial - seems improved, baseline not certainresident physician talking with family today. yesterday we discussed risks/benefits of likelihood of repeat delirium with second cataract surgery but that longterm benefit probably outweighs risk - but family to be made aware about possibility of recurrent otherwise as above
--- NOTE | 2023-01-08 13:09 | Billing Data ---
Date of Service January 08, 2023 Coding Level of Care Code 05239 IN/OBS DISCH 30 MIN/LESS
[2023-01-11 14:22] LABS: MDA negative; MDEA negative; MDMA (Ecstasy) Urine, Confirm negative
== END 2023-01-08 15:09 | disposition home or self-care (01) | DRG 91 ==
LOC: ED 12:13 → SUATTDRO 16:25 → 2E 16:25 → 3N 01-07 16:33

== ENCOUNTER 2025-04-25 20:08 | Inpatient (IN) ==
[2025-04-25 20:56] LABS: Hematocrit (blood only) 38.3 % (42.0-52.0); Hemoglobin 13.2 g/dl (14.0-18.0); Immature Granulocytes # (auto) 0.02 K/uL (0.01-0.20); Immature Granulocytes % (auto) 0.3 %; Mean Corpuscular Hemoglobin 33.1 pg (25.0-34.0); Mean Corpuscular Volume 96.0 fL (80.0-100.0); Platelet Count 162 K/uL (130-400); RDW Standard Deviation 47.6 fL (36.4-46.3); Red Blood Count 3.99 M/uL (4.70-6.10); White Blood Count 5.97 K/ul (4.8-10.8)
[2025-04-25 21:09] LABS: Alanine Aminotransferase 126.0 U/L (7-52); Albumin Globulin Ratio 1.0 (0.9-2); Albumin Level 3.5 gm/dl (3.4-5.0); Alkaline Phosphatase 118.0 U/L (34-104); Anion Gap 5.0 (3-11); Bilirubin,Total 1.1 mg/dl (0.2-1.0); Blood Urea Nitrogen 15.0 mg/dl (6-23); Calcium 8.9 mg/dl (8.6-10.3); Carbon Dioxide 31.0 mmol/L (21-32); Chloride 99.0 mmol/L (98-107); Creatine Kinase 420.0 U/L (30-223); Creatinine Clr Calc Pharmacy 70.7 ml/min; Globulin 3.4 gm/dl (2.5-4.0); Glucose 284.0 mg/dl (70-99(Fasting)); Magnesium 1.3 mg/dl (1.7-2.4); Potassium 4.4 mmol/L (3.5-5.1); Sodium 135.0 mmol/L (136-145); Total Protein 6.9 gm/dl (6.0-8.3)
[2025-04-25 21:25] LABS: Thyroid Stimulating Hormone 1.364 uIu/ml (0.300-4.500)
[2025-04-25 21:26] LABS: INR 1.1 (0.9-1.1); Prothrombin Time 11.2 Seconds (9.0-12.0)
[2025-04-25 21:39] LABS: Chlamydia pneumoniae PCR Not Detected (NotDetected); Coronavirus 229E PCR Not Detected (NotDetected); Coronavirus CoV-2 (COVID19)PCR Not Detected (NotDetected); Coronavirus HKU1 PCR Not Detected (NotDetected); Coronavirus NL63 PCR Not Detected (NotDetected); Coronavirus OC43PCR Not Detected (NotDetected); Human Metapneumovirus PCR Not Detected (NotDetected); Parainfluenza Virus 1 PCR Not Detected (NotDetected); Parainfluenza Virus 2 PCR Not Detected (NotDetected); Parainfluenza Virus 3 PCR Not Detected (NotDetected); Parainfluenza Virus 4 PCR Not Detected (NotDetected); Respiratory Syncytial VirusPCR Not Detected (NotDetected); Rhinovirus/Enterovirus PCR Not Detected (NotDetected)
--- NOTE | 2025-04-25 22:06 | Emergency Department Note ---
Impression & Plan Generalized weakness, Adult failure to thrive, Hypomagnesemia, Transaminitis, Elevated CK, Acute pain of left shoulder, Acute pain of left hip, Recurrent falls ED Provider Note HISTORY OF PRESENT ILLNESS: Patient is a 65-year-old male presenting with inability to care for himself. Patient was just seen in the emergency department earlier today after having a fall and suffering a hip dislocation. Patient was discharged into the care of his daughter and was at home when he reportedly fell again. Patient reports he has pain in his left shoulder and his left hip. He denies striking his head or loss of consciousness. Family called 911 because they report he has had recurrent falls in the last 72 hours and do not feel it is safe for him to be at home. Patient denies any abdominal pain, nausea or vomiting. Denies any chest pain or shortness of breath. He states that he just loses his footing and he does not pass out when he falls. ROS: as above PHYSICAL EXAM: Constitutional: Patient appears in no acute distress. Morbidly obese. Unkempt appearing HENT: Head: Normocephalic and atraumatic. Eyes: EOMI, PERRL Mouth/Throat: Mucous membranes moist. Neck: Trachea midline. Neck supple. No midline cervical spine tenderness palpation. Cardiovascular: RRR, No murmurs, rubs or gallops. Intact distal pulses. Pulmonary/Chest: No respiratory distress. Breath sounds clear and equal bilaterally. No wheezes or rales. Abdominal: Abdomen soft, no tenderness, rebound or guarding. Musculoskeletal: No edema, tenderness or deformity noted. Skin: Warm and dry. No rash, erythema, pallor or cyanosis Psychiatric: Appropriate mood and affect for situation. Neurological: Alert. CN II-XII grossly intact, moving all extremities spontaneously. MDM: - Vitals signs showed hypertension and tachycardia - History obtained via patient and EMS, given patient's confusion. History as above. - Chronic conditions affecting care: DM-2; peripheral artery disease; depression; HTN - Differential diagnoses include, but are not limited to: Shoulder fracture; hip fracture; hip dislocation; UTI; deconditioning; ACS - Order placed for continuous cardiac monitoring. At this time, monitor showed rate of 100 bpm with normal sinus rhythm, per my interpretation. - External medical records reviewed. Discharge summary dated 01/2023 was reviewed. Patient was admitted at that time due to confusion, generalized weakness and fall at home. - EKG image interpreted by myself showed normal sinus rhythm. Rate tachycardic at 100 bpm. QT 356. No acute ischemic changes. - Laboratory workup interpreted by myself showed normal WBC; normal PT/INR; slight hyponatremia (Na 135); hyperglycemia (glucose 284) with normal anion gap; hypomagnesemia (Mg 1.3); transaminitis (AST 225; ALT 126); elevated total bilirubin (1.1); elevated CK (420); normal troponin; normal TSH - CXR image reviewed and interpreted by myself was negative for pneumonia, per my interpretation. - X-ray pelvis negative for dislocation. - Xray left shoulder negative for fracture or dislocation - CT head wo contrast obtained. - CT abdomen/pelvis with IV contrast negative for acute pathology - Viral respiratory panel negative - UA negative for infection - Given 2g IV magnesium for electrolyte replacement - Discussion was had with sample case porter about patient's case and need for admission - Hospitalist consulted for admission - Patient admitted to [facility] for further evaluation and management. ASSESSMENT AND PLAN: Diagnosis: Generalized weakness; adult failure to thrive; hypomagnesemia; transaminitis; elevated CK; acute pain of left shoulder; acute left hip pain; recurrent falls Plan: admit Past Med/Surg History Problem List (Updated 04/25/25 @ 22:51 by Pauline Douglas MD) Recurrent falls (Acute) Acute pain of left hip (Acute) Acute pain of left shoulder (Acute) Elevated CK (Acute) Transaminitis (Acute) Hypomagnesemia (Acute) Adult failure to thrive (Acute) Generalized weakness (Acute) Acute hyperglycemia (Acute) Fall (Acute) Acute hip pain (Acute) Dislocation, hip closed (Acute) Dizziness Cognitive impairment Parkinson disease Resting tremor Shuffling gait Balance disorder Memory impairment Status post left hip replacement Post-operative state Hypertension Type 2 diabetes mellitus with diabetic neuropathy Tachycardia Depression Right inguinal hernia History of hernia surgery Open right inguinal hernia repair with mesh Dr. Younger 08-27-19 Rt groin pain Status post right hip replacement Encounter for pre-operative examination Cellulitis of left lower extremity without foot Sepsis (Acute) Cellulitis (Acute) BROOKS (acute kidney injury) (Acute) DVT prophylaxis Lumbar back pain Dyspnea Fever PAD (peripheral artery disease) Impingement syndrome, shoulder, left Cellulitis of hand, left (Acute) Encounter for pre-operative examination Abscess, hand Confusion Rheumatoid arthritis Follows with rheumatology, affects hands (nodules), good cervical extension Dr. Cloud Diabetes mellitus, type 2 NIDDM Glucose stable Medical History History of recent hospitalization treated at [facility] emergency room on 01/04/23 for weakness and altered mental status. daughter states stroke/[place]/TIA were all ruled out. patient was kept for observation with no diagnosis. possibly felt it may have been related to the anesthesia he had received on 01/02/23 for his Left cataract extraction, but patient has never had an issue in the past per his daughter. patient is doing well at this time and is home without any further complaints. 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 Left hand incision and drainage abscess dorsal hand. 2. Left fifth digit extensor tenosynovectomy in the hand. 3. Left fifth metacarpophalangeal joint arthrotomy and drainage. 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 -- able to repair arm History of esophagogastroduodenoscopy (EGD) History of total hip arthroplasty left 2018 History of tonsillectomy History of lumbar fusion x2 History of cholecystectomy 12/01/15 - MAC#4, ETT#8.0, Grade 1 View with easy placement Family History Mother Diabetes Father Heart disease Other Family history non-contributory No family history of adverse response to anesthesia Social History Smoking Status: Unknown if ever smoked Second Hand Exposure: No; Do You Dip or Chew Tobacco: No; Hx Alcohol Use: No Hx Substance Use: No Preferred Language: Cook Islander Communication Ability: Effective Sharepoint Solutions Developer Required: No Beliefs That Will Affect Care: None marital status: Current Living Situation: Family current occupational status: disabled Feels Safe at Home: Yes Assistive Devices: Cane and Glasses Allergies Allergies Allergy/AdvReac Type Severity Reaction Status Date / Time clavulanic acid Allergy Intermediate hives Verified 04/05/25 12:57 lisinopril Allergy Intermediate cough, Verified 04/05/25 12:57 edema Penicillins Allergy Intermediate hives Verified 04/05/25 12:57 tazobactam Allergy Intermediate hives Verified 04/05/25 12:57 acetaminophen AdvReac Intermediate liver Verified 04/05/25 12:57 injury-GURROLA Home Meds Home Medications Medication Instructions Recorded Confirmed bupropion HCl 150 mg tablet,12 hr 150 mg PO QAM 03/18/18 04/26/25 sustained-release (Wellbutrin SR) gabapentin 300 mg capsule 600 mg PO TID 01/21/20 04/26/25 glimepiride 2 mg tablet 2 mg PO QAM 01/21/20 04/26/25 tramadol 50 mg tablet 50 mg PO Q8 PRN Pain 03/30/22 04/26/25 amitriptyline 75 mg tablet 75 mg PO DAILY 04/04/23 04/26/25 metformin 500 mg tablet 1,000 mg PO BID 02/05/24 04/26/25 leflunomide 20 mg tablet 20 mg PO DAILY 08/03/24 04/26/25 prednisone 1 mg tablet 1 mg PO DAILY 08/03/24 04/26/25 Previous Rx's Medication Instructions Recorded aspirin 81 mg tablet,delayed 81 mg PO QAM #30 tabs 04/07/21 release carbidopa 25 mg-levodopa 100 mg 1 tab PO QID 90 days #490 tabs 02/01/25 tablet memantine 10 mg tablet 10 mg PO BID #60 tabs 04/05/25 Results & Data (ED) Vital Signs Vital Signs - 24 hr 04/25/25 20:19 04/25/25 20:28 04/25/25 20:28 Temperature 37.2 C Temperature Source Oral Pulse Rate 101 H 101 H Pulse Rate [Apical] Pulse Rhythm Regular Pulse Rhythm [Apical] Pulse Strength Normal Pulse Strength [Apical] Respiratory Rate 20 Respiratory Effort / Characteristics Non-Labored Spontaneous Respiratory Depth Normal Respiratory Pattern Regular Blood Pressure 189/93 H Blood Pressure [Right Arm] Blood Pressure Mean 125 Blood Pressure Mean [Right Arm] Blood Pressure Position Lying Blood Pressure Position [Right Arm] Pulse Oximetry 95 95 Oxygen Delivery Method Room Air Room Air Sepsis Recent Fever Within 48 Hours No Sepsis New/Unexplained Change in Mental Status No Sepsis Action Taken by Nursing No Action Required 04/25/25 20:28 04/25/25 20:39 04/25/25 22:13 Temperature Temperature Source Pulse Rate Pulse Rate [Apical] 101 H 104 H Pulse Rhythm Pulse Rhythm [Apical] Regular Regular Pulse Strength Pulse Strength [Apical] Normal Normal Respiratory Rate 20 16 Respiratory Effort / Characteristics Non-Labored Spontaneous Non-Labored Spontaneous Respiratory Depth Normal Normal Respiratory Pattern Regular Regular Blood Pressure Blood Pressure [Right Arm] 189/93 H 153/95 H Blood Pressure Mean Blood Pressure Mean [Right Arm] 125 114 Blood Pressure Position Blood Pressure Position [Right Arm] Lying Pulse Oximetry 95 95 96 Oxygen Delivery Method Room Air Room Air Room Air Sepsis Recent Fever Within 48 Hours Sepsis New/Unexplained Change in Mental Status Sepsis Action Taken by Nursing 04/25/25 23:17 04/26/25 00:15 Temperature Temperature Source Pulse Rate 103 H Pulse Rate [Apical] 102 H Pulse Rhythm Pulse Rhythm [Apical] Regular Pulse Strength Pulse Strength [Apical] Normal Respiratory Rate 24 Respiratory Effort / Characteristics Non-Labored Spontaneous Respiratory Depth Normal Respiratory Pattern Regular Blood Pressure Blood Pressure [Right Arm] 182/95 H Blood Pressure Mean Blood Pressure Mean [Right Arm] 124 Blood Pressure Position Blood Pressure Position [Right Arm] Lying Pulse Oximetry 91 Oxygen Delivery Method Room Air Sepsis Recent Fever Within 48 Hours Sepsis New/Unexplained Change in Mental Status Sepsis Action Taken by Nursing Laboratory Data 04/25/25 20:21 04/25/25 20:21 Lab Results 04/25/25 04/25/25 04/25/25 Range/Units 20:21 20:40 22:15 WBC 5.97 (4.8-10.8) K/ul RBC 3.99 L (4.70-6.10) M/uL Hgb 13.2 L (14.0-18.0) g/dl Hct 38.3 L (42.0-52.0) % MCV 96.0 (80.0-100.0) fL MCH 33.1 (25.0-34.0) pg MCHC 34.5 (32.0-36.0) g/dL RDW Std Deviation 47.6 H (36.4-46.3) fL RDW Coeff of Tamara 13.2 (11.5-14.5) % Plt Count 162 (130-400) K/uL MPV 9.6 (9.4-12.4) fL Immature Gran % (Auto) 0.3 % Neut % (Auto) 77.9 % Lymph % (Auto) 13.6 % [place] % (Auto) 6.9 % Eos % (Auto) 0.8 % Baso % (Auto) 0.5 % Neut # (Auto) 4.65 (1.40-6.50) K/uL Lymph # (Auto) 0.81 L (1.20-3.40) K/uL [place] # (Auto) 0.41 (0.11-0.59) K/uL Eos # (Auto) 0.05 (0.00-0.50) K/uL Baso # (Auto) 0.03 (0.00-0.20) K/uL Immature Gran # (Auto) 0.02 (0.01-0.20) K/uL PT 11.2 (9.0-12.0) Seconds INR 1.1 (0.9-1.1) Sodium 135 L (136-145) mmol/L Potassium 4.4 (3.5-5.1) mmol/L Chloride 99 (98-107) mmol/L Carbon Dioxide 31 (21-32) mmol/L Anion Gap 5 (3-11) BUN 15 (6-23) mg/dl Creatinine 1.22 (0.6-1.4) mg/dl Est Cr Clr Drug Dosing 70.7 ml/min eGFR 64.98 BUN/Creatinine Ratio 12.3 (10-20) Glucose 284 H (70-99(Fasting)) mg/dl Calcium 8.9 (8.6-10.3) mg/dl Magnesium 1.3 L (1.7-2.4) mg/dl Total Bilirubin 1.1 H (0.2-1.0) mg/dl AST 225 H (13-39) U/L ALT 126 H (7-52) U/L Alkaline Phosphatase 118 H (34-104) U/L Total Creatine Kinase 420 H (30-223) U/L Troponin I High Sens 7.7 (0-20) pg/ml Total Protein 6.9 (6.0-8.3) gm/dl Albumin 3.5 (3.4-5.0) gm/dl Globulin 3.4 (2.5-4.0) gm/dl Albumin/Globulin Ratio 1.0 (0.9-2) TSH 1.364 (0.300-4.500) uIu/ml Urine Color Yellow Urine Appearance Clear (Clear) Urine pH 7.0 (4.5-7.5) Ur Specific Peel 1.029 (1.000-1.030) Urine Protein Negative (Negative) Urine Glucose (UA) 3+ H (Negative) Urine Ketones Negative (Negative) Urine Blood Trace H (Negative) Urine Nitrite Negative (Negative) Urine Bilirubin Negative (Negative) Urine Urobilinogen Negative (Negative) Ur Leukocyte Esterase Negative (Negative) Urine WBC (Auto) 0-5 (0-5) /hpf Urine RBC (Auto) 3-5 H (0-2) /hpf U Hyaline Cast (Auto) 0-2 (0-2) /lpf U Epithel Cells (Auto) 0-2 (0-2) /hpf Urine Bacteria (Auto) None Seen (None Seen) Urine Comment Adenovirus (PCR) Not Detected (NotDetected) B. pertussis DNA (PCR) Not Detected (NotDetected) B.parapertussis DNA PCR Not Detected (NotDetected) C. pneumoniae DNA (PCR) Not Detected (NotDetected) Coronavirus OC43 (PCR) Not Detected (NotDetected) Coronavirus HKU1 (PCR) Not Detected (NotDetected) Coronavirus 229E (PCR) Not Detected (NotDetected) SARS-CoV-2 (PCR) Not Detected (NotDetected) Coronavirus NL63 (PCR) Not Detected (NotDetected) Human Metapneumovir PCR Not Detected (NotDetected) Influenza Type A (PCR) Not Detected (NotDetected) Influenza Type B (PCR) Not Detected (NotDetected) M. pneumoniae (PCR) Not Detected (NotDetected) Parainfluenza 1 (PCR) Not Detected (NotDetected) Parainfluenza 2 (PCR) Not Detected (NotDetected) Parainfluenza 3 (PCR) Not Detected (NotDetected) Parainfluenza 4 (PCR) Not Detected (NotDetected) RSV (PCR) Not Detected (NotDetected) Entero/Rhino (PCR) Not Detected (NotDetected) Administered Medications Discontinued Medications Magnesium Sulfate/Dextrose (Magnesium Sulfate / D5w) 1 gm in 100 mls @ 100 mls/hr IV Q1H LATIA Stop: 04/26/25 00:50 Last Admin: 04/26/25 00:14 Dose: 100 mls/hr Documented By: Infusion: 04/26/25 00:14 Dose: Infused Documented By: Admin: 04/25/25 23:12 Dose: 100 mls/hr Documented By: RICK Ioversol (Optiray 320 100ml) 90 ml IV ONCE ONE Stop: 04/25/25 22:31 Last Admin: 04/25/25 22:30 Dose: 90 ml Documented By: LAMBERT Imaging Data Radiologist's Impression: Chest X-Ray 04/25/25 20:36 Exam(s): XR CXR 1 VIEW EXAM: XR Chest, 1 View CLINICAL HISTORY: Reason for exam: weakness. TECHNIQUE: Frontal view of the chest. COMPARISON: 01/04/23 FINDINGS: Lungs: Mild pulmonary vascular congestion. No consolidation. Pleural space: Small left pleural effusion. No pneumothorax. Heart: Stable cardiac size. Mediastinum: Unremarkable. Normal mediastinal contour. Bones/joints: Unremarkable. No acute fracture. IMPRESSION: Mild pulmonary vascular congestion Electronically signed by: Grant Fisher MD 04/25/25 22:13 PM Pelvis X-Ray 04/25/25 20:36 Exam(s): XR PELVIS, 1-2 views EXAM: XR Pelvis, 1 or 2 Views CLINICAL HISTORY: Reason for exam: R hip pain. TECHNIQUE: Frontal view of the pelvis. COMPARISON: 04/25/25 FINDINGS: Bones/joints: Bilateral total hip arthroplasty. No acute fracture. No dislocation. Soft tissues: Unremarkable. IMPRESSION: No acute fracture Resolution of left hip joint dislocation seen on 04/25/25 Electronically signed by: Grant Fisher MD 04/25/25 22:09 PM Abdomen/Pelvis CT 04/25/25 21:34 Exam(s): CT ABDOMEN + PELVIS With Contrast IV Amt: 90 cc opti 320 EXAM: CT Abdomen and Pelvis With Intravenous Contrast CLINICAL HISTORY: Reason for exam: confusion. TECHNIQUE: Axial computed tomography images of the abdomen and pelvis with intravenous contrast. CTDI is 26 mGy and DLP is 1405 mGy-cm. Automated exposure control was utilized for the study. A dose lowering technique was utilized adhering to the principles of ALARA. CONTRAST: Patient received 90 cc opti 320 of IV contrast COMPARISON: No relevant prior studies available. FINDINGS: Lung bases: Subsegmental bibasilar atelectasis. ABDOMEN: Liver: Unremarkable. No mass. Gallbladder and bile ducts: Cholecystectomy. No ductal dilation. Pancreas: Unremarkable. No mass. No ductal dilation. Spleen: Unremarkable. No splenomegaly. Adrenals: Unremarkable. No mass. Kidneys and ureters: Subcentimeter left renal cyst; no follow-up indicated. No hydronephrosis. Stomach and bowel: Unremarkable. No mucosal thickening. No bowel obstruction. PELVIS: Appendix: Normal appendix. Bladder: Decompressed urinary bladder with Carter catheter in place. Reproductive: Prostate obscured by beam hardening artifact. ABDOMEN and PELVIS: Intraperitoneal space: Unremarkable. No free air, significant free fluid, or fluid collection. Bones/joints: Bilateral total hip arthroplasties. Osteopenia. Laminectomies, posterior hardware fixation, posterior osseous fusion, interbody fusion of the spine L2-S1. No acute fracture or dislocation. Soft tissues: Gynecomastia. Fat containing inguinal hernias, left larger than right. Vasculature: Atherosclerosis. No abdominal aortic aneurysm. Lymph nodes: Unremarkable. No enlarged lymph nodes. IMPRESSION: No acute findings in the abdomen or pelvis. Electronically signed by: Juju Truong M.D. 04/26/25 00:00 AM Shoulder X-Ray 04/25/25 21:34 Exam(s): XR LEFT SHOULDER, 2+ views EXAM: XR Left Shoulder Complete, 2 or More Views CLINICAL HISTORY: Reason for exam: left shoulder pain. TECHNIQUE: Two or more views of the left shoulder. COMPARISON: No relevant prior studies available. FINDINGS: Bones/joints: The bones are osteopenic. Mild degenerative arthritic changes at the left glenohumeral and left acromioclavicular joints. No acute fracture. No dislocation. Soft tissues: Unremarkable. IMPRESSION: No acute fracture Electronically signed by: Grant Fisher MD 04/25/25 22:15 PM Discharge Plan Visit Data Chief Complaint: Weakness Stated Complaint: WEAKNESS, PAIN FROM HIP REPLACEMENT, HERE EARLIER ED Provider: Pauline Douglas Discharge Problem: Generalized weakness, Adult failure to thrive, Hypomagnesemia, Transaminitis, Elevated CK, Acute pain of left shoulder, Acute pain of left hip, Recurrent falls Condition: Fair Forms Stand Alone Forms: [facility] Prescriptions Prescriptions: No Action carbidopa-levodopa 25-100 mg tablet 1 tab PO QID 90 Days Qty: 490 2RF Rx Instructions: 1.5 tabs po for the first two doses of the day, 1 tab for the last two doses of the day amitriptyline 75 mg tablet 75 mg PO DAILY memantine 10 mg tablet 10 mg PO BID Qty: 60 6RF prednisone 1 mg tablet 1 mg PO DAILY leflunomide 20 mg tablet 20 mg PO DAILY bupropion HCl [Wellbutrin SR] 150 mg Tablet Sustained-Release 12 Hr 150 mg PO QAM metformin 500 mg tablet 1,000 mg PO BID glimepiride 2 mg tablet 2 mg PO QAM gabapentin 300 mg capsule 600 mg PO TID aspirin 81 mg Tablet,Delayed Release (Dr/Ec) 81 mg PO QAM Qty: 30 0RF tramadol 50 mg tablet 50 mg PO Q8 PRN (Reason: Pain) Rx Instructions: per daughter Referrals Referrals: Mina Miller DO [Primary Care Provider] -
--- NOTE | 2025-04-25 22:09 | XRay Report ---
Exam(s): XR PELVIS, 1-2 views EXAM: XR Pelvis, 1 or 2 Views CLINICAL HISTORY: Reason for exam: R hip pain. TECHNIQUE: Frontal view of the pelvis. COMPARISON: 04/25/25 FINDINGS: Bones/joints: Bilateral total hip arthroplasty. No acute fracture. No dislocation. Soft tissues: Unremarkable. IMPRESSION: No acute fracture Resolution of left hip joint dislocation seen on 04/25/25 Electronically signed by: Grant Fisher MD 04/25/25 22:09 PM
--- NOTE | 2025-04-25 22:15 | XRay Report ---
Exam(s): XR CXR 1 VIEW EXAM: XR Chest, 1 View CLINICAL HISTORY: Reason for exam: weakness. TECHNIQUE: Frontal view of the chest. COMPARISON: 01/04/23 FINDINGS: Lungs: Mild pulmonary vascular congestion. No consolidation. Pleural space: Small left pleural effusion. No pneumothorax. Heart: Stable cardiac size. Mediastinum: Unremarkable. Normal mediastinal contour. Bones/joints: Unremarkable. No acute fracture. IMPRESSION: Mild pulmonary vascular congestion Electronically signed by: Grant Fisher MD 04/25/25 22:13 PM
--- NOTE | 2025-04-25 22:16 | XRay Report ---
Exam(s): XR LEFT SHOULDER, 2+ views EXAM: XR Left Shoulder Complete, 2 or More Views CLINICAL HISTORY: Reason for exam: left shoulder pain. TECHNIQUE: Two or more views of the left shoulder. COMPARISON: No relevant prior studies available. FINDINGS: Bones/joints: The bones are osteopenic. Mild degenerative arthritic changes at the left glenohumeral and left acromioclavicular joints. No acute fracture. No dislocation. Soft tissues: Unremarkable. IMPRESSION: No acute fracture Electronically signed by: Grant Fisher MD 04/25/25 22:15 PM
[2025-04-25] MEDS: OPTIRAY 320 100ml IV ONE (22:30)
[2025-04-25 22:55] LABS: Appearance Urine Clear (Clear); Bacteria Urine Automated None Seen (None Seen); Cast Urine Automated 0-2 /lpf (0-2); Epithelial Cell Urine Auto 0-2 /hpf (0-2); Glucose Urine UA 3+ (Negative); WBC Urine Automated 0-5 /hpf (0-5)
[2025-04-25] MEDS: MAGNESIUM SULFATE / D5W 1 GM/100 ML BAG IV SCH (23:12)
--- NOTE | 2025-04-26 00:01 | CT Scan Report ---
Exam(s): CT ABDOMEN + PELVIS With Contrast IV Amt: 90 cc opti 320 EXAM: CT Abdomen and Pelvis With Intravenous Contrast CLINICAL HISTORY: Reason for exam: confusion. TECHNIQUE: Axial computed tomography images of the abdomen and pelvis with intravenous contrast. CTDI is 26 mGy and DLP is 1405 mGy-cm. Automated exposure control was utilized for the study. A dose lowering technique was utilized adhering to the principles of ALARA. CONTRAST: Patient received 90 cc opti 320 of IV contrast COMPARISON: No relevant prior studies available. FINDINGS: Lung bases: Subsegmental bibasilar atelectasis. ABDOMEN: Liver: Unremarkable. No mass. Gallbladder and bile ducts: Cholecystectomy. No ductal dilation. Pancreas: Unremarkable. No mass. No ductal dilation. Spleen: Unremarkable. No splenomegaly. Adrenals: Unremarkable. No mass. Kidneys and ureters: Subcentimeter left renal cyst; no follow-up indicated. No hydronephrosis. Stomach and bowel: Unremarkable. No mucosal thickening. No bowel obstruction. PELVIS: Appendix: Normal appendix. Bladder: Decompressed urinary bladder with Carter catheter in place. Reproductive: Prostate obscured by beam hardening artifact. ABDOMEN and PELVIS: Intraperitoneal space: Unremarkable. No free air, significant free fluid, or fluid collection. Bones/joints: Bilateral total hip arthroplasties. Osteopenia. Laminectomies, posterior hardware fixation, posterior osseous fusion, interbody fusion of the spine L2-S1. No acute fracture or dislocation. Soft tissues: Gynecomastia. Fat containing inguinal hernias, left larger than right. Vasculature: Atherosclerosis. No abdominal aortic aneurysm. Lymph nodes: Unremarkable. No enlarged lymph nodes. IMPRESSION: No acute findings in the abdomen or pelvis. Electronically signed by: Juju Truong M.D. 04/26/25 00:00 AM
--- NOTE | 2025-04-26 00:42 | History & Physical Report ---
Date of Service April 26, 2025 Assessment & Plan (1) Recurrent falls: (2) Hypertension: (3) Type 2 diabetes mellitus with diabetic neuropathy: Plan 65-year-old male with history of dementia, Parkinson's disease, diabetes, hypertension presenting with increased frequency of falls at home. Patient fell earlier yesterday and had acute dislocation of his left hip which was reduced. Fell again immediately upon return to his home after ER discharge. He has returned to the ER at the request of his family to pursue possible placement Patient offers no complaints at present #Recurrent fallslikely multifactorial, patient with history of Parkinson's dis ease Maintain fall precautions PT/OT evaluation for possible placement #Parkinson's Continue amitriptyline Continue carbidopa levodopa #Dementia Continue memantine #Rheumatoid arthritis Continue prednisone 1 mg p.o. daily #Diabetes Hold oral agents, metformin and glimepiride Insulin sliding scale #Hypomagnesemia -Repleted -Repeat level in AM History of Present Illness Chief Complaint: frequent falls Primary Care Provider: Mina Miller DO Patient is a 65yo male with history of Parkinson's, Dementia, DM, HTN and RA with increased falls at home presenting with another fall. Patient was getting up to go to the bathroom yesterday and his feet caught the door and he fell onto his left hip. He was seen in the ER and found to have dislocation of the hip which was successfully reduced. Patient returned home and had another fall - striking his left shoulder and left hip. No head trauma or LOC. Patient having difficulty caring for himself at home. He has a daughter that lives nearby and she needed to lift him into the house today. Requesting evaluation for placement. In the ER he is afebrile, tachycardic, BP stable Allergies Allergy/AdvReac Type Severity Reaction Status Date / Time clavulanic acid Allergy Intermediate hives Verified 04/05/25 12:57 lisinopril Allergy Intermediate cough, Verified 04/05/25 12:57 edema Penicillins Allergy Intermediate hives Verified 04/05/25 12:57 tazobactam Allergy Intermediate hives Verified 04/05/25 12:57 acetaminophen AdvReac Intermediate liver Verified 04/05/25 12:57 injury-GURROLA Home Medications Medication Instructions Recorded Confirmed Type bupropion HCl 150 mg tablet,12 hr 150 mg PO QAM 03/18/18 04/26/25 History sustained-release (Wellbutrin SR) gabapentin 300 mg capsule 600 mg PO TID 01/21/20 04/26/25 History glimepiride 2 mg tablet 2 mg PO QAM 01/21/20 04/26/25 History aspirin 81 mg tablet,delayed 81 mg PO QAM #30 tabs 04/07/21 04/26/25 Rx release tramadol 50 mg tablet 50 mg PO Q8 PRN Pain 03/30/22 04/26/25 History amitriptyline 75 mg tablet 75 mg PO DAILY 04/04/23 04/26/25 History metformin 500 mg tablet 1,000 mg PO BID 02/05/24 04/26/25 History leflunomide 20 mg tablet 20 mg PO DAILY 08/03/24 04/26/25 History prednisone 1 mg tablet 1 mg PO DAILY 08/03/24 04/26/25 History carbidopa 25 mg-levodopa 100 mg 1 tab PO QID 90 days #490 tabs 02/01/25 04/26/25 Rx tablet memantine 10 mg tablet 10 mg PO BID #60 tabs 04/05/25 04/26/25 Rx Past Med/Surg History Problem List Recurrent falls (Acute) Acute pain of left hip (Acute) Acute pain of left shoulder (Acute) Elevated CK (Acute) Transaminitis (Acute) Hypomagnesemia (Acute) Adult failure to thrive (Acute) Generalized weakness (Acute) Acute hyperglycemia (Acute) Fall (Acute) Acute hip pain (Acute) Dislocation, hip closed (Acute) Dizziness Cognitive impairment Parkinson disease Resting tremor Shuffling gait Balance disorder Memory impairment Status post left hip replacement Post-operative state Hypertension Type 2 diabetes mellitus with diabetic neuropathy Tachycardia Depression Right inguinal hernia History of hernia surgery Open right inguinal hernia repair with mesh Dr. Younger 08-27-19 Rt groin pain Status post right hip replacement Encounter for pre-operative examination Cellulitis of left lower extremity without foot Sepsis (Acute) Cellulitis (Acute) BROOKS (acute kidney injury) (Acute) DVT prophylaxis Lumbar back pain Dyspnea Fever PAD (peripheral artery disease) Impingement syndrome, shoulder, left Cellulitis of hand, left (Acute) Encounter for pre-operative examination Abscess, hand Confusion Rheumatoid arthritis Follows with rheumatology, affects hands (nodules), good cervical extension Dr. Cloud Diabetes mellitus, type 2 NIDDM Glucose stable Medical History History of recent hospitalization treated at [facility] emergency room on 01/04/23 for weakness and altered mental status. daughter states stroke/AR/TIA were all ruled out. patient was kept for observation with no diagnosis. possibly felt it may have been related to the anesthesia he had received on 01/02/23 for his Left cataract extraction, but patient has never had an issue in the past per his daughter. patient is doing well at this time and is home without any further complaints. 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 Left hand incision and drainage abscess dorsal hand. 2. Left fifth digit extensor tenosynovectomy in the hand. 3. Left fifth metacarpophalangeal joint arthrotomy and drainage. 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 -- able to repair arm History of esophagogastroduodenoscopy (EGD) History of total hip arthroplasty left 2019 History of tonsillectomy History of lumbar fusion x2 History of cholecystectomy 12/01/15 - MAC#4, ETT#8.0, Grade 1 View with easy placement Family History Mother Diabetes Father Heart disease Other Family history non-contributory No family history of adverse response to anesthesia Social History Smoking Status: Unknown if ever smoked Second Hand Exposure: No; Do You Dip or Chew Tobacco: No; Hx Alcohol Use: No Hx Substance Use: No Preferred Language: Greenlandic Communication Ability: Effective Philosophy Specialist Required: No Beliefs That Will Affect Care: None marital status: Current Living Situation: Family current occupational status: disabled Feels Safe at Home: Yes Assistive Devices: Cane and Glasses Review of Systems Review of Systems: All systems reviewed & are unremarkable except as noted in HPI & below Physical Exam Physical Exam: General: patient resting comfortably, NAD, non-toxic in appearance Skin: warm, dry, intact, no rashes or lesions HEENT: NC/AT, PERRL, EOMI, anicteric sclera, conjunctiva without injection, external ear normal to inspection and nontender, nares patent, moist mucus membranes, dentition intact, no oropharyngeal lesions, neck supple, trachea midline, no LAD, no thyromegaly, no JVD Heart: +S1/S2, regular, no m/r/g Lungs: equal air entry bilaterally, no rales/rhonchi/wheezes Abd: +BS, soft, NT/ND, no masses/organomegaly/ascites Ext: warm, 2+ pulses in UE/LE bilaterally, no clubbing/cyanosis or edema Neuro: nonfocal, patient AA&O x 4, speech intact, no facial droop, moving all extremities on command with equal strength 5/5 Results & Data Results & Data Vital Signs (Past 12 Hours) Vital Signs Temp Pulse Pulse Resp BP BP Pulse Ox 04/26/25 00:15 103 H 04/25/25 23:17 102 H 24 182/95 H 91 04/25/25 22:13 104 H 16 153/95 H 96 04/25/25 20:39 95 04/25/25 20:28 101 H 20 189/93 H 95 04/25/25 20:28 95 04/25/25 20:28 37.2 C 101 H 20 189/93 H 95 04/25/25 20:19 101 H O2 Del Method 04/26/25 00:15 04/25/25 23:17 Room Air 04/25/25 22:13 Room Air 04/25/25 20:39 Room Air 04/25/25 20:28 Room Air 04/25/25 20:28 Room Air 04/25/25 20:28 Room Air 04/25/25 20:19 Laboratory Results Laboratory Results WBC 5.97 K/ul (4.8-10.8) 04/25/25 20:21 RBC 3.99 M/uL (4.70-6.10) L 04/25/25 20:21 Hgb 13.2 g/dl (14.0-18.0) L 04/25/25 20:21 Hct 38.3 % (42.0-52.0) L 04/25/25 20:21 MCV 96.0 fL (80.0-100.0) 04/25/25 20:21 MCH 33.1 pg (25.0-34.0) 04/25/25 20: MCHC 34.5 g/dL (32.0-36.0) 04/25/25 20:21 RDW Std Deviation 47.6 fL (36.4-46.3) H 04/25/25 20:21 RDW Coeff of Tamara 13.2 % (11.5-14.5) 04/25/25: Plt Count 162 K/uL (130-400) 04/25/25 20:21 MPV 9.6 fL (9.4-12.4) 04/25/25 20:21 Immature Gran % (Auto) 0.3 % 04/25/25 20:21 Neut % (Auto) 77.9 % 04/25/25 20:21 Lymph % (Auto) 13.6 % 04/25/25 20:21 [place] % (Auto) 6.9 % 04/25/25 20:21 Eos % (Auto) 0.8 % 04/25/25 20:21 Baso % (Auto) 0.5 % 04/25/25 20:21 Neut # (Auto) 4.65 K/uL (1.40-6.50) 04/25/25 20:21 Lymph # (Auto) 0.81 K/uL (1.20-3.40) L 04/25/25 20:21 [place] # (Auto) 0.41 K/uL (0.11-0.59) 04/25/25 20:21 Eos # (Auto) 0.05 K/uL (0.00-0.50) 04/25/25 20:21 Baso # (Auto) 0.03 K/uL (0.00-0.20) 04/25/25 20:21 Immature Gran # (Auto) 0.02 K/uL (0.01-0.20) 04/25/25 20:21 PT 11.2 Seconds (9.0-12.0) 04/25/25 20:21 INR 1.1 (0.9-1.1) 04/25/25 20:21 Sodium 135 mmol/L (136-145) L 04/25/25 20:21 Potassium 4.4 mmol/L (3.5-5.1) 04/25/25 20:21 Chloride 99 mmol/L (98-107) 04/25/25 20:21 Carbon Dioxide 31 mmol/L (21-32) 04/25/25 20:21 Anion Gap 5 (3-11) 04/25/25 20:21 BUN 15 mg/dl (6-23) 04/25/25 20:21 Creatinine 1.22 mg/dl (0.6-1.4) 04/25/25 20:21 Est Cr Clr Drug Dosing 70.7 ml/min 04/25/25 20:21 eGFR 64.98 04/25/25 20:21 BUN/Creatinine Ratio 12.3 (10-20) 04/25/25 20:21 Glucose 284 mg/dl (70-99(Fasting)) H 04/25/25 20:21 Calcium 8.9 mg/dl (8.6-10.3) 04/25/25 20:21 Magnesium 1.3 mg/dl (1.7-2.4) L 04/25/25 20:21 Total Bilirubin 1.1 mg/dl (0.2-1.0) H 04/25/25 20:21 AST 225 U/L (13-39) H 04/25/25 20:21 ALT 126 U/L (7-52) H 04/25/25 20:21 Alkaline Phosphatase 118 U/L (34-104) H 04/25/25 20:21 Total Creatine Kinase 420 U/L (30-223) H 04/25/25 20:21 Troponin I High Sens 7.7 pg/ml (0-20) 04/25/25 20:21 Total Protein 6.9 gm/dl (6.0-8.3) 04/25/25 20:21 Albumin 3.5 gm/dl (3.4-5.0) 04/25/25 20:21 Globulin 3.4 gm/dl (2.5-4.0) 04/25/25 20:21 Albumin/Globulin Ratio 1.0 (0.9-2) 04/25/25 20:21 TSH 1.364 uIu/ml (0.300-4.500) 04/25/25 20:21 Urine Color Yellow 04/25/25 22:15 Urine Appearance Clear (Clear) 04/25/25 22:15 Urine pH 7.0 (4.5-7.5) 04/25/25 22:15 Ur Specific [place] 1.029 (1.000-1.030) 04/25/25: Urine Protein Negative (Negative) 04/25/25 22: Urine Glucose (UA) 3+ (Negative) H 04/25/25 22:15 Urine Ketones Negative (Negative) 04/25/25:15 Urine Blood Trace (Negative) H 04/25/25:15 Urine Nitrite Negative (Negative) 04/25/25 22:15 Urine Bilirubin Negative (Negative) 04/25/25 22:15 Urine Urobilinogen Negative (Negative) 04/25/25:15 Ur Leukocyte Esterase Negative (Negative) 04/25/25 22:15 Urine WBC (Auto) 0-5 /hpf (0-5) 04/25/25 22:15 Urine RBC (Auto) 3-5 /hpf (0-2) H 04/25/25 22:15 U Hyaline Cast (Auto) 0-2 /lpf (0-2) 04/25/25 22:15 U Epithel Cells (Auto) 0-2 /hpf (0-2) 04/25/25 22:15 Urine Bacteria (Auto) None Seen (None Seen) 04/25/25:15 Urine Comment 04/25/25 22:15 Adenovirus (PCR) Not Detected (NotDetected) 04/25/25 20:40 B. pertussis DNA (PCR) Not Detected (NotDetected) 04/25/25 20:40 B.parapertussis DNA PCR Not Detected (NotDetected) 04/25/25 20:40 C. pneumoniae DNA (PCR) Not Detected (NotDetected) 04/25/25 20:40 Coronavirus OC43 (PCR) Not Detected (NotDetected) 04/25/25 20:40 Coronavirus HKU1 (PCR) Not Detected (NotDetected) 04/25/25 20:40 Coronavirus 229E (PCR) Not Detected (NotDetected) 04/25/25 20:40 SARS-CoV-2 (PCR) Not Detected (NotDetected) 04/25/25 20:40 Coronavirus NL63 (PCR) Not Detected (NotDetected) 04/25/25 20:40 Human Metapneumovir PCR Not Detected (NotDetected) 04/25/25 20:40 Influenza Type A (PCR) Not Detected (NotDetected) 04/25/25 20:40 Influenza Type B (PCR) Not Detected (NotDetected) 04/25/25 20:40 M. pneumoniae (PCR) Not Detected (NotDetected) 04/25/25 20:40 Parainfluenza 1 (PCR) Not Detected (NotDetected) 04/25/25 20:40 Parainfluenza 2 (PCR) Not Detected (NotDetected) 04/25/25 20:40 Parainfluenza 3 (PCR) Not Detected (NotDetected) 04/25/25 20:40 Parainfluenza 4 (PCR) Not Detected (NotDetected) 04/25/25 20:40 RSV (PCR) Not Detected (NotDetected) 04/25/25 20:40 Entero/Rhino (PCR) Not Detected (NotDetected) 04/25/25 20:40 Impressions Chest X-Ray 04/25/25 20:36 Exam(s): XR CXR 1 VIEW EXAM: XR Chest, 1 View CLINICAL HISTORY: Reason for exam: weakness. TECHNIQUE: Frontal view of the chest. COMPARISON: 01/04/23 FINDINGS: Lungs: Mild pulmonary vascular congestion. No consolidation. Pleural space: Small left pleural effusion. No pneumothorax. Heart: Stable cardiac size. Mediastinum: Unremarkable. Normal mediastinal contour. Bones/joints: Unremarkable. No acute fracture. IMPRESSION: Mild pulmonary vascular congestion Electronically signed by: Grant Fisher MD 04/25/25 22:13 PM Pelvis X-Ray 04/25/25 20:36 Exam(s): XR PELVIS, 1-2 views EXAM: XR Pelvis, 1 or 2 Views CLINICAL HISTORY: Reason for exam: R hip pain. TECHNIQUE: Frontal view of the pelvis. COMPARISON: 04/25/25 FINDINGS: Bones/joints: Bilateral total hip arthroplasty. No acute fracture. No dislocation. Soft tissues: Unremarkable. IMPRESSION: No acute fracture Resolution of left hip joint dislocation seen on 04/25/25 Electronically signed by: Grant Fisher MD 04/25/25 22:09 PM Abdomen/Pelvis CT 04/25/25 21:34 Exam(s): CT ABDOMEN + PELVIS With Contrast IV Amt: 90 cc opti 320 EXAM: CT Abdomen and Pelvis With Intravenous Contrast CLINICAL HISTORY: Reason for exam: confusion. TECHNIQUE: Axial computed tomography images of the abdomen and pelvis with intravenous contrast. CTDI is 26 mGy and DLP is 1405 mGy-cm. Automated exposure control was utilized for the study. A dose lowering technique was utilized adhering to the principles of ALARA. CONTRAST: Patient received 90 cc opti 320 of IV contrast COMPARISON: No relevant prior studies available. FINDINGS: Lung bases: Subsegmental bibasilar atelectasis. ABDOMEN: Liver: Unremarkable. No mass. Gallbladder and bile ducts: Cholecystectomy. No ductal dilation. Pancreas: Unremarkable. No mass. No ductal dilation. Spleen: Unremarkable. No splenomegaly. Adrenals: Unremarkable. No mass. Kidneys and ureters: Subcentimeter left renal cyst; no follow-up indicated. No hydronephrosis. Stomach and bowel: Unremarkable. No mucosal thickening. No bowel obstruction. PELVIS: Appendix: Normal appendix. Bladder: Decompressed urinary bladder with Carter catheter in place. Reproductive: Prostate obscured by beam hardening artifact. ABDOMEN and PELVIS: Intraperitoneal space: Unremarkable. No free air, significant free fluid, or fluid collection. Bones/joints: Bilateral total hip arthroplasties. Osteopenia. Laminectomies, posterior hardware fixation, posterior osseous fusion, interbody fusion of the spine L2-S1. No acute fracture or dislocation. Soft tissues: Gynecomastia. Fat containing inguinal hernias, left larger than right. Vasculature: Atherosclerosis. No abdominal aortic aneurysm. Lymph nodes: Unremarkable. No enlarged lymph nodes. IMPRESSION: No acute findings in the abdomen or pelvis. Electronically signed by: Juju Truong M.D. 04/26/25 00:[address] 04/25/25 21:34 Exam(s): CT HEAD Without Contrast EXAM: CT Head Without Intravenous Contrast CLINICAL HISTORY: Reason for exam: fall. TECHNIQUE: Axial computed tomography images of the head/brain without intravenous contrast. Automated exposure control was utilized for the study. A dose lowering technique was utilized adhering to the principles of ALARA. COMPARISON: Prior head CT from June 14, 2023. FINDINGS: This study is limited secondary to motion artifact. Brain: Unremarkable. No hemorrhage. Advanced nonspecific white matter changes.. No edema. Ventricles: Mild ventriculomegaly. Bones/joints: Unremarkable. No acute fracture. Soft tissues: Unremarkable. Sinuses: Unremarkable as visualized. No acute sinusitis. Mastoid air cells: Unremarkable as visualized. No mastoid effusion. IMPRESSION: No evidence of acute intracranial pathology. Electronically signed by: Marley Fontenot MD 04/26/25 01:07 AM Shoulder X-Ray 04/25/25 21:34 Exam(s): XR LEFT SHOULDER, 2+ views EXAM: XR Left Shoulder Complete, 2 or More Views CLINICAL HISTORY: Reason for exam: left shoulder pain. TECHNIQUE: Two or more views of the left shoulder. COMPARISON: No relevant prior studies available. FINDINGS: Bones/joints: The bones are osteopenic. Mild degenerative arthritic changes at the left glenohumeral and left acromioclavicular joints. No acute fracture. No dislocation. Soft tissues: Unremarkable. IMPRESSION: No acute fracture Electronically signed by: Grant Fisher MD 04/25/25 22:15 PM PG Care Time/CCT Total # of Minutes Spent Total Time Spent with Patient: Total time spent is greater than 50% in coordination of care (as documented) at patient's floor/unit and/or counseling patient: Coding Level of Care Code 98682 INT INP/OBS CARE 3/75MIN Diagnoses Recurrent falls R29.6 Hypertension I10 Type 2 diabetes mellitus with diabetic neuropathy E11.40
--- NOTE | 2025-04-26 01:08 | CT Scan Report ---
Exam(s): CT HEAD Without Contrast EXAM: CT Head Without Intravenous Contrast CLINICAL HISTORY: Reason for exam: fall. TECHNIQUE: Axial computed tomography images of the head/brain without intravenous contrast. Automated exposure control was utilized for the study. A dose lowering technique was utilized adhering to the principles of ALARA. COMPARISON: Prior head CT from June 14, 2023. FINDINGS: This study is limited secondary to motion artifact. Brain: Unremarkable. No hemorrhage. Advanced nonspecific white matter changes.. No edema. Ventricles: Mild ventriculomegaly. Bones/joints: Unremarkable. No acute fracture. Soft tissues: Unremarkable. Sinuses: Unremarkable as visualized. No acute sinusitis. Mastoid air cells: Unremarkable as visualized. No mastoid effusion. IMPRESSION: No evidence of acute intracranial pathology. Electronically signed by: Marley Fontenot MD 04/26/25 01:07 AM
[2025-04-26] MEDS ORDERED: DOCUSATE SODIUM 100 MG CAP PO PRN (02:42)
[2025-04-26] MEDS ORDERED: ACETAMINOPHEN 325 MG TAB PO PRN (02:42)
[2025-04-26] MEDS ORDERED: DEXTROSE 50% 50 ML SYRINGE IV PRN (03:02)
[2025-04-26] MEDS ORDERED: GLUCAGON FOR INJ 1 MG VIAL SQ PRN (03:02)
[2025-04-26] MEDS ORDERED: GLUCOSE 40% GEL 15 GM TUBE PO PRN (03:02)
[2025-04-26] MEDS ORDERED: CARBOHYDRATES FOR HYPOGLYCEMIA PO PRN (03:02)
[2025-04-26] MEDS ORDERED: GLUCOSE 10 TAB/TUBE PO PRN (03:02)
[2025-04-26] MEDS: LACTATED RINGER'S 1,000 ML IV SCH (03:03)
[2025-04-26] MEDS: INSULIN ASPART PER UNIT CHARGE SC SCH (03:46)
--- NOTE | 2025-04-26 06:51 | Electrocardiogram Report ---
Test Reason : Blood Pressure : */* mmHG Vent. Rate : 100 BPM Atrial Rate : 100 BPM P-R Int : 230 ms QRS Dur : 104 ms QT Int : 356 ms P-R-T Axes : 66 -19 42 degrees QTcB Int : 459 ms Sinus rhythm with 1st degree A-V block Otherwise normal ECG When compared with ECG of 25-Apr-2025 05:25, Questionable change in QRS axis Nonspecific T wave abnormality no longer evident in Inferior leads Confirmed by Trenton Ely ([id number]) on 04/26/2025 6:50:45 AM Referred By: REFERRED SELF Confirmed By: Trenton Ely
[2025-04-26] MEDS: AMITRIPTYLINE HCL 25 MG TAB PO SCH (07:43)
[2025-04-26] MEDS: MEMANTINE HCL 10 MG TAB PO SCH (07:44)
[2025-04-26] MEDS: CARBIDOPA/LEVODOPA 25/100MG TAB PO SCH ×2 (07:44→17:44)
[2025-04-26] MEDS: ASPIRIN 81 MG ECTAB PO SCH (07:45)
[2025-04-26] MEDS: GABAPENTIN 300 MG CAP PO SCH (07:45)
[2025-04-26 08:36] LABS: Hematocrit (blood only) 36.1 % (42.0-52.0); Hemoglobin 12.3 g/dl (14.0-18.0); Mean Corpuscular Hemoglobin 32.6 pg (25.0-34.0); Mean Corpuscular Volume 95.8 fL (80.0-100.0); Platelet Count 148 K/uL (130-400); RDW Standard Deviation 46.3 fL (36.4-46.3); Red Blood Count 3.77 M/uL (4.70-6.10); White Blood Count 6.75 K/ul (4.8-10.8)
[2025-04-26 08:52] LABS: Alanine Aminotransferase 54.0 U/L (7-52); Albumin Level 3.1 gm/dl (3.4-5.0); Alkaline Phosphatase 94.0 U/L (34-104); Anion Gap 6.0 (3-11); Bilirubin,Total 1.4 mg/dl (0.2-1.0); Blood Urea Nitrogen 12.0 mg/dl (6-23); Calcium 8.6 mg/dl (8.6-10.3); Carbon Dioxide 28.0 mmol/L (21-32); Chloride 100.0 mmol/L (98-107); Creatinine Clr Calc Pharmacy 80.7 ml/min; Glucose 183.0 mg/dl (70-99(Fasting)); Magnesium 1.7 mg/dl (1.7-2.4); Potassium 3.9 mmol/L (3.5-5.1); Sodium 134.0 mmol/L (136-145); Total Protein 6.5 gm/dl (6.0-8.3)
[2025-04-26] MEDS ORDERED: CARBIDOPA/LEVODOPA 25/100MG TAB PO SCH (09:00)
--- NOTE | 2025-04-26 17:17 | Hospitalist Progress Note ---
Date of Service April 26, 2025 Assessment & Plan (1) Recurrent falls: (2) Urinary retention: (3) Hypertension: (4) Type 2 diabetes mellitus with diabetic neuropathy: Plan 65-year-old male with history of dementia, Parkinson's disease, diabetes, hypertension who presented with increased frequency of falls at home. Patient fell on 04/25 and had acute dislocation of his left hip which was reduced in the ED and he was placed in a left knee immobilizer. He fell again immediately upon return to his home after ER discharge. He has returned to the ER at the request of his family to pursue possible placement. Infectious workup unremarkable. Imaging including CXR, pelvis x-ray, CT A/P, head CT, shoulder x-ray without acute abnormalities/fractures. He had no complaints at the time of his admission. #Recurrent falls likely multifactorial, patient with history of Parkinson's disease Maintain fall precautions Left knee immobilizer ordered by ED physician on 04/25 after his left hip dislocation was reduced - can continue this when weightbearing/ambulating PT/OT recommending rehab #Urinary retention - Carter catheter placed in ED on presentation to ED - Will need void trial within the week - Can consider starting Flomax, will discuss with patient tomorrow 04/27 #Diabetes Hold oral agents, metformin and glimepiride, while inpatient Continue insulin sliding scale #Hypomagnesemia - Mag low at 1.3 on arrival, repleted and augmented appropriately - Now WNL at 1.7 on 04/26 - Will trend with AM labs to ensure mag level is remaining stable #Parkinson's Continue amitriptyline, carbidopa levodopa #Dementia Continue memantine #Rheumatoid arthritis Continue prednisone 1 mg p.o. daily, gabapentin 600 mg TID #Mental healthcontinue bupropion 150 mg daily VTE PPx: SCDs Dispo: PT/OT recommending rehab. CM following. Admission and Anticipated Discharge Date Admission Date: April 26, 2025 Subjective Patient seen and evaluated in bedside chair. He was evaluated by PT/OT earlier and reportedly his legs gave out when working with therapy and he was safely lowered to the ground. There was no true fall, no head strike, no injuries. We discussed that his imaging and infectious workup has been unremarkable. He states that he would be agreeable to rehab if that is what therapy is recomm ending. No acute complaints or concerns at this time. Physical Exam Physical Exam: General: No acute distress, nondiaphoretic, well-developed, well-nourished. Skin: Warm, dry. No rashes or peripheral edema noted. Cardiac: Regular rate and rhythm without murmurs gallops or rubs. Pulm: Clear to auscultation bilaterally without wheezes, rales or rhonchi. Normal respiratory effort. 95% on room air. Abdominal: Soft, nontender, nondistended. Bowel sounds present. MSK: Left lower extremity in immobilizer. Neuro: A&O x2 (person, place). No focal neurological deficits. Results & Data Results & Data Vital Signs (Past 12 Hours) Vital Signs Temp Pulse Resp BP Pulse Ox O2 Del Method 04/26/25 15:06 98.8 F 106 H 16 147/77 H 95 Room Air 04/26/25 07:54 98.4 F 101 H 18 138/82 92 Room Air Laboratory Results Reviewed CBC Reviewed CMP, chemistries Reviewed UA Reviewed respiratory bio fire Diagnostic Findings Reviewed CXR, pelvis x-ray, CT A/P, head CT, shoulder x-ray PG Care Time/CCT Total # of Minutes Spent Total Time Spent with Patient: Total time spent is greater than 50% in coordination of care (as documented) at patient's floor/unit and/or counseling patient: Coding Level of Care Code 41865 SUB INP/OBS CARE 2/35MIN Diagnoses Recurrent falls R29.6 Urinary retention R33.9 Hypertension I10 Type 2 diabetes mellitus with diabetic neuropathy E11.40
[2025-04-27 06:36] LABS: Hematocrit (blood only) 38.8 % (42.0-52.0); Hemoglobin 12.7 g/dl (14.0-18.0); Mean Corpuscular Hemoglobin 31.5 pg (25.0-34.0); Mean Corpuscular Volume 96.3 fL (80.0-100.0); Platelet Count 151 K/uL (130-400); RDW Standard Deviation 48.1 fL (36.4-46.3); Red Blood Count 4.03 M/uL (4.70-6.10); White Blood Count 7.41 K/ul (4.8-10.8)
[2025-04-27 06:57] LABS: Alanine Aminotransferase 21.0 U/L (7-52); Albumin Globulin Ratio 0.9 (0.9-2); Albumin Level 3.1 gm/dl (3.4-5.0); Alkaline Phosphatase 81.0 U/L (34-104); Anion Gap 7.0 (3-11); Bilirubin,Total 1.7 mg/dl (0.2-1.0); Blood Urea Nitrogen 16.0 mg/dl (6-23); Calcium 8.9 mg/dl (8.6-10.3); Carbon Dioxide 28.0 mmol/L (21-32); Chloride 101.0 mmol/L (98-107); Creatinine Clr Calc Pharmacy 72.5 ml/min; Globulin 3.4 gm/dl (2.5-4.0); Glucose 155.0 mg/dl (70-99(Fasting)); Magnesium 1.6 mg/dl (1.7-2.4); Potassium 4.2 mmol/L (3.5-5.1); Sodium 136.0 mmol/L (136-145); Total Protein 6.5 gm/dl (6.0-8.3)
[2025-04-27] MEDS: MAGNESIUM SULFATE / D5W 1 GM/100 ML BAG IV ONE (09:49)
[2025-04-27] MEDS: MAGNESIUM OXIDE 400 MG TAB PO SCH (13:13)
--- NOTE | 2025-04-27 14:10 | Hospitalist Progress Note ---
Date of Service April 27, 2025 Assessment & Plan (1) Recurrent falls: (2) Urinary retention: (3) Hypertension: (4) Type 2 diabetes mellitus with diabetic neuropathy: Plan 65-year-old male with history of dementia, Parkinson's disease, diabetes, hypertension who presented with increased frequency of falls at home. Patient fell on 04/25 and had acute dislocation of his left hip which was reduced in the ED and he was placed in a left knee immobilizer. He fell again immediately upon return to his home after ER discharge. He has returned to the ER at the request of his family to pursue possible placement. Infectious workup unremarkable. Imaging including CXR, pelvis x-ray, CT A/P, head CT, shoulder x-ray without acute abnormalities/fractures. He had no complaints at the time of his admission. #Recurrent falls likely multifactorial, patient with history of Parkinson's disease Maintain fall precautions Left knee immobilizer ordered by ED physician on 04/25 after his left hip dislocation was reduced - can continue this when weightbearing/ambulating PT/OT recommending rehab #Urinary retention - Carter catheter placed in ED on presentation to ED - Will need void trial within the week - Start Flomax 0.4 mg HS #Hypomagnesemia - Mag low at 1.3 on arrival, repleted and augmented appropriately. Now mildly low again at 1.6. Has been intermittently low in the past as well - Repleted with 1 g mag IV x 1 today 04/27 - Start mag-ox 400 mg p.o. BID - Trend with AM labs #Diabetes Hold oral agents, metformin and glimepiride, while inpatient Continue insulin sliding scale #Parkinson's Continue amitriptyline, carbidopa levodopa #Dementia Continue memantine #Rheumatoid arthritis Continue prednisone 1 mg p.o. daily, gabapentin 600 mg TID #Mental health continue bupropion 150 mg daily VTE PPx: SCDs Dispo: PT/OT recommending rehab. CM following. Repleted with IV mag Started oral mag supplement Admission and Anticipated Discharge Date Admission Date: April 26, 2025 Subjective Patient seen and evaluated at bedside. He reports feeling well overall. He feels ready to "leave" and we discussed that we are awaiting rehab placement. We also discussed starting a magnesium supplement due to his recurrent hypomagnesemia. He asked for a Coke soda, I provided this to him and informed his nurse for carb counting. No additional complaints or concerns at this time. Physical Exam Physical Exam: General: No acute distress, nondiaphoretic, well-developed, well-nourished. Skin: Warm, dry. No rashes or peripheral edema noted. Cardiac: Regular rate and rhythm without murmurs gallops or rubs. Pulm: Clear to auscultation bilaterally without wheezes, rales or rhonchi. Normal respiratory effort. 91% on room air. Abdominal: Soft, nontender, nondistended. Bowel sounds present. Neuro: A&O x2 (person, place). No focal neurological deficits. Results & Data Results & Data Vital Signs (Past 12 Hours) Vital Signs Temp Pulse Resp BP Pulse Ox O2 Del Method 04/27/25 07:40 98.4 F 107 H 20 141/77 H 91 Room Air Laboratory Results Reviewed CBC Reviewed CMP PG Care Time/CCT Total # of Minutes Spent Total Time Spent with Patient: Total time spent is greater than 50% in coordination of care (as documented) at patient's floor/unit and/or counseling patient: Coding Level of Care Code 19085 SUB INP/OBS CARE 3/50MIN Diagnoses Recurrent falls R29.6 Urinary retention R33.9 Hypertension I10 Type 2 diabetes mellitus with diabetic neuropathy E11.40
[2025-04-27] MEDS: TAMSULOSIN HCL 0.4 MG CAP PO SCH (20:25)
[2025-04-28] VITALS: RESP 18
[2025-04-28 15:46] VITALS: PULSE 110
[2025-04-28] MEDS ORDERED: MAGNESIUM HYDROXIDE SUSP 30 ML UDC PO PRN (17:33)
--- NOTE | 2025-04-28 20:56 | Hospitalist Progress Note ---
Date of Service April 28, 2025 Assessment & Plan (1) Recurrent falls: (2) Urinary retention: (3) Hypertension: (4) Type 2 diabetes mellitus with diabetic neuropathy: Plan 65-year-old male with history of dementia, Parkinson's disease, diabetes, hypertension who presented with increased frequency of falls at home. Patient fell on 04/25 and had acute dislocation of his left hip which was reduced in the ED and he was placed in a left knee immobilizer. He fell again immediately upon return to his home after ER discharge. He has returned to the ER at the request of his family to pursue possible placement. Infectious workup unremarkable. Imaging including CXR, pelvis x-ray, CT A/P, head CT, shoulder x-ray without acute abnormalities/fractures. He had no complaints at the time of his admission. #Recurrent falls likely multifactorial, patient with history of Parkinson's disease Maintain fall precautions Left knee immobilizer ordered by ED physician on 04/25 after his left hip dislocation was reduced - can continue this when weightbearing/ambulating PT/OT recommending rehab #Urinary retention - Carter catheter placed in ED on presentation - Will need void trial within the week - Started on Flomax 0.4 mg HS - continue #Hypomagnesemia - Mag low at 1.3 on arrival, repleted and augmented appropriately. Then mildly low again at 1.6. Has been intermittently low in the past as well - Mag WNL at 1.7 after repletion/supplementation - Started mag-ox 400 mg p.o. BID - continue #Diabetes Hold oral agents, metformin and glimepiride, while inpatient Continue insulin sliding scale #Parkinson's Continue amitriptyline, carbidopa levodopa #Dementia Continue memantine #Rheumatoid arthritis Continue prednisone 1 mg p.o. daily, gabapentin 600 mg TID #Mental health continue bupropion 150 mg daily VTE PPx: SCDs Dispo: Medically stable for discharge. Accepted at [facility] - awaiting open bed. Ordered more aggressive bowel regimen Admission and Anticipated Discharge Date Admission Date: April 26, 2025 Supervising Physician Co-Signing Physician Notes Attending Attestation: Chart reviewed, care plan d/w PRAVEEN Cordova. I agree w/ the navarro components of her documentation. Tachycardia on vital signs - check EKG, r/o PAT/PAF/etc. Previous EKG with NSR. DVT proph - would add chemical means with heparin or lovenox SC. Adam De Luna MD Subjective Patient seen and evaluated at bedside. He reports feeling constipated and wants a more aggressive bowel regimen. He denies abdominal pain or nausea. He is well-tolerating his diet. We discussed increasing his bowel regimen and that we are still waiting for [facility] to have an open bed. No additional complaints or concerns at this time. Physical Exam Physical Exam: General: No acute distress, nondiaphoretic, well-developed, well-nourished. Skin: Warm, dry. No rashes or peripheral edema noted. Cardiac: Well-perfused. Rate in 100s. Pulm: Normal respiratory effort. 92% on room air. Abdominal: Soft, nontender, nondistended. Bowel sounds present. Neuro: A&O x2 (person, place). No focal neurological deficits. Results & Data Results & Data Vital Signs (Past 12 Hours) Vital Signs Temp Pulse Resp BP Pulse Ox O2 Del Method 04/28/25 15:46 98.9 F 110 H 18 144/89 H 92 Room Air Laboratory Results Reviewed magnesium level PG Care Time/CCT Total # of Minutes Spent Total Time Spent with Patient: Total time spent is greater than 50% in coordination of care (as documented) at patient's floor/unit and/or counseling patient: Coding Level of Care Code 37038 SUB INP/OBS CARE 2/35MIN Diagnoses Recurrent falls R29.6 Urinary retention R33.9 Hypertension I10 Type 2 diabetes mellitus with diabetic neuropathy E11.40
[2025-04-28 21:52] VITALS: TEMP 98.2
[2025-04-29] MEDS: ONDANSETRON INJ 2 MG/ML 2 ML VIAL IV PRN (02:01)
[2025-04-29 07:34] VITALS: BP 138/79; O2SAT 91
[2025-04-29] MEDS: POLYETHYLENE (MIRALAX) 17 GM PACK PO SCH (09:35)
[2025-04-29] MEDS: PERFLUTREN LIPID MICROSPHERE (DEFINITY) IV ONE (10:25)
[2025-04-29] MEDS: INFLUENZA VACC TS2025-26(65y+)/PF (IIV3) 0.5mL Syr IM ONE (13:51)
[2025-04-29] MEDS: PNEUMOCOCCAL VACCINE (PCV20) 20-VAL CONJ-DIP CRM/PF 0.5 ML SYR IM ONE (13:51)
--- NOTE | 2025-04-29 16:34 | XCELERA ---
[id number]
--- NOTE | 2025-04-29 18:04 | Discharge Summary ---
Discharge Summary Date of Service April 29, 2025 Principal Dx & Hospital Course #1 = Principal Diagnosis (1) Recurrent falls: (2) Urinary retention: (3) Sinus tachycardia: (4) Type 2 diabetes mellitus with diabetic neuropathy: Plan 65-year-old male with history of dementia, Parkinson's disease, diabetes, hypertension who presented with increased frequency of falls at home. Patient fell on 04/25 and had acute dislocation of his left hip which was reduced in the ED and he was placed in a left knee immobilizer. He fell again immediately upon return to his home after ER discharge. He has returned to the ER at the request of his family to pursue possible placement. Infectious workup unremarkable. Imaging including CXR, pelvis x-ray, CT A/P, head CT, shoulder x-ray without acute abnormalities/fractures. He had no complaints at the time of his admission. #Recurrent falls likely multifactorial, patient with history of Parkinson's disease Maintain fall precautions Left knee immobilizer ordered by ED physician on 04/25 after his left hip dislocation was reduced - can continue this when weightbearing/ambulating PT/OT recommended rehab #Urinary retention - Carter catheter placed in ED on presentation - Will need void trial within 1 week - Started on Flomax 0.4 mg HS - continue #Hypomagnesemia - Mag low at 1.3 on arrival, repleted and augmented appropriately. Then mildly low again at 1.6. Has been intermittently low in the past as well - Mag WNL at 1.7 after repletion/supplementation - Started mag-ox 400 mg p.o. BID - continue #Sinus Tachycardia - HR in 90-100s since 2018 - Patient is reportedly asymptomatic regarding this tachycardia - Echocardiogram obtainedEF 60-65%, no regional wall motion abnormalities, moderate concentric LVH, no significant valvular abnormalities - TSH WNL - Recommend further workup in outpatient setting #Diabetes Hold oral agents, metformin and glimepiride, while inpatient - resumed on discharge Used insulin sliding scale while admitted #Parkinson's Continue amitriptyline, carbidopa levodopa #Dementia Continue memantine #Rheumatoid arthritis Continue prednisone 1 mg p.o. daily, gabapentin 600 mg TID #Mental health continue bupropion 150 mg daily VTE PPx: SCDs Dispo: Discharge to [facility] 04/29 Notes For Next Care Provider Discharged with Carter catheter for urinary retentionWill need void trial within 1 week, likely at [facility]. Patient has persistent sinus tachycardia with heart rates ranging [id number]. This has been ongoing for several years. Recommend further workup in outpatient setting regarding this. Medication Changes From Visit Started Flomax 0.4 mg HS Recommend continuing magnesium oxide 400 mg twice daily supplement available [id number] as no prescription was provided. Admission HPI Per Admitting Provider Patient is a 65yo male with history of Parkinson's, Dementia, DM, HTN and RA with increased falls at home presenting with another fall. Patient was getting up to go to the bathroom yesterday and his feet caught the door and he fell onto his left hip. He was seen in the ER and found to have dislocation of the hip which was successfully reduced. Patient returned home and had another fall - striking his left shoulder and left hip. No head trauma or LOC. Patient having difficulty caring for himself at home. He has a daughter that lives nearby and she needed to lift him into the house today. Requesting evaluation for placement. In the ER he is afebrile, tachycardic, BP stable Discharge Exam General: No acute distress, nondiaphoretic, well-developed, well-nourished. Skin: Warm, dry. No rashes or peripheral edema noted. Cardiac: Well-perfused. Rate in 100s. Pulm: Normal respiratory effort. 92% on room air. Abdominal: Soft, nontender, nondistended. Bowel sounds present. Neuro: A&O x2 (person, place). No focal neurological deficits. Discharge Plan Discharge Items Patient Disposition: Transfer Inpatient Rehab Fac Reason For Visit: FREQUENT FALLS Discharge Diagnosis: Frequent falls, generalized weakness Condition on Discharge: Fair Activity: Resume your previous activity Non-emergency contact: Primary Care Provider Call non-emergency contact if: you have any medication questions and your symptoms worsen Follow-up/Referrals: Mina Miller, [Primary Care Provider] - (Follow-up in 1-2 weeks) Diet: Carb Consistent or DM2 Diet Texture: Easy to Chew Addtl Attending Provider Instructions: Mr. Santoyo, You were admitted to the hospital due to recurrent falls. You had extensive imaging done which was negative for acute abnormalities or fractures. You also had an infectious workup which was negative. You did have urinary retention, and a Carter catheter was placed. You had an echocardiogram (ultrasound of your heart) done due to your persistent tachycardia (elevated heart rate); this report is still pending - it can be follow-up on by your doctor at [facility] or your PCP. You are being discharged to [facility] for inpatient rehab. Upon discharge from the hospital: * You were started on Flomax 0.4 mg daily. This is to help with your urinary retention. * You were started on mag-ox 400 mg twice daily. This is to supplement your magnesium. This is available over the counter so no prescription is required. * Continue your other home medications as prescribed. * Follow the additional instructions provided to you on discharge from [facility]. * Follow-up with your PCP in 1-2 weeks from your discharge from [facility]. FOR [facility]: * Carter catheter was placed on arrival to ED on 04/26/2025. Please perform voiding trial this week. * Please follow-up on echocardiogram results (done on 04/29) or have PCP follow- up on these results. Pending Studies at Discharge: No Stand-Alone Forms: My [facility] Skilled Items Patient informed of condition?: Yes DNR: No Discharge Level of Care: Acute rehab Communicable Disease: No Discharge Prognosis: Stable Lines: None Urinary Catheter: Yes Medications and DC Order Prescriptions: New tamsulosin 0.4 mg Capsule 0.4 mg PO HS Qty: 30 0RF Continued amitriptyline 75 mg tablet 75 mg PO DAILY memantine 10 mg tablet 10 mg PO BID Qty: 60 6RF prednisone 1 mg tablet 1 mg PO DAILY leflunomide 20 mg tablet 20 mg PO DAILY bupropion HCl [Wellbutrin SR] 150 mg Tablet Sustained-Release 12 Hr 150 mg PO QAM metformin 500 mg tablet 1,000 mg PO BID glimepiride 2 mg tablet 2 mg PO QAM gabapentin 300 mg capsule 600 mg PO TID aspirin 81 mg Tablet,Delayed Release (Dr/Ec) 81 mg PO QAM Qty: 30 0RF tramadol 50 mg tablet 50 mg PO Q8 PRN (Reason: Pain) Rx Instructions: per daughter carbidopa-levodopa 25-100 mg tablet See Rx Instructions .ROUTE .COMPLEX Rx Instructions: 1.5 tabs po for the first two doses of the day, 1 tab for the last two doses of the day Discharge Orders: Discharge Order (Routine); Ordered 04/29/25 Ordered By: Roselyn Cordova Admission Data Admit Date/Time: 04/26/25 00:48 Attending Provider: Adam De Luna Admit Provider: Denia Moses Primary Care Provider: Mina Miller Other Providers: Denia Moses; [facility] Other Interventions: Discharge Summary Assessment (RN) Last Done: 04/29/25 12:51 Hospital Stay Data Consultations 04/26/25 00:25 ED Decision to Admit Stat Diagnostic Imagining Performed Chest X-Ray 04/25/25 20:36 Exam(s): XR CXR 1 VIEW EXAM: XR Chest, 1 View CLINICAL HISTORY: Reason for exam: weakness. TECHNIQUE: Frontal view of the chest. COMPARISON: 01/04/23 FINDINGS: Lungs: Mild pulmonary vascular congestion. No consolidation. Pleural space: Small left pleural effusion. No pneumothorax. Heart: Stable cardiac size. Mediastinum: Unremarkable. Normal mediastinal contour. Bones/joints: Unremarkable. No acute fracture. IMPRESSION: Mild pulmonary vascular congestion Electronically signed by: Grant Fisher MD 04/25/25 22:13 PM Pelvis X-Ray 04/25/25 20:36 Exam(s): XR PELVIS, 1-2 views EXAM: XR Pelvis, 1 or 2 Views CLINICAL HISTORY: Reason for exam: R hip pain. TECHNIQUE: Frontal view of the pelvis. COMPARISON: 04/25/25 FINDINGS: Bones/joints: Bilateral total hip arthroplasty. No acute fracture. No dislocation. Soft tissues: Unremarkable. IMPRESSION: No acute fracture Resolution of left hip joint dislocation seen on 04/25/25 Electronically signed by: Grant Fisher MD 04/25/25 22:09 PM Abdomen/Pelvis CT 04/25/25 21:34 Exam(s): CT ABDOMEN + PELVIS With Contrast IV Amt: 90 cc opti 320 EXAM: CT Abdomen and Pelvis With Intravenous Contrast CLINICAL HISTORY: Reason for exam: confusion. TECHNIQUE: Axial computed tomography images of the abdomen and pelvis with intravenous contrast. CTDI is 26 mGy and DLP is 1405 mGy-cm. Automated exposure control was utilized for the study. A dose lowering technique was utilized adhering to the principles of ALARA. CONTRAST: Patient received 90 cc opti 320 of IV contrast COMPARISON: No relevant prior studies available. FINDINGS: Lung bases: Subsegmental bibasilar atelectasis. ABDOMEN: Liver: Unremarkable. No mass. Gallbladder and bile ducts: Cholecystectomy. No ductal dilation. Pancreas: Unremarkable. No mass. No ductal dilation. Spleen: Unremarkable. No splenomegaly. Adrenals: Unremarkable. No mass. Kidneys and ureters: Subcentimeter left renal cyst; no follow-up indicated. No hydronephrosis. Stomach and bowel: Unremarkable. No mucosal thickening. No bowel obstruction. PELVIS: Appendix: Normal appendix. Bladder: Decompressed urinary bladder with Carter catheter in place. Reproductive: Prostate obscured by beam hardening artifact. ABDOMEN and PELVIS: Intraperitoneal space: Unremarkable. No free air, significant free fluid, or fluid collection. Bones/joints: Bilateral total hip arthroplasties. Osteopenia. Laminectomies, posterior hardware fixation, posterior osseous fusion, interbody fusion of the spine L2-S1. No acute fracture or dislocation. Soft tissues: Gynecomastia. Fat containing inguinal hernias, left larger than right. Vasculature: Atherosclerosis. No abdominal aortic aneurysm. Lymph nodes: Unremarkable. No enlarged lymph nodes. IMPRESSION: No acute findings in the abdomen or pelvis. Electronically signed by: Juju Truong M.D. 04/26/25 00:[address] 04/25/25 21:34 Exam(s): CT HEAD Without Contrast EXAM: CT Head Without Intravenous Contrast CLINICAL HISTORY: Reason for exam: fall. TECHNIQUE: Axial computed tomography images of the head/brain without intravenous contrast. Automated exposure control was utilized for the study. A dose lowering technique was utilized adhering to the principles of ALARA. COMPARISON: Prior head CT from June 14, 2023. FINDINGS: This study is limited secondary to motion artifact. Brain: Unremarkable. No hemorrhage. Advanced nonspecific white matter changes.. No edema. Ventricles: Mild ventriculomegaly. Bones/joints: Unremarkable. No acute fracture. Soft tissues: Unremarkable. Sinuses: Unremarkable as visualized. No acute sinusitis. Mastoid air cells: Unremarkable as visualized. No mastoid effusion. IMPRESSION: No evidence of acute intracranial pathology. Electronically signed by: Marley Fontenot MD 04/26/25 01:07 AM Shoulder X-Ray 04/25/25 21:34 Exam(s): XR LEFT SHOULDER, 2+ views EXAM: XR Left Shoulder Complete, 2 or More Views CLINICAL HISTORY: Reason for exam: left shoulder pain. TECHNIQUE: Two or more views of the left shoulder. COMPARISON: No relevant prior studies available. FINDINGS: Bones/joints: The bones are osteopenic. Mild degenerative arthritic changes at the left glenohumeral and left acromioclavicular joints. No acute fracture. No dislocation. Soft tissues: Unremarkable. IMPRESSION: No acute fracture Electronically signed by: Grant Fisher MD 04/25/25 22:15 PM Pending Results Patient Have Any Pending Studies at Discharge: No Discharge Instructions Given to Patient (Per Discharging Provider) Mr. Santoyo, Manuel were admitted to the hospital due to recurrent falls. You had extensive imaging done which was negative for acute abnormalities or fractures. You also had an infectious workup which was negative. You did have urinary retention, and a Carter catheter was placed. You had an echocardiogram (ultrasound of your heart) done due to your persistent tachycardia (elevated heart rate); this report is still pending - it can be follow-up on by your doctor at [facility] or your PCP. You are being discharged to [facility] for inpatient rehab. Upon discharge from the hospital: * You were started on Flomax 0.4 mg daily. This is to help with your urinary retention. * You were started on mag-ox 400 mg twice daily. This is to supplement your magnesium. This is available over the counter so no prescription is required. * Continue your other home medications as prescribed. * Follow the additional instructions provided to you on discharge from [facility]. * Follow-up with your PCP in 1-2 weeks from your discharge from [facility]. [facility]: * Carter catheter was placed on arrival to ED on 04/26/2025. Please perform voiding trial this week. * Please follow-up on echocardiogram results (done on 04/29) or have PCP follow- up on these results. Total Time Total Time Spent Total Time Spent (In Minutes): Greater than 30 minutes spent completing this discharge process including direct patient care, medication reconciliation, documentation, review of labs and images, and coordination of care. Coding Level of Care Code 93281 INP/OBS DISCH >30 MIN Diagnoses Recurrent falls R29.6 Urinary retention R33.9 Sinus tachycardia R00.0 Type 2 diabetes mellitus with diabetic neuropathy E11.40
--- NOTE | 2025-05-04 11:58 | Electrocardiogram Report ---
Test Reason : Blood Pressure : */* mmHG Vent. Rate : 110 BPM Atrial Rate : 110 BPM P-R Int : 214 ms QRS Dur : 100 ms QT Int : 330 ms P-R-T Axes : 52 -3 35 degrees QTcB Int : 446 ms Sinus tachycardia with 1st degree A-V block possible Inferior infarct , age undetermined Abnormal ECG When compared with ECG of 25-Apr-2025 20:21, No significant change was found Confirmed by Pascual Buchanan ([id number]) on 05/04/2025 11:58:20 AM Referred By: REFERRED SELF Confirmed By: Pascual Buchanan
== END 2025-04-29 13:52 | DRG 93 ==
LOC: ED 20:08 → SUATTDRO 04-26 00:48 → 3N 04-26 00:48